=== PATIENT | female | born 1990 | race Caucasian/White ===

== ENCOUNTER 2021-12-24 09:14 | Emergency (ER) | payer OTHER, SELFPAY ==
[2021-12-24 09:15] VITALS: BP 158/105; PULSE 130; RESP 18; TEMP 36.1; O2SAT 100; BMI 20.9
--- NOTE | 2021-12-24 09:31 | RAD_ITS ---
STUDY: X-RAY CHEST REASON FOR EXAM: Female, 31 years old. Substernal chest pain TECHNIQUE: Single AP portable view of the chest. COMPARISON: None. FINDINGS: EKG leads overlie the chest The lungs are clear and expanded. There is no demonstrated pleural abnormality. Normal size heart. Normal mediastinum and izabel. Normal visualized pulmonary arteries. Normal visualized aortic arch and descending thoracic aorta. Normal visualized thoracic spine. Normal visualized ribs, clavicles, and shoulders. There is no demonstrated abnormality of the visualized soft tissue structures of the upper abdomen. RAD/Chest 1 View (Portable) IMPRESSION: Normal x-ray examination of the chest. Electronically Signed: Wilfrido Howard MD at 10:31 EDT ,
--- NOTE | 2021-12-24 09:31 | EKG12_ITS ---
Test Reason : PALP Blood Pressure : / mmHG Vent. Rate : 116 BPM Atrial Rate : 116 BPM P-R Int : 158 ms QRS Dur : 070 ms QT Int : 322 ms P-R-T Axes : 080 070 024 degrees QTc Int : 447 ms Sinus tachycardia Biatrial enlargement Abnormal ECG Confirmed by RUCHI ALVARADO, THEODORE ([id number]), editorial intern HAKEEM HANSEN ([id number]) on 12/26/2021 12:47:07 PM Referred By: NADEEM Confirmed By:THEODORE HOPPER MD
[2021-12-24 10:05] LABS: Absolute Lymphocyte Count 1.47 X10^3/uL (0.83-4.51); Absolute Neutrophil Count 4.5 X10^3/uL (2.0-7.7); Basophil# 0.05 X10^3/uL; Basophil% 0.7 % (0-1); Eosinophil# 0.09 X10^3/uL; Eosinophils% 1.3 % (0-5); Hematocrit 48.1 % (37-47); Hemoglobin 16.5 g/dL (12.0-15.0); Lymphocyte # 1.47 X10^3/ul (0.83-4.51); Lymphocyte % 21.6 % (19-41); Mean Corp Hgb Conc 34.3 g/dL (32-36); Mean Corpuscular Hgb 29.2 pg (27.0-32.0); Mean Corpuscular Volume 85.1 fL (81-99); Mean Platelet Vol. 10.1 fl (6.2-12.0); Monocyte# 0.71 X10^3/uL; Monocyte% 10.4 % (0-10); NRBC Flagged by Analyzer 0 % (0-5); Neutrophil # 4.48 X10^3/uL (2.7-7.7); Neutrophil % 65.7 % (47-70); Platelet Count 225 K/mm3 (150-450); RBC Distribution Width CV 12.1 % (11.6-14.6); RBC Distribution Width SD 37.8 fl (35.1-43.9); Red Blood Count 5.65 M/mm3 (4.2-5.4); White Blood Count 6.8 K/mm3 (4.4-11.0)
[2021-12-24 10:16] LABS: Anion Gap 8 (5-15); BUN 10 mg/dL (7-18); BUN/Creat Ratio 14.1 RATIO (10-20); Calcium,Total 9.6 mg/dL (8.5-10.1); Chloride 106 mmol/L (98-107); Creatinine, Serum 0.71 mg/dL (0.55-1.02); EST Glomerular Filtration Rate 103 mL/min (>60); Est Glom Filt Rate - Afr Amer 125 mL/min (>60); Estimated Creatinine Clearance 108.83 ml/min; Glucose 112 mg/dL (74-106); Potassium 3.5 mmol/L (3.5-5.1); Sodium Level 138 mmol/L (136-145); Troponin-I HS 7 pg/mL (3.0-54.0)
--- NOTE | 2021-12-24 10:46 | EDS_ITS ---
HPI History of Present Illness Chief Complaint: Palpitations Detail of Chief Complaint: No chest pain. No shortness of breath. Accelerated heart rate. Informant: patient Onset/Context/Timing Onset: Weeks Activity at onset: gradual Timing: Intermittent Worsened By: Nothing Relieved By: Nothing Associated Symptoms: Positive for Nausea and Palpitations; Negative for Vomiting, Diaphoresis, Dyspnea, Cough, Fever, Lightheadedness or Acid Reflux Narrative Narrative: Healthy 31-year-old female currently about 5 weeks . No care as of yet. That is upcoming. Patient's had COVID twice. June last year October. She did well. She is never had a DVT or PE. No hemoptysis. No chest pain. No leg pain or swelling. States the last couple weeks she has had intermittent tachycardia. 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 This morning while working her heart rate went to 142 that she saw on her apple watch. No syncope. She does not feel dehydrated. States she is peeing well. No fever. No melena or diarrhea. She has no cardiac history. She has never had a DVT or PE. Her mom did wants when she was . Prior Similar Symptoms: No Recent Illness/Hospitalization: No CVD Risk Factors: Negative for Hypertension, Diabetes, Hypercholesterolemia or Smoking PE Risk Factors: Negative for Recent Travel/Surgery, Recent Immobilization, Prior DVT or PE, Cancer or OCP + Smoking + >/=35 TAD Risk Factors: Negative for Marfan's Syndrome or Hypertension [facility] Medical History COVID-19 Vasovagal syncope Home Medications multivitamin 1 tab PO DAILY 01/13/21 [History Last Taken Unknown] Allergy/AdvReac Type Severity Reaction Status Date / Time amoxicillin Allergy Intermediate Rash Verified 12/24/21 09:15 cefprozil [From Cefzil] Allergy Intermediate Rash Verified 12/24/21 09:15 Family History Father Hypertension Obesity Hyperlipidemia Aunt Breast cancer Grandmother Breast cancer Myelodysplastic syndrome Hypertension Parkinsons Dementia Grandfather Heart disease Kidney disease Diabetes Hypertension CVA (cerebral vascular accident) Myocardial infarction Mother Osteopenia Surgical History History of oral surgery History of tonsillectomy and adenoidectomy Social History household members: spouse number of children: 0 current occupational status: employed 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 Review of Systems ROS Unobtainable: Denies due to encephalopathy Constitutional Constitutional ED: Denies chills Eyes Eyes: Denies none ENT ENT ED: Denies ear pain Cardiovascular Cardiovascular: Reports as per HPI, palpitations and racing heartbeat; Denies chest pain Respiratory/Chest Respiratory/Chest: Denies cough or dyspnea Gastrointestinal Gastrointestinal: Reports nausea; Denies abdominal pain, constipation, diarrhea, melena or vomiting Genitourinary Genitourinary ED: Denies dysuria or hematuria Musculoskeletal Musculoskeletal: Denies arthralgias Integumentary Denies abscess Neurologic Neurologic: Denies headache(s) Psychiatric Psychiatric: Reports anxiety Endocrine Endocrinology: Denies cold intolerance Hematologic/Lymphatic Hematologic/Lymphatic: Denies easy bleeding Allergic/Immunologic Allergic/Immunologic ED: Denies mouth swelling EXAM Physical Exam Narrative Exam Narrative: Very well-appearing 31-year-old female. No acute distress. Heart rate is 131 on the monitor while resting in bed. Pulse ox 100% on room air. Initial blood pressure 158/105. She says she does get anxious when she is being evaluated by medical personnel. H EENT exam unremarkable. Moist use membranes. Neck nontender no JVD. No lymphadenopathy. Lungs clear to auscultation bilaterally. Heart tachycardic rate about 130 no murmur. Abdomen soft nontender normal bowel sounds no peritoneal signs. Moving all 4 extremities. Equal symmetrical radial pulses. Calves are nontender without edema or cords. Neurologic exam normal. Const Vital Signs: 12/24/21 09:15 12/24/21 11:06 12/24/21 11:06 Temperature 97.0 F L Temperature Source Temporal Pulse Rate 130 H 109 H Respiratory Rate 18 16 Respiratory Effort Blood Pressure 158/105 H 139/83 H Blood Pressure Mean 122 101 Pulse Ox 100 99 99 Oxygen Delivery Method Room Air Room Air Room Air 12/24/21 11:08 Temperature Temperature Source Pulse Rate Respiratory Rate Respiratory Effort Normal Non-Labored Blood Pressure Blood Pressure Mean Pulse Ox Oxygen Delivery Method Positive well nourished and well developed; Negative for obese, cachectic or contractures General Appearance ED: well developed; Negative for cachectic, contractures or pallor Nutritional Appearance: Negative for cachectic or obese HEENT Reports moist mucous membranes normocephalic and atraumatic; Negative for trauma or tenderness Eyes PERRL and EOMs intact bilaterally General Eye ED: Negative for pale conjunctiva or scleral icterus Neck no lymphadenopathy, supple and no JVD General: Negative for tenderness Chest Wall inspection of chest normal and palpation of chest normal Resp normal respiratory effort and clear to auscultation bilaterally Effort and Inspection: respiratory distress; Negative for pain with movement Auscultation: Negative for rales, rhonchi or wheezes Cardio regular rhythm, S1 normal heart sound and S2 normal heart sound; Negative for regular rate Rate: tachycardic GI normal to inspection, nondistended, normoactive bowel sounds, soft to palpation, non-tender, non-distended and no masses; Negative for hepatosplenomegaly Palpation: Negative for splenomegaly or mass Back/Spine no CVA tenderness and no thoracic nor lumbar tenderness Extremity normal to inspection General Extremety ED: Negative for edema or pulses abnormal General Extremity: Negative for edema or pulses abnormal Neuro oriented x3, CN's II-XII intact bilaterally and no sensory deficits noted Sensorium / Orientation: awake, alert, oriented to person, oriented to place and oriented to time; Negative for confused, lethargic or stuporous Motor Exam: strength 5/5 throughout Psych mental status grossly normal Mood & Affect: anxious Skin no rashes or lesions noted and no wounds General Skin Exam: Negative for jaundice or pallor Rashes: No rashes noted Trauma: Negative for abrasion or laceration MDM MDM MDM Narrative Medical decision making narrative: 31-year-old female 5 weeks with tachycardia. Undergo cardiac work-up including a D-dimer. She will be treated with a liter of normal saline. Her initial EKG was sinus tachycardia rate of 116. Repeat exam at 1218 patient doing well. Resting comfortably. We went over all her lab and other results. When I walked in the room her heart rate was 103 either begin talking and jumped up to 121 so this may be related to a white coat syndrome or an anxiety. I doubt that she needs any further testing at this time. It could also be related to her prior COVID but nothing that I can directly relate to that currently. She has a OB appointment next month. Lab Data Attestation: I reviewed the patient's lab results. Lab results narrative: CBC White count of 6. H&H is 16 and 48. Platelets 225. Electrolytes unremarkable gap of 8. BUN 10 creatinine 0.71. Glucose of 112. Troponin 7. Chest x-ray normal. D-dimer normal 0.35. Labs: Laboratory Results - last 24 hr 12/24/21 12/24/21 12/24/21 09:51 09:51 09:51 WBC 6.8 RBC 5.65 H Hgb 16.5 H Hct 48.1 H MCV 85.1 MCH 29.2 MCHC 34.3 RDW Std Deviation 37.8 RDW Coeff of Duong 12.1 Plt Count 225 MPV 10.1 Immature Gran % (Auto) 0.300 Neut % (Auto) 65.7 Lymph % (Auto) 21.6 Cache % (Auto) 10.4 H Eos % (Auto) 1.3 Baso % (Auto) 0.7 Absolute Neuts (auto) 4.5 Absolute Lymphs (auto) 1.47 Nucleated RBC % 0 D-Dimer Quant (PE/DVT) 0.35 Sodium 138 Potassium 3.5 Chloride 106 Carbon Dioxide 24.0 Anion Gap 8 BUN 10 Creatinine 0.71 Estim Creat Clear Calc 108.83 Est GFR (MDRD) Af Amer 125 Est GFR (MDRD) Non-Af 103 BUN/Creatinine Ratio 14.1 Glucose 112 H Calcium 9.6 Troponin I High Sens 7 Radiography Chest X-Ray - ED: 1 View, Read by ED Physician, Read by Radiologist, Heart, Lungs, Mediastinum, Bony Structures and No Acute Disease Diagnostic Testing: Clinical Impression(s) from Imaging Studies Chest X-Ray 12/24/21 09:31 IMPRESSION: Normal x-ray examination of the chest. Electronically Signed: Wilfrido Howard MD at 10:31 EDT , Chest x-ray portable, single view interpreted myself and radiologist as no acute abnormality. Normal cardiac silhouette. Normal mediastinum. Normal lung mas. Rhythm Strip Rhythm Strip: Sinus Tach Rate: 116 EKG Initial EKG: Attestation: I personally reviewed and interpreted this EKG as follows: Interpretation: Sinus Tachycardia Comments: Sinus tachycardia rate of 116 no acute signs of ND, ischemia or dysrhythmia. Discharge Plan Triage Chief Complaint: Palpitations ED Provider: Edy Montiel Dx/Rx/DC Orders Clinical Impression: Tachycardia, First trimester Instructions: ED Palpitations Prescriptions: No Action multivitamin Tablet 1 tab PO DAILY Primary Care Provider: Kj Weeks Referrals: Kj Weeks MD [Primary Care Provider] - As Needed Activity Restrictions/Additional Instructions: No specific cause for your accelerated heart rate. It may be secondary to likely whitecoat syndrome or anxiety. Your labs, EKG and chest x-ray are unremarkable. Plenty of fluids and rest. Follow-up with your primary care physician as needed. Keep your scheduled OB appointment next month. Start slowly getting back into her normal exercise routine. Disposition Disposition: Home, Self Care
[2021-12-24] MEDS: 0.9% Normal Saline 1,000 ML 999 ML IV (11:04)
[2021-12-24 11:06] VITALS: BP 139/83; PULSE 109; RESP 16; O2SAT 99
[2021-12-24 11:11] LABS: D-Dimer Quantitative (DVT/PE) 0.35 FEU/ug/m (0.27-0.49)
[2021-12-24 12:40] VITALS: BP 128/76; PULSE 74; RESP 16; O2SAT 98
== END 2021-12-24 12:42 | disposition home or self-care (01) ==
PROVIDERS: Emergency Provider Emergency Medicine; PCP Family Medicine; Visit Provider Emergency Medicine
DX: O99.891 Other specified diseases and conditions complicating pregnancy (principal); R00.0 Tachycardia, unspecified; Z3A.01 Less than 8 weeks gestation of pregnancy; Z86.16 Personal history of COVID-19; Z82.49 Family history of ischemic heart disease and other diseases of the circulatory system
CPT/HCPCS: 71045; 80048; 84484; 85025; 85379; 93005; 96360; 99284; J7030; A4216

== ENCOUNTER → 2022-01-11 | Outpatient (CLI) | payer OTHER, SELFPAY ==
--- NOTE | 2022-01-11 07:45 | US_ITS ---
STUDY: ULTRASOUND BREAST - LEFT REASON FOR EXAM: Female, 31 years old. 4 week history of left axillary lump. Patient is . TECHNIQUE: Axial and longitudinal images of the LEFT breast were performed with a high resolution ultrasound transducer. # OF IMAGES: 26 COMPARISON: None. FINDINGS: LEFT Breast: The left axillary region was examined with ultrasound. There is a 1.1 cm x 0.8 side about 0.7 cm benign-appearing lymph node. Adjacent to this, there is a 2.9 cm x 1.6 cm x 0.8 cm hypoechoic nodule with central echogenic structures suggestive of an inflamed edematous lymph node. Follow-up is recommended. US/Breast Limited Unilateral IMPRESSION: Findings suggestive of enlarged inflamed lymph node measuring 2.9 cm x 1.6 cm x 0.8 cm. Sonographic follow-up is recommended. ASSESSMENT CATEGORY: BIRADS Category 3: Probably Benign - Short-Interval Follow-up Suggested. A letter regarding these results will be sent to the patient by the facility within 30 days. Electronically Signed: Alfredo Pan MD at 9:17 EDT ,
== END | disposition home or self-care (01) ==
LOC: OPUS 07:44
PROVIDERS: PCP Family Medicine; Visit Provider Obstetrics & Gynecology
DX: O92.29 Other disorders of breast associated with pregnancy and the puerperium (principal); Z3A.00 Weeks of gestation of pregnancy not specified
CPT/HCPCS: 76642

== ENCOUNTER → 2022-01-26 | Outpatient (CLI) | payer OTHER, SELFPAY ==
[2022-01-26 12:30] LABS: Absolute Lymphocyte Count 1.58 X10^3/uL (0.83-4.51); Absolute Neutrophil Count 7.2 X10^3/uL (2.0-7.7); Basophil# 0.03 X10^3/uL; Basophil% 0.3 % (0-1); Eosinophil# 0.07 X10^3/uL; Eosinophils% 0.7 % (0-5); Hematocrit 40.4 % (37-47); Hemoglobin 14.4 g/dL (12.0-15.0); Lymphocyte # 1.58 X10^3/ul (0.83-4.51); Lymphocyte % 16.2 % (19-41); Mean Corp Hgb Conc 35.6 g/dL (32-36); Mean Corpuscular Hgb 29.4 pg (27.0-32.0); Mean Corpuscular Volume 82.6 fL (81-99); Mean Platelet Vol. 10.5 fl (6.2-12.0); Monocyte# 0.81 X10^3/uL; Monocyte% 8.3 % (0-10); NRBC Flagged by Analyzer 0 % (0-5); Neutrophil # 7.24 X10^3/uL (2.7-7.7); Neutrophil % 74.3 % (47-70); Platelet Count 210 K/mm3 (150-450); RBC Distribution Width CV 11.7 % (11.6-14.6); RBC Distribution Width SD 34.5 fl (35.1-43.9); Red Blood Count 4.89 M/mm3 (4.2-5.4); White Blood Count 9.8 K/mm3 (4.4-11.0)
[2022-01-26 12:49] LABS: NATERA MAILED SPECIMEN
[2022-01-26 13:20] LABS: Amphetamine Urine VISTA NEGATIVE (<1000 ng/mL); Barbiturate Urine VISTA NEGATIVE (< 200 ng/mL); Benzodiazepine Urine VISTA NEGATIVE (< 200 ng/mL); Cocaine Urine VISTA NEGATIVE (< 300 ng/mL); Ecstacy Urine VISTA NEGATIVE (< 500 ng/mL); Methadone Urine VISTA NEGATIVE (< 300 ng/mL); PCP Urine VISTA NEGATIVE (< 25 ng/mL); THC Urine VISTA NEGATIVE (< 50 ng/mL); Vista UDS pH Range 5
[2022-01-26 13:30] LABS: HIV - WCH Non-Reactive (Nonreactive); Hepatitis B Surface Antigen Non-Reactive (Nonreactive); Hepatitis C Antibody Non-Reactive (Nonreactive); Rubella IgG Reactive (Nonreactive); Syphilis Antibodies Non-reactive
[2022-01-30 22:06] LABS: Chlamydia By Nucleic Acid AMP Negative (Negative)
[2022-01-30 23:02] LABS: Gonococcus By Nucleic Acid AMP Negative (Negative)
== END | disposition home or self-care (01) ==
PROVIDERS: PCP Family Medicine; Visit Provider Obstetrics & Gynecology
DX: Z34.81 Encounter for supervision of other normal pregnancy, first trimester (principal)
CPT/HCPCS: 36415; 80307; 85025; 86703; 86762; 86780; 86803; 86850; 86900; 86901; 87086; 87088; 87340; 87491; 87591

== ENCOUNTER → 2022-02-13 | Outpatient (CLI) | payer OTHER, SELFPAY ==
--- NOTE | 2022-02-13 07:49 | US_ITS ---
STUDY: ULTRASOUND BREAST - LEFT REASON FOR EXAM: Female, 31 years old. Left axillary lump. The patient is . TECHNIQUE: Axial and longitudinal images of the LEFT breast were performed with a high resolution ultrasound transducer. # OF IMAGES: 14 COMPARISON: Comparison is made with prior study dated 01/11/2022. FINDINGS: LEFT Breast: There is a 4.4 cm x 2.8 cm x 1 cm hypoechoic nodular density in the left axilla with increased vascularity. This has increased in size as compared to prior study. Biopsy is recommended. Stable appearance of 2 benign-appearing axillary lymph nodes. US/Breast Limited Unilateral IMPRESSION: Increased size of the hypoechoic nodular density in the left axilla with increased vascularity. Biopsy recommended. ASSESSMENT CATEGORY: BIRADS Category 4: Suspicious - Biopsy Should Be Considered. A letter regarding these results will be sent to the patient by the facility within 30 days. Electronically Signed: Alfredo Pan MD at 14:54 EDT ,
== END | disposition home or self-care (01) ==
LOC: OPUS 07:48
PROVIDERS: PCP Family Medicine; Referring Provider Obstetrics & Gynecology; Visit Provider Obstetrics & Gynecology
DX: N63.25 Unspecified lump in the left breast, overlapping quadrants (principal)
CPT/HCPCS: 76642

== ENCOUNTER → 2022-02-23 | Outpatient (CLI) | payer OTHER, SELFPAY ==
--- NOTE | 2022-02-23 14:30 | AXNB_PTH ---
PATIENT: ROMERO GRAJEDA LOC: [facility] U#:[id number] AGE/SX: 31/F ROOM: RE02/23/[address]: Dr. Petr Chase MD : 1990 BED: DIS: 02/23/2022 SPEC #: [id number] RECD: 02/23/22 15:11 STATUS: YOJANA ACUÑAOfelia #: [id number] IRENA: 02/23/22 14:[address]: Petr Chase DEPT: SURGICAL PATHOLOGY RECD BY: Santos Benedict ENTERED: 02/24/22 08:14 SP TYPE: AX NODE BX OTHR DR: Tasha Chapa DO Tissues: Axillary lymph node, NOS Procedures: Surgery Specimen Level V HEADER OPERATION: Excision, left axillary node PRE-OP DIAGNOSIS: Left axillary mass TISSUE SUBMITTED: Left axillary mass MICROSCOPIC DIAGNOSIS Left axillary mass, biopsy: Consistent with tubular adenoma of breast. AM:mickey 02/27/2022 COMMENT Case has been reviewed in consultation with Dr. Talley who concurs with the above diagnosis. IDC:SJ MICROSCOPIC DESCRIPTION Slides are reviewed. GROSS DESCRIPTION Received in fixative is one container labeled with the patient's name and designated left axillary mass. The specimen consists of a piece of jim soft tissue measuring 2.5 x 1.5 x 1.5 cm. The entire specimen is submitted in two cassettes. / BEREKET:mickey 02/24/2022 TC:1 CPT: 78937
== END | disposition home or self-care (01) ==
LOC: LABSPEC 15:12
PROVIDERS: PCP Family Medicine; Visit Provider Surgery
DX: D24.2 Benign neoplasm of left breast (principal)
CPT/HCPCS: 88305; 88307

== ENCOUNTER → 2022-04-03 | Outpatient (CLI) | payer OTHER, SELFPAY ==
--- NOTE | 2022-04-03 11:23 | US_ITS ---
INDICATION: anatomy EXAMINATION: US OB Greater Than 14 Weeks TECHNIQUE: Transabdominal pelvic ultrasound was performed, including limited transvaginal imaging of cervix.. COMPARISON: None received. FINDINGS: Single live intrauterine fetus in cephalic presentation with heart rate of 136 BPM. Grade 0 anterior placenta with no placenta previa. Closed cervix measures 4.4 cm length transvaginally. Maternal adnexa are imaged but ovaries are not visualized. Amniotic fluid volume within normal limits, largest pocket of fluid measuring 5 cm. Visualized and unremarkable intracranial structures, facial profile, four-chamber heart, diaphragm, stomach, abdominal wall, kidneys, urinary bladder, three-vessel umbilical cord, cord insertion, spine and 4 extremities. Female genitalia suggested. Estimated gestational age of 19 weeks 5 days based on biometrics with SCOTT of 08/23/2022. Clinical age of 20 weeks 1 day based on established LMP of 11/13/2021 with SCOTT of 08/20/2022. Estimated weight 319 g, 31st percentile. BIOMETRIC MEASUREMENTS: BIPARIETAL DIAMETER: 4.59 cm which corresponds to 19 weeks 6 days. HEAD CIRCUMFERENCE: 16.95 cm which corresponds to 19 weeks 4 days. ABDOMINAL CIRCUMFERENCE: 14.74 cm which corresponds to 20 weeks 0 days. FEMORAL LENGTH: 3.12 cm which corresponds to 19 weeks 5 days. US/OB Anatomy Scan IMPRESSION: Single live intrauterine with EGA of 19 weeks 5 days by ultrasound and no acute abnormality. Electronically Signed: Ion Velez MD at 3:53 EDT ,
== END | disposition home or self-care (01) ==
LOC: US 11:22
PROVIDERS: PCP Family Medicine; Referring Provider Obstetrics & Gynecology; Visit Provider Obstetrics & Gynecology
DX: Z34.02 Encounter for supervision of normal first pregnancy, second trimester (principal)
CPT/HCPCS: 76805; 76817

== ENCOUNTER → 2022-05-15 | Outpatient (CLI) | payer OTHER, SELFPAY ==
[2022-05-15 11:10] LABS: Absolute Lymphocyte Count 1.63 X10^3/uL (0.83-4.51); Absolute Neutrophil Count 5.7 X10^3/uL (2.0-7.7); Basophil# 0.03 X10^3/uL; Basophil% 0.4 % (0-1); Eosinophil# 0.55 X10^3/uL; Eosinophils% 6.5 % (0-5); Hematocrit 37.2 % (37-47); Hemoglobin 13.1 g/dL (12.0-15.0); Lymphocyte # 1.63 X10^3/ul (0.83-4.51); Lymphocyte % 19.2 % (19-41); Mean Corp Hgb Conc 35.2 g/dL (32-36); Mean Corpuscular Hgb 30.7 pg (27.0-32.0); Mean Corpuscular Volume 87.1 fL (81-99); Mean Platelet Vol. 9.7 fl (6.2-12.0); Monocyte# 0.61 X10^3/uL; Monocyte% 7.2 % (0-10); NRBC Flagged by Analyzer 0 % (0-5); Neutrophil # 5.65 X10^3/uL (2.7-7.7); Neutrophil % 66.3 % (47-70); Platelet Count 177 K/mm3 (150-450); RBC Distribution Width CV 12.8 % (11.6-14.6); RBC Distribution Width SD 40.3 fl (35.1-43.9); Red Blood Count 4.27 M/mm3 (4.2-5.4); White Blood Count 8.5 K/mm3 (4.4-11.0)
[2022-05-15 11:31] LABS: Glucose Challenge Gest 1H 50g 141 mg/dL (70-140)
[2022-05-15 12:06] LABS: HIV - WCH Non-Reactive (Nonreactive); Syphilis Antibodies Non-reactive
== END | disposition home or self-care (01) ==
LOC: LAB 10:13
PROVIDERS: PCP Family Medicine; Referring Provider Obstetrics & Gynecology; Visit Provider Obstetrics & Gynecology
DX: Z34.82 Encounter for supervision of other normal pregnancy, second trimester (principal)
CPT/HCPCS: 36415; 82950; 85025; 86703; 86780; 86900; 86901

== ENCOUNTER → 2022-05-18 | Outpatient (CLI) | payer OTHER, SELFPAY ==
[2022-05-18 07:39] LABS: Glucose GTT-Gestation. Fasting 87 mg/dL (<105)
[2022-05-18 08:32] LABS: Glucose GTT-Gestational 1 Hr 110 mg/dL (<190)
[2022-05-18 10:18] LABS: Glucose GTT-Gestational 2 Hr 90 mg/dL (<165)
[2022-05-18 10:53] LABS: Glucose GTT-Gestational 3 Hr 83 L (<145)
== END | disposition home or self-care (01) ==
LOC: LAB 06:44
PROVIDERS: PCP Family Medicine; Visit Provider Obstetrics & Gynecology
DX: Z13.1 Encounter for screening for diabetes mellitus (principal)
CPT/HCPCS: 36415; 82951; 82952

== ENCOUNTER → 2022-06-29 | Outpatient (CLI) | payer OTHER, SELFPAY ==
--- NOTE | 2022-06-29 12:17 | US_ITS ---
STUDY: SECOND AND THIRD TRIMESTER OBSTETRICAL ULTRASOUND - LIMITED REASON FOR EXAM: Female, 31 years old covid, growth LMP: 11/10/2021. PRIOR ULTRASOUND: Comparison is made with prior sonogram dated 04/03/2022. TECHNIQUE: Transabdominal TECHNICAL QUALITY: Adequate. FINDINGS: There is a single intrauterine fetus. The fetus is in a cephalic presentation. There is demonstrated cardiac activity with a heart rate of 125 bpm. There is a normal amniotic fluid volume. The largest amniotic fluid pocket measures 4.0 cm. The amniotic fluid index (GENEVA) is 13.0 cm. The placenta is anterior in location and is not low lying. There are Grade 1 placental changes. The cervix measures 3.7 cm in length. BIOMETRY: BPD: 8.1 cm: 32 weeks, 3 days HC: 29.2 cm: 32 weeks, 1 days AC: 28.4 cm: 32 weeks, 3 days FL: 6.0 cm: 31 weeks, 2 days Age by LMP: 32 weeks, 4 days. SCOTT by LMP: 08/20/2022. age by prior US: 32 weeks, 1 days. SCOTT by prior US: 08/23/2022. age by current US: 31 weeks, 5 days. SCOTT by current US: 08/26/2022. Estimated weight: 1921 grams, +/- 288 grams, 29 percentile. US/OB Limited With Biometrics IMPRESSION: Single live intrauterine gestation with mean gestational age of 32 weeks and 1 day. The measurements obtained today fall within the normal expected range. Electronically Signed: Alfredo Pan MD at 15:12 EST ,
== END | disposition home or self-care (01) ==
LOC: OPUS 12:16
PROVIDERS: PCP Family Medicine; Referring Provider Registered Nurse; Visit Provider Registered Nurse
DX: U07.1 COVID-19 (principal); Z3A.32 32 weeks gestation of pregnancy
CPT/HCPCS: 76816

== ENCOUNTER → 2022-07-24 | Outpatient (CLI) | payer OTHER, SELFPAY ==
--- NOTE | 2022-07-24 07:53 | US_ITS ---
STUDY: SECOND AND THIRD TRIMESTER OBSTETRICAL ULTRASOUND - LIMITED REASON FOR EXAM: Female, 31 years old covid, growth LMP: 11/13/2021. PRIOR ULTRASOUND: Comparison is made with prior study dated 06/29/2022. TECHNIQUE: Transabdominal TECHNICAL QUALITY: Adequate. FINDINGS: There is a single intrauterine fetus. The fetus is in a cephalic presentation. There is demonstrated cardiac activity with a heart rate of 148 bpm. There is a normal amniotic fluid volume. The largest amniotic fluid pocket measures 3.2 cm. The amniotic fluid index (GENEVA) is 8.3 cm. The placenta is anterior in location and is not low lying. There are Grade 1 placental changes. The cervix measures 3.1 cm in length. BIOMETRY: BPD: 8.88 cm: 35 weeks, 6 days HC: 31.71 cm: 35 weeks, 5 days AC: 32.06 cm: 36 weeks, 0 days FL: 6.98 cm: 35 weeks, 5 days Age by LMP: 36 weeks, 1 days. SCOTT by LMP: 08/20/2022. age by prior US: 35 weeks, 2 days. SCOTT by prior US: 08/26/2022. age by current US: 35 weeks, 3 days. SCOTT by current US: 08/25/2022. Estimated weight: 2834 grams, +/- 425 grams, 49 percentile. US/OB Limited With Biometrics IMPRESSION: Single live intrauterine gestation with a mean gestational age of 35 weeks and 2 days. The measurements obtained today following within the normal expected range. Electronically Signed: Alfredo Pan MD at 13:08 EST ,
== END | disposition home or self-care (01) ==
LOC: OPUS 07:51
PROVIDERS: PCP Family Medicine; Referring Provider Registered Nurse; Visit Provider Registered Nurse
DX: O98.513 Other viral diseases complicating pregnancy, third trimester (principal); U07.1 COVID-19; Z3A.35 35 weeks gestation of pregnancy
CPT/HCPCS: 76816

== ENCOUNTER → 2022-07-26 | Outpatient (CLI) | payer OTHER, SELFPAY | END | disposition home or self-care (01) | LOC: LABSPEC 10:25 | PROVIDERS: PCP Family Medicine; Referring Provider Registered Nurse; Visit Provider Registered Nurse | DX: Z36.85 Encounter for antenatal screening for Streptococcus B (principal) | CPT/HCPCS: 87081 ==

== ENCOUNTER 2022-08-18 23:55 | Inpatient (IN) | payer OTHER, SELFPAY ==
[2022-08-18 23:11] VITALS: BMI 24.5
[2022-08-18 23:14] VITALS: TEMP 36.4
[2022-08-18 23:18] VITALS: PULSE 86; O2SAT 99
[2022-08-18 23:25] VITALS: BP 155/91; PULSE 76
[2022-08-18 23:26] VITALS: BP 152/89; PULSE 81
[2022-08-18 23:42] VITALS: BP 141/87; PULSE 75
[2022-08-19] VITALS (45 sets, daily range): BP systolic 115–143; BP diastolic 70–94; PULSE 67–115; RESP 16–18; TEMP 36.5–37.6; O2SAT 97–100
[2022-08-19 00:30] LABS: Absolute Lymphocyte Count 2.06 X10^3/uL (0.83-4.51); Absolute Neutrophil Count 8.5 X10^3/uL (2.0-7.7); Basophil# 0.04 X10^3/uL; Basophil% 0.3 % (0-1); Eosinophils% 1.7 % (0-5); Hematocrit 38.8 % (37-47); Hemoglobin 13.4 g/dL (12.0-15.0); Lymphocyte # 2.06 X10^3/ul (0.83-4.51); Lymphocyte % 17.2 % (19-41); Mean Corp Hgb Conc 34.5 g/dL (32-36); Mean Corpuscular Hgb 29.8 pg (27.0-32.0); Mean Corpuscular Volume 86.4 fL (81-99); Mean Platelet Vol. 10.6 fl (6.2-12.0); Monocyte# 1.05 X10^3/uL; Monocyte% 8.8 % (0-10); NRBC Flagged by Analyzer 0 % (0-5); Neutrophil # 8.52 X10^3/uL (2.7-7.7); Neutrophil % 71.2 % (47-70); Platelet Count 154 K/mm3 (150-450); RBC Distribution Width CV 12.7 % (11.6-14.6); RBC Distribution Width SD 39.8 fl (35.1-43.9); Red Blood Count 4.49 M/mm3 (4.2-5.4)
[2022-08-19 00:43] LABS: AST(SGOT) 14 U/L (15-37); Alanine Aminotransfer ALT/SGPT 18 U/L (13-56); Creatinine, Serum 0.58 mg/dL (0.55-1.02); EST Glomerular Filtration Rate 131 mL/min (>60); Est Glom Filt Rate - Afr Amer 158 mL/min (>60); Estimated Creatinine Clearance 133.98 ml/min; Uric Acid 4.9 mg/dL (2.6-6.0)
[2022-08-19] MEDS: fentaNYL-bupivacaine (epidural) 100 ML BAG EPIDURAL ×2 (01:44→05:46)
[2022-08-19 01:56] LABS: Protein, Urine (Random) 6.5 mg/dL (<11.9); Protein:Creat Ratio 267 mg/g CRE (0-200)
[2022-08-19] MEDS: Lactated Ringers 1,000 ML 200 ML IV ×2 (04:28)
--- NOTE | 2022-08-19 07:00 | HP.PCM.OB_ITS ---
HPI - General General Date of Admission: 08/18/22 Chief Complaint: contractions HPI Narrative ROMERO GRAJEDA, is a 31 F who presents at 39+6 with regular contractions since 6pm last evening with worsening intensity/strength. course complicated by -covid 19- normal growth scans Maternal Data Information SCOTT Calculator Estimated Delivery Date Method Current WG Current Estimate 08/20/22 Ultrasound #1 39w 6d Other Estimates 08/26/22 LMP (Certain) 39w 0d PFSH PFS Medical History COVID-19 Palpitations Vasovagal syncope Home Medications hojhtubu-zmp-Se-FA 1 mg tablet 1 tab PO DAILY 08/18/22 [History Last Taken 08/17/22] Allergy/AdvReac Type Severity Reaction Status Date / Time amoxicillin Allergy Intermediate Rash Verified 08/18/22 09:04 cefprozil [From Cefzil] Allergy Intermediate Rash Verified 08/18/22 09:04 Family History Father Hypertension Obesity Hyperlipidemia Aunt Breast cancer Grandmother Breast cancer Myelodysplastic syndrome Hypertension Parkinsons Dementia Grandfather Heart disease Kidney disease Diabetes Hypertension CVA (cerebral vascular accident) Myocardial infarction Mother Osteopenia Surgical History H/O excision of mass (~02/2022) History of oral surgery History of tonsillectomy and adenoidectomy Social History adopted: No household members: spouse housing: house number of children: 0 current occupational status: employed 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 [employer] pets and animals: No history of recent travel: No sexually active: Yes Smoking Status: Never smoker alcohol intake: former details: prior to 1 drink a month substance use type: does not use well-balanced diet: daily or most days caffeine: Yes Type: other Number of servings: 1 eating out: rarely or never during the past year weight has: remained stable what type of physical activity do you participate in: bicycling and weight training frequency: 1-2 times per week puma/worship: [employer] seatbelt use: always do you feel safe at home: Yes additional social history: - Castillo History 1 Elective abortions Hx Para 0 Spontaneous abortions Hx # Term Pregnancies Ectopic pregnancies Hx # Pregnancies Multiple births # of living children Visit Details Expected Delivery Route/Plan Labor Preferences- CB/BF classes: signed up for all three labor support 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 cut cord/dad catch: Castillo or both : yes PP control planned: discussed discussed possible routes of delivery and associated risks: [] special requests: [] Plans Covid status: [] Flu vaccine: obtained at work Tdap vaccine: provided Rhogam: na LARC form signed: yes Problem list reviewed and updated with the most current plan of care details and appropriate orders placed. Relevant counseling for the gestational age provided. Continue routine care and follow up unless otherwise noted in visit notes/problem list details OB Flowsheet Initial Weight: Not Recorded Date -?-?-?-?-?-?-?-?-?-?-?-?- EGA Weight BP Urine Prot -?-?-?-?-?-?-?-?-?-?-?-?- Glucose FHR FuHt Pres Dilation -?-?-?-?-?-?-?-?-?-?-?-?- Effaced St Visit Note 01/26/22 -?-?-?-?-?-?-?-?-?-?-?-?- 10w 4d 127 lb 146/80 -?-?-?-?-?-?-?-?-?-?-?-?- 171 -?-?-?-?-?-?-?-?-?-?-?-?- JV- CRL not cons istent with lmp. [place] given 02/28/22 -?-?-?-?-?-?-?-?-?-?-?-?- 15w 2d 126 lb 130/80 Negative -?-?--?-?-?-?-?-?-?-?-?-?- Negative 150 -?-?-?-?-?-?-?-?-?-?-?-?- SM- no vb conrad ng. bps nl at home 127/78. 03/28/22 -?-?-?-?-?-?-?-?-?-?-?-?- 19w 2d 131 lb 6 oz 144/62 Nega tive -?-?-?-?-?-?-?-?-?-?-?-?- Negative 153 -?-?-?-?-?-?-?-?-?-?-?-?- :No VB, crampi ng. Feeling flutters. [facility] [place] 04/0304/25/22 -?-?-?-?-?-?-?-?-?-?-?-?- 23w 2d 135 lb 132/80 -?-?-?-?-?-?-?-?-?-?-?-?- 151 23 -?-?-?-?-?-?-?-?-?-?-?-?- JV- plan r eviewed today. no complaints 05/26/22 -?-?-?-?-?-?-?-?-?-?-?-?- 27w 5d 140 lb 4 oz 134/80 Nega tive -?-?-?-?-?-?-?-?-?-?-?-?- Negative 136 28 -?-?-?-?-?-?-?-?-?-?-?-?- JV- no lof, vagi nal bleeding, or dec fm. 06/12/22 -?-?-?-?-?-?-?-?-?-?-?-?- 30w 1d 142 lb 2 oz 156/84 -?-?-?-?-?-?--?-?-?-?-?-?- 135 30 Cephalic -?-?-?-?-?-?-?-?-?-?-?-?- LC-no lof, vb,ct x. good fm. has growth scan ordered. LC-no lof, vb,ctx. good fm. has growth scan ordered. tdap given today. no concerns. BP at home 110-120/70-80 LC-no lof, vb,ctx. good fm. has growth scan ordered. tdap given today. no concerns. BP at home 110-120/70-80. repeat manual BP 130/70. PEC s/sx reviewed. LC-no lof, vb,ctx. good fm. has growth scan ordered. tdap given today. no concerns. BP at home 110-120/70-80. repeat manual BP 130/70. PEC s/sx reviewed. no s/sx today. 06/23/22 -?-?-?-?-?-?-?-?-?-?-?-?- 31w 5d 145 lb 8 oz 133/81 Nega tive -?-?-?-?-?-?-?-?-?-?-?-?- Negative 140 31 -?-?-?-?-?-?-?-?-?-?-?-?- JV- no lof, vagi nal bleeding, or dec fm. no complaints. pt had 3 hr and was normal. 07/04/22 -?-?-?-?-?-?-?-?-?-?-?-?- 33w 2d 146 lb 6 oz 134/76 Nega tive -?-?-?-?-?-?-?-?-?-?-?-?- Negative 142 33 -?-?-?-?-?-?-?-?-?-?-?-?- MH-NO VB, LOF. G ood FM. larc. 36 wk US sched. 07/21/22 -?-?-?-?-?-?-?-?-?-?-?-?- 35w 5d 130/83 Negative -?-?-?-?-?-?-?-?-?-?-?-?- Negative 140 34 Cephalic -?-?-?-?-?-?-?-?-?-?-?-?- SM- no vb lof go od fm no reuglar ctx 07/26/22 -?-?-?-?-?-?-?-?-?-?-?-?- 36w 3d 147 lb 132/80 Negative -?-?-?-?-?-?-?-?-?-?-?-?- Negative 140 35 Cephalic 1 -?-?-?-?-?-?-?-?-?-?-?-?- 30 -3 LC- no vb/ ctx/lof. good fm. gbs obtained today.growth scan normal 08/04/22 -?-?-?-?-?-?-?-?-?-?-?-?- 37w 5d 148 lb 8 oz 129/87 Nega tive -?--?-?-?-?-?-?-?-?-?-?-?- Negative 143 36 -?-?-?-?-?-?-?-?-?-?-?-?- JV- no lof, vagi nal bleeding, or dec fm. gbs neg. declines pelvic exam. 08/10/22 -?-?-?-?-?-?-?-?-?-?-?-?- 38w 4d 148 lb 8 oz 136/85 Nega tive -?-?-?-?-?-?-?-?-?-?-?-?- Negative 148 37 Cephalic 1 -?-?-?-?-?-?-?-?-?-?-?-?- 60 -2 JV- no lof , vaginal bleeding, or dec fm. 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 08/18/22 -?-?-?-?-?-?-?-?-?-?-?-?- 39w 5d 151 lb 4 oz 138/87 Nega tive -?-?-?-?-?-?-?-?-?-?-?-?- Negative 140 38 Cephalic 3 -?-?-?-?-?-?-?-?-?-?-?-?- 70 -1 SM- no vb lof good fm no regular ctx SM- no vb lof good fm no reg ular ctx. membranes swept NST FHR Rate Baby A Baseline: 140 Variability:: Moderate Accelerations:: 15 x 15 Decelerations:: None NST Reactive:: Yes FHR Category:: Category I Uterine Activity:: q2-3 minutes, palp strong ROS Cardiovascular Cardiovascular: Denies abdominal pain, chest pain, diaphoresis or dyspnea Respiratory/Chest Respiratory/Chest: Denies chest tightness or cough Genitourinary Genitourinary: Reports change in urinary stream Musculoskeletal Musculoskeletal: Reports none Integumentary Integumentary: Reports none Neurologic Neurologic: Reports none Psychiatric Psychiatric: Reports none Endocrine Endocrinology: Reports none Hematologic/Lymphatic Hematologic/Lymphatic: Reports none Allergic/Immunologic Allergic/Immunologic: Reports none Vital Signs Vital Signs Vital Signs: 08/18/22 23:14 08/18/22 23:18 08/18/22 23:18 Temperature 97.5 F L Temperature Source Pulse Rate 86 Blood Pressure BP Systolic BP Diastolic Pulse Ox 99 08/18/22 23:25 08/18/22 23:25 08/18/22 23:26 Temperature Temperature Source Pulse Rate 76 Blood Pressure 155/91 H 152/89 H BP Systolic 155 152 BP Diastolic 91 89 Pulse Ox 08/18/22 23:26 08/18/22 23:42 08/18/22 23:42 Temperature Temperature Source Pulse Rate 81 75 Blood Pressure 141/87 H BP Systolic 141 BP Diastolic 87 Pulse Ox 08/19/22 00:25 08/19/22 00:25 08/19/22 00:52 Temperature 98.3 F Temperature Source Temporal Pulse Rate Blood Pressure 137/89 H BP Systolic 137 BP Diastolic 89 Pulse Ox 08/19/22 00:52 08/19/22 00:51 08/19/22 00:56 Temperature Temperature Source Pulse Rate 86 Blood Pressure 138/91 H BP Systolic 138 BP Diastolic 91 Pulse Ox 100 08/19/22 00:56 08/19/22 00:56 08/19/22 00:56 Temperature Temperature Source Pulse Rate 88 102 H Blood Pressure BP Systolic BP Diastolic Pulse Ox 98 08/19/22 01:01 08/19/22 01:01 08/19/22 01:02 Temperature Temperature Source Pulse Rate 75 Blood Pressure 128/75 H BP Systolic 128 BP Diastolic 75 Pulse Ox 98 08/19/22 01:02 08/19/22 01:06 08/19/22 01:06 Temperature Temperature Source Pulse Rate 67 82 Blood Pressure BP Systolic BP Diastolic Pulse Ox 97 08/19/22 01:07 08/19/22 01:07 08/19/22 01:11 Temperature Temperature Source Pulse Rate 78 85 Blood Pressure 136/81 H BP Systolic 136 BP Diastolic 81 Pulse Ox 08/19/22 01:11 08/19/22 01:12 08/19/22 01:12 Temperature Temperature Source Pulse Rate 88 Blood Pressure 133/90 H BP Systolic 133 BP Diastolic 90 Pulse Ox 98 08/19/22 01:16 08/19/22 01:16 08/19/22 01:16 Temperature Temperature Source Pulse Rate 83 96 Blood Pressure 135/94 H BP Systolic 135 BP Diastolic 94 Pulse Ox 08/19/22 01:16 08/19/22 01:22 08/19/22 01:22 Temperature Temperature Source Pulse Rate 71 Blood Pressure 134/81 H BP Systolic 134 BP Diastolic 81 Pulse Ox 98 08/19/22 01:21 08/19/22 01:26 08/19/22 01:26 Temperature Temperature Source Pulse Rate 91 Blood Pressure BP Systolic BP Diastolic Pulse Ox 98 99 08/19/22 01:28 08/19/22 01:28 08/19/22 01:31 Temperature Temperature Source Pulse Rate 92 Blood Pressure 136/81 H 122/71 H BP Systolic 136 122 BP Diastolic 81 71 Pulse Ox 08/19/22 01:31 08/19/22 01:31 08/19/22 01:34 Temperature Temperature Source Pulse Rate 102 H Blood Pressure 117/74 BP Systolic 117 BP Diastolic 74 Pulse Ox 99 08/19/22 01:34 08/19/22 01:36 08/19/22 01:36 Temperature Temperature Source Pulse Rate 110 H 83 Blood Pressure BP Systolic BP Diastolic Pulse Ox 97 08/19/22 01:37 08/19/22 01:37 08/19/22 01:42 Temperature Temperature Source Pulse Rate 98 Blood Pressure 124/74 H 131/73 H BP Systolic 124 131 BP Diastolic 74 73 Pulse Ox 08/19/22 01:42 08/19/22 01:41 08/19/22 01:45 Temperature Temperature Source Pulse Rate 86 Blood Pressure 129/76 H BP Systolic 129 BP Diastolic 76 Pulse Ox 98 08/19/22 01:45 08/19/22 02:54 08/19/22 02:54 Temperature Temperature Source Pulse Rate 80 70 Blood Pressure 115/73 BP Systolic 115 BP Diastolic 73 Pulse Ox 08/19/22 02:54 08/19/22 04:30 08/19/22 04:30 Temperature 97.7 F L Temperature Source Pulse Rate 85 Blood Pressure 121/82 H BP Systolic 121 BP Diastolic 82 Pulse Ox 08/19/22 04:31 08/19/22 05:39 08/19/22 05:39 Temperature 98.8 F Temperature Source Pulse Rate 109 H Blood Pressure 124/76 H BP Systolic 124 BP Diastolic 76 Pulse Ox 08/19/22 05:39 08/19/22 05:40 08/19/22 06:19 Temperature 98.8 F Temperature Source Pulse Rate Blood Pressure 125/88 H BP Systolic 125 BP Diastolic 88 Pulse Ox 99 08/19/22 06:19 08/19/22 06:19 Temperature 98.8 F Temperature Source Pulse Rate 113 H Blood Pressure BP Systolic BP Diastolic Pulse Ox Weight Weight: 152 lb 6.4 oz Body Mass Index (BMI) 24.5 Physical Exam Const alert, oriented x3 and no apparent distress General Appearance: cooperative, comfortable and well kempt Orientation / Consciousness: awake and oriented to person Exam Limitations: no limitations HEENT normocephalic Neck full ROM Chest inspection of chest normal Resp normal respiratory effort, normal air movement and no retractions Effort and Inspection: able to speak in complete sentences and symmetric chest movement Cardio regular rate Peripheral Pulses: pulses 2+ throughout GI normal to inspection, nondistended, normoactive bowel sounds Inspection: gravid appearance of the vagina normal External Female Exam: normal appearance of the urethra; Negative for external lesion OB / External & Speculum: external exam normal Manual OB Exam: estimated gestational size appropriate and presentation cephalic Uterus Palpation: Negative for uterus tender Extremity normal to inspection Skin no rashes or lesions noted Neuro deep tendon reflexes 2+ bilaterally and gait normal Motor Exam: strength 5/5 throughout and clonus absent Psych Activity / Motor Behavior: appropriate eye contact Speech: normal speech Labs Labs Labs: Blood Type A POSITIVE Antibody Screen NEGATIVE Hct 38.8 % (37-47) Hgb 13.4 g/dL (12.0-15.0) Pap Smear Negative Obstetrics US Syphilis Total Ab Non-reactive Rubella IgG Antibody Reactive (Nonreactive) Hep Bs Antigen Non-Reactive (Nonreactive) Chlamydia DNA (LUIS) Negative (Negative) Neisseria gonorrhoeae DNA (LUIS) Negative (Negative) HIV 1&2 Antibody Non-Reactive (Nonreactive) Glucose 1 Hr 50 gm 141 mg/dL (70-140) H Assessment & Plan (1) Spontaneous onset of labor: COMMENT: at 39+6 in active spontaneous labor cat 1 strip comfortable with epidural arom at 0615 for clear fluid PLAN: -admit to -epidural for comfort -GBS negative -maternal and status reassuring -Dr. Hart updated on admission, POC and exam. concurs with primary midwifery management with negative PEC labs and normalized BP, available as needed. 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 Will bring cuff to compare next visit. PLAN: hypertension on admission PEC labs obtained and normal (3) Supervision of normal first : COMMENT: [id number], SCOTT 08/26/22, girl Spouse Castillo (4) : QUALIFIERS: Weeks of gestation: 39 weeks Qualified Code(s): Z3A.39 - 39 weeks gestation of COMMENT: GBS Neg. NIPT low risk, carrier neg. . declined afp screen. 04/04 nl anatomy Us (5) COVID-19: COMMENT: baby asa daily and 32/36 week scans PLAN: 36 weeks: 49% on admission EFW 7.75#
[2022-08-19] MEDS: LACTATED RINGERS 500 ML 999 ML IV (08:56)
[2022-08-19] MEDS: Lidocaine 1% (20 ml mdv) 20 ML Vial INFILT (09:41)
[2022-08-19] MEDS: Oxytocin 10 UNITS/ML Vial IM (09:44)
--- NOTE | 2022-08-19 10:53 | OP.PCM_ITS ---
Assessment & Plan (1) Spontaneous onset of labor: COMMENT: at 39+6 in active spontaneous labor cat 1 strip comfortable with epidural arom at 0615 for clear fluid (2) Abnormal glucose: COMMENT: 3 Hr GTT nl (3) Tubular adenoma of breast: COMMENT: Left breast (4) Mass of left axilla: COMMENT: tubular adenoma (5) Supervision of normal first : COMMENT: [id number], SCOTT 08/26/22, girl Spouse Castillo (6) : QUALIFIERS: Weeks of gestation: 39 weeks Qualified Code(s): Z3A.39 - 39 weeks gestation of COMMENT: GBS Neg. NIPT low risk, carrier neg. . declined afp screen. 04/04 nl anatomy Us (7) COVID-19: COMMENT: baby asa daily and 32/36 week scans Maternal Data Information SCOTT Calculator Estimated Delivery Date Method Current WG Current Estimate 08/20/22 Ultrasound #1 39w 6d Other Estimates 08/26/22 LMP (Certain) 39w 0d Final SCOTT: 08/20/22 Final SCOTT Source: US <20 weeks Vaginal Delivery Maternal Presentation Maternal Presentation: Active Labor Operative Information Date of Procedure: 08/19/22 Pre-Operative Diagnosis: 39 weeks 6 days , active labor Post-Operative Diagnosis: 39 weeks 6 days , active labor Surgery / Procedure Performed: Spontaneous Vaginal Delivery Type of Anesthesia: Epidural Drain: Justice to straight drain Estimated Blood Loss: 100cc Findings Description of Procedure: Patient began pushing and delivered the head in the MO presentation. The head was delivered atraumatically. The anterior and posterior shoulders delivered without complication followed by the rest of the and the was placed on the maternal abdomen. Delayed cord clamping was employed for approximately 60 seconds. Cord was clamped and cut and gentle traction was applied to the cord and the placenta delivered spontaneously immediately following it was noted to be intact with three-vessel cord. The perineum and vagina were inspected and noted to have a 1st degree laceration that was repaired with a 2-0 vicryl. EBL was 100 cc. Patient and infant tolerated delivery well. baby girl Jewel Wasserman Presentation: Vertex Amniotic Membrane Rupture Type: Spontaneous Amniotic Fluid Description: Clear Placental Delivery Description: Spontaneous Placenta Disposition: [facility] Cord Vessel Description: 3 Vessels Cord Entanglement: None Infant A Gender: Female (1 minute): 8 (5 minute): 9 Delayed Cord Clamping: Yes Post Vaginal Delivery Medications Given After Delivery: - (IM pitocin) Episiotomy Description: None Laceration: 1st degree Complication Complications: None Multi Select Codes Urinary/Genital Urinary/Genital CPT Codes: 60479 Vaginal Delivery [facility]
--- NOTE | 2022-08-19 10:58 | DCINST_ITS ---
Discharge Instructions Diet Discharge Diet: No restrictions Activity Discharge Activity: Return to Normal Activity, May Not Drive (while taking narcotic pain medications.) and May Shower May resume sexual activity in: 4-6 weeks Dressing / Incision Call your doctor if your incision/area has: Continuous Slow Oozing, Sudden Increased Bleeding, Increased Pain/ Swelling, Increased Redness and Foul Smelling Discharge Follow Up Care Please Follow Up With: Yvonne Hayward DO When: Call [phone] to make an appointment with your doctor in 6 weeks. If you had elevated blood pressure or 4th degree laceration, you will need to be seen in 2 weeks. Test Results: Test results from this visit will be discussed in further detail at your follow- up appointment, if applicable. Discharge Plan Admission Admit Date/Time: 08/18/22 23:55 Primary Reason for Your Visit: vaginal delivery Attending Provider: Yvonne Hayward Primary Care Provider: Tasha Chapa Discharge Orders/Prescriptions Prescriptions: New naproxen 500 mg tablet 500 mg PO BID PRN (Reason: pain) Qty: 30 0RF Continued epznnjtb-[id number]-Wg-FA 1 mg Tablet 1 tab PO DAILY Referrals / Follow Up: Tasha Chapa DO [Primary Care Provider] - Disposition Disposition (needs filled in before D/C Order can be placed): Home, Self Care
[2022-08-19] MEDS: Ibuprofen 600 MG Tablet PO ×2 (12:21→22:22)
[2022-08-19] MEDS: Hydrocortisone 2.5% Crm 1 APPLIC TOPICAL (14:44)
[2022-08-19] MEDS: Senna/Docusate Sodium 1 Tablet PO (19:32)
[2022-08-19] MEDS: Benzocaine/Lanolin/Aloe Vera 1 SPRAY EACH TOPICAL (19:32)
[2022-08-19] MEDS: Acetaminophen 500 MG Tablet 1000 MG PO (19:32)
[2022-08-20] VITALS (10 sets, daily range): BP systolic 115–131; BP diastolic 65–84; PULSE 77–85; RESP 14–16; TEMP 36.2–36.8; O2SAT 96–98
[2022-08-20] MEDS: Acetaminophen 500 MG Tablet 1000 MG PO ×4 (02:02→20:47)
--- NOTE | 2022-08-20 02:33 | NURSING ---
Report given to Mariluz HARRIS, taking over pt care at this time.
[2022-08-20] MEDS: Ibuprofen 600 MG Tablet PO ×4 (04:10→23:11)
--- NOTE | 2022-08-20 10:46 | PCM.PN.OB ---
Subjective Subjective Patient doing well without complaints. Tolerating PO. Ambulating and voiding without difficulty. Feeding well. Denies chest pain, shortness of breath, calf pain/swelling, fevers, chills, lightheadedness. Objective Data Objective Data Vital Signs: Vital Signs Temp Pulse Resp BP Pulse Ox O2 Del Method 98.1 F 82 14 124/82 H 97 Room Air 08/20/22 08:49 08/20/22 08:49 08/20/22 08:49 08/20/22 08:49 08/20/22 08:49 08/20/22 08:49 Oxygen Delivery Method Room Air Weight: 152 lb 6.4 oz Body Mass Index (BMI) 24.5 Intake & Output: Intake and Output for Last 24 Hours 08/18/22 08/19/22 08/20/22 23:59 23:59 23:59 Intake Total 2393.33 / 2393.33 Output Total 1600 / 1600 Balance 793.33 / 793.33 Lab / Micro Data Attestation: I reviewed the patient's lab results. Result Diagrams: 08/19/22 00:00 08/19/22 00:00 Physical Exam Const alert, oriented x3 and no apparent distress Neck full ROM Lymph Lymphatic: no lymphadenopathy noted Resp normal respiratory effort, normal air movement and no retractions Cardio regular rate and regular rhythm GI GI Narrative: fundus firm at u, mild lochia. no clots. +hemorrhoid Extremity normal to inspection Skin no rashes or lesions noted Skin Narrative: perineum well approximated. Neuro oriented x3 Psych mental status grossly normal Assessment & Plan (1) (spontaneous vaginal delivery): COMMENT: IAL 39+6, girl Thania. JV PLAN: s/p PPD # 1 1. routine post delivery care 2. breast feeding- support given 3. rh positive 4. rubella immune 5. plan for d/c tomorrow (2) First degree laceration of perineum during delivery, : PLAN: ice to perineum witch adalid/dermaplast
[2022-08-21] VITALS (8 sets, daily range): BP systolic 133–157; BP diastolic 77–92; PULSE 64–79; RESP 16–18; TEMP 36.7–36.9
[2022-08-21] MEDS: Senna/Docusate Sodium 1 Tablet PO (04:33)
--- NOTE | 2022-08-21 04:47 | NURSING ---
pt c/o feeling shaky and nauseated. poc bgt 79. pt felt better after eating a snack and drinking sprite.
[2022-08-21 05:55] LABS: Bedside Glucose 79 mg/dL (74-106)
[2022-08-21] MEDS: Ibuprofen 600 MG Tablet PO (07:59)
--- NOTE | 2022-08-21 08:09 | NURSING ---
pt states she has white coat syndrome. Will recheck BP after patient is relaxed
--- NOTE | 2022-08-21 09:12 | PCM.PN.OB ---
Subjective Subjective Patient doing well without complaints. Tolerating PO. Ambulating and voiding without difficulty. Feeding well. Denies chest pain, shortness of breath, calf pain/swelling, fevers, chills, lightheadedness. Objective Data Objective Data Vital Signs: Vital Signs Temp Pulse Resp BP Pulse Ox O2 Del Method 98.5 F 74 16 137/79 H 96 Room Air 08/21/22 07:50 08/21/22 08:05 08/21/22 07:50 08/21/22 08:09 08/20/22 14:32 08/21/22 07:50 Oxygen Delivery Method Room Air Weight: 152 lb 6.4 oz Body Mass Index (BMI) 24.5 Intake & Output: Intake and Output for Last 24 Hours 08/19/22 08/20/22 08/21/22 23:59 23:59 23:59 Intake Total 2393.33 / 2393.33 Output Total 1600 / 1600 Balance 793.33 / 793.33 Lab / Micro Data Result Diagrams: 08/19/22 00:00 08/19/22 00:00 Labs: Laboratory Results - last 24 hr 08/21/22 04:41: POC Glucose 79 Physical Exam Const alert, oriented x3 and no apparent distress Lymph Lymphatic: no lymphadenopathy noted Chest inspection of chest normal Nipple/Areola: nipples/areola normal Resp normal respiratory effort, normal air movement and no retractions Cardio regular rate and regular rhythm GI normal to inspection, nondistended, normoactive bowel sounds GI Narrative: fundus firm 2below u. mild lochia. no clots Extremity normal to inspection Neuro oriented x3 Psych mental status grossly normal Assessment & Plan (1) First degree laceration of perineum during delivery, : (2) (spontaneous vaginal delivery): COMMENT: IAL 39+6, girl Thania. JV PLAN: Plan s/p PPD # 2 1. routine post delivery care 2. breast feeding- support given 3. rh positive 4. rubella immune 5. d/c home today
== END 2022-08-21 12:00 | disposition home or self-care (01) | DRG 807 ==
LOC: WPOUT 23:55 → WP 23:55
PROVIDERS: Registered Nurse; Admitting Provider Obstetrics & Gynecology; PCP Family Medicine; Visit Provider Obstetrics & Gynecology
DX: O42.92 Full-term premature rupture of membranes, unspecified as to length of time between rupture and onset of labor (principal); Z37.0 Single live birth; O99.814 Abnormal glucose complicating childbirth; D24.2 Benign neoplasm of left breast; O99.892 Other specified diseases and conditions complicating childbirth; R03.0 Elevated blood-pressure reading, without diagnosis of hypertension; O70.0 First degree perineal laceration during delivery; Z3A.39 39 weeks gestation of pregnancy; Z86.16 Personal history of COVID-19
CPT/HCPCS: 59025; 59050; 82565; 82570; 82962; 84156; 84450; 84460; 84550; 85025; 86850; 86900; 86901; 99221; J7120; G0378

== ENCOUNTER → 2022-10-02 | Outpatient (CLI) | payer OTHER, SELFPAY ==
[2022-10-07 12:08] LABS: HPV Genotype 16, Aptima Negative (Negative)
[2022-10-07 14:17] LABS: HPV APTIMA, High Risk Positive (Negative); HPV Genotype 18,45 Aptima Negative (Negative)
== END | disposition home or self-care (01) ==
LOC: LABSPEC 13:05
PROVIDERS: PCP Family Medicine; Referring Provider Registered Nurse; Visit Provider Registered Nurse
DX: Z12.4 Encounter for screening for malignant neoplasm of cervix (principal)
CPT/HCPCS: 87624; 88175; G0145

== ENCOUNTER 2022-11-30 11:00 | Outpatient (RCR) | payer OTHER, SELFPAY ==
--- NOTE | 2022-10-12 11:35 | HP.PTEVAL_ITS ---
Patient's Visit Information ROMERO GRAJEDA is a 32 year old F referred to Physical Therapy by Annabella Miner CNM with a diagnosis of CYSTOCELE. Date of Evaluation: 10/12/22 Physical Therapist: Safia Valencia PT, Cert MDT - Visit Plan Frequency: 1x/Week Duration: 8-12 WKS Plan: PF STRENGTHENING, LENGTHENING/RELAXATION AND ENDURANCE TRAINING. HEALTHY BLADDER HABIT EDUCATION. TRAINING IN COORDINATION OF PELVIC FLOOR MUSCULATURE WITH HIP AND CORE (TRANSVERSE ABDOMINUS) MUSCULATURE. POSTURE CORRECTION/STRENGTHENING. CORE STRENGTHENING. JOSE ALBERTO LE ROM, STRETCHING AND STRENGTHENING. TRAINING IN ABDOMINAL CAVITY PRESSURE MGMT WITH ADL'S. - Subjective Work/Leisure: [facility] N[facility] 24 HRS A WK. ON MATERNITY LEAVE. RTW DATE 11/14/22. ONE DAUGHTER 08/19/22. CURRENTLY LACTATING. Disability: NO. Present symptoms: PATIENT REPORTS A HEAVINESS IN THE VAGINAL AREA. NO PAIN BUT DISCOMFORT. PELVIC FLOOR WEAKNESS. Present since: 08/19/22. Pain Scale: 0- 2/10. Currently: 0/10. Is it getting better, worse or staying the same: GETTING BETTER. Commenced as a result of: CHILDBIRTH. Symptoms at onset: URGE INCONTINENCE AND STRESS INCONTINENCE X 3 WKS AFTER DELIVERY. Worse: PRONLONGED STANDING. WASHING DISHES. Better: MOTRIN. PUTTING FEET UP. Disturbed sleep: URINATING 1-2 TIMES PER NIGHT WHEN FEEDING BABY. Previous history/Previous treatment: Patient reports history of sciatica. Treatment this episode: NONE. Coughing/sneezing/straining: AFTER CHILDBIRTH BUT NOT NOW. Gait: NORMAL. How long can you delay the need to urinate: LONG NEEDED. Prolapse (Falling out feeling): LITTLE TO NONE. Frequency of Urination: ABOUT 5 TIMES DURING THE DAY. EVERY 3-4 HOURS. Ability to stop urine flow: PARTIALLY ABLE. Ability to initiate urine stream: YES. Dyspareunia: UNKNOWN. Bowel Incontinence: NO. Accidents: NO. Imaging: X-RAY OF PELVIS AND LUMBAR SPINE ABOUT 5 YEARS AGO AFTER FALL ON ICE - NO INJURY - MINOR SCOLIOSIS. PMH/Recent major surgery: VASOVAGAL syncope - pain response. Post de pression/anxiety - Zoloft 50 mg once a day. - Objective This patient ambulates indep'ly into Physical Therapy with no gross deviations noted. She is pleasant and cooperative to work with. Sitting/Standing Posture: FAIR. Other Observations: INDEP GAIT AND TRANSFERS. Sensory deficit: JOSE ALBERTO LE LIGHT TOUCH SENSATION GROSSLY INTACT AND SYMMETRICAL. ROM deficit: VERY TIGHT BACK AND JOSE ALBERTO LE'S. Patient reports that this is not new for her. Motor deficit: JOSE ALBERTO LE'S GROSSLY 5/5. Dural Signs: NEGATIVE JOSE ALBERTO LE'S. Lumbar mvmt loss: flex - MOD. ext - MOD. R SG - MOD. L SG - MIN. No c/o pain with lumbar ROM testing. Core strength: Fair. Palpation: NO VAGINAL EXAM. 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 FUNCTIONAL SCREEN: Incontinence Impact Questionnaire Score: 1. Urogenital Distress Inventory Score: 5. TREATMENT: Initiated HEP with Diaphragmatic Breathing and Quick Flick Kegel Ex's. Written HEP instructions provided. Intro to education in avoidance of increasing intra-abdominal pressure with ADL's and Exercise. Patient communicated a good understanding of all instructions after given. - Goals Goal 1:: PATIENT WILL HAVE INCREASED PELVIC FLOOR MUSCLE STRENGTH GRADE TO 5/5 Goal Time Frame: 6-8 Weeks Goal 2:: PATIENT WILL DEMONSTRATE/COMMUNICATE 10 CONSISTENT AND CONSECUTIVE 10 SECOND PELVIC FLOOR MUSCLE CONTRACTIONS TO DEMONSTRATE IMPROVED PELVIC FLOOR ENDURANCE. Goal Time Frame: 8-12 Weeks Goal 3:: DECREASE C/O DISCOMFORT/HEAVINESS FEELING IN VAGINAL AREA Goal Time Frame: 8-12 Weeks Goal 4:: PATIENT WILL BE INDEP WITH A HEP/HOME INSTRUCTIONS FOR CONTINUED IMPROVEMENT ONCE FORMAL PHYSICAL THERAPY CONCLUDES. Goal Time Frame: 8-12 Weeks - Anticipated Interventions Patient/Client Instruction: Educate patient on: Condition, Plan of Care, Risk Factors For the Purpose of:: To improve self management Therapeutic Exercise to Include: Strength training, Endurance training, Postural training, Neuromotor development For the Purpose of:: To decrease pain, To improve muscle performance and motor function, To increase tolerance to activity/condition/position, To improve ability of physical actions for home/community/work/leisure Thank you for the opportunity to evaluate your patient. For Medicare and Medicare HMO plans, please review the plan of care and approve it. It will need to be FAXED BACK to us at [phone] for Medicare purposes. For Medicare only, by signing this I certify the plan of care. Please let me know if there are questions or concerns regarding this plan of care. Physician Signature: Date:
--- NOTE | 2022-11-30 11:28 | HP.PTDCSUM ---
It has been my pleasure to treat ROMERO GRAJEDA referred by Annabella Miner CNM, with the diagnosis of CYSTOCELE for a total of 8 visit(s). Discharge Date: Please see the following information for a summary of their discharge status. Subjective: PATIENT REPORTS SHE HAS BEEN UNDER A LOT OF STRESS DUE TO BABY NOT GETTING ENOUGH CALORIES. PATIENT STATES THE GOOD NEWS IS HER PELVIC FLOOR IS DOING GREAT. WORKED A 12 HOUR SHIFT YESTERDAY WITHOUT ANY PROBLEMS. I AM HOPING TO GRADUATE TODAY. PATIENT REPORTS NO PAIN, NO BULGING, NO UE AND MUCH BETTER CORE STRENGTH. % Improvement: 90 Objective/Function: ALL GOALS MET. INCONTINENCE IMPACT QUESTIONAIRE = 0. UROGENITAL DISTRESS INVENTORY = 0 Goal 1:: PATIENT WILL HAVE INCREASED PELVIC FLOOR MUSCLE STRENGTH GRADE TO 5/5 Goal Progress: SUBJECTIVELY MET Goal 2:: PATIENT WILL DEMONSTRATE/COMMUNICATE 10 CONSISTENT AND CONSECUTIVE 10 SECOND PELVIC FLOOR MUSCLE CONTRACTIONS TO DEMONSTRATE IMPROVED PELVIC FLOOR ENDURANCE. Goal Progress: SUBJECTIVELY MET Goal 3:: DECREASE C/O DISCOMFORT/HEAVINESS FEELING IN VAGINAL AREA Goal Progress: Goal Met Goal 4:: PATIENT WILL BE INDEP WITH A HEP/HOME INSTRUCTIONS FOR CONTINUED IMPROVEMENT ONCE FORMAL PHYSICAL THERAPY CONCLUDES. Goal Progress: Goal Met Plan: D/C TO HEP If there are questions or concerns regarding this patient's physical therapy, please feel free to call me at [phone]. Thank you for the referral of this patient. Sincerely, Safia Valencia, PT, Cert MDT
== END 2022-11-30 19:00 | disposition home or self-care (01) ==
LOC: PT 11:00
PROVIDERS: PCP Family Medicine; Referring Provider Registered Nurse; Visit Provider Registered Nurse
DX: O99.893 Other specified diseases and conditions complicating puerperium (principal); N81.10 Cystocele, unspecified
CPT/HCPCS: 97162; 97164; 97530

== ENCOUNTER → 2023-10-04 | Outpatient (CLI) | payer OTHER, SELFPAY ==
[2023-10-09 19:07] LABS: HPV APTIMA, High Risk Negative (Negative)
== END | disposition home or self-care (01) ==
PROVIDERS: PCP Family Medicine; Referring Provider Obstetrics & Gynecology; Visit Provider Obstetrics & Gynecology
DX: Z12.4 Encounter for screening for malignant neoplasm of cervix (principal)
CPT/HCPCS: 87624; 88175; G0145

== ENCOUNTER → 2024-03-04 | Outpatient (CLI) | payer OTHER, SELFPAY ==
[2024-03-04 10:37] LABS: hCG Titer Quant., Serum < 1 mIU/mL (1-3)
== END | disposition home or self-care (01) ==
LOC: LAB 09:28
PROVIDERS: PCP Family Medicine; Referring Provider Obstetrics & Gynecology; Visit Provider Obstetrics & Gynecology
DX: Z34.90 Encounter for supervision of normal pregnancy, unspecified, unspecified trimester (principal)
CPT/HCPCS: 36415; 84702

== ENCOUNTER → 2024-03-25 | Outpatient (CLI) | payer OTHER, SELFPAY ==
[2024-03-25 17:39] LABS: hCG Titer Quant., Serum 2763 mIU/mL (1-3)
== END | disposition home or self-care (01) ==
LOC: LAB 16:41
PROVIDERS: PCP Family Medicine; Referring Provider Obstetrics & Gynecology; Visit Provider Obstetrics & Gynecology
DX: O20.9 Hemorrhage in early pregnancy, unspecified (principal); Z3A.00 Weeks of gestation of pregnancy not specified
CPT/HCPCS: 36415; 84702; 86850; 86900; 86901

== ENCOUNTER → 2024-03-27 | Outpatient (CLI) | payer OTHER, SELFPAY ==
[2024-03-27 18:37] LABS: hCG Titer Quant., Serum 4589 mIU/mL (1-3)
== END | disposition home or self-care (01) ==
LOC: LAB 16:22
PROVIDERS: PCP Family Medicine; Referring Provider Obstetrics & Gynecology; Visit Provider Obstetrics & Gynecology
DX: O20.9 Hemorrhage in early pregnancy, unspecified (principal); Z3A.00 Weeks of gestation of pregnancy not specified
CPT/HCPCS: 84702

== ENCOUNTER → 2024-04-01 | Outpatient (CLI) | payer OTHER, SELFPAY ==
[2024-04-01 16:25] LABS: hCG Titer Quant., Serum 10652 mIU/mL (1-3)
== END | disposition home or self-care (01) ==
LOC: LAB 14:44
PROVIDERS: PCP Family Medicine; Referring Provider Obstetrics & Gynecology; Visit Provider Obstetrics & Gynecology
DX: O20.0 Threatened abortion (principal); Z3A.00 Weeks of gestation of pregnancy not specified
CPT/HCPCS: 36415; 84702

== ENCOUNTER → 2024-04-03 | Outpatient (CLI) | payer OTHER, SELFPAY ==
[2024-04-03 17:39] LABS: hCG Titer Quant., Serum 15268 mIU/mL (1-3)
== END | disposition home or self-care (01) ==
LOC: LAB 16:30
PROVIDERS: PCP Family Medicine; Referring Provider Obstetrics & Gynecology; Visit Provider Obstetrics & Gynecology
DX: O20.0 Threatened abortion (principal); Z3A.00 Weeks of gestation of pregnancy not specified
CPT/HCPCS: 36415; 84702

== ENCOUNTER 2024-04-18 06:35 | Day surgery (SDC) | payer OTHER, SELFPAY ==
[2024-04-18] VITALS (9 sets, daily range): BP systolic 102–133; BP diastolic 62–83; PULSE 68–90; RESP 12–20; TEMP 36.2–36.7; O2SAT 95–100; BMI 22.5
[2024-04-18 07:10] LABS: Hematocrit 40.6 % (37-47); Mean Corp Hgb Conc 34.5 g/dL (32-36); Mean Corpuscular Hgb 28.5 pg (27.0-32.0); Mean Corpuscular Volume 82.7 fL (81-99); Mean Platelet Vol. 9.8 fl (6.2-12.0); Platelet Count 209 K/mm3 (150-450); RBC Distribution Width CV 12.1 % (11.6-14.6); RBC Distribution Width SD 36.3 fl (35.1-43.9); Red Blood Count 4.91 M/mm3 (4.2-5.4); White Blood Count 7.8 K/mm3 (4.4-11.0)
--- NOTE | 2024-04-18 07:23 | HP.PCM_ITS ---
History and Physical ntake Vital Signs 10/03/2410:29 03/18/2408:28 04/09/2411:03 04/17/2414:26 Height 5 ft 6 in 5 ft 6 in 5 ft 6 in 5 ft 6 in Weight: 142 lb BMI 22.8 BP 135/83 H Blood Pressure Location Lt brachial Position Sitting Intake Visit Reasons: New OB, LMP 8, SCOTT 11/20, had yearly in September Chief Complaint: New OB Accompanied by: Is patient in pain?: No Feel stressed/tense/nervous/anxious/difficulty sleeping: very much (Anxiety r/t nausea in 1st , zoloft helps.) Allergies amoxicillin Allergy (Intermediate, Verified 04/17/24 14:34) Rashcefprozil (From Cefzil) Allergy (Intermediate, Verified 04/17/24 14:34) Rash Medications ?Medication ?Instructions ?Recorded ?Confirmed ?Type sertraline 50 mg tablet See Rx Instructions .Route 04/30/23 04/17/24 Rx .COMPLEX #90 tabs misoprostol 200 mcg tablet 800 mcg (4 x 200 mcg) PO QPCHS #8 04/17/24 04/17/24 Rx (Cytotec) tabs multivitamin no.47-iron fum 27 cap PO 04/17/24 04/17/24 History mg-folate no.1 1 mg-dha 300 mg capsule (PNV-DHA) naproxen 500 mg tablet 500 mg PO BID-TID PRN pain #30 tabs 04/17/24 04/17/24 Rx oxycodone-acetaminophen 5 mg-325 1 tab PO Q6H 7 days #20 tabs 04/17/24 04/17/24 Rx mg tablet (Percocet) Last Menstrual Period: 02/14/24 Zika: Zika virus screening: Negative : No PFSH PFSH Medical History HPV test positive Palpitations COVID-19 Vasovagal syncope Surgical History [place] teeth extracted H/O excision of mass (~02/2022) History of oral surgery History of tonsillectomy and adenoidectomy Family History Father Hypertension Obesity HyperlipidemiaAunt Breast cancerGrandmother Myelodysplastic syndrome Hypertension Parkinsons DementiaGrandfather Heart disease Kidney disease Diabetes Hypertension CVA (cerebral vascular accident) Myocardial infarctionMother Osteopenia Social History adopted: No household members: spouse and children housing: house number of children: 1 current occupational status: employed 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 pets and animals: No history of recent travel: No sexually active: Yes Smoking Status: Never smoker alcohol intake: former details: prior to 1 drink a month- not while substance use type: does not use well-balanced diet: daily or most days caffeine: No eating out: rarely or never during the past year weight has: remained stable what type of physical activity do you participate in: none puma/mu-ism: Religion seatbelt use: always do you feel safe at home: Yes additional social history: - [place] History 2 Elective abortions Hx Para 1 Spontaneous abortions Hx # Term Pregnancies Ectopic pregnancies Hx # Pregnancies Multiple births # of living children 1 Past Pregnancies Del. Date Name GA/Weeks Outcome Route Bth Weight Infant Gen Labor Lgth Anesthesia Del Locatn Provider FOB 08/19/22 Nash 39 live - full term 6lbs 14oz Female epidural [facility] [facility] Dr. Massey Delivery Date: 08/19/22 Last Updated by: Nakita [facility] New OB, LMP 8/8, SCOTT 11/20, had yearly in September Details: ROMERO GRAJEDA is a 33 year old who presents for New OB visit. upon evaluation she is found to have an early miscarriage. Gestational sac seen with crown-rump length 7.4 mm which is larger than previously seen and no heart rate seen or color Doppler flow seen. Previously heart rate was seen within normal limits last week. Enlarged double yolk sac is seen and gestational sac is measuring 7 weeks 1 day. Suspicion for genetic abnormality. Patient has some spotting yesterday but denies any heavy bleeding OB Visit SCOTT Calculator Estimated Delivery Date Method Current WG Current Estimate 11/30/24 Ultrasound #1 7w 4d Comments: HIV: Urine Culture: Sequential Screen: NIPT Screen: Estimated Due Date: 11/30/24 Menstrual History Last Menstrual Period: 02/14/24 Antepartum Record Genetic Screening: Congenital Heart Defect: Other, Neural Tube Defect: Other, Hemoglobinopathy Or Carrier: Other, Cystic Fibrosis: Other, Chromosome Abnormality: Other, Jayson-Sachs: Other, Hemophilia: Other, Intellectual Disabili ty/Autism: Other, Recurrent Loss/Stillbirth: Other, Other Structural Defect: Patient (Nash laryngeal cleft), Other Genetic Disease: Other and Maternal Metabolic Disorder: Other Infection History: Live with someone with TB or Exposed to TB: No, Patient or Partner has history of Genital Herpes: No, Rash or Viral illness since last mentrual period: Yes (hearing loss viral steroid 03/04 finished 03/09), Prior GBS- Infected child: No, History of STD: Yes (HPV+ x1), HIV Infection: No, History of Hepatitis: No, Recent travel outside of [place]: No, Concern for hepatitis exposure: No, Varicella immune: Yes and Covid Vaccinated: Yes (Moderna, No Booster) ACOG First Trimester First Trimester: Discussed Second Trimester Second Trimester: Signs and Symptoms of Labor, Selecting a care provider, Reproductive Life Planning & Contreception, Care Planning, Depression/Anxiety and Intimate Partner Violence; Discussed Tobacco Cessation Third Trimester Third Trimester: Pain Management Plans, Labor support person(s), Immediate Larc, Movement Monitoring, Signs and Symptoms of Preeclampsia, Labor Signs, Cervical Ripening/Labor Induction Counseling, [place] Education and Family Medical Leave or Disability Forms ROS Const Reports system reviewed and no additional complaints, except as documented and Reports fatigue Eyes Reports system reviewed and no additional complaints, except as documented ENT Reports system reviewed and no additional complaints, except as documented Resp Reports system reviewed and no additional complaints, except as documented GI Denies abdominal pain and Reports nausea Reports system reviewed and no additional complaints, except as documented and Reports abnormal vaginal bleeding Musc Reports system reviewed and no additional complaints, except as documented Skin/Breast Reports system reviewed and no additional complaints, except as documented Neuro Yes system reviewed and no additional complaints, except as documented Psych Reports system reviewed and no additional complaints, except as documented Endo Reports system reviewed and no additional complaints, except as documented and Reports fatigue Exam Const General: healthy appearing, comfortable and no acute distress Orientation: alert HENMT Head: normal to inspection, normocephalic and atraumatic Ears: hearing grossly normal bilaterally and external ears normal Nose: external nose normal and nares normal Mouth: oral mucosae normal Teeth and gingiva: dentition normal Eyes General: appearance normal, both eyes and all related structures Neck Neck: normal visual inspection, no lymphadenopathy and supple Thyroid: thyroid normal Resp Effort & Inspection: normal respiratory effort GI Inspection: normal to inspection Palpation: soft and no hepatosplenomegaly External Female Exam: normal external appearance and normal appearance of the urethra Urethra: normal appearance of the urethra Speculum Exam - Vagina: normal appearance of the vagina Bimanual Exam- Vagina & Uterus: enlarged Skin General: no rashes or lesions noted Neuro Motor: muscle tone normal throughout and no movement abnormalities noted Extrem General: normal to inspection and full ROM Coding Level of Care Code Off vis,est,level 4 Diagnoses 39 weeks gestation of Z3A.39 Weeks of gestation: 39 weeks Supervision of high-risk O09.90 Missed O02.1 Assessment and Plan Assessment and Plan (1) : Status: Acute Qualifiers: Weeks of gestation: 39 weeks Qualified Code(s): Z3A.39 - 39 weeks gestation of Comment: elects NIPT with gender (2) Supervision of high-risk : Status: Acute Comment: , SCOTT 11/30/24 PC Jewel, Castillo (3) Missed : Status: Acute Orders: Orders CBC W/Diff, Automated Today O09.90 - Supervision of high risk , unspecified, unspecified trimester HIV - [facility] Today O09.90 - Supervision of high risk , unspecified, unspecified trimester Type & Screen Today O09.90 - Supervision of high risk , unspecified, unspecified trimester Rubella IgG Today O09.90 - Supervision of high risk , unspecified, unspecified trimester Hepatitis C Antibody Today O09.90 - Supervision of high risk , unspecified, unspecified trimester Hepatitis B Surface Antigen Today O09.90 - Supervision of high risk , unspecified, unspecified trimester Culture, Urine Today O09.90 - Supervision of high risk , unspecified, unspecified trimester Syphilis Antibodies Today O09.90 - Supervision of high risk , unspecified, unspecified trimester Chlamydia/GC LUIS aptima Today O09.90 - Supervision of high risk , unspecified, unspecified trimester TREE Today O09.90 - Supervision of high risk , unspecified, unspecified trimester, Z82.79 - Family history of other congenital malformations, deformations and chromosomal abnormalities Medications: New misoprostol (Cytotec) take now and repeat in 48 hours if needed 800 mcg (4 x 200 mcg) PO QPCHS 8 tabs 1RF naproxen administer with food or milk 500 mg PO BID-TID PRN 30 tabs 2RF pain N93.9 - Abnormal uterine and vaginal bleeding, unspecified oxycodone-acetaminophen 5-325 mg (Percocet) 1 TAB PO Q6H 20 tabs 0RF 7 days R10.2 - Pelvic and perineal pain Plan Reviewed options and patient initially requested medical management but now she wishes to proceed with surgical management After discussing the patient's diagnosis and treatment plan options, patient wishes to proceed with surgical management. I have discussed with the patient the risks, benefits, and alternatives of the procedure which include but are not limited to risks of anesthesia, bleeding, infection, possible damage to bowel, bladder, or surrounding vasculature which could lead to additional surgery to evaluate any complications. Patient agrees to procedure and wishes to proceed. ACOG/uptodate references given for additional information regarding procedure.
--- NOTE | 2024-04-18 07:24 | PCM.OPRPT ---
Problems Associated Problem List Diagnoses (1) Missed : Report of Operation Date of Procedure: 04/18/24 Pre-Operative Diagnosis: see problem list Post-Operative Diagnosis: same Surgery/Procedure Performed:: Suction dilation and curettage Description of Surgical Findings:: no FHT present, Nonviable 6-7 weeks Surgeon: Alice Cheng repairer and checker: None Type of Anesthesia: Local MAC Special Medications: none Specimen's removed: POC Drains: none Estimated Blood Loss (mL): 50 Fluids Replaced: crystalloid Description of Procedure: Patient was taken to the operating room and placed under MAC local anesthesia. She was prepped and draped in the normal sterile fashion the dorsal lithotomy position. Bladder was drained of clear urine and anterior lip of the cervix was grasped and the uterus sounded to 9cm. Cervix was progressively dilated to allow passage of a 9mm suction curette. Progressive passes were made removing the retained products of conception without complication. Sharp curettage confirmed complete removal of the retained products. All instruments were removed from the vagina and excellent hemostasis was noted and the patient was taken to recovery in stable condition. Grafts/Implants Used: none Procedure Start Time: 09:11 Procedure Stop Time: 09:17 Complications none Admit VTE Documentation VTE Present on Admission: No VTE Mechan Device Prophylaxis: SCD's Procedures Urinary/Genital [id number]: [id number] Trmt of incomplete Ab, any TM
--- NOTE | 2024-04-18 07:25 | PCM.DC ---
Discharge Instructions Diet Discharge Diet: No restrictions Activity Discharge Activity: Return to Normal Activity, May Shower and May Take a Tub Bath (after 1 week) May resume sexual activity in: 1-2 weeks Weight Bearing Status: Weight bearing as tolerated Lifting Restrictions: none Dressing / Incision Call your doctor if you observe: Fever of 101 or Higher, Using more than 1 pad per hour, Shortness of breath and Uncontrolled pain Follow Up Care Please Follow Up With: Alice Cheng MD When: Call [phone] to schedule appointment. Test Results: Test results from this visit will be discussed in further detail at your follow-up appointment, if applicable. Discharge Plan Admission Attending Provider: Alice Cheng Primary Care Provider: Yanelis Langston Instructions Print Language: [place] Discharge Orders/Prescriptions Prescriptions: No Action PNV-DHA 27 mg iron-1 mg -300 mg capsule PO misoprostol [Cytotec] 200 mcg tablet 800 mcg PO QPCHS Qty: 8 1RF Rx Instructions: take now and repeat in 48 hours if needed naproxen 500 mg tablet 500 mg PO BID-TID PRN (Reason: pain) Qty: 30 2RF Rx Instructions: administer with food or milk oxycodone-acetaminophen [Percocet] 5-325 mg tablet 1 tab PO Q6H 7 Days Qty: 20 0RF sertraline 50 mg tablet See Rx Instructions .ROUTE .COMPLEX Qty: 90 4RF Dose Instruction: TAKE 1 TABLET BY MOUTH ONCE DAILY Rx Instructions: TAKE 1 TABLET BY MOUTH ONCE DAILY Referrals / Follow Up: Yanelis Langston MD [Primary Care Provider] - Disposition Disposition (needs filled in before D/C Order can be placed): Home, Self Care
[2024-04-18] MEDS: Doxycycline 100 MG CAPSULE PO (07:28)
--- NOTE | 2024-04-18 07:32 | PCM.PRE.AN2 ---
ASA Classification* ASA Classification ASA Classification: 2 and E Assessment & Plan Anesthesia* Anesthesia Assessment Anesthesia Assessment: Discussed sedation and/or anesthesia options, risks, benefits, and alternatives with patient/parents/legal guardian/POA. Questions invited. The patient/parents/legal guardian/POA seems to understand and agrees to proceed with anesthesia plan. Reviewed the physical assessment, medical history, allergy history and patient home medications list prior to surgery/procedure/anesthetic and documented any changes. Performed airway and anesthesia risk assessments. Anesthesia Type Anesthesia Type: MAC (see written pre anesthesia record for full assessment) Anesthesia Focused Assessment* Temperature: 98.0 F Pulse Rate: 90 Blood Pressure: 133/83 Respiratory Rate: 18 Pulse Ox: 100 Airway Assessment Mouth opens: >3 cm Mallampati Score: II Focused Labs Anesthesia Preop lab: CBC WBC 7.8 K/mm3 (4.4-11.0) 04/18/24 07:01 RBC 4.91 M/mm3 (4.2-5.4) 04/18/24 07:01 Hgb 14.0 g/dL (12.0-15.0) 04/18/24 07:01 Hct 40.6 % (37-47) 04/18/24 07:01 Plt Count 209 K/mm3 (150-450) 04/18/24 07:01 CHEMISTRY Potassium 3.5 mmol/L (3.5-5.1) 12/24/21 09:51 Sodium 138 mmol/L (136-145) 12/24/21 09:51 Phosphorus 2.7 mg/dL (2.5-4.9) 11/23/20 07:16 BUN 10 mg/dL (7-18) 12/24/21 09:51 Creatinine 0.58 mg/dL (0.55-1.02) 08/19/22 00:00 Glucose 112 mg/dL (74-106) H 12/24/21 09:51 POC Glucose 79 mg/dL (74-106) 08/21/22 04:41 COAG HCG, Quant 62545 mIU/mL (1-3) H 04/03/24 16:33 Pre-Assessment Diagnosis/Proposed Procedure Planned Operative Procedure(s): dc Anesthesia History 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 When Was Last Pacemaker Check QUESTION #4 FULL TEXT: You/Your Family Experience fever (hyperthermia) with Anesthesia Last Oral Intake Last Oral intake: Last Oral Intake NPO since 22:00 04/18/24 07:25 Meds taken in AM with sips of No 04/18/24 07:25 water? 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 Has anyone observed you stop breathing during sleep? STOP Results QUESTION #5 FULL TEXT : Do you snore loudly (louder than talking or can be heard through closed doors)? 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 Specify any problems Hx of Preganancy in last 3 Months Nurse Filling Out Transfusion & Questions: Date: Time: Patient unable to answer at this time (ie. 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 Hx Now Gestational Age (in weeks): EDC: Hx Hx Para Hx Section SAB No 04/17/24 14:26 Active Medications Active Medications: Current Medications Generic Name Dose Route Start Last Admin Trade Name Freq PRN Reason Stop Dose Admin Doxycycline Monohydrate 100 mg 04/18/24 12:00 Doxycycline 100 Mg Capsule PO 04/18/24 12:01 PREOP ONE [facility] Medical History HPV test positive Palpitations COVID-19 Vasovagal syncope Home Medications ?Medication ?Instructions ?Recorded ?Last Taken ?Type sertraline 50 mg tablet See Rx Instructions .Route 04/30/23 Unknown Rx .COMPLEX #90 tabs misoprostol 200 mcg tablet 800 mcg (4 x 200 mcg) PO QPCHS #8 04/17/24 Unknown Rx (Cytotec) tabs multivitamin no.47-iron fum 27 cap PO 04/17/24 Unknown History mg-folate no.1 1 mg-dha 300 mg capsule (PNV-DHA) naproxen 500 mg tablet 500 mg PO BID-TID PRN pain #30 tabs 04/17/24 Unknown Rx oxycodone-acetaminophen 5 mg-325 1 tab PO Q6H 7 days #20 tabs 04/17/24 Unknown Rx mg tablet (Percocet) Allergy/AdvReac Type Severity Reaction Status Date / Time amoxicillin Allergy Intermediate Rash Verified 04/18/24 07:21 cefprozil (From Cefzil) Allergy Intermediate Rash Verified 04/18/24 07:21 Family History Father Hypertension Obesity Hyperlipidemia Aunt Breast cancer Grandmother Myelodysplastic syndrome Hypertension Parkinsons Dementia Grandfather Heart disease Kidney disease Diabetes Hypertension CVA (cerebral vascular accident) Myocardial infarction Mother Osteopenia Surgical History [place] teeth extracted H/O excision of mass (~02/2022) History of oral surgery History of tonsillectomy and adenoidectomy Social History adopted: No household members: spouse and children housing: house number of children: 1 current occupational status: employed 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 [employer] pets and animals: No history of recent travel: No sexually active: Yes Smoking Status: Never smoker alcohol intake: former details: prior to 1 drink a month- not while substance use type: does not use well-balanced diet: daily or most days caffeine: No eating out: rarely or never during the past year weight has: remained stable what type of physical activity do you participate in: none puma/druze: [employer] seatbelt use: always do you feel safe at home: Yes additional social history: - Castillo Review of Systems (Anesthesia) ROS Narrative System reviewed and no additional complaints, except as documented.
--- NOTE | 2024-04-18 08:30 | POC_PTH ---
PATIENT: ROMERO GRAJEDA LOC: [facility] [place] U#:[id number] AGE/SX: 33/F ROOM: RE04/18/[address]: Dr. Alice Cheng MD : 1990 BED: DIS: 04/18/2024 SPEC #: [id number] RECD: 04/18/24 10:25 STATUS: YOJANA RAQUEL #: [id number] IRENA: 04/18/24 08:[address]: Alice Cheng DEPT: SURGICAL PATHOLOGY RECD BY: Santos Benedict ENTERED: 04/18/24 11:06 SP TYPE: PROD CONC OTHR DR: Yanelis Langston MD Tissues: Product of conception, NOS Procedures: Surgery Specimen Level IV HEADER OPERATION: Dilation and curettage, suction PRE-OP DIAGNOSIS: Missed TISSUE SUBMITTED: Products of conception MICROSCOPIC DIAGNOSIS Products of conception, dilation and curettage: [place], gestational endometrium and immature chorionic villi (products of conception) clinically missed . SJ: 04/21/2024 MICROSCOPIC DESCRIPTION Slides are reviewed. GROSS DESCRIPTION Received in fixative is one container labeled with the patient's name and designated Products of conception. The specimen consists of multiple irregular fragments of pink-jim soft tissue measuring in aggregate 8.5 x 7.0 x 1.0cm. parts are not grossly recognized. [employer] portions are submitted in two cassettes. 04/18/2024 TC:5 CPT:[id number]
[2024-04-18] MEDS: Lidocaine 1% (20 ml mdv) 20 ML Vial (09:11)
[2024-04-18] MEDS: 0.9% Normal Saline (500mL Bag) 500 ML 15 ML IV (09:35)
--- NOTE | 2024-04-18 10:14 | PCM.POST.ANE ---
Anesthesia: Postop Eval I Current Vital Signs Temperature: 98 F Pulse Rate: 76 Blood Pressure: 130/74 Respiratory Rate: 12 Pulse Ox: 97 Assessment Airway patent: Yes Spontaneous unlabored respirations: Yes nausea: No Vomiting: No Anesthesia Complication: No Fluid Hydration Crystalloid volume administer (ml): 1,000 Total IV fluid infused: 1,000 Progress Note Anesthesia document: Postop Eval 1 completed: Yes
--- NOTE | 2024-04-18 13:25 | PCM.POST.ANE ---
Anesthesia: Postop Eval I Current Vital Signs Temperature: 97.1 F Pulse Rate: 76 Blood Pressure: 130/74 Respiratory Rate: 16 Pulse Ox: 97 Oxygen Delivery Method: Room Air Assessment Airway patent: Yes Spontaneous unlabored respirations: Yes Mental status: Awake and Calm nausea: No Vomiting: No Anesthesia Complication: No Fluid Hydration Crystalloid volume administer (ml): 600 Total IV fluid infused: 600 Progress Note Anesthesia document: Postop Eval 1 completed: Yes
== END 2024-04-18 11:06 | disposition home or self-care (01) ==
LOC: SDC 06:36 → AC 06:38
PROVIDERS: Anesthesiology; PCP Family Medicine; Referring Provider Obstetrics & Gynecology; Visit Provider Obstetrics & Gynecology
PROC: (CPT 59820; principal; 2024-04-18 08:15)
DX: O02.1 Missed abortion (principal); Z86.16 Personal history of COVID-19
CPT/HCPCS: 59820; 01965; 85027; 86850; 86900; 86901; 88305; A4216; J2405

== ENCOUNTER → 2024-04-24 | Outpatient (CLI) | payer OTHER, SELFPAY | END | disposition home or self-care (01) | PROVIDERS: PCP Family Medicine; Referring Provider Obstetrics & Gynecology; Visit Provider Obstetrics & Gynecology | DX: N90.89 Other specified noninflammatory disorders of vulva and perineum (principal); Z20.2 Contact with and (suspected) exposure to infections with a predominantly sexual mode of transmission | CPT/HCPCS: 36415; 86695; 86696; 87255 ==

== ENCOUNTER → 2024-12-02 | Outpatient (CLI) | payer OTHER, SELFPAY ==
[2024-12-05 06:08] LABS: Chlamydia By Nucleic Acid AMP Negative (Negative); Gonococcus By Nucleic Acid AMP Negative (Negative)
== END | disposition home or self-care (01) ==
LOC: LABSPEC 11:50
PROVIDERS: PCP Family Medicine; Referring Provider Obstetrics & Gynecology; Visit Provider Obstetrics & Gynecology
DX: O09.90 Supervision of high risk pregnancy, unspecified, unspecified trimester (principal); Z3A.00 Weeks of gestation of pregnancy not specified
CPT/HCPCS: 87086; 87491; 87591

== ENCOUNTER → 2024-12-16 | Outpatient (CLI) | payer OTHER, SELFPAY ==
[2024-12-16 16:05] LABS: Absolute Lymphocyte Count 1.89 X10^3/uL (0.83-4.51); Absolute Neutrophil Count 5.4 X10^3/uL (2.0-7.7); Basophil# 0.03 X10^3/uL; Basophil% 0.4 % (0-1); Eosinophil# 0.11 X10^3/uL; Eosinophils% 1.3 % (0-5); Hematocrit 37.6 % (37-47); Hemoglobin 13.1 g/dL (12.0-15.0); Lymphocyte # 1.89 X10^3/ul (0.83-4.51); Mean Corp Hgb Conc 34.8 g/dL (32-36); Mean Corpuscular Hgb 28.6 pg (27.0-32.0); Mean Corpuscular Volume 82.1 fL (81-99); Mean Platelet Vol. 10.6 fl (6.2-12.0); Monocyte# 0.74 X10^3/uL; NRBC Flagged by Analyzer 0 % (0-5); Neutrophil # 5.41 X10^3/uL (2.7-7.7); Neutrophil % 66.1 % (47-70); Platelet Count 201 K/mm3 (150-450); RBC Distribution Width CV 11.9 % (11.6-14.6); RBC Distribution Width SD 35.8 fl (35.1-43.9); Red Blood Count 4.58 M/mm3 (4.2-5.4); White Blood Count 8.2 K/mm3 (4.4-11.0)
[2024-12-16 16:40] LABS: HIV Nonreactive (Nonreactive); Hepatitis B Surface Antigen Nonreactive (Nonreactive); Hepatitis C Antibody Nonreactive (Nonreactive); Rubella IgG REAC (Nonreactive); Syphilis Antibodies Nonreactive (Nonreactive)
== END | disposition home or self-care (01) ==
PROVIDERS: PCP Family Medicine; Referring Provider Obstetrics & Gynecology; Visit Provider Obstetrics & Gynecology
DX: O09.90 Supervision of high risk pregnancy, unspecified, unspecified trimester (principal); Z3A.00 Weeks of gestation of pregnancy not specified
CPT/HCPCS: 36415; 85025; 86703; 86762; 86780; 86803; 86850; 86900; 86901; 87340

== ENCOUNTER → 2025-01-05 | Outpatient (CLI) | payer OTHER, SELFPAY ==
[2025-01-05 17:37] LABS: Protein, Urine (Random) 11.7 mg/dL (0.0-12.0); Protein:Creat Ratio 119 mg/g CRE (0-200)
== END | disposition home or self-care (01) ==
LOC: LABSPEC 16:39
PROVIDERS: PCP Family Medicine; Referring Provider Obstetrics & Gynecology; Visit Provider Obstetrics & Gynecology
DX: O16.9 Unspecified maternal hypertension, unspecified trimester (principal); Z3A.00 Weeks of gestation of pregnancy not specified
CPT/HCPCS: 82570; 84156

== ENCOUNTER → 2025-02-19 | Outpatient (CLI) | payer OTHER, SELFPAY ==
--- NOTE | 2025-02-19 15:34 | US_ITS ---
PROCEDURE: OB ANATOMY W/ TRANSVAGINAL 02/19/2025 REASON FOR EXAM: ANATOMY US TECHNIQUE: OB ANATOMY W/ TRANSVAGINAL COMPARISON: None FINDINGS LMP: September 30, 2024 Number: 1 Position: Vertex Placental Position: Anterior and not low-lying Placental Abnormalities: No evidence of previa. DIMENSIONS: Biparietal Diameter: 5.05 cm: 21 weeks and 2 days: 86 percentile/ Head Circumference: 17.78 cm: 20 weeks and 2 days: 40 percentile/ Abdominal Circumference: 15.66 cm: 20 weeks and 6 days: 62nd percentile/ Femur Length: 3.31 cm: 20 weeks and 2 days: 44 percentile/ ESTIMATED WEIGHT: 372 g plus/-56 g ESTIMATED WEIGHT PERCENTILE (24+ weeks): 68 ESTIMATED GESTATIONAL AGE: Baseline: 20 weeks and 2 days By Ultrasound: 20 weeks and 4 days ESTIMATED DATE OF DELIVERY: Baseline: July 07, 2025 By Ultrasound: July 05, 2025 BIOPHYSICAL ASSESSMENT: Amniotic Fluid Volume: 5.3 cm Amniotic Fluid Index: Within normal limits (8-24 cm normal range) Cardiac Motion: 141 beats per minute (average) Trunk and Limb Motion: Present. MATERNAL ANATOMY: Adnexa: Both maternal ovaries are visualized and unremarkable. Cervical Length (if measured): 3.9 cm ANATOMY: Spine: Unremarkable Cranium: Unremarkable Cerebellum: Unremarkable Cisterna Magna: Unremarkable Cavum Septum Pellucidi: Unremarkable Lateral Ventricles: Unremarkable Choroid Plexus: Unremarkable Midline Falx: Unremarkable Nuchal Fold: Unremarkable Upper Lip: Unremarkable Heart: Unremarkable Ventricular Outflow Tracts: Unremarkable Stomach: Kidneys: Bladder: Unremarkable Umbilical Cord: Normal placental insertion. cord insertion not seen well. Extremities: Unremarkable US/OB Anatomy w/ Transvaginal IMPRESSION: Single live intrauterine gestation with a mean gestational age of 20 weeks and 4 days. Reading Location: [place] [id number]
== END | disposition home or self-care (01) ==
LOC: US 15:32
PROVIDERS: PCP Family Medicine; Referring Provider Advanced Practice Midwife; Visit Provider Advanced Practice Midwife
DX: O09.90 Supervision of high risk pregnancy, unspecified, unspecified trimester (principal); Z3A.11 11 weeks gestation of pregnancy
CPT/HCPCS: 76805; 76817

== ENCOUNTER → 2025-03-30 | Outpatient (CLI) | payer OTHER, SELFPAY ==
[2025-03-30 12:24] LABS: Hematocrit 35.0 % (37-47); Hemoglobin 12.4 g/dL (12.0-15.0); Immature Granulocytes Count 0.010 X10^3/uL (0.0-0.0); Mean Corp Hgb Conc 35.4 g/dL (32-36); Mean Corpuscular Volume 85.2 fL (81-99); Mean Platelet Vol. 9.9 fl (6.2-12.0); NRBC Flagged by Analyzer 0 % (0-5); Platelet Count 163 K/mm3 (150-450); RBC Distribution Width CV 13.4 % (11.6-14.6); RBC Distribution Width SD 41.4 fl (35.1-43.9); Red Blood Count 4.11 M/mm3 (4.2-5.4); White Blood Count 7.3 K/mm3 (4.4-11.0)
[2025-03-30 13:27] LABS: Glucose Challenge Gest 1H 50g 129 mg/dL (70-140); HIV Nonreactive (Nonreactive); Syphilis Antibodies Nonreactive (Nonreactive)
== END | disposition home or self-care (01) ==
LOC: LAB 11:13
PROVIDERS: PCP Family Medicine; Referring Provider Nurse Practitioner Women's Health; Visit Provider Nurse Practitioner Women's Health
DX: O09.90 Supervision of high risk pregnancy, unspecified, unspecified trimester (principal); Z13.1 Encounter for screening for diabetes mellitus; Z3A.00 Weeks of gestation of pregnancy not specified
CPT/HCPCS: 36415; 82950; 85025; 86703; 86780

== ENCOUNTER → 2025-06-16 | Outpatient (CLI) | payer OTHER, SELFPAY | END | disposition home or self-care (01) | LOC: LABSPEC 16:09 | PROVIDERS: PCP Family Medicine; Visit Provider Advanced Practice Midwife | DX: O09.93 Supervision of high risk pregnancy, unspecified, third trimester (principal); Z3A.37 37 weeks gestation of pregnancy | CPT/HCPCS: 87081 ==

== ENCOUNTER 2025-07-03 13:00 | Inpatient (IN) | payer OTHER, SELFPAY ==
[2025-07-03] VITALS (89 sets, daily range): BP systolic 127–151; BP diastolic 63–89; PULSE 75–108; RESP 16; TEMP 36.1–37.2; O2SAT 89–99; BMI 26.0
--- OUTSIDE RECORDS SUMMARY | 2025-07-03 11:51 | XMS RPT_ITS | CCD ---
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 Neftaly Dunn Primary Care Provider Dr. Neftaly Dunn Referring Provider [phone] Radha MONTEJO, NIKIA Ruiz Attending Provider Dr. Petr García Attending Provider Dr. Kj Weeks Primary Care Provider Dr. Kj Weeks Referring Provider Dr. Yvonne Hayward Attending Provider [phone] DO Tasha Chapa Primary Care Provider [phone] DO Tasha Chapa Referring Provider Dr. Petr Chase Attending Provider Dr. Neftaly Dunn Referring Provider [phone] Dr. Alice Bhakta Attending Provider [phone] Dr. Neftaly Dunn Referring Provider [phone] Dr. Yvonne Hayward Attending Provider [phone] Dr. Kj Weeks Primary Care Provider DO Tasha Chapa Primary Care Provider [phone] DO Tasha Chapa Referring Provider Dr. Petr Chase Attending Provider Dr. Kj Weeks Referring Provider Dr. Alice Bhakta Attending Provider Willy DIVINITY PROFESSOR, DIVINITY PROFESSOR-C Nicole Attending Provider DO Tasha Chapa Primary Care Provider DO Tasha Chapa Referring Provider Dr. Yvonne Hayward Attending Provider PRASHANTH Miner Annabella Attending Provider Willy DIVINITY PROFESSOR, DIVINITY PROFESSOR-C Nicole Attending Provider [phone] Dr. Alice Bhakta Attending Provider [phone] Hubert DIVINITY PROFESSOR, DIVINITY PROFESSOR-C Olesya Attending Provider JOSE DE JESUS Miner Admit Provider PRASHANTH Miner Annabella Other Provider Dr. Yvonne Hayward Admit Provider Dr. Yvonne Hayward Other Provider DO Tasha Chapa Primary Care Provider DO Tasha Chapa Referring Provider Dr. Alice Bhakta Attending Provider ALICE BHAKTA Referring UnavailYANELIS Last Primary Care Unavailable ERICK PRICE Attending Unavailable ALICE BHAKTA Referring UnavailYANELIS Last Primary Care Unavailable Yanelis Yost MD Primary Care Provider YANELIS YOST Primary Care Unavailable CATERINA FINE Referring Unavailable YANELIS YOST Primary Care Unavailable Yanelis Yost MD Primary Care Provider Yanelis Yost MD Referring Provider Dr. Alice Bhakta MD Attending Provider [phone] Dr. Alice Bhakta MD Referring Provider Neftaly DELA CRUZ, Zunilda Attending Provider Dr. Yvonne Hayward DO Attending Provider Dr. Yvonne Hayward DO Referring Provider Zunilda Higginbotham CNM Referring Provider Speed DIVINITY PROFESSOR-C, Nicole Attending Provider Ivis, Chalon Primary Care Unavailable Marcanthony, Alice Referring Unavailable Marcanthony, Alice Attending Unavailable Ivis, Chalon Primary Care Unavailable Marcanthony, Alice Referring Unavailable Marcanthony, Alice Attending Unavailable Ivis, Chalon Primary Care Unavailable Vande Velsegundo, Yvonne Referring Unavailabl e Vande Velsegundo, vYonne Attending Unavailabl e Ivis, Chalon Primary Care Unavailable Zunidla Higginbotham Referring Unavailable Zunilda Higginbotham Attending Unavailable Ivis, Chalon Primary Care Unavailable Speed DIVINITY PROFESSOR, Nicole Referring Unavailable Willy DIVINITY PROFESSOR, Nicole Attending Unavailable Ivis, Chalon Primary Care Unavailable Ivis, Chalon Referring Unavailable Willy DIVINITY PROFESSOR, Nicole Attending Unavailable Ivis, Chalon Primary Care Unavailable Ivis, Chalon Referring Unavailable Marcanthony, Alice Attending Unavailable Ivis, Chalon Primary Care Unavailable Ivis, Chalon Referring Unavailable Vande Velde, Yvonne Attending Unavailabl e Ivis, Chalon Primary Care Unavailable Marcanthony, Alice Attending Unavailable Ivis, Chalon Referring Unavailable Ivis, Chalon Primary Care Unavailable Zunilda Higginbotham Attending Unavailable Ivis, Sulemanon Referring Unavailable Ivis, Chalon Referring Unavailable Marcanthony, Alice Attending Unavailable Ivis, Chalon Primary Care Unavailable Ivis, Chalon Primary Care Unavailable Ivis, Chalon Referring Unavailable Zunilda Higginbotham Attending Unavailable Ivis, Chalon Primary Care Unavailable Ivis, Chalon Referring Unavailable Vande Velde, Yvonne Attending Unavailabl e Ivis, Chalon Primary Care Unavailable Ivis, Chalon Referring Unavailable Zunilda Higginbotham Attending Unavailable Allergies Allergy Classification Reported Allergen(s) Allergy Type Date of Onset Reaction(s) Facility (20 sources) Amoxicillin; Translations: [AMOXICILLIN] Drug Allergy 1990 [facility] Repository (20 sources) cefprozil; Translations: [CEFPROZIL] Drug Allergy 1990 [facility] Repository Medications Current Medications Medication Drug Class(es) Dates Sig (Normalized) Sig (Original) aspirin 81 mg chewable tablet (5 sources) Platelet Aggregation Inhibitor, Nonsteroidal Anti-inflammatory Drug Start: 02-28-2022 take 81 mg by mouth once daily Aspirin Active 81 MG PO DAILY February 27, 2022 11:00pm azelaic acid 0.15 mg/mg topical gel (2 sources) Start: 04-23-2024 Azelaic Acid 15 % gel 04/23/2024 Active benzoyl peroxide 0.05 mg/mg / clindamycin 0.01 mg/mg topical gel (1 source) Lincosamide Antibacterial Start: 07-23-2018 clindamycin-benzoyl peroxide (BENZACLIN) gel Apply topically to affected area 2 (two) times a day . 50 g 0 07/23/2018 Active docosahexaenoic acid 200 mg oral capsule (8 sources) Start: 01-04-2022 Docosahexaenoic Acid ( Dha) 200 mg capsule Active MG PO January 03, 2022 11:00pm doxycycline monohydrate 100 mg oral tablet (1 source) Tetracycline-class Drug Start: 08-14-2024 End: 08-21-2024 take 1 tablet by mouth twice daily doxycycline monohydrate 100 mg tablet Indications: Bronchopneumonia Take 1 tablet by mouth two times a day for 7 days. 14 tablet 08/14/2024 08/21/2024 Active Ethinyl Estradiol / Ferrous fumarate / Norethindrone (2 sources) Estrogen Start: 12-24-2017 take 1 tablet by mouth once daily norethindrone-ethiny l estradiol-iron (JUNEL FE 1.12/05, ,) 1.5 mg-30 mcg (21)/75 mg (7) tablet Take 1 (one) tablet by mouth daily. 84 tablet 4 12/24/2017 Active Start: 08-22-2017 take 1 tablet by adriel once daily MICROGESTIN FE 1.12/05, 28, 1.5 mg-30 mcg (21)/75 mg (7) tablet Take 1 (one) tablet by mouth daily. 84 tablet 0 08/22/2017 Active hydrOXYzine pamoate 25 mg oral capsule (9 sources) Antihistamine Start: 12-02-2024 take 1 capsule by mouth every six hours as needed for anxiety Hydroxyzine Pamoate (Vistaril) 25 mg capsule Active 25 mg PO EVERY 6 HOURS as needed for anxiety 90 4 December 02, 2024 12:00am Multivit 12-Pqrl-Cbltvu 1-Dha (Pnv-Dha) 27 mg iron-1 mg -300 mg capsule (9 sources) Start: 04-17-2024 Multivit 81-Yuyd-Bekckl 1-Dha (Pnv-Dha) 27 mg iron-1 mg -300 mg capsule Active NMA PO April 17, 2024 12:00am PNV no.95/ferrous fum/folic ac ( ORAL) (2 sources) PNV no.95/ferrou s fum/folic ac ( ORAL) Take by mouth. Active polyethylene glycol 3350 90700 mg powder for oral solution (7 sources) Osmotic Laxative Start: 01-20-2022 Polyethylene Glycol 3350 (Miralax) 17 gram/dose powder Active 4 GM PO ONCE January 19, 2022 11:00pm 72 hr scopolamine 0.0139 mg/hr transdermal system (1 source) Anticholinergic Start: 07-23-2018 scopolamine (TRANSDERM-SCOP) 1 mg over [address] 1 (one) patch on the skin every 3 (three) days behind the ear as needed . 6 patch 0 07/23/2018 Active sertraline 50 mg oral tablet (20 sources) Serotonin Reuptake Inhibitor Start: 12-03-2024 Sertraline (Zoloft) 50 mg tablet Active 75 mg PO daily 135 90 4 December 03, 2024 12:00am Start: 08-23-2022 End: 10-29-2024 take 1 tablet by mouth once daily Sertraline 50 mg tablet Discontinued 50 mg PO DAILY 90 0 July 28, 2024 10:08am October 29, 2024 10:09am valACYclovir 1000 mg oral tablet (20 sources) Herpesvirus Nucleoside Analog DNA Polymerase Inhibitor, Herpes Simplex Virus Nucleoside Analog DNA Polymerase Inhibitor, Herpes Zoster Virus Nucleoside Analog DNA Polymerase Inhibitor Start: 05-08-2024 valACYclovir (VALTR EX) 1 gram tablet 05/08/2024 Active Start: 04-24-2024 End: 11-21-2024 Valacyclovir (Valtrex) 1 gra m tablet Active 1000 mg PO TWICE A DAY as needed November 21, 2024 10:11am take BID x 10 days initially, then BID x 5 days for recurrent infections Completed/Discontinued Medications Medication Drug Class(es) Dates Sig (Normalized) Sig (Original) acetaminophen 325 mg / oxyCODONE hydrochloride 5 mg oral tablet (9 sources) Opioid Agonist Start: 04-17-2024 End: 04-24-2024 Oxycodone-Acetamino phen (Percocet) 5-325 mg tablet Discontinued 1 {tbl} PO EVERY 6 HOURS 20 7 0 April 17, 2024 April 23, 2024 12:00am April 24, 2024 12:09am Acute pain in female pelvis Pelvic and perineal pain docusate sodium 100 mg oral capsule (18 sources) Start: 01-20-2022 End: 02-28-2022 take 1 capsule by mouth once daily Docusate Sodium (Colace) 100 mg capsule Discontinued 100 mg PO DAILY January 20, 2022 12:00am February 28, 2022 11:12am ethinyl estradiol 0.03 mg / norethindrone acetate 1.5 mg oral tablet (20 sources) Estrogen Start: 01-13-2021 End: 01-17-2021 Norethindrone Ac-Eth Estradiol (Microgestin 1.5/30 (21)) 1.5-30 mg-mcg tablet Discontinued 1 {tbl} PO DAILY 63 5 January 13, 2021 10:14am January 17, 2021 10:12am metoclopramide 5 mg oral tablet (18 sources) Dopamine-2 Receptor Antagonist Start: 01-27-2022 End: 02-28-2022 take 1 tablet by mouth every six hours as needed for nausea and vomiting Metoclopramide Hcl (Reglan) 5 mg tablet Discontinued 5 mg PO EVERY 6 HOURS as needed for nausea and vomiting 30 0 January 27, 2022 12:00am February 28, 2022 11:12am miSOPROStol 0.2 mg oral tablet (9 sources) Prostaglandin E1 Analog Start: 04-17-2024 End: 04-24-2024 Misoprostol (Cytotec) 200 mcg tablet Discontinued 800 ug PO after meals and at bedtime 8 April 17, 2024 12:00am April 24, 2024 11:45am take now and repeat in 48 hours if needed Multivitamin preparation (11 sources) Start: 01-13-2021 End: 01-04-2022 take 1 tablet by mouth once daily Multivitamin Discontinued 1 TABLET PO DAILY January 12, 2021 11:00pm January 04, 2022 2:22pm Start: 01-13-2021 End: 01-04-2022 take 1 tablet by mouth once daily Multivitamin Discontinued 1 TABLET PO DAILY January 13, 2021 12:00am January 04, 2022 3:22pm Start: 01-13-2021 take 1 tablet by adriel once daily Multivitamin Active 1 TABLET PO DAILY January 13, 2021 12:00am Multivitamin tablet (9 sources) Start: 01-13-2021 End: 01-04-2022 Multivitamin tablet Discontinued 1 {tbl} PO DAILY January 13, 2021 12:00am January 04, 2022 3:22pm naproxen 500 mg oral tablet (20 sources) Nonsteroidal Anti-inflammatory Drug Start: 04-17-2024 End: 11-21-2024 Naproxen 500 mg tablet Discontinued 500 mg PO 2 to 3 times per day as needed for pain 30 2 April 17, 2024 12:00am November 21, 2024 10:11am Abnormal uterine bleeding Abnormal uterine and vaginal bleeding, unspecified administer with food or milk Start: 08-19-2022 End: 10-02-2022 take 1 tablet by mouth twice daily as needed for pain Naproxen 500 mg tablet Discontinued 500 mg PO TWICE A DAY as needed for pain 30 0 August 19, 2022 1:00am October 02, 2022 10:11am norethindrone 0.35 mg oral tablet (20 sources) Start: 01-17-2021 End: 08-05-2021 take 1 tablet by mouth once daily Norethindrone (Contraceptive) (Lexi) 0.35 mg tablet Discontinued 0.35 mg PO daily 84 4 January 17, 2021 12:00am August 05, 2021 12:37pm start day 1 of menstrual cycle ondansetron 4 mg oral tablet (20 sources) Serotonin-3 Receptor Antagonist Start: 01-04-2022 End: 02-28-2022 take 1 tablet by mouth every eight hours as needed for nausea and vomiting Ondansetron Hcl 4 mg tablet Discontinued 4 mg PO Q8H as needed for nausea and vomiting 60 1 January 04, 2022 12:00am February 28, 2022 11:12am Start: 07-23-2018 take 1 tablet by adriel th every twelve hours as needed ondansetron (ZOFRAN) 8 MG tablet Take 1 (one) tablet (8 mg total) by mouth every 12 (twelve) hours as needed . 20 tablet 0 07/23/2018 Active Eqoefxis-Vyx-Ad-Fa (2 sources) Start: 08-18-2022 End: 10-04-2023 take 1 tablet by mouth once daily Oikbkobc-Xmm-Ev-Fa Discontinued 1 TABLET PO DAILY August 18, 2022 1:00am October 04, 2023 11:54am Start: 08-18-2022 take 1 tablet by adriel th once daily Zgmmnijb-Dat-Mv-Fa Active 1 TABLET PO DAILY August 18, 2022 12:00am Lkxhyeou-Dlp-Ir-Fa 1 mg Tablet (9 sources) Start: 08-18-2022 End: 10-04-2023 take 1 tablet by mouth once daily Izsbpbxu-Mhd-Vg-Fa 1 mg Tablet Discontinued 1 {tbl} PO DAILY August 18, 2022 1:00am October 04, 2023 11:54am Start: 08-18-2022 End: 10-04-2023 take 1 tablet by mouth once daily Dfapknak-Rko-Tt-Fa 1 mg Tablet Discontinued 1 {tbl} PO DAILY August 18, 2022 1:00am October 04, 2023 11:54am promethazine hydrochloride 12.5 mg oral tablet (19 sources) Phenothiazine Start: 01-04-2022 End: 02-28-2022 take 1 tablet by mouth every six hours as needed for nausea Promethazine 12.5 mg tablet Discontinued 12.5 mg PO EVERY 6 HOURS as needed for nausea and vomiting 60 0 January 04, 2022 12:00am February 28, 2022 11:12am take as needed for nausea, best when not at work. Problems Active Problems Problem Classification Problem Date Documented Date Episodic/Chronic Anxiety disorders (20 sources) Anxiety; Translations: [Anxiety disorder, unspecified] Onset: 05-11-2025 09-06-2022 Chronic Comment on above: start zoloft-control led Cardiac dysrhythmias (20 sources) Tachycardia; Translations: [Tachycardia, unspecified] 01-01-2022 Episodic Complications of surgical procedures or medical care (20 sources) Complication of anesthesia; Translations: [Other complications of anesthesia, initial encounter] Onset: 02-02-2025 11-21-2024 Episodic Comment on above: epidural wore off ea rly Diabetes mellitus without complication (20 sources) Abnormal glucose level; Translations: [Other abnormal glucose] 05-18-2022 Episodic Comment on above: 3 Hr GTT nl Hemorrhage during ; abruptio placenta; placenta previa (18 sources) Antepartum hemorrhage; Translations: [Hemorrhage in early , unspecified] 04-09-2024 Episodic Hypertension complicating ; childbirth and the puerperium (1 source) Unspecified maternal hypertension, unspecified trimester; Translations: [Unspecified maternal hypertension, unspecified trimester] Onset: 01-07-2025 Chronic Immunizations and screening for infectious disease (1 source) Encounter for immunization; Translations: [Encounter for immunization] Onset: 04-29-2025 Episodic Miscellaneous mental health disorders (20 sources) depression; Translations: [ depression] Onset: 05-11-2025 11-21-2024 Episodic Comment on above: sertraline-controlle d Nonmalignant breast conditions (20 sources) Breast lump; Translations: [Unspecified lump in the left breast, overlapping quadrants] Episodic OB-related trauma to perineum and vulva (12 sources) First degree perineal tear during delivery - delivered; Translations: [First degree perineal laceration during delivery] 08-20-2022 Episodic Other and unspecified benign neoplasm (1 source) Lipoma (clinical); Translations: [Benign lipomatous neoplasm, unspecified] Episodic Other and unspecified benign neoplasm (1 source) Benign lipomatous neoplasm, unspecified; Translations: [Lipoma, unspecified site] Episodic Other and unspecified benign neoplasm (15 sources) Tubular adenoma of breast; Translations: [Benign neoplasm of unspecified breast] 03-14-2022 Episodic Comment on above: Left breast Other and unspecified benign neoplasm (20 sources) Benign neoplasm of unspecified breast; Translations: [Benign neoplasm of breast] Episodic Other circulatory disease (20 sources) Labile hypertension due to being in a clinical environment; Translations: [Elevated blood-pressure reading, without diagnosis of hypertension] 03-28-2022 Episodic Comment on above: monitors at work:wnl ; Home BPs 110-120/60-70; 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 Will bring cuff to compare next visit. Other circulatory disease (20 sources) Elevated blood-pressure reading, without diagnosis of hypertension; Translations: [Elevated blood pressure reading without diagnosis of hypertension] Episodic Other complications of (9 sources) Missed miscarriage; Translations: [Missed ] 11-21-2024 Episodic Other complications of (20 sources) H/O: miscarriage; Translations: [Supervision of with other poor reproductive or obstetric history, unspecified trimester] 11-21-2024 Episodic Other complications of (20 sources) High risk ; Translations: [Supervision of high risk , unspecified, unspecified trimester] 11-21-2024 Episodic Comment on above: , JENELLE 07/07/25, [facility] [place], [place] , JENELLE 11/30/24 [facility] [place], [facility] PRR , JENELLE , [facility] [place], [place] Other complications of (1 source) Supervision of high risk , unspecified, second trimester; Translations: [Supervision of high risk , unspecified, second trimester] Onset: 05-11-2025 Episodic Other complications of (1 source) Supervision of with other poor reproductive or obstetric history, unspecified trimester; Translations: [Supervision of with other poor reproductive or obstetric history, unspecified trimester] Onset: 05-11-2025 Episodic Other complications of (1 source) Supervision of high risk , unspecified, unspecified trimester; Translations: [Supervision of high risk , unspecified, unspecified trimester] Onset: 04-30-2025 Episodic Other congenital anomalies (9 sources) Herniated urinary bladder 10-04-2023 Chronic Other female genital disorders (20 sources) Edema of vulva; Translations: [Other specified noninflammatory disorders of vulva and perineum] 02-28-2022 Episodic Other female genital disorders (20 sources) Lesion of vulva; Translations: [Other specified noninflammatory disorders of vulva and perineum] 04-24-2024 Episodic Comment on above: suspect HSV, ordered valtrex, titers and culture Other lower respiratory disease (2 sources) Cough; Translations: [Acute cough] 08-14-2024 Episodic Other and delivery including normal (20 sources) First trimester ; Translations: [Encounter for supervision of normal , unspecified, first trimester] Episodic Comment on above: VRII2L4, JENELLE 08/26/ 3, girl Spouse Castillo ALFARO 39+6, girl Rand WEBB elects NIPT with gen christopher NIPT low risk Other skin disorders (20 sources) Localized swelling, mass and lump, left upper limb; Translations: [Mass of left axilla] Episodic Comment on above: tubular adenoma Pneumonia (except that caused by tuberculosis or sexually transmitted disease) (1 source) Bronchopneumonia; Translations: [Bronchopneumonia, unspecified organism] 08-14-2024 Episodic Residual codes; unclassified (20 sources) FH: Congenital anomaly; Translations: [Family history of other congenital malformations, deformations and chromosomal abnormalities] 10-04-2023 Episodic Comment on above: dtr with laryngeal c left, genetic counseling completed Residual codes; unclassified (20 sources) Positive measurement finding; Translations: [Positive test for human papillomavirus (HPV)] 10-04-2023 Episodic Comment on above: 2022, repeat pap 202 4-negative Residual codes; unclassified (2 sources) Family history of other congenital malformations, deformations and chromosomal abnormalities; Translations: [Family history of congenital anomalies] Onset: 05-11-2025 10-04-2023 Episodic Residual codes; unclassified (1 source) 31 weeks gestation of ; Translations: [31 weeks gestation of ] Onset: 05-11-2025 Episodic Residual codes; unclassified (1 source) 25 weeks gestation of ; Translations: [25 weeks gestation of ] Onset: 03-30-2025 Episodic Sprains and strains (3 sources) Sprain of ligaments of lumbar spine, initial encounter; Translations: [Lumbar sprain] Onset: 08-06-2018 Episodic Unclassified (1 source) Acute cough; Translations: [Acute cough] Onset: 08-14-2024 Viral infection (20 sources) Disease caused by 2019-nCoV; Translations: [COVID-19] Onset: 05-11-2025 Episodic Comment on above: baby asa daily and 3 2/36 week scans valtrex prn, H/O one outbreak Past or Other Problems Problem Classification Problem Date Documented Date Episodic/Chronic Other female genital disorders (6 sources) Other specified noninflammatory disorders of vulva and perineum; Translations: [Other specified noninflammatory disorders of vulva and perineum] Onset: 02-02-2025 Episodic Residual codes; unclassified (1 source) 17 weeks gestation of ; Translations: [17 weeks gestation of ] Onset: 02-02-2025 Episodic Residual codes; unclassified (1 source) 11 weeks gestation of ; Translations: [11 weeks gestation of ] Onset: 12-16-2024 Episodic Residual codes; unclassified (1 source) 9 weeks gestation of ; Translations: [9 weeks gestation of ] Onset: 12-02-2024 Episodic Unclassified (12 sources) Spontaneous onset of labor; Translations: [Spontaneous onset of labor] 08-19-2022 Comment on above: at 39+6 in acti ve spontaneous laborcat 1 stripcomfortable with epiduralarom at 0615 for clear fluid Unclassified (1 source) Herniated urinary bladder; Translations: [Cystocele] 10-04-2023 Results Test Name Value Interpretation Reference Range Facility Breakfast Manager Office Visit Reporton 05-11-2025 Breakfast Manager Office Visit Report [facility] [address] [place] [address], [address] [place] [address] OFFICE VISIT Date of Service: 05/11/25 MR#: [id number] Acct: [id number] Name: ROMERO GRAJEDA Rep #: [id number] : 1990 Provider: JOSE DE JESUS Serna ams Age/Sex: 34/F [place] [facility] [place]: [place] Intake Vital Signs 03/30/25 11:27 04/29/25 09:49 05/11/25 10:56 05/11/25 10:56 Height 5 ft 6 in 5 ft 6 in 5 ft 6 in 5 ft 6 in Weight: 157 lb 8 oz BMI 25.4 BP 130/76 H Intake Visit Reasons: 31w 6d ob 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 Associate Store Required: No Is patient in pain?: No Allergies amoxicillin Allergy (Intermediate, Verified 04/29/25 09:48) Rash cefprozil (From Cefzil) Allergy (Intermediate, Verified 04/29/25 09:48) Rash Medications ???Medication ???Instructions ???Recorded ???Confirmed ???Type multivitamin no.47-iron fum 27 cap PO 04/17/24 05/11/25 History mg-folate no.1 1 mg-dha 300 mg capsule (PNV-DHA) valacyclovir 1 gram tablet 1,000 mg PO BID PRN 11/21/2405/11 History (Valtrex) hydroxyzine pamoate 25 mg capsule 25 mg PO Q6H PRN anxiety #90 caps 12/02/24 05/11/25 Rx (Vistaril) sertraline 50 mg tablet (Zoloft) 75 mg (1.5 x 50 mg) PO QDAY 90 05/11/25 Rx days #135 tabs Last Menstrual Period: 09/30/24 Zika: Zika virus screening: Negative : No PFSH PFSH Medical History Missed anxiety (08/19/22) HPV test positive Palpitations COVID-19 Vasovagal syncope Surgical History S/P dilation and curettage [place] teeth extracted H/O excision of mass ( 02/2022) History of oral surgery History of tonsillectomy and adenoidectomy Family History Father Hypertension Obesity Hyperlipidemia Aunt Breast cancer, Onset Age: 30 Maternal Grandmother Myelodysplastic syndrome, Onset Age: 70 Maternal Hypertension Parkinsons Dementia Grandfather Heart disease Kidney disease Diabetes Hypertension CVA (cerebral vascular accident) Myocardial infarction Mother Osteopenia Social History adopted: No household members: spouse and children housing: house number of children: 1 current occupational status: employed 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: No pets and animals: No history of recent travel: Yes (- November) out of state: Yes out of country: No sexually active: Yes Smoking Status: Never smoker alcohol intake: former details: prior to 1 drink a month- not while substance use type: does not use well-balanced diet: daily or most days caffeine: No eating out: 1-3 times/week during the past year weight has: remained stable what type of physical activity do you participate in: none leslie/islam: Adventist seatbelt use: always do you feel safe at home: Yes additional social history: - [place] History 3 Elective abortions Hx Para 1 Spontaneous abortions 1 Hx # Term Pregnancies Ectopic pregnancies Hx # Pregnancies Multiple births # of living children 1 Past Pregnancies Del. Date Name GA/Weeks Outcome Route Bth Weight Infant Gen Labor Lgth Anesthesia Del Locatn Provider FOB 08/19/22 [place] 39 live - full term 6lbs 14oz Female epidural [employer] Dr. Massey 04/21/24 6 spontaneous Delivery Date: 08/19/22 Last Updated by: Nakita Hammonds COVID Delivery Date: 04/21/24 Last Updated by: Anya Nguyen HPI 31w 6d ob Details: ROMERO GRAJEDA is a 34 year old who presents for routine OB visit. OB Visit JENELLE Calculator Estimated Delivery Date Method Current WG Current Estimate 07/07/25 LMP (Certain) 31w 6d Other Estimates 07/11/25 Ultrasound #1 31w 2d Expected Delivery Route/Plan Labor Preferences- CB/BF classes: [] labor support person: [] labor intervention preferences: [] pain management options preferred: [] cut cord/dad catch: [] : [] PP control planned: [] discussed possible routes of delivery and associated risks: [] special requests: [] Specific Issue/Plans Covid status: [] Flu vaccine: [] Tdap vaccine: [] Rhogam: [] LARC form signed: [] Problem list reviewed and updated with the most current plan of care details and appropriate orders placed. Relevant counseling for the gestational age provided. Continue routine care and follow up unless otherwise noted in visit notes/problem list details Initial Weight: Not Recorded Date -???-???-???-???-???-?? ?-???-???-???-???-???-? ??- EGA Weight BP Urin (more content not included)... Normal [facility] Breakfast Manager Office Visit Reporton 04-29-2025 Breakfast Manager Office Visit Report [facility]'s [address], [address] [place] [address] OFFICE VISIT Date of Service: 04/29/25 MR#: [id number] Acct: [id number] Name: ROMERO GRAJEDA Rep #: [id number] : 1990 Provider: Dr. Yvonne Scott DO Age/Sex: 34/F Location: [facility] [place] Status: Signed Intake Vital Signs 02/02/25 09:21 03/30/25 11:27 04/29/25 09:48 04/29/25 09:49 Height 5 ft 6 in 5 ft 6 in 5 ft 6 in 5 ft 6 in Weight: 149 lb 8 oz 155 lb 5 oz BMI 24.1 25.0 BP 132/83 H 135/87 H Intake Visit Reasons: 29w 6d OB Receiving Associate Store Required: No Is patient in pain?: No Allergies amoxicillin Allergy (Intermediate, Verified 04/29/25 09:48) Rash cefprozil (From Cefzil) Allergy (Intermediate, Verified 04/29/25 09:48) Rash Medications ???Medication ???Instructions ???Recorded ???Confirmed ???Type multivitamin no.47-iron fum 27 cap PO 04/17/24 04/29/25 History mg-folate no.1 1 mg-dha 300 mg capsule (PNV-DHA) valacyclovir 1 gram tablet 1,000 mg PO BID PRN 11/21/2404/29 History (Valtrex) hydroxyzine pamoate 25 mg capsule 25 mg PO Q6H PRN anxiety #90 caps 12/02/24 04/29/25 Rx (Vistaril) sertraline 50 mg tablet (Zoloft) 75 mg (1.5 x 50 mg) PO QDAY 90 04/29/25 Rx days #135 tabs Last Menstrual Period: 09/30/24 Zika: Zika virus screening: Negative : No PFSH PFSH Medical History Missed anxiety (08/19/22) HPV test positive Palpitations COVID-19 Vasovagal syncope Surgical History S/P dilation and curettage [place] teeth extracted H/O excision of mass ( 02/2022) History of oral surgery History of tonsillectomy and adenoidectomy Family History Father Hypertension Obesity Hyperlipidemia Aunt Breast cancer, Onset Age: 30 Maternal Grandmother Myelodysplastic syndrome, Onset Age: 70 Maternal Hypertension Parkinsons Dementia Grandfather Heart disease Kidney disease Diabetes Hypertension CVA (cerebral vascular accident) Myocardial infarction Mother Osteopenia Social History adopted: No household members: spouse and children housing: house number of children: 1 current occupational status: employed 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: No pets and animals: No history of recent travel: Yes (- November) out of state: Yes out of country: No sexually active: Yes Smoking Status: Never smoker alcohol intake: former details: prior to 1 drink a month- not while substance use type: does not use well-balanced diet: daily or most days caffeine: No eating out: 1-3 times/week during the past year weight has: remained stable what type of physical activity do you participate in: none leslie/islam: Adventist seatbelt use: always do you feel safe at home: Yes additional social history: - Castillo History 3 Elective abortions Hx Para 1 Spontaneous abortions 1 Hx # Term Pregnancies Ectopic pregnancies Hx # Pregnancies Multiple births # of living children 1 Past Pregnancies Del. Date Name GA/Weeks Outcome Route Bth Weight Gen Labor Lgth Anesthesia Del Locatn Provider FOB 08/19/22 [place] 39 live - full term 6lbs 14oz Female epidural [facility] Dr. Massey 04/21/24 6 spontaneous Delivery Date: 08/19/22 Last Updated by: Nakita Hammonds COVID Delivery Date: 04/21/24 Last Updated by: Anya Nguyen HPI 29w 6d OB Details: ROMERO GRAJEDA is a 34 year old who presents for routine OB visit. OB Visit JENELLE Calculator Estimated Delivery Date Method Current WG Current Estimate 07/07/25 LMP (Certain) 30w 1d Other Estimates 07/11/25 Ultrasound #1 29w 4d Expected Delivery Route/Plan Labor Preferences- CB/BF classes: [] labor support person: [] labor intervention preferences: [] pain management options preferred: [] cut cord/dad catch: [] : [] PP control planned: [] discussed possible routes of delivery and associated risks: [] special requests: [] Specific Issue/Plans Covid status: [] Flu vaccine: [] Tdap vaccine: [] Rhogam: [] LARC form signed: [] Problem list reviewed and updated with the most current plan of care details and appropriate orders placed. Relevant counseling for the gestational age provided. Continue routine care and follow up unless otherwise noted in visit notes/problem list details Initial Weight: Not Recorded Date -???-???-???-???-???-?? ?-???-???-? (more content not included)... Normal [facility] CBC W/Diff, Automatedon 03-10-2024 Absolute Lymph 1.59 X10 3/uL Normal 0.83-4.51 [facility] Comment on above: Performed By: #### L 501.0250, L509.8002, L100.0100, L3890.6006 #### [facility] [address] [place], [address] Absolute Neut 4.7 X10 3/uL Normal 2.0-7.7 [facility] Comment on above: Performed By: #### L 501.0250, L509.8002, L100.0100, L3890.6006 #### [facility] [address] [place], [address] Basophils/100 WBC (Bld) 0.5 % Normal 0-1 [facility] Comment on above: Performed By: #### L 501.0250, L509.8002, L100.0100, L3890.6006 #### [facility] [address] [place], [address] Eosinophils/100 WBC (Bld) 7.2 % High 0-5 [facility] Comment on above: Performed By: #### L 501.0250, L509.8002, L100.0100, L3890.6006 #### [facility] [address] [place], [address] Erythrocyte distribution width (RBC) [Ratio] 13.4 % Normal 11.6-14.6 [facility] Comment on above: Performed By: #### L 501.0250, L509.8002, L100.0100, L3890.6006 #### [facility] [address] [place], [address] Hematocrit (Bld) [Volume fraction] 35.0 % Low 37-47 [facility] Comment on above: Performed By: #### L 501.0250, L509.8002, L100.0100, L3890.6006 #### [facility] [address] [place], [address] Hemoglobin (Bld) [Mass/Vol] 12.4 g/dL Normal 12.0-15.0 [facility] Comment on above: Performed By: #### L 501.0250, L509.8002, L100.0100, L3890.6006 #### [facility] [address] [place], [address] IG% 0.100 Normal 0.0-0.9 [facility] Comment on above: Result Comment: IG% - Immature Granulocytes (promyelocytes, myelocytes and metamyelocytes) > 1% indicates that a LEFT SHIFT is Present. Performed By: #### L 501.0250, L509.8002, L100.0100, L3890.6006 #### [facility] [address] [place], [address] Lymphocytes/100 WBC (Bld) 21.7 % Normal 19-41 [facility] Comment on above: Performed By: #### L 501.0250, L509.8002, L100.0100, L3890.6006 #### [facility] [address] [place], [address] MCH (RBC) [Entitic mass] 30.2 pg Normal 27.0-32.0 [facility] Comment on above: Performed By: #### L 501.0250, L509.8002, L100.0100, L3890.6006 #### [facility] [address] [place], [address] MCHC (RBC) [Mass/Vol] 35.4 g/dL Normal 32-36 [facility] Comment on above: Performed By: #### L 501.0250, L509.8002, L100.0100, L3890.6006 #### [facility] [address] [place], [address] MCV (RBC) [Entitic vol] 85.2 fL Normal 81-99 [facility] Comment on above: Performed By: #### L 501.0250, L509.8002, L100.0100, L3890.6006 #### [facility] [address] [place], [address] Monocytes/100 WBC (Bld) 7.0 % Normal 0-10 [facility] Comment on above: Performed By: #### L 501.0250, L509.8002, L100.0100, L3890.6006 #### [facility] [address] [place], [address] Neutrophils/100 WBC (Bld) 63.5 % Normal 47-70 [facility] Comment on above: Performed By: #### L 501.0250, L509.8002, L100.0100, L3890.6006 #### [facility] [address] [place], [address] Nucleated RBC (Bld) [#/Vol] 0 10*3/uL Normal 0-5 [facility] Comment on above: Performed By: #### L 501.0250, L509.8002, L100.0100, L3890.6006 #### [facility] [address] [place], [address] Platelet mean volume (Bld) [Entitic vol] 9.9 fL Normal 6.2-12.0 [facility] Comment on above: Performed By: #### L 501.0250, L509.8002, L100.0100, L3890.6006 #### [facility] [address] [place], [address] Platelets (Bld) [#/Vol] 163 10*3/uL Normal 150-450 [facility] Comment on above: Performed By: #### L 501.0250, L509.8002, L100.0100, L3890.6006 #### [facility] [address] [place], [address] RBC (Bld) [#/Vol] 4.11 10*6/uL Low 4.2-5.4 [facility] Comment on above: Performed By: #### L 501.0250, L509.8002, L100.0100, L3890.6006 #### [facility] [address] [place], [address] RDW SD 41.4 fl Normal 35.1-43.9 [facility] Comment on above: Performed By: #### L 501.0250, L509.8002, L100.0100, L3890.6006 #### [facility] [address] [place], [address] WBC (Bld) [#/Vol] 7.3 10*3/uL Normal 4.4-11.0 [facility] Comment on above: Performed By: #### L 501.0250, L509.8002, L100.0100, L3890.6006 #### [facility] [address] [place], [address] Glucose Challenge Gest 1H 50 dulce 03-30-2025 GLU GEST 50g 1H 129 mg/dL Normal 70-140 [facility] Comment on above: Performed By: #### L 501.0250, L509.8002, L100.0100, L3890.6006 #### [facility] [address] [place], [place], [address] HIVon 03-30-2025 HIV Non-Reactive Normal Nonreactive [facility] Comment on above: Result Comment: Non- Reactive Reactive Repeatedly reactive samples must be confirmed according to CDC recommended confirmatory algorithms. The subresults for either HIVAG or AHIV can be used as an aid in the selection of the confirmation algorithm for reactive samples. Send out specimens with Reactive results to [facility] for confirmation. Order the HIV antibody detection and differentiation: lc#[id number] Performed By: #### L 501.0250, L509.8002, L100.0100, L3890.6006 #### [facility] [address] [place], [place], [address] Breakfast Manager Office Visit Reporton 03-30-2025 Breakfast Manager Office Visit Report [facility]'[address], [address] [place] [address] OFFICE VISIT Date of Service: 03/30/25 MR#: [id number] Acct: [id number] Name: ROMERO GRAJEDA Rep #: [id number] : 1990 Provider: Dr. Alice haynes MD Age/Sex: 34/F [place] [facility] [place]: Signed Intake Vital Signs 02/02/25 09:21 03/02/25 09:39 03/30/25 11:27 Height 5 ft 6 in 5 ft 6 in 5 ft 6 in Weight: 149 lb 8 oz BMI 24.1 BP 132/83 H Intake Visit Reasons: 26 WK OB/Glucose Receiving Associate Store Required: No Is patient in pain?: No Allergies amoxicillin Allergy (Intermediate, Verified 03/30/25 11:28) Rash cefprozil (From Cefzil) Allergy (Intermediate, Verified 03/30/25 11:28) Rash Medications ???Medication ???Instructions ???Recorded ???Confirmed ???Type multivitamin no.47-iron fum 27 cap PO 04/17/24 03/30/25 History mg-folate no.1 1 mg-dha 300 mg capsule (PNV-DHA) sertraline 50 mg tablet 50 mg PO DAILY #90 TABLETS 5 03/30/25 Rx valacyclovir 1 gram tablet 1,000 mg PO BID PRN 11/21/2403/30 History (Valtrex) hydroxyzine pamoate 25 mg capsule 25 mg PO Q6H PRN anxiety #90 caps 12/02/24 03/30/25 Rx (Vistaril) sertraline 50 mg tablet (Zoloft) 75 mg (1.5 x 50 mg) PO QDAY 90 03/30/25 Rx days #135 tabs Last Menstrual Period: 09/30/24 Zika: Zika virus screening: Negative : No PFSH PFSH Medical History Missed anxiety (08/19/22) HPV test positive Palpitations COVID-19 Vasovagal syncope Surgical History S/P dilation and curettage [place] teeth extracted H/O excision of mass ( 02/2022) History of oral surgery History of tonsillectomy and adenoidectomy Family History Father Hypertension Obesity Hyperlipidemia Aunt Breast cancer, Onset Age: 30 Maternal Grandmother Myelodysplastic syndrome, Onset Age: 70 Maternal Hypertension Parkinsons Dementia Grandfather Heart disease Kidney disease Diabetes Hypertension CVA (cerebral vascular accident) Myocardial infarction Mother Osteopenia Social History adopted: No household members: spouse and children housing: house number of children: 1 current occupational status: employed 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/hazards: No pets and animals: No history of recent travel: Yes (- November) out of state: Yes out of country: No sexually active: Yes Smoking Status: Never smoker alcohol intake: former details: prior to 1 drink a month- not while substance use type: does not use well-balanced diet: daily or most days caffeine: No eating out: 1-3 times/week during the past year weight has: remained stable what type of physical activity do you participate in: none leslei/islam: Adventist seatbelt use: always do you feel safe at home: Yes additional social history: - Castillo History 3 Elective abortions Hx Para 1 Spontaneous abortions 1 Hx # Term Pregnancies Ectopic pregnancies Hx # Pregnancies Multiple births # of living children 1 Past Pregnancies Del. Date Name GA/Weeks Outcome Route Bth Weight Gen Labor Lgth Anesthesia Del Locatn Provider FOB 08/19/22 [place] 39 live - full term 6lbs 14oz Female epidural [facility] Dr. Massey 04/21/24 6 spontaneous Delivery Date: 08/19/22 Last Updated by: Nakita Hammonds COVID Delivery Date: 04/21/24 Last Updated by: Anya Leung C HPI 26 WK OB/Glucose Details: ROMERO GRAJEDA is a 34 year old who presents for routine OB visit. OB Visit JENELLE Calculator Estimated Delivery Date Method Current WG Current Estimate 07/07/25 LMP (Certain) 25w 6d Other Estimates 07/11/25 Ultrasound #1 25w 2d Expected Delivery Route/Plan Labor Preferences- CB/BF classes: [] labor support person: [] labor intervention preferences: [] pain management options preferred: [] cut cord/dad catch: [] : [] PP control planned: [] discussed possible routes of delivery and associated risks: [] special requests: [] Specific Issue/Plans Covid status: [] Flu vaccine: [] Tdap vaccine: [] Rhogam: [] LARC form signed: [] Problem list reviewed and updated with the most current plan of care details and appropriate orders placed. Relevant counseling for the gestational age provided. Continue routine care and follow up unless otherwise noted in visit notes/problem list details Initial Weight: Not Recorded Date -??? (more content not included)... Normal [facility] Syphilis Antibodieson 2024 Syphilis Abs Non-Reactive Normal Nonreactive [facility] Comment on above: Performed By: #### L 501.0250, L509.8002, L100.0100, L3890.6006 #### [facility] [place], [address] Breakfast Manager Office Visit Reporton 03-02-2025 Breakfast Manager Office Visit Report [facility]'s [address], [address] [place] [address] OFFICE VISIT Date of Service: 03/02/25 MR#: [id number] Acct: [id number] Name: ROMERO GRAJEDA Rep #: [id number] : 1990 Provider: SHAKIR wong Age/Sex: 34/F [place] [facility] [place]: Signed Intake Vital Signs 12/16/24 13:15 02/02/25 09:21 03/02/25 09:39 Height 5 ft 6 in 5 ft 6 in 5 ft 6 in Weight: 145 lb 4 oz BMI 23.4 BP 136/84 H Intake Visit Reasons: 22WK OB Chief Complaint: 22 Week OB Receiving Associate Store Required: No Is patient in pain?: No Allergies amoxicillin Allergy (Intermediate, Verified 03/02/25 09:42) Rash cefprozil (From Cefzil) Allergy (Intermediate, Verified 03/02/25 09:42) Rash Medications ???Medication ???Instructions ???Recorded ???Confirmed ???Type multivitamin no.47-iron fum 27 cap PO 04/17/24 03/02/25 History mg-folate no.1 1 mg-dha 300 mg capsule (PNV-DHA) sertraline 50 mg tablet 50 mg PO DAILY #90 TABLETS 5 03/02/25 Rx valacyclovir 1 gram tablet 1,000 mg PO BID PRN 11/21/2403/02 History (Valtrex) hydroxyzine pamoate 25 mg capsule 25 mg PO Q6H PRN anxiety #90 caps 12/02/24 03/02/25 Rx (Vistaril) sertraline 50 mg tablet (Zoloft) 75 mg (1.5 x 50 mg) PO QDAY 90 03/02/25 Rx days #135 tabs Last Menstrual Period: 09/30/24 Zika: Zika virus screening: Negative : No PFSH PFSH Medical History Missed anxiety (08/19/22) HPV test positive Palpitations COVID-19 Vasovagal syncope Surgical History S/P dilation and curettage [place] teeth extracted H/O excision of mass ( 02/2022) History of oral surgery History of tonsillectomy and adenoidectomy Family History Father Hypertension Obesity Hyperlipidemia Aunt Breast cancer, Onset Age: 30 Maternal Grandmother Myelodysplastic syndrome, Onset Age: 70 Maternal Hypertension Parkinsons Dementia Grandfather Heart disease Kidney disease Diabetes Hypertension CVA (cerebral vascular accident) Myocardial infarction Mother Osteopenia Social History adopted: No household members: spouse and children housing: house number of children: 1 current occupational status: employed 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: No pets and animals: No history of recent travel: Yes (- November) out of state: Yes out of country: No sexually active: Yes Smoking Status: Never smoker alcohol intake: former details: prior to 1 drink a month- not while substance use type: does not use well-balanced diet: daily or most days caffeine: No eating out: 1-3 times/week during the past year weight has: remained stable what type of physical activity do you participate in: none leslie/islam: Adventist seatbelt use: always do you feel safe at home: Yes additional social history: - Castillo History 3 Elective abortions Hx Para 1 Spontaneous abortions 1 Hx # Term Pregnancies Ectopic pregnancies Hx # Pregnancies Multiple births # of living children 1 Past Pregnancies Del. Date Name GA/Weeks Outcome Route Bth Weight Gen Labor Lgth Anesthesia Del Locatn Provider FOB 08/19/22 [place] 39 live - full term 6lbs 14oz Female epidural [facility] Dr. Massey 04/21/24 6 spontaneous Delivery Date: 08/19/22 Last Updated by: Nakita Hammonds COVID Delivery Date: 04/21/24 Last Updated by: Anya Nguyen HPI 22WK OB Details: ROMERO GRAJEDA is a 34 year old who presents for routine OB visit. OB Visit JENELLE Calculator Estimated Delivery Date Method Current WG Current Estimate 07/07/25 LMP (Certain) 21w 6d Other Estimates 07/11/25 Ultrasound #1 21w 2d Expected Delivery Route/Plan Labor Preferences- CB/BF classes: [] labor support person: [] labor intervention preferences: [] pain management options preferred: [] cut cord/dad catch: [] : [] PP control planned: [] discussed possible routes of delivery and associated risks: [] special requests: [] Specific Issue/Plans Covid status: [] Flu vaccine: [] Tdap vaccine: [] Rhogam: [] LARC form signed: [] Problem list reviewed and updated with the most current plan of care details and appropriate orders placed. Relevant counseling for the gestational age provided. Continue routine care and follow up unless otherwise noted in visit notes/problem list details Initial Weight: Not Recorded (more content not included)... Normal [facility] OB Anatomy w/ Transvaginalon 02-19-2025 OB Anatomy w/ Transvaginal [facility] [address] [place], [place] [id number] OB Anatomy w/ Transvaginal MR#: [id number] Acct: [id number] Name: ROMERO GRAJEDA Rep #: [id number] : 1990 F 34 From: Alfredo manzano MD PCP: Dr. Yanelis Yost MD Status: [facility] Study: OB Anatomy w/ Transvaginal Date of Exam: 02/19 Exam# [id number] Ordering Dr: Zunilda Higginbotham CNM PROCEDURE: OB ANATOMY W/ TRANSVAGINAL 02/19/2025 REASON FOR EXAM: ANATOMY US TECHNIQUE: OB ANATOMY W/ TRANSVAGINAL COMPARISON: None FINDINGS LMP: September 30, 2024 Number: 1 Position: Vertex Placental Position: Anterior and not low-lying Placental Abnormalities: No evidence of previa. DIMENSIONS: Biparietal Diameter: 5.05 cm: 21 weeks and 2 days: 86 percentile/ Head Circumference: 17.78 cm: 20 weeks and 2 days: 40 percentile/ Abdominal Circumference: 15.66 cm: 20 weeks and 6 days: 62nd percentile/ Femur Length: 3.31 cm: 20 weeks and 2 days: 44 percentile/ ESTIMATED WEIGHT: 372 g plus/-56 g ESTIMATED WEIGHT PERCENTILE (24+ weeks): 68 ESTIMATED GESTATIONAL AGE: Baseline: 20 weeks and 2 days By Ultrasound: 20 weeks and 4 days ESTIMATED DATE OF DELIVERY: Baseline: July 07, 2025 By Ultrasound: July 05, 2025 BIOPHYSICAL ASSESSMENT: Amniotic Fluid Volume: 5.3 cm Amniotic Fluid Index: Within normal limits (8-24 cm normal range) Cardiac Motion: 141 beats per minute (average) Trunk and Limb Motion: Present. MATERNAL ANATOMY: Adnexa: Both maternal ovaries are visualized and unremarkable. Cervical Length (if measured): 3.9 cm ANATOMY: Spine: Unremarkable Cranium: Unremarkable Cerebellum: Unremarkable Cisterna Magna: Unremarkable Cavum Septum Pellucidi: Unremarkable Lateral Ventricles: Unremarkable Choroid Plexus: Unremarkable Midline Falx: Unremarkable Nuchal Fold: Unremarkable Upper Lip: Unremarkable Heart: Unremarkable Ventricular Outflow Tracts: Unremarkable Stomach: Kidneys: Bladder: Unremarkable Umbilical Cord: Normal placental insertion. cord insertion not seen well. Extremities: Unremarkable US/OB Anatomy w/ Transvaginal IMPRESSION: Single live intrauterine gestation with a mean gestational age of 20 weeks and 4 days. Reading Location: [place] [address] CC: JOSE DE JESUS Higginbotham; Dr. Yanelis Yost MD Blanket Weaver: Signed Normal [facility] - Chemistry and C hemistry - challengeOrdered By: Zunilda Higginbotham on 02-02-2025 Glucose Ql (U) Negative [facility] - UrinalysisOrder ed By: Zunilda Higginbotham on 02-02-2025 Protein Ql (U) Negative [facility] Breakfast Manager Office Visit Reporton 02-02-2025 Breakfast Manager Office Visit Report [facility]'s [address], [address] [place] [address] OFFICE VISIT Date of Service: 02/02/25 MR#: [id number] Acct: [id number] Name: ROMERO GRAJEDA Rep #: [id number] : 1990 Provider: JOSE DE JESUS Serna ams Age/Sex: 34/F [place] [facility] [place]: Signed Intake Vital Signs 12/02/24 10:20 01/05/25 11:48 02/02/25 09:21 Height 5 ft 6 in 5 ft 6 in 5 ft 6 in Weight: 139 lb 4 oz BMI 22.4 BP 131/87 H Intake Visit Reasons: 18WK OB Chief Complaint: 18wk OB Receiving Associate Store Required: No Is patient in pain?: No Allergies amoxicillin Allergy (Intermediate, Verified 02/02/25 09:19) Rash cefprozil (From Cefzil) Allergy (Intermediate, Verified 02/02/25 09:19) Rash Medications ???Medication ???Instructions ???Recorded ???Confirmed ???Type multivitamin no.47-iron fum 27 cap PO 04/17/24 02/02/25 History mg-folate no.1 1 mg-dha 300 mg capsule (PNV-DHA) sertraline 50 mg tablet 50 mg PO DAILY #90 TABLETS 10/29/ 5 02/02/25 Rx valacyclovir 1 gram tablet 1,000 mg PO BID PRN 11/21/2402/02 History (Valtrex) hydroxyzine pamoate 25 mg capsule 25 mg PO Q6H PRN anxiety #90 caps 12/02/24 02/02/25 Rx (Vistaril) sertraline 50 mg tablet (Zoloft) 75 mg (1.5 x 50 mg) PO QDAY 90 02/02/25 Rx days #135 tabs Last Menstrual Period: 09/30/24 : No PFSH PFSH Medical History Missed anxiety (08/19/22) HPV test positive Palpitations COVID-19 Vasovagal syncope Surgical History S/P dilation and curettage [place] teeth extracted H/O excision of mass ( 02/2022) History of oral surgery History of tonsillectomy and adenoidectomy Family History Father Hypertension Obesity Hyperlipidemia Aunt Breast cancer, Onset Age: 30 Maternal Grandmother Myelodysplastic syndrome, Onset Age: 70 Maternal Hypertension Parkinsons Dementia Grandfather Heart disease Kidney disease Diabetes Hypertension CVA (cerebral vascular accident) Myocardial infarction Mother Osteopenia Social History adopted: No household members: spouse and children housing: house number of children: 1 current occupational status: employed 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: No pets and animals: No history of recent travel: Yes (- November) out of state: Yes out of country: No sexually active: Yes Smoking Status: Never smoker alcohol intake: former details: prior to 1 drink a month- not while substance use type: does not use well-balanced diet: daily or most days caffeine: No eating out: 1-3 times/week during the past year weight has: remained stable what type of physical activity do you participate in: none leslie/islam: Adventist seatbelt use: always do you feel safe at home: Yes additional social history: - Castillo History 3 Elective abortions Hx Para 1 Spontaneous abortions 1 Hx # Term Pregnancies Ectopic pregnancies Hx # Pregnancies Multiple births # of living children 1 Past Pregnancies Del. Date Name GA/Weeks Outcome Route Bth Weight Infant Gen Labor Lgth Anesthesia Del Locatn Provider FOB 08/19/22 [place] 39 live - full term 6lbs 14oz Female epidural [employer] Dr. Massey 04/21/24 6 spontaneous Delivery Date: 08/19/22 Last Updated by: Nakita Hammonds COVID Delivery Date: 04/21/24 Last Updated by: Anya Nguyen HPI 18WK OB Details: ROMERO GRAJEDA is a 34 year old who presents for routine OB visit. OB Visit JENELLE Calculator Estimated Delivery Date Method Current WG Current Estimate 07/07/25 LMP (Certain) 17w 6d Other Estimates 07/11/25 Ultrasound #1 17w 2d Expected Delivery Route/Plan Labor Preferences- CB/BF classes: [] labor support person: [] labor intervention preferences: [] pain management options preferred: [] cut cord/dad catch: [] : [] PP control planned: [] discussed possible routes of delivery and associated risks: [] special requests: [] Specific Issue/Plans Covid status: [] Flu vaccine: [] Tdap vaccine: [] Rhogam: [] LARC form signed: [] Problem list reviewed and updated with the most current plan of care details and appropriate orders placed. Relevant counseling for the gestational age provided. Continue routine care and follow up unless otherwise noted in visit notes/problem list details Initial Weight: Not Recorded Date -???-???-???-???-???-?? ?-???-???-???-???-???-? ??- EG (more content not included)... Normal [facility] - Chemistry and C hemistry - challengeOrdered By: Yvonne Whaley on 01-05-2025 Glucose Ql (U) Negative [facility] - UrinalysisOrder ed By: Yvonne Whaley on 01-05-2025 Protein Ql (U) Negative [facility] Breakfast Manager Office Visit Reporton 01-05-2025 Breakfast Manager Office Visit Report [facility] [address], [address] [place] [address] OFFICE VISIT Date of Service: 01/05/25 MR#: [id number] Acct: [id number] Name: ROMERO GRAJEDA Rep #: [id number] : 1990 Provider: Dr. Yvonne Scott DO Age/Sex: 34/F [place] [facility] [place]: Signed Intake Vital Signs 04/24/24 11:49 12/16/24 13:15 01/05/25 11:48 01/05/25 11:48 Height 5 ft 6 in 5 ft 6 in 5 ft 6 in 5 ft 6 in Weight: 136 lb 4 oz BMI 21.9 BP 142/94 H Intake Visit Reasons: 14wk ob Receiving Associate Store Required: No Is patient in pain?: No Allergies amoxicillin Allergy (Intermediate, Verified 01/05/25 11:47) Rash cefprozil (From Cefzil) Allergy (Intermediate, Verified 01/05/25 11:47) Rash Medications ???Medication ???Instructions ???Recorded ???Confirmed ???Type multivitamin no.47-iron fum 27 cap PO 04/17/24 01/05/25 History mg-folate no.1 1 mg-dha 300 mg capsule (PNV-DHA) sertraline 50 mg tablet 50 mg PO DAILY #90 TABLETS 2 5 01/05/25 Rx valacyclovir 1 gram tablet 1,000 mg PO BID PRN 11/21/2401/05 History (Valtrex) hydroxyzine pamoate 25 mg capsule 25 mg PO Q6H PRN anxiety #90 caps 12/02/24 01/05/25 Rx (Vistaril) sertraline 50 mg tablet (Zoloft) 75 mg (1.5 x 50 mg) PO QDAY 90 01/05/25 Rx days #135 tabs Last Menstrual Period: 09/30/24 Zika: Zika virus screening: Negative : No PFSH PFSH Medical History Missed anxiety (08/19/22) HPV test positive Palpitations COVID-19 Vasovagal syncope Surgical History S/P dilation and curettage [place] teeth extracted H/O excision of mass ( 02/2022) History of oral surgery History of tonsillectomy and adenoidectomy Family History Father Hypertension Obesity Hyperlipidemia Aunt Breast cancer, Onset Age: 30 Maternal Grandmother Myelodysplastic syndrome, Onset Age: 70 Maternal Hypertension Parkinsons Dementia Grandfather Heart disease Kidney disease Diabetes Hypertension CVA (cerebral vascular accident) Myocardial infarction Mother Osteopenia Social History adopted: No household members: spouse and children housing: house number of children: 1 current occupational status: employed 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: No pets and animals: No history of recent travel: Yes (- November) out of state: Yes out of country: No sexually active: Yes Smoking Status: Never smoker alcohol intake: former details: prior to 1 drink a month- not while substance use type: does not use well-balanced diet: daily or most days caffeine: No eating out: 1-3 times/week during the past year weight has: remained stable what type of physical activity do you participate in: none leslie/islam: Adventist seatbelt use: always do you feel safe at home: Yes additional social history: - [place] History 3 Elective abortions Hx Para 1 Spontaneous abortions 1 Hx # Term Pregnancies Ectopic pregnancies Hx # Pregnancies Multiple births # of living children 1 Past Pregnancies Del. Date Name GA/Weeks Outcome Route Bth Weight Infant Gen Labor Lgth Anesthesia Del Locatn Provider FOB 08/19/22 [place] 39 live - full term 6lbs 14oz Female epidural [facility] Dr. Massey 04/21/24 6 spontaneous Delivery Date: 08/19/22 Last Updated by: Nakita Hammonds COVID Delivery Date: 04/21/24 Last Updated by: Anya Nguyen HPI 14wk ob Details: ROMERO GRAJEDA is a 34 year old who presents for routine OB visit. OB Visit JENELLE Calculator Estimated Delivery Date Method Current WG Current Estimate 07/07/25 LMP (Certain) 13w 6d Other Estimates 07/11/25 Ultrasound #1 13w 2d Expected Delivery Route/Plan Labor Preferences- CB/BF classes: [] labor support person: [] labor intervention preferences: [] pain management options preferred: [] cut cord/dad catch: [] : [] PP control planned: [] discussed possible routes of delivery and associated risks: [] special requests: [] Specific Issue/Plans Covid status: [] Flu vaccine: [] Tdap vaccine: [] Rhogam: [] LARC form signed: [] Problem list reviewed and updated with the most current plan of care details and appropriate orders placed. Relevant counseling for the gestational age provided. Continue routine care and follow up unless otherwise noted in visit notes/problem list details Initial Weight: Not Recorded (more content not included)... Normal [facility] Protein+Creatinine Ratio,Uri neon 01-05-2025 PROT:CRE RATIO 119 mg/g CRE Normal 0-200 [facility] Comment on above: Performed By: #### L 7000.1800, M100.2200 #### [facility] [address] [place], [address] Protein (U) [Mass/Vol] 11.7 mg/dL Normal 0.0-12.0 [facility] Comment on above: Performed By: #### L 7000.1800, M100.2200 #### [facility] [address] [place], [place], [id number] Random urine creatinine dino urement (mass/volume)Ordered By: Yvonne Whaley on 01-05-2025 Creatinine Unsp time (U) [Mass/Vol] 98.60 mg/dL 28.00-217.00 [facility] Urine protein measurement (m ass/volume)Ordered By: Yvonne Whaley on 01-05-2025 Protein (U) [Mass/Vol] 11.7 mg/dL 0.0-12.0 [facility] Urine protein/creatinine mas s ratioOrdered By: Yvonne Whaley on 01-05-2025 Protein/Creatinine (U) [Mass ratio] 119 mg/g CRE 0-200 [facility] Absolute lymphocyte countOrd ered By: Alice Bhakta on 12-16-2024 Lymphocytes Auto (Unsp spec) [#/Vol] 1.89 10*3/uL 0.83-4.51 [facility] Absolute neutrophil countOrd ered By: Alice Bhakta on 12-16-2024 Neutrophils (Bld) [#/Vol] 5.4 10*3/uL 2.0-7.7 [facility] Automated lymphocyte count a s percentage of total leukocytesOrdered By: Alice Bhakta on 12-16-2024 Lymphocytes/100 WBC Auto (Unsp spec) 23.0 % 19-41 [facility] Basophil percentageOrdered B y: Alice Bhakta on 12-16-2024 Basophils/100 WBC (Bld) 0.4 % 0-1 [facility] CBC W/Diff, Automatedon 12-07 Absolute Lymph 1.89 X10 3/uL Normal 0.83-4.51 [facility] Comment on above: Performed By: #### L 509.4006, BTS, L3890.6102, L100.0100, L3890.6301, L900.0098, L509.8002, L3890.6006 #### [facility] [address] [place], [address] Absolute Neut 5.4 X10 3/uL Normal 2.0-7.7 [facility] Comment on above: Performed By: #### L 509.4006, BTS, L3890.6102, L100.0100, L3890.6301, L900.0098, L509.8002, L3890.6006 #### [facility] [address] [place], [address] Basophils/100 WBC (Bld) 0.4 % Normal 0-1 [facility] Comment on above: Performed By: #### L 509.4006, BTS, L3890.6102, L100.0100, L3890.6301, L900.0098, L509.8002, L3890.6006 #### [facility] [address] [place], [address] Eosinophils/100 WBC (Bld) 1.3 % Normal 0-5 [facility] Comment on above: Performed By: #### L 509.4006, BTS, L3890.6102, L100.0100, L3890.6301, L900.0098, L509.8002, L3890.6006 #### [facility] [address] [place], [address] Erythrocyte distribution width (RBC) [Ratio] 11.9 % Normal 11.6-14.6 [facility] Comment on above: Performed By: #### L 509.4006, BTS, L3890.6102, L100.0100, L3890.6301, L900.0098, L509.8002, L3890.6006 #### [facility] [address] [place], [address] Hematocrit (Bld) [Volume fraction] 37.6 % Normal 37-47 [facility] Comment on above: Performed By: #### L 509.4006, BTS, L3890.6102, L100.0100, L3890.6301, L900.0098, L509.8002, L3890.6006 #### [facility] [address] [place], [address] Hemoglobin (Bld) [Mass/Vol] 13.1 g/dL Normal 12.0-15.0 [facility] Comment on above: Performed By: #### L 509.4006, BTS, L3890.6102, L100.0100, L3890.6301, L900.0098, L509.8002, L3890.6006 #### [facility] [address] [place], [address] IG% 0.200 Normal 0.0-0.9 [facility] Comment on above: Result Comment: IG% - Immature Granulocytes (promyelocytes, myelocytes and metamyelocytes) > 1% indicates that a LEFT SHIFT is Present. Performed By: #### L 509.4006, BTS, L3890.6102, L100.0100, L3890.6301, L900.0098, L509.8002, L3890.6006 #### [facility] [address] [place], [address] Lymphocytes/100 WBC (Bld) 23.0 % Normal 19-41 [facility] Comment on above: Performed By: #### L 509.4006, BTS, L3890.6102, L100.0100, L3890.6301, L900.0098, L509.8002, L3890.6006 #### [facility] [address] [place], [address] MCH (RBC) [Entitic mass] 28.6 pg Normal 27.0-32.0 [facility] Comment on above: Performed By: #### L 509.4006, BTS, L3890.6102, L100.0100, L3890.6301, L900.0098, L509.8002, L3890.6006 #### [facility] [address] [place], [address] MCHC (RBC) [Mass/Vol] 34.8 g/dL Normal 32-36 [facility] Comment on above: Performed By: #### L 509.4006, BTS, L3890.6102, L100.0100, L3890.6301, L900.0098, L509.8002, L3890.6006 #### [facility] [address] [place], [address] MCV (RBC) [Entitic vol] 82.1 fL Normal 81-99 [facility] Comment on above: Performed By: #### L 509.4006, BTS, L3890.6102, L100.0100, L3890.6301, L900.0098, L509.8002, L3890.6006 #### [facility] [address] [place], [address] Monocytes/100 WBC (Bld) 9.0 % Normal 0-10 [facility] Comment on above: Performed By: #### L 509.4006, BTS, L3890.6102, L100.0100, L3890.6301, L900.0098, L509.8002, L3890.6006 #### [facility] [address] [place], [address] Neutrophils/100 WBC (Bld) 66.1 % Normal 47-70 [facility] Comment on above: Performed By: #### L 509.4006, BTS, L3890.6102, L100.0100, L3890.6301, L900.0098, L509.8002, L3890.6006 #### [facility] [address] [place], [address] Nucleated RBC (Bld) [#/Vol] 0 10*3/uL Normal 0-5 [facility] Comment on above: Performed By: #### L 509.4006, BTS, L3890.6102, L100.0100, L3890.6301, L900.0098, L509.8002, L3890.6006 #### [facility] [address] [place], [address] Platelet mean volume (Bld) [Entitic vol] 10.6 fL Normal 6.2-12.0 [facility] Comment on above: Performed By: #### L 509.4006, BTS, L3890.6102, L100.0100, L3890.6301, L900.0098, L509.8002, L3890.6006 #### [facility] [address] [place], [address] Platelets (Bld) [#/Vol] 201 10*3/uL Normal 150-450 [facility] Comment on above: Performed By: #### L 509.4006, BTS, L3890.6102, L100.0100, L3890.6301, L900.0098, L509.8002, L3890.6006 #### [facility] [address] [facility] [place], [address] RBC (Bld) [#/Vol] 4.58 10*6/uL Normal 4.2-5.4 [facility] Comment on above: Performed By: #### L 509.4006, BTS, L3890.6102, L100.0100, L3890.6301, L900.0098, L509.8002, L3890.6006 #### [facility] [address] [place], [address] RDW SD 35.8 fl Normal 35.1-43.9 [facility] Comment on above: Performed By: #### L 509.4006, BTS, L3890.6102, L100.0100, L3890.6301, L900.0098, L509.8002, L3890.6006 #### [facility] [address] [place], [address] WBC (Bld) [#/Vol] 8.2 10*3/uL Normal 4.4-11.0 [facility] Comment on above: Performed By: #### L 509.4006, BTS, L3890.6102, L100.0100, L3890.6301, L900.0098, L509.8002, L3890.6006 #### [facility] [address] [place], [address] Eosinophil percentageOrdered By: Alice Bhakta on 12-16-2024 Eosinophils/100 WBC (Bld) 1.3 % 0-5 [facility] Erythrocyte distribution wid th ratioOrdered By: Alice Bhakta on 12-16-2024 Erythrocyte distribution width (RBC) [Ratio] 11.9 % 11.6-14.6 [facility] Erythrocyte distribution wid th standard deviationOrdered By: Alice Bhakta on 12-16-2024 Erythrocyte distribution width (RBC) [Ratio] 35.8 fl 35.1-43.9 [facility] HIVon 12-16-2024 HIV Non-Reactive Normal Nonreactive [facility] Comment on above: Result Comment: Non- Reactive Reactive Repeatedly reactive samples must be confirmed according to CDC recommended confirmatory algorithms. The subresults for either HIVAG or AHIV can be used as an aid in the selection of the confirmation algorithm for reactive samples. Send out specimens with Reactive results to [facility] for confirmation. Order the HIV antibody detection and differentiation: lc#[id number] Performed By: #### L 7000.1800, M100.2200 #### [facility] [address] [place], [address] Hematocrit Auto (Bld) [Volum e fraction]Ordered By: Alice Bhakta on 12-16-2024 Hematocrit (Bld) [Volume fraction] 37.6 % 37-47 [facility] Hemoglobin measurementOrdere d By: Alice Bhakta on 12-16-2024 Hemoglobin (Bld) [Mass/Vol] 13.1 g/dL 12.0-15.0 [facility] Hepatitis C Antibodyon 12-16 Hepatitis C Ab Non-Reactive Normal Nonreactive [facility] Comment on above: Result Comment: Reac tive: Presumptive evidence of antibodies to HCV. Follow CDC recommendations for supplemental testing. Non-Reactive: Antibodies to HCV were not detected; does not exclude the possibility of exposure to HCV Reactive Results are presumptive evidence of antibodies to HCV. Follow CDC recommendations for supplemental testing. Order confirmation testing: HCV Quant by PCR testing - HCVPCR #[id number] Non Reactive: < 0.8 Equivocal: >/= 0.8 to < 1.0 Reactive: >/= 1.0 The [facility] requires that a reactive/equivocal HCV antibody result be sent out for confirmation. HCV Quant by PCR testing. Performed By: #### L 7000.1800, M100.0 #### [facility] [address] [place], [place], [address] Immature granulocytes/100 WB C Auto (Bld)Ordered By: Alice Bhakta on 12-16-2024 Immature granulocytes/100 WBC (Bld) 0.200 % 0.0-0.9 [facility] Comment on above: IG% - Immature Granu locytes (promyelocytes, myelocytes and metamyelocytes) > 1% indicates that a LEFT SHIFT is Present. L3890.6102on 12-16-2024 HEP B Surf Ag Non-Reactive Normal Nonreactive [facility] Comment on above: Result Comment: Reac tive: Presumptive evidence of HBV. Repeatedly reactive samples must be confirmed using a neutralization test ([employer] HBsAg Confirmatory Test) Non-Reactive: HBsAg not detected; does not exclude the possibility of exposure to HBV Performed By: #### L 7000.1800, M100.2200 #### [facility] [address] [place], [place], [address] L509.4006on 12-16-2024 Rubella IgG REAC Normal Nonreactive [facility] Comment on above: Result Comment: Anti body Result: Interpretation Non-Reactive: Non-Immune Reactive: Immune The following results were obtained with the [employer] Rubella IgG assay. Results from assays of other manufacturers cannot be used interchangeably. Performed By: #### L 7000.1800, M100.2200 #### [facility] [address] [place], [address] Laboratory - Chemistry and C hemistry - challengeOrdered By: Zunilda Higginbotham on 12-16-2024 Glucose Ql (U) Negative [facility] - Microbiology an d Antimicrobial susceptibilityOrdered By: Alice Bhakta on 12-16-2024 HBV surface Ag Ql (S) Non-Reactive Nonreactive [facility] Comment on above: Reactive: Presumptiv e evidence of HBV. Repeatedly reactive samples must be confirmed using a neutralization test ([employer] HBsAg Confirmatory Test)Non-Reactive: HBsAg not detected; does not exclude the possibility of exposure to HBV Laboratory - UrinalysisOrder ed By: Zunilda Higginbotham on 12-16-2024 Protein Ql (U) Negative [facility] MCV (mean corpuscular volume ) determinationOrdered By: Alice Bhakta on 12-16-2024 MCV (RBC) [Entitic vol] 82.1 fL 81-99 [facility] Mean corpuscular hemoglobin (MCH) determinationOrdered By: Alice Bhakta on 12-16-2024 MCH (RBC) [Entitic mass] 28.6 pg 27.0-32.0 [facility] Mean corpuscular hemoglobin concentration (MCHC) determinationOrdered By: Alice Bhakta on 12-16-2024 MCHC (RBC) [Mass/Vol] 34.8 g/dL 32-36 [facility] Mean platelet volume determi nationOrdered By: Alice Bhakta on 12-16-2024 Platelet mean volume (Bld) [Entitic vol] 10.6 fL 6.2-12.0 [facility] Monocyte percentageOrdered B y: Alice Bhakta on 12-16-2024 Monocytes/100 WBC (Bld) 9.0 % 0-10 [facility] NATERAon 12-16-2024 NATURA SEE SCANNED REPORT Normal [facility] Comment on above: Order Comment: Comme nts: NIPT with Gender Performed By: #### L 509.5791, BTS, L3890.6102, L100.0100, L3890.6301, L900.0098, L509.8002, L3890.6006 #### [facility] [place], [address] Neutrophil percentageOrdered By: Alice Bhakta on 12-16-2024 Neutrophils/100 WBC (Bld) 66.1 % 47-70 [facility] No Panel InformationOrdered By: Alice Bhakta on 12-16-2024 HIV (1&2) Antibody Non-Reactive Nonreactive [facility] Comment on above: Non-ReactiveReactive Repeatedly reactive samples must be confirmed according to CDC recommended confirmatory algorithms. The subresults for either HIVAG or AHIV can be used as an aid in the selection of the confirmation algorithm for reactive samples.Send out specimens with Reactive results to [facility] for confirmation.Order the HIV antibody detection and differentiation: #[id number] Nucleated red blood cell per centageOrdered By: Alice Bhakta on 12-16-2024 Nucleated RBC/100 WBC (Bld) [Ratio] 0 % 0-5 [facility] Breakfast Manager Office Visit Reporton 12-16-2024 Breakfast Manager Office Visit Report [facility], [address] [place] [address] OFFICE VISIT Date of Service: 12/16/24 MR#: [id number] Acct: [id number] Name: ROMERO GRAJEDA LESLIE Rep #: [id number] : 1990 Provider: JOSE DE JESUS Serna ams Age/Sex: 34/F [place] [facility] [place] Signed Intake Vital Signs 12/02/24 10:20 12/16/24 13:15 Height 5 ft 6 in 5 ft 6 in Weight: 135 lb 6 oz 135 lb 8 oz BMI 21.8 21.9 BP 137/91 H 139/78 H Intake Visit Reasons: 11wk ob *repeat US per Receiving Associate Store Required: No Is patient in pain?: No Allergies amoxicillin Allergy (Intermediate, Verified 12/02/24 10:22) Rash cefprozil (From Cefzil) Allergy (Intermediate, Verified 12/02/24 10:22) Rash Medications ???Medication ???Instructions ???Recorded ???Confirmed ???Type multivitamin no.47-iron fum 27 cap PO 04/17/24 12/16/24 History mg-folate no.1 1 mg-dha 300 mg capsule (PNV-DHA) sertraline 50 mg tablet 50 mg PO DAILY #90 TABLETS 10/29/2 5 12/16/24 Rx valacyclovir 1 gram tablet 1,000 mg PO BID PRN 11/21/2412/16 History (Valtrex) hydroxyzine pamoate 25 mg capsule 25 mg PO Q6H PRN anxiety #90 caps 12/02/24 12/16/24 Rx (Vistaril) sertraline 50 mg tablet (Zoloft) 75 mg (1.5 x 50 mg) PO QDAY 90 12/16/24 Rx days #135 tabs Last Menstrual Period: 09/30/24 Zika: Zika virus screening: Negative : No PFSH PFSH Medical History Missed anxiety (08/19/22) HPV test positive Palpitations COVID-19 Vasovagal syncope Surgical History S/P dilation and curettage [place] teeth extracted H/O excision of mass ( 02/2022) History of oral surgery History of tonsillectomy and adenoidectomy Family History Father Hypertension Obesity Hyperlipidemia Aunt Breast cancer, Onset Age: 30 Maternal Grandmother Myelodysplastic syndrome, Onset Age: 70 Maternal Hypertension Parkinsons Dementia Grandfather Heart disease Kidney disease Diabetes Hypertension CVA (cerebral vascular accident) Myocardial infarction Mother Osteopenia Social History adopted: No household members: spouse and children housing: house number of children: 1 current occupational status: employed 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/hazards: No pets and animals: No history of recent travel: Yes (- November) out of state: Yes out of country: No sexually active: Yes Smoking Status: Never smoker alcohol intake: former details: prior to 1 drink a month- not while substance use type: does not use well-balanced diet: daily or most days caffeine: No eating out: 1-3 times/week during the past year weight has: remained stable what type of physical activity do you participate in: none leslie/islam: [employer]ist seatbelt use: always do you feel safe at home: Yes additional social history: - Castillo History 3 Elective abortions Hx Para 1 Spontaneous abortions 1 Hx # Term Pregnancies Ectopic pregnancies Hx # Pregnancies Multiple births # of living children 1 Past Pregnancies Del. Date Name GA/Weeks Outcome Route Bth Weight Infant Gen Labor Lgth Anesthesia Del Locatn Provider FOB 08/19/22 Jewel 39 live - full term 6lbs 14oz Female epidural [facility] Dr. Massey 04/21/24 6 spontaneous Delivery Date: 08/19/22 Last Updated by: Nakita Hammonds COVID Delivery Date: 04/21/24 Last Updated by: Anya Nguyen HPI 11wk ob *repeat US per Details: ROMERO GRAJEDA is a 34 year old who presents for routine OB visit. OB Visit JENELLE Calculator Estimated Delivery Date Method Current WG Current Estimate 07/07/25 LMP (Certain) 11w 0d Other Estimates 07/11/25 Ultrasound #1 10w 3d Expected Delivery Route/Plan Labor Preferences- CB/BF classes: [] labor support person: [] labor intervention preferences: [] pain management options preferred: [] cut cord/dad catch: [] : [] PP control planned: [] discussed possible routes of delivery and associated risks: [] special requests: [] Specific Issue/Plans Covid status: [] Flu vaccine: [] Tdap vaccine: [] Rhogam: [] LARC form signed: [] Problem list reviewed and updated with the most current plan of care details and appropriate orders placed. Relevant counseling for the gestational age provided. Continue routine care and follow up unless otherwise noted in visit notes/problem list details Initial Weight: Not Recorded Da (more content not included)... Normal [facility] Platelet countOrdered By: Anuradha Bhakta on 12-16-2024 Platelets (Bld) [#/Vol] 201 10*3/uL 150-450 [facility] RBC Auto (Bld) [#/Vol]Ordere d By: Alice Bhakta on 12-16-2024 RBC (Bld) [#/Vol] 4.58 10*6/uL 4.2-5.4 [facility] Syphilis Antibodieson 2024 Syphilis Abs Non-Reactive Normal Nonreactive [facility] Comment on above: Performed By: #### L 0.1800, .0 #### [facility] [address] [place], [address] Type AND Screenon 12-16-2024 Ab SCREEN GEL Negative Normal [facility] Comment on above: Order Comment: PN Performed By: #### L 0.1799, #### [facility] [address] [place], [address] White blood cell (WBC) count Ordered By: Alice Bhakta on 12-16-2024 WBC (Bld) [#/Vol] 8.2 10*3/uL 4.4-11.0 [facility] Chlamydia/GC LUIS aptimaon CHLAMY,NUC ACID Negative Normal Negative [facility] Comment on above: Performed By: #### L 0.1799, #### [facility] [address] [place], [address] GC BY NUC ACID Negative Normal Negative [facility] Comment on above: Result Comment: Perf ormed at: =G - [facility] [address] [id number] Teletypesetter: Marcy Mcgarry MD, Phone: [phone] Performed By: #### L 0.1800, .2199 #### [facility] [address] [place], [address] Urine Cultureon 12-03-2024 URC Culture exhibits no growth. Normal [facility] Comment on above: Performed By: #### L 0.1800, .0 #### [facility] [address] [place], [address] Chlamydia trachomatis rRNA d etection by probe and target amplification methodOrdered By: Alice Bhakta on 12-02-2024 C. trachomatis rRNA LUIS+probe Ql (Unsp spec) Negative Negative [facility] Neisseria gonorrhoeae nuclei c acid detection by amplified probe techniqueOrdered By: Alice Bhakta on 12-02-2024 N. gonorrhoeae DNA LUIS+probe Ql (Unsp spec) Negative Negative [facility] Comment on above: Performed at: =G - L [address] [id number] Director: Marcy Mcgarry MD, Phone: [phone] Breakfast Manager Office Visit Reporton 12-02-2024 Breakfast Manager Office Visit Report [facility] [address], [address] [place] [address] OFFICE VISIT Date of Service: 12/02/24 MR#: [id number] Acct: [id number] Name: ROMERO GRAJEDA LESLIE Rep #: [id number] : 1990 Provider: Dr. 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 Associate Store Required: No Is patient in pain?: No Allergies amoxicillin Allergy (Intermediate, Verified 12/02/24 10:22) Rash cefprozil (From Cefzil) Allergy (Intermediate, Verified 12/02/24 10:22) Rash Medications ???Medication ???Instructions ???Recorded ???Confirmed ???Type multivitamin no.47-iron fum 27 cap PO 04/17/24 11/21/24 History mg-folate no.1 1 mg-dha 300 mg capsule (PNV-DHA) sertraline 50 mg tablet 50 mg PO DAILY #90 TABLETS 5 11/21/24 Rx valacyclovir 1 gram tablet 1,000 mg PO BID PRN 11/21/24 Hist ory (Valtrex) hydroxyzine pamoate 25 mg capsule 25 mg PO Q6H PRN anxiety #90 caps 12/02/24 12/02/24 Rx (Vistaril) Last Menstrual Period: 09/30/24 Zika: Zika virus screening: Negative : No PFSH PFSH Medical History Missed anxiety (08/19/22) HPV test positive Palpitations COVID-19 Vasovagal syncope Surgical History S/P dilation and curettage [place] teeth extracted H/O excision of mass ( 02/2022) History of oral surgery History of tonsillectomy and adenoidectomy Family History Father Hypertension Obesity Hyperlipidemia Aunt Breast cancer, Onset Age: 30 Maternal Grandmother Myelodysplastic syndrome, Onset Age: 70 Maternal Hypertension Parkinsons Dementia Grandfather Heart disease Kidney disease Diabetes Hypertension CVA (cerebral vascular accident) Myocardial infarction Mother Osteopenia Social History adopted: No household members: spouse and children housing: house number of children: 1 service: No current occupational status: employed 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: No pets and animals: No history of recent travel: Yes (- November) out of state: Yes out of country: No sexually active: Yes Smoking Status: Never smoker alcohol intake: former details: prior to 1 drink a month- not while substance use type: does not use well-balanced diet: daily or most days caffeine: No eating out: 1-3 times/week during the past year weight has: remained stable what type of physical activity do you participate in: none leslie/islam: Adventist seatbelt use: always do you feel safe at home: Yes additional social history: - Castillo History 3 Elective abortions Hx Para 1 Spontaneous abortions 1 Hx # Term Pregnancies Ectopic pregnancies Hx # Pregnancies Multiple births # of living children 1 Past Pregnancies Del. Date Name GA/Weeks Outcome Route Bth Weight Infant Gen Labor Lgth Anesthesia Del Locatn Provider FOB 08/19/22 Jewel 39 live - full term 6lbs 14oz Female epidural [facility] Dr. Massey 04/21/24 6 spontaneous Delivery Date: 08/19/22 Last Updated by: Nakita Hammonds COVID Delivery Date: 04/21/24 Last Updated by: Anya Nguyen HPI NOB LMP 09/30 JENELLE 07/07 Details: ROMERO GRAJEDA is a 34 year old who presents for New OB visit. OB Visit JENELLE Calculator Estimated Delivery Date Method Current WG Current Estimate 07/07/25 LMP (Certain) 9w 0d Other Estimates 07/11/25 Ultrasound #1 8w 3d Comments: HIV: Urine Culture: Sequential Screen: NIPT Screen: Estimated Due Date: 07/07/25 Expected Delivery Route/Plan Labor Preferences- CB/BF classes: [] labor support person: [] labor intervention preferences: [] pain management options preferred: [] cut cord/dad catch: [] : [] PP control planned: [] discussed possible routes of delivery and associated risks: [] special requests: [] Specific Issue/Plans Covid status: [] Flu vaccine: [] Tdap vaccine: [] Rhogam: [] LARC form signed: [] Problem list reviewed and updated with the most current plan of care details and appropriate orders placed. Relevant counseling for the gestational age provided. Continue routine care and follow up unless otherwise noted in visit notes/problem list details Initial Weight: Not Recorded Date -???-???-???-???- (more content not included)... Normal [facility] Urine cultureOrdered By: Claudio Bhakta on 12-02-2024 Bacteria identified Cx Nom (U) Culture exhibits no growth. [facility] CNOVon 08-14-2024 CNOV Office Visit ([facility] ) TARASROMERO ([id number]) 1990 F Date Time Provider Department 08/14/24 7:15 PM DENISE CATERINA [facility] During your visit today, we recorded the following information about you: Temperature Pulse Respiration Blood pressure 97.7 degrees 98/minute 18/minute 161/88 Weight 64.6 kg Caterina Fine APRN.SERVICE AGENT 08/14/2024 8:06 PM Signed Subjective Cough Associated symptoms include chills and sore throat. Pertinent negatives include no ear pain and no myalgias. Romero Grajeda is a 33 year old female who presents with cough, congestion, sore throat for the past 4 days. She took a COVID test at home which was negative. She has been having chills and night sweats. Coughing up green mucous. She has not had a fever. Review of Systems Constitutional: Positive for chills, diaphoresis (night sweats) and malaise/fatigue. Negative for fever. HENT: Positive for congestion and sore throat. Negative for ear pain. Respiratory: Positive for cough and sputum production. Cardiovascular: Negative. Musculoskeletal: Negative for myalgias. BP 161/88 Pulse 98 Temp 36.5 ?C (97.7 ?F) Resp 18 Wt 64.6 kg (142 lb 6.7 oz) SpO2 97% No past medical history on file. No past surgical history on file. ALLERGIES Amoxicillin and Cefprozil MEDICATIONS Azelaic Acid 15 % gel sertraline (ZOLOFT) 50 mg tablet Take 1 tablet by mouth once daily. valACYclovir (VALTREX) 1 gram tablet PNV no.95/ferrous fum/folic ac ( ORAL) Take by mouth. No family history on file. Social History Tobacco Use Smoking status: Never Smokeless tobacco: Never Objective Physical Exam Vitals and nursing note reviewed. Constitutional: General: She is not in acute distress. Appearance: Normal appearance. She is not ill-appearing. HENT: Right Ear: Tympanic membrane, ear canal and external ear normal. Left Ear: Tympanic membrane, ear canal and external ear normal. Nose: Congestion present. Mouth/Throat: Mouth: Mucous membranes are moist. Pharynx: Oropharynx is clear. No oropharyngeal exudate or posterior oropharyngeal erythema. Cardiovascular: Rate and Rhythm: Regular rhythm. Tachycardia present. Heart sounds: Normal heart sounds. Pulmonary: Effort: Pulmonary effort is normal. No respiratory distress. Breath sounds: Normal breath sounds. No wheezing or rales. Skin: General: Skin is warm and dry. Neurological: Mental Status: She is alert. ASSESSMENT/PLAN: 1. Acute cough - ICD9: 786.2, ICD10: R05.1 (primary diagnosis) - XR CHEST 2V FRONTAL/LAT RESULT: Lines, tubes, and devices: None. Lungs and pleura: There are increased bronchovascular markings in the right perihilar region compatible with bronchitis or early bronchopneumonia. No consolidation. No lung mass. No pleural effusion. No pneumothorax. Cardiomediastinal silhouette: Normal cardiomediastinal silhouette. Bones and soft tissues: Unremarkable. IMPRESSION IMPRESSION: Right perihilar parenchymal changes as described above. A follow-up exam is recommended. Blanket Weaver: LES Transcribe Date/Time: Aug 14 2024 7:57P Dictated by : PHILIP EAGLE MD 2. Bronchopneumonia - ICD9: 485, ICD10: J18.0 - DOXYCYCLINE MONOHYDRATE 100 MG TABLET - Follow-up with your PCP in 3-5 days if symptoms have not improved or sooner if symptoms worsen - Discussed red flags and need for immediate medical evaluation if any occur. - Discussed supportive care treatment with fluids, rest and analgesia. - Discussed expected course of illness Caterina Fine APRN.Caterina Gonzales APRN.NONI 08/14/2024 8:05 PM Signed ASSESSMENT/PLAN: 1. Acute cough - ICD9: 786.2, ICD10: R05.1 (primary diagnosis) - XR CHEST 2V FRONTAL/LAT RESULT: Lines, tubes, and devices: None. Lungs and pleura: There are increased bronchovascular markings in the right perihilar region compatible with bronchitis or early bronchopneumonia. No consolidation. No lung mass. No pleural effusion. No pneumothorax. Cardiomediastinal silhouette: Normal cardiomediastinal silhouette. Bones and soft tissues: Unremarkable. IMPRESSION IMPRESSION: Right perihilar parenchymal changes as described above. A follow-up exam is recommended. Blanket Weaver: [facility] MED[facility] CENTERSheree Transcribe Date/Time: Aug 14 2024 7:57P Dictated by : PHILIP EAGLE MD 2. Bronchopneumonia - ICD9: 485, ICD10: J18.0 - DOXYCYCLINE MONOHYDRATE 100 MG TABLET - Follow-up with your PCP in 3-5 days if symptoms have not improved or sooner if symptoms worsen - Discussed red flags and need for immediate medical evaluation if any occur. - Discussed supportive care treatment with fluids, rest and analgesia. - Discussed expected course of illness Caterina Fine APRN.SERVICE AGENT Allergies As of Date: 08/14/2024 Noted Allergy Reaction AMOXICILLIN 1990 2 - Rash CEFPROZIL 1990 2 - Rash (more content not included)... Normal [facility] XR CHEST 2V FRONTAL/LATon XR CHEST 2V FRONTAL/LAT * * *Final Repor t* * * DATE OF EXAM: Aug 14 2024 7:39PM WOX [id number] - XR CHEST 2V FRONTAL/LAT / PROCEDURE REASON: Acute cough * * * * Physician Interpretation * * * * EXAMINATION: CHEST RADIOGRAPH (2 VIEW FRONTAL and LATERAL) CLINICAL HISTORY: Acute cough MQ: XC2_6 EXAM DATE/TIME: 08/14/2024 7:39 PM COMPARISON: No relevant prior studies available. RESULT: Lines, tubes, and devices: None. Lungs and pleura: There are increased bronchovascular markings in the right perihilar region compatible with bronchitis or early bronchopneumonia. No consolidation. No lung mass. No pleural effusion. No pneumothorax. Cardiomediastinal silhouette: Normal cardiomediastinal silhouette. Bones and soft tissues: Unremarkable. IMPRESSION: Right perihilar parenchymal changes as described above. A follow-up exam is recommended. Blanket Weaver: LES Transcribe Date/Time: Aug 14 2024 7:57P Dictated by : PHILIP EAGLE MD This examination was interpreted and the report reviewed and electronically signed by: PHILIP EAGLE MD on Aug 14 2024 7:57PM EST [id number] Normal [facility] XR Chest PA and Lateralon IMPRESSION: Right perihilar parenchymal changes as described above. A follow-up exam is recommended. Blanket Weaver: LES Transcribe Date/Time: Aug 14 2024 7:57P Dictated by : PHILIP EAGLE MD This examination was interpreted and the report reviewed and electronically signed by: PHILIP EAGLE MD on Aug 14 2024 7:57PM [facility] DIVISION OF RADIOLOGY * * *Final Report* * * DATE OF EXAM: Aug 14 2024 7:39PM WOX 5291 - XR CHEST 2V FRONTAL/LAT / PROCEDURE REASON: Acute cough * * * * Physician Interpretation * * * * EXAMINATION: CHEST RADIOGRAPH (2 VIEW FRONTAL & LATERAL) CLINICAL HISTORY: Acute cough MQ: XC2_6 EXAM DATE/TIME: 08/14/2024 7:39 PM COMPARISON: No relevant prior studies available. RESULT: Lines, tubes, and devices: None. Lungs and pleura: There are increased bronchovascular markings in the right perihilar region compatible with bronchitis or early bronchopneumonia. No consolidation. No lung mass. No pleural effusion. No pneumothorax. Cardiomediastinal silhouette: Normal cardiomediastinal silhouette. Bones and soft tissues: Unremarkable. DIVISION OF RADIOLOGY Provider, [facility] - 08/14/2024 * * *Final Report* * * DATE OF EXAM: Aug 14 2024 7:39PM WOX 5291 - XR CHEST 2V FRONTAL/LAT / PROCEDURE REASON: Acute cough * * * * Physician Interpretation * * * * EXAMINATION: CHEST RADIOGRAPH (2 VIEW FRONTAL & LATERAL) CLINICAL HISTORY: Acute cough MQ: XC2_6 EXAM DATE/TIME: 08/14/2024 7:39 PM COMPARISON: No relevant prior studies available. RESULT: Lines, tubes, and devices: None. Lungs and pleura: There are increased bronchovascular markings in the right perihilar region compatible with bronchitis or early bronchopneumonia. No consolidation. No lung mass. No pleural effusion. No pneumothorax. Cardiomediastinal silhouette: Normal cardiomediastinal silhouette. Bones and soft tissues: Unremarkable. IMPRESSION IMPRESSION: Right perihilar parenchymal changes as described above. A follow-up exam is recommended. Blanket Weaver: LES Transcribe Date/Time: Aug 14 2024 7:57P Dictated by : PHILIP EAGLE MD This examination was interpreted and the report reviewed and electronically signed by: PHILIP EAGLE MD on Aug 14 2024 7:57PM EST [facility] Radiology Study observation (narrative) Dee Dee leung [facility] XR Chest PA and LateralOrder ed By: [facility] Provider on 08-14-2024 [facility] Glucose Glucometer (BldC) [M ass/Vol]Ordered By: Dr. Whaley on 08-21-2022 Glucose [Mass/Vol] 79 mg/dL 74-106 [facility] Comment on above: MANAGEMENT OF PATIEN T CARE PER NURSING PROTOCOL Absolute lymphocyte countOrd ered By: Annabella Miner on 08-19-2022 Lymphocytes Auto (Unsp spec) [#/Vol] 2.06 10*3/uL 0.83-4.51 [facility] Basophil percentageOrdered B y: Annabella Miner on 08-19-2022 Basophils/100 WBC (Bld) 0.3 % 0-1 [facility] Eosinophils/100 WBC (Bld) 1.7 % 0-5 [facility] Neutrophils (Bld) [#/Vol] 8.5 10*3/uL 2.0-7.7 [facility] Neutrophils/100 WBC (Bld) 71.2 % 47-70 [facility] WBC (Bld) [#/Vol] 12.0 10*3/uL 4.4-11.0 [facility] Blood erythrocytes count (nu mber/volume)Ordered By: Annabella Miner on 08-19-2022 RBC (Bld) [#/Vol] 4.49 10*6/uL 4.2-5.4 [facility] Blood hemoglobin measurement (mass/volume)Ordered By: Annabella Miner on 08-19-2022 Hemoglobin (Bld) [Mass/Vol] 13.4 g/dL 12.0-15.0 [facility] Blood lymphocytes/100 leukoc ytesOrdered By: Annabella Miner on 08-19-2022 Lymphocytes/100 WBC (Bld) 17.2 % 19-41 [facility] Blood monocytes/100 leukocyt esOrdered By: Annabella Miner on 08-19-2022 Monocytes/100 WBC (Bld) 8.8 % 0-10 [facility] Blood platelet mean volumeOr dered By: Annabella Miner on 08-19-2022 Platelet mean volume (Bld) [Entitic vol] 10.6 fL 6.2-12.0 [facility] Determination of erythrocyte mean corpuscular volume (MCV)Ordered By: Annabella Miner on 08-19-2022 MCV (RBC) [Entitic vol] 86.4 fL 81-99 [facility] Hematocrit Auto (Bld) [Volum e fraction]Ordered By: Annabella Miner on 08-19-2022 Hematocrit (Bld) [Volume fraction] 38.8 % 37-47 [facility] - Chemistry and C hemistry - challengeOrdered By: Annabella Miner on 08-19-2022 ALT [Catalytic activity/Vol] 18 U/L 13-56 [facility] - Hematology and Cell countsOrdered By: Annabella Miner on 08-19-2022 Erythrocyte distribution width (RBC) [Entitic vol] 39.8 fL 35.1-43.9 [facility] Erythrocyte distribution width (RBC) [Ratio] 12.7 % 11.6-14.6 [facility] Immature granulocytes/100 WBC (Bld) 0.800 % 0.0-0.9 [facility] Comment on above: IG% - Immature Granu locytes (promyelocytes, myelocytes and metamyelocytes) > 1% indicates that a LEFT SHIFT is Present. MCH (RBC) [Entitic mass] 29.8 pg 27.0-32.0 [facility] Nucleated RBC/100 WBC (Bld) [Ratio] 0 % 0-5 [facility] MCHC Auto (RBC) [Mass/Vol]Or dered By: Annabella Miner on 08-19-2022 MCHC (RBC) [Mass/Vol] 34.5 g/dL 32-36 [facility] No Panel InformationOrdered By: Annabella Miner on 08-19-2022 Estimated Creatinine Clearance Calc 133.98 ml/min [facility] Estimated GFR (MDRD) Amer 158 mL/min >60 [facility] Comment on above: GFR Calc Estimated GFR (MDRD) Non-Af Amer 131 mL/min >60 [facility] Comment on above: Non- GFR Calc Platelets bldOrdered By: Ting Miner on 08-19-2022 Platelets (Bld) [#/Vol] 154 10*3/uL 150-450 [facility] Serum or plasma creatinine m easurement (mass/volume)Ordered By: Annabella Miner on 08-19-2022 Creatinine [Mass/Vol] 0.58 mg/dL 0.55-1.02 [facility] Comment on above: The validity of the calculated GFR & GFRAA in patients over 70 years has not been determined. Clinical correlation is essential. Serum or plasma uric acid me asurement (mass/volume)Ordered By: Annabella Miner on 08-19-2022 Urate [Mass/Vol] 4.9 mg/dL 2.6-6.0 [facility] Comment on above: The drugs N-Acetylcy steine and Metamizole may falsely depress this assay. Thin prep Papanicolaou smear with manual screeningOrdered By: Annabella Miner on 08-19-2022 Thin prep Papanicolaou smear with manual screening 14 U/L 15-37 [facility] Urine creatinine measurement (mass/volume)Ordered By: Annabella Miner on 08-19-2022 Creatinine (U) [Mass/Vol] 24.30 mg/dL NO RANGE EST. [facility] Urine protein measurement (m ass/volume)Ordered By: Annabella Miner on 08-19-2022 Protein (U) [Mass/Vol] 6.5 mg/dL 0.0-11.8 [facility] Urine protein/creatinine mas s ratioOrdered By: Annabella Miner on 08-19-2022 Protein/Creatinine (U) [Mass ratio] 267 mg/g CRE 0-200 [facility] - Chemistry and C hemistry - challengeon 08-18-2022 Glucose Ql (U) Negative [facility] - Urinalysison Protein Ql (U) Negative [facility] - Chemistry and C hemistry - challengeon 08-10-2022 Glucose Ql (U) Negative [facility] - Urinalysison Protein Ql (U) Negative [facility] - Chemistry and C hemistry - challengeon 08-04-2022 Glucose Ql (U) Negative [facility] - Urinalysison Protein Ql (U) Negative [facility] No Panel InformationOrdered By: Annabella Miner on 07-29-2022 Group B Streptococcus Culture Group B Beta Streptococcus is not isolated. [facility] - Chemistry and C hemistry - challengeon 07-26-2022 Glucose Ql (U) Negative [facility] - Urinalysison Protein Ql (U) Negative [facility] - Chemistry and C hemistry - challengeon 07-21-2022 Glucose Ql (U) Negative [facility] - Urinalysison Protein Ql (U) Negative [facility] - Chemistry and C hemistry - challengeon 07-04-2022 Glucose Ql (U) Negative [facility] - Urinalysison Protein Ql (U) Negative [facility] - Chemistry and C hemistry - challengeon 06-23-2022 Glucose Ql (U) Negative [facility] - Urinalysison Protein Ql (U) Negative [facility] - Chemistry and C hemistry - challengeon 05-26-2022 Glucose Ql (U) Negative [facility] - Urinalysison Protein Ql (U) Negative [facility] Quantitative serum or plasma 3 hour gestational glucose tolerance panelOrdered By: Dr. Whaley on 05-18-2022 Glucose tolerance 3 hours gestational panel See comment [facility] Comment on above: FASTING 87 Col: 05/09 0652GLUCOSE TOLERANCE TEST FOR Reference Interval GESTATIONAL DIABETES Fasting <105 mg/dL 1 hour <190 mg/dl 2 hour <165 mg/dl 3 hour <145 mg/dl 1 HR GLU 110 Col: 05/18/22 0757 2 HR GLU 90 Col: 05/18/22 0856 3 HR GLU 83 Col: 05/18/22 0954 Absolute lymphocyte countOrd ered By: Dr. Whaley on 05-15-2022 Lymphocytes Auto (Unsp spec) [#/Vol] 1.63 10*3/uL 0.83-4.51 [facility] Basophil percentageOrdered B y: Dr. Whaley on 05-15-2022 Basophils/100 WBC (Bld) 0.4 % 0-1 [facility] Eosinophils/100 WBC (Bld) 6.5 % 0-5 [facility] Neutrophils (Bld) [#/Vol] 5.7 10*3/uL 2.0-7.7 [facility] Neutrophils/100 WBC (Bld) 66.3 % 47-70 [facility] WBC (Bld) [#/Vol] 8.5 10*3/uL 4.4-11.0 [facility] Blood erythrocytes count (nu mber/volume)Ordered By: Dr. Whaley on 05-15-2022 RBC (Bld) [#/Vol] 4.27 10*6/uL 4.2-5.4 [facility] Blood hemoglobin measurement (mass/volume)Ordered By: Dr. Whaley on 05-15-2022 Hemoglobin (Bld) [Mass/Vol] 13.1 g/dL 12.0-15.0 [facility] Blood lymphocytes/100 leukoc ytesOrdered By: Dr. Whaley on 05-15-2022 Lymphocytes/100 WBC (Bld) 19.2 % 19-41 [facility] Blood monocytes/100 leukocyt esOrdered By: Dr. Whaley on 05-15-2022 Monocytes/100 WBC (Bld) 7.2 % 0-10 [facility] Blood platelet mean volumeOr dered By: Dr. Whaley on 05-15-2022 Platelet mean volume (Bld) [Entitic vol] 9.7 fL 6.2-12.0 [facility] Determination of erythrocyte mean corpuscular volume (MCV)Ordered By: Dr. Whaley on 05-15-2022 MCV (RBC) [Entitic vol] 87.1 fL 81-99 [facility] Gestational diabetes screen 1-hour screen with 50g oral glucose loadOrdered By: Dr. Whaley on 05-15-2022 Glucose 1 Hr post 50 g glucose PO [Mass/Vol] 141 mg/dL 70-140 [facility] HIV 1 and HIV-2 antibody ass ay with HIV-1 p24 antigen detectionOrdered By: Dr. Whaley on 05-15-2022 HIV 1+2 Ab+HIV1 p24 Ag IA Ql Non-Reactive Nonreactive [facility] Hematocrit Auto (Bld) [Volum e fraction]Ordered By: Dr. Whaley on 05-15-2022 Hematocrit (Bld) [Volume fraction] 37.2 % 37-47 [facility] Laboratory - Hematology and Cell countsOrdered By: Dr. Whaley on 05-15-2022 Erythrocyte distribution width (RBC) [Entitic vol] 40.3 fL 35.1-43.9 [facility] Erythrocyte distribution width (RBC) [Ratio] 12.8 % 11.6-14.6 [facility] Immature granulocytes/100 WBC (Bld) 0.400 % 0.0-0.9 [facility] Comment on above: IG% - Immature Granu locytes (promyelocytes, myelocytes and metamyelocytes) > 1% indicates that a LEFT SHIFT is Present. MCH (RBC) [Entitic mass] 30.7 pg 27.0-32.0 [facility] Nucleated RBC/100 WBC (Bld) [Ratio] 0 % 0-5 [facility] MCHC Auto (RBC) [Mass/Vol]Or dered By: Dr. Whaley on 05-15-2022 MCHC (RBC) [Mass/Vol] 35.2 g/dL 32-36 [facility] Platelets bldOrdered By: Dr. Whaley on 05-15-2022 Platelets (Bld) [#/Vol] 177 10*3/uL 150-450 [facility] Serum Treponema species anti body detectionOrdered By: Dr. Whaley on 05-15-2022 Treponema sp Ab Ql (S) Non-Reactive [facility] Laboratory - Chemistry and C hemistry - challengeon 03-28-2022 Glucose Ql (U) Negative [facility] Work Phone: Laboratory - Urinalysison Protein Ql (U) Negative [facility] Work Phone: Laboratory - Chemistry and C hemistry - challengeon 02-28-2022 Glucose Ql (U) Negative [facility] Work Phone: Laboratory - Urinalysison Protein Ql (U) Negative [facility] Work Phone: Absolute lymphocyte counton 01-26-2022 Lymphocytes Auto (Unsp spec) [#/Vol] 1.58 10*3/uL 0.83-4.51 [facility] Work Phone: Basophil percentageon 2021 Basophils/100 WBC (Bld) 0.3 % 0-1 [facility] Work Phone: Eosinophils/100 WBC (Bld) 0.7 % 0-5 [facility] Work Phone: Neutrophils (Bld) [#/Vol] 7.2 10*3/uL 2.0-7.7 [facility] Work Phone: Neutrophils/100 WBC (Bld) 74.3 % 47-70 [facility] Work Phone: WBC (Bld) [#/Vol] 9.8 10*3/uL 4.4-11.0 [facility] Work Phone: [phone] Blood erythrocytes count (nu mber/volume)on 01-26-2022 RBC (Bld) [#/Vol] 4.89 10*6/uL 4.2-5.4 [facility] Work Phone: Blood hemoglobin measurement (mass/volume)on 01-26-2022 Hemoglobin (Bld) [Mass/Vol] 14.4 g/dL 12.0-15.0 [facility] Work Phone: [phone] Blood lymphocytes/100 leukoc yteson 01-26-2022 Lymphocytes/100 WBC (Bld) 16.2 % 19-41 [facility] Work Phone: Blood monocytes/100 leukocyt eson 01-26-2022 Monocytes/100 WBC (Bld) 8.3 % 0-10 [facility] Work Phone: Blood platelet mean volumeon 01-26-2022 Platelet mean volume (Bld) [Entitic vol] 10.5 fL 6.2-12.0 [facility] Work Phone: Chlamydia trachomatis rRNA d etection by probe and target amplification methodon 01-26-2022 C. trachomatis rRNA LUIS+probe Ql (Unsp spec) Negative Negative [facility] Work Phone: Determination of erythrocyte mean corpuscular volume (MCV)on 01-26-2022 MCV (RBC) [Entitic vol] 82.6 fL 81-99 [facility] Work Phone: HIV 1 and HIV-2 antibody ass ay with HIV-1 p24 antigen detectionon 01-26-2022 HIV 1+2 Ab+HIV1 p24 Ag IA Ql Non-Reactive Nonreactive [facility] Work Phone: Hematocrit Auto (Bld) [Volum e fraction]on 01-26-2022 Hematocrit (Bld) [Volume fraction] 40.4 % 37-47 [facility] Work Phone: Laboratory - Drug toxicology on 01-26-2022 Amphetamines Ql (U) Negative <1000 ng/mL [facility] Work Phone: Benzodiazepines Ql (U) Negative < 200 ng/mL [facility] Work Phone: Cannabinoids Screen Ql (U) Negative < 50 ng/mL [facility] Work Phone: Cocaine Ql (U) Negative < 300 ng/mL [facility] Work Phone: Opiates Ql (U) Negative < 300 ng/mL [facility] Work Phone: Laboratory - Hematology and Cell countson 01-26-2022 Erythrocyte distribution width (RBC) [Entitic vol] 34.5 fL 35.1-43.9 [facility] Work Phone: Erythrocyte distribution width (RBC) [Ratio] 11.7 % 11.6-14.6 [facility] Work Phone: Immature granulocytes/100 WBC (Bld) 0.200 % 0.0-0.9 [facility] Work Phone: Comment on above: IG% - Immature Granu locytes (promyelocytes, myelocytes and metamyelocytes) > 1% indicates that a LEFT SHIFT is Present. MCH (RBC) [Entitic mass] 29.4 pg 27.0-32.0 [facility] Work Phone: Nucleated RBC/100 WBC (Bld) [Ratio] 0 % 0-5 [facility] Work Phone: Laboratory - Microbiology an d Antimicrobial susceptibilityon 01-26-2022 N. gonorrhoeae DNA LUIS+probe Ql (Unsp spec) Negative Negative [facility] Work Phone: Comment on above: Performed at: =G - [address] [id number] Director: Marcy Mcgarry MD, Phone: [phone] MCHC Auto (RBC) [Mass/Vol]on 01-26-2022 MCHC (RBC) [Mass/Vol] 35.6 g/dL 32-36 [facility] Work Phone: No Panel Informationon 01-26 MDMA (Ecstasy) Screen Negative < 500 ng/mL [facility] Work Phone: Urine Barbiturates Screen Negative < 200 ng/mL [facility] Work Phone: Urine Drug Screen Comment [facility] Work Phone: Comment on above: CONFIRMATORY TESTING FOR ALL POSITIVE URINE DRUG SCREENRESULTS WILL ONLY BE SENT OUT UPON PHYSICIAN ORDER. VISTA Urine Drug Screen methods provide only preliminaryanalytical test results. A more specific alternate chemicalmethod must be used in order to obtain a confirmedanalytical result. Gas chromatography/mass spectrometery(GC/MS) is the preferred confirmatory method. Clinicalconsideration and professional judgement should be appliedto any drug of abuse test result, particularly whenpreliminary positive results are used. URINE TCA TESTING MUST BE ORDERED SEPARATELY. USE TESTMNEMONIC: [facility] Urine Methadone Screen Negative < 300 ng/mL [facility] Work Phone: Hepatitis B Surface Antigen Non-Reactive Nonreactive [facility] Work Phone: Hepatitis C Antibody Non-Reactive Nonreactive [facility] Work Phone: Comment on above: Non Reactive: < 0.8 Equivocal: >/= 0.8 to < 1.0 Reactive: >/= 1.0The CDC recommends that a reactive/equivocal HCV antibody result be followed up by the HCV Nucleic Acid Amplificationtest (017345) Miscellaneous Test Comment MAILED SPECIMEN [facility] Work Phone: [phone] Rubella IgG Antibody Reactive Nonreactive [facility] Work Phone: Comment on above: Antibody Results Int erpretation of Immune Status Non Reactive Presumed Non-Immune Equivocal Equivocal Reactive Presumed Immune Platelets bldon 01-26-2022 Platelets (Bld) [#/Vol] 210 10*3/uL 150-450 [facility] Work Phone: Serum Treponema species anti body detectionon 01-26-2022 Treponema sp Ab Ql (S) Non-Reactive [facility] Work Phone: Urine phencyclidine (PCP) de tectionon 01-26-2022 Phencyclidine Ql (U) Negative < 25 ng/mL [facility] Work Phone: Absolute lymphocyte counton 12-24-2021 Lymphocytes Auto (Unsp spec) [#/Vol] 1.47 10*3/uL 0.83-4.51 [facility] Work Phone: Basophil percentageon 2021 Basophils/100 WBC (Bld) 0.7 % 0-1 [facility] Work Phone: Chloride [Moles/Vol] 106 mmol/L 98-107 [facility] Work Phone: Eosinophils/100 WBC (Bld) 1.3 % 0-5 [facility] Work Phone: [phone] Glucose [Mass/Vol] 112 mg/dL 74-106 [facility] Work Phone: Comment on above: Fasting Glucose resu lt from 100 to 125 mg/dL suggests IMPAIRED HOMEOSTASIS per A.D.A. criteria. Neutrophils (Bld) [#/Vol] 4.5 10*3/uL 2.0-7.7 [facility] Work Phone: Neutrophils/100 WBC (Bld) 65.7 % 47-70 [facility] Work Phone: Potassium [Moles/Vol] 3.5 mmol/L 3.5-5.1 [facility] Work Phone: Sodium [Moles/Vol] 138 mmol/L 136-145 [facility] Work Phone: WBC (Bld) [#/Vol] 6.8 10*3/uL 4.4-11.0 [facility] Work Phone: Blood erythrocytes count (nu mber/volume)on 12-24-2021 RBC (Bld) [#/Vol] 5.65 10*6/uL 4.2-5.4 [facility] Work Phone: Blood hemoglobin measurement (mass/volume)on 12-24-2021 Hemoglobin (Bld) [Mass/Vol] 16.5 g/dL 12.0-15.0 [facility] Work Phone: [phone] Blood lymphocytes/100 leukoc yteson 12-24-2021 Lymphocytes/100 WBC (Bld) 21.6 % 19-41 [facility] Work Phone: Blood monocytes/100 leukocyt eson 12-24-2021 Monocytes/100 WBC (Bld) 10.4 % 0-10 [facility] Work Phone: Blood platelet mean volumeon 12-24-2021 Platelet mean volume (Bld) [Entitic vol] 10.1 fL 6.2-12.0 [facility] Work Phone: Determination of erythrocyte mean corpuscular volume (MCV)on 12-24-2021 MCV (RBC) [Entitic vol] 85.1 fL 81-99 [facility] Work Phone: Hematocrit Auto (Bld) [Volum e fraction]on 12-24-2021 Hematocrit (Bld) [Volume fraction] 48.1 % 37-47 [facility] Work Phone: Laboratory - Chemistry and C hemistry - challengeon 12-24-2021 CO2 [Moles/Vol] 24.0 mmol/L 21.0-32.0 [facility] Work Phone: Urea nitrogen/Creatinine [Mass ratio] 14.1 mg/mg 10-20 [facility] Work Phone: Laboratory - Hematology and Cell countson 12-24-2021 Erythrocyte distribution width (RBC) [Entitic vol] 37.8 fL 35.1-43.9 [facility] Work Phone: Erythrocyte distribution width (RBC) [Ratio] 12.1 % 11.6-14.6 [facility] Work Phone: Immature granulocytes/100 WBC (Bld) 0.300 % 0.0-0.9 [facility] Work Phone: Comment on above: IG% - Immature Granu locytes (promyelocytes, myelocytes and metamyelocytes) > 1% indicates that a LEFT SHIFT is Present. MCH (RBC) [Entitic mass] 29.2 pg 27.0-32.0 [facility] Work Phone: Nucleated RBC/100 WBC (Bld) [Ratio] 0 % 0-5 [facility] Work Phone: MCHC Auto (RBC) [Mass/Vol]on 12-24-2021 MCHC (RBC) [Mass/Vol] 34.3 g/dL 32-36 [facility] Work Phone: No Panel Informationon 12-24 D-Dimer Quantitative (PE/DVT) 0.35 FEU/ug/m 0.27-0.49 [facility] Work Phone: Comment on above: NORMAL D-Dimer level (<0.50) indicates no DVT or PE. Estimated Creatinine Clearance Calc 108.83 ml/min [facility] Work Phone: Estimated GFR (MDRD) Amer 125 mL/min >60 [facility] Work Phone: Comment on above: GFR Calc Estimated GFR (MDRD) Non-Af Amer 103 mL/min >60 [facility] Work Phone: Comment on above: Non- GFR Calc Troponin I High Sensitivity 7 pg/mL 3.0-54.0 [facility] Work Phone: Comment on above: Please Note: New Danyell t Units and Gender Specific Reference Ranges. For more information see Policy Stat Procedure Constantia High Sensitivity Troponin (TNIH) and attachments. Platelets bldon 12-24-2021 Platelets (Bld) [#/Vol] 225 10*3/uL 150-450 [facility] Work Phone: Serum or plasma calcium dino urement (mass/volume)on 12-24-2021 Calcium [Mass/Vol] 9.6 mg/dL 8.5-10.1 [facility] Work Phone: Serum or plasma creatinine m easurement (mass/volume)on 12-24-2021 Creatinine [Mass/Vol] 0.71 mg/dL 0.55-1.02 [facility] Work Phone: Comment on above: The validity of the calculated GFR & GFRAA in patients over 70 years has not been determined. Clinical correlation is essential. Serum or plasma urea nitroge n measurement (mass/volume)on 12-24-2021 Urea nitrogen [Mass/Vol] 10 mg/dL -18 [facility] Work Phone: Thin prep Papanicolaou smear with manual screeningon 12-24-2021 Thin prep Papanicolaou smear with manual screening 8 5-15 [facility] Work Phone: Laboratory - Microbiology an d Antimicrobial susceptibilityon 10-27-2021 SARS-CoV-2 (COVID-19) RNA LUIS+probe Ql (Unsp spec) Detected [facility] Work Phone: No Panel Informationon 10-27 Influenza Types A,B Rapid (Clinic) Not detected [facility] Work Phone: XR LUMBAR SPINE 2-3 VIEWS (S TANDARD)on 08-06-2018 XR LUMBAR SPINE 2-3 VIEWS (STANDARD) EXAMINATION: XR LUMBAR SPINE 2-3 VIEWS (STANDARD) HISTORY: ORDERING SYSTEM PROVIDED HISTORY: Lumbar sprain, initial encounter, TECHNOLOGIST PROVIDED HISTORY: Reason for exam: Lumbar sprain Illness/Other Cancer History: . Surgery, RadiationHistory: . Encounter Type: Initial Additional signs and symptoms: . ORDERING SYSTEM PROVIDED DIAGNOSIS CODES: S33.5XXA Lumbar sprain, initial encounter COMPARISON: None. FINDINGS: Three views of the lumbar spine. There is mild levoscoliosis of the lumbar spine. The vertebral body heights and disc heights are maintained. There are no acute fractures or dislocations. IMPRESSION: No significant bony abnormalities. [employer]/IMGuest Workstation ID: [id number] Dictated by: STACY GIRARD on SunAug 06, 2018 4:32:30 PM EST Transcribed by: JEREL ALFONSO IN [facility] on SunAug 06, 2018 4:46:36 PM EST Finalized by: STACY GIRARD on SunAug 06, 2018 5:04:03 PM EST [place] Comment on above: Order Comment: Reaso n for exam?:Lumbar sprain Injury/Trauma or Illness?:Illness/Other How long have you had these symptoms (acute/chronic)?:Acute History of cancer?:. Surgeries, chemotherapy, or radiation?:. Type of Exam?:Initial Additional signs and symptoms?:. XR Lumbar Spine 2-3 Views (S tandard)on 08-06-2018 No significant bony abnormalities. [employer] Workstation ID: [id number] [facility] EXAMINATION: XR LUMB AR SPINE 2-3 VIEWS (STANDARD) HISTORY: ORDERING SYSTEM PROVIDED HISTORY: Lumbar sprain, initial encounter, TECHNOLOGIST PROVIDED HISTORY: Reason for exam: Lumbar sprain Illness/Other Cancer History: . Surgery, RadiationHistory: . Encounter Type: Initial Additional signs and symptoms: . ORDERING SYSTEM PROVIDED DIAGNOSIS CODES: S33.5XXA Lumbar sprain, initial encounter COMPARISON: None. FINDINGS: Three views of the lumbar spine. There is mild levoscoliosis of the lumbar spine. The vertebral body heights and disc heights are maintained. There are no acute fractures or dislocations. [facility] Jerel Alfonso In Daljit eddy [employer] - 08/06/2018 5:06 PM EST EXAMINATION: XR LUMBAR SPINE 2-3 VIEWS (STANDARD) HISTORY: ORDERING SYSTEM PROVIDED HISTORY: Lumbar sprain, initial encounter, TECHNOLOGIST PROVIDED HISTORY: Reason for exam: Lumbar sprain Illness/Other Cancer History: . Surgery, RadiationHistory: . Encounter Type: Initial Additional signs and symptoms: . ORDERING SYSTEM PROVIDED DIAGNOSIS CODES: S33.5XXA Lumbar sprain, initial encounter COMPARISON: None. FINDINGS: Three views of the lumbar spine. There is mild levoscoliosis of the lumbar spine. The vertebral body heights and disc heights are maintained. There are no acute fractures or dislocations. IMPRESSION: No significant bony abnormalities. [employer]/IM[employer] Workstation ID: [id number] [facility] Culture, urine Bacteria identified Cx Nom (U) Presumptive Lactobacillus sp. [facility] Work Phone: Vital Signs Date Time Vital Sign Value Performing Clinician Faci lity 03-02-2025 09:39-0400 Body height 167.64 cm Yanelis Yost MD Work Phone: [facility] 03-02-2025 09:39-0400 Body mass index (BMI) [Ratio] 23.4 kg/m2 Yanelis Yost MD Work Phone: [facility] 03-02-2025 09:39-0400 Body weight 65.88 kg Yanelis Yost MD Work Phone: [facility] 03-02-2025 09:39-0400 Diastolic blood pressure 84 mm[Hg] Yanelis Yost MD Work Phone: [facility] 03-02-2025 09:39-0400 Systolic blood pressure 136 mm[Hg] Yanelis Yost MD Work Phone: [facility] 02-02-2025 09:21-0400 Body height 167.64 cm Yanelis Yost MD Work Phone: [facility] 02-02-2025 09:21-0400 Body mass index (BMI) [Ratio] 22.4 kg/m2 Yanelis Yost MD Work Phone: [facility] 02-02-2025 09:21-0400 Body weight 63.16 kg Yanelis Yost MD Work Phone: [facility] 02-02-2025 09:21-0400 Diastolic blood pressure 87 mm[Hg] Yanelis Yost MD Work Phone: [facility] 02-02-2025 09:21-0400 Systolic blood pressure 131 mm[Hg] Yanelis Yost MD Work Phone: [facility] 01-05-2025 11:48-0400 Body height 167.64 cm Yanelis Yost MD Work Phone: [facility] 01-05-2025 11:48-0400 Body mass index (BMI) [Ratio] 21.9 kg/m2 Yanelis Yost MD Work Phone: [facility] 01-05-2025 11:48-0400 Body weight 61.8 kg Yanelis Yost MD Work Phone: [facility] 01-05-2025 11:48-0400 Diastolic blood pressure 94 mm[Hg] Yanelis Yost MD Work Phone: [facility] 01-05-2025 11:48-0400 Systolic blood pressure 142 mm[Hg] Yanelis Yost MD Work Phone: [facility] 12-16-2024 13:15-0400 Body height 167.64 cm Yanelis Yost MD Work Phone: [facility] 12-16-2024 13:15-0400 Body mass index (BMI) [Ratio] 21.9 kg/m2 Yanelis Yost MD Work Phone: [facility] 12-16-2024 13:15-0400 Body weight 61.46 kg Yanelis Yost MD Work Phone: [facility] 12-16-2024 13:15-0400 Diastolic blood pressure 78 mm[Hg] Yanelis Yost MD Work Phone: [facility] 12-16-2024 13:15-0400 Systolic blood pressure 139 mm[Hg] Yanelis Yost MD Work Phone: [facility] 12-02-2024 10:20-0400 Body height 167.64 cm Yanelis Yost MD Work Phone: [facility] 12-02-2024 10:20-0400 Body mass index (BMI) [Ratio] 21.8 kg/m2 Yanelis Yost MD Work Phone: [facility] 12-02-2024 10:20-0400 Body weight 61.4 kg Yanelis Yost MD Work Phone: [facility] 12-02-2024 10:20-0400 Diastolic blood pressure 91 mm[Hg] Yanelis Yost MD Work Phone: [facility] 12-02-2024 10:20-0400 Systolic blood pressure 137 mm[Hg] Yanelis Yost MD Work Phone: [facility] 08-14-2024 19:17-0500 Body temperature 97.7 [degF] Caterina Praisler-Wood POLICE BOOKING OFFICER.SERVICE AGENT Work Phone: [facility] 08-14-2024 19:17-0500 Body weight 64.6 kg Caterina Praisler-Wood POLICE BOOKING OFFICER.SERVICE AGENT Work Phone: [facility] 08-14-2024 19:17-0500 Diastolic blood pressure 88 mm[Hg] Caterina Praisler-Wood POLICE BOOKING OFFICER.SERVICE AGENT Work Phone: [facility] 08-14-2024 19:17-0500 Heart rate 98 /min Caterina Praisler-Wood POLICE BOOKING OFFICER.SERVICE AGENT Work Phone: [facility] 08-14-2024 19:17-0500 Respiratory rate 18 /min Caterina Praisler-Wood POLICE BOOKING OFFICER.SERVICE AGENT Work Phone: [facility] 08-14-2024 19:17-0500 SaO2% (BldA) [Mass fraction] 97 % Caterina Praisler-Wood POLICE BOOKING OFFICER.SERVICE AGENT Work Phone: [facility] 08-14-2024 19:17-0500 Systolic blood pressure 161 mm[Hg] Caterina Praisler-Wood POLICE BOOKING OFFICER.SERVICE AGENT Work Phone: [facility] 10-04-2023 11:29-0400 Body height 167.64 cm DO Tasha Chapa Work Phone: [facility] 10-04-2023 11:29-0400 Body mass index (BMI) [Ratio] 21 kg/m2 DO Tasha Chapa Work Phone: [facility] 10-04-2023 11:29-0400 Body weight 59.13 kg DO Tasha Sammi Work Phone: [facility] 10-04-2023 11:29-0400 Diastolic blood pressure 91 mm[Hg] DO Tasha Sammi Work Phone: [facility] 10-04-2023 11:29-0400 Systolic blood pressure 130 mm[Hg] DO Tasha Sammi Work Phone: [facility] 08-21-2022 08:09-0500 Diastolic blood pressure 79 mm[Hg] DO Tasha Sammi Work Phone: [facility] 08-21-2022 08:09-0500 Systolic blood pressure 137 mm[Hg] DO Tasha Sammi Work Phone: [facility] 08-21-2022 08:05-0500 Heart rate 74 /min DO Tasha Sammi Work Phone: [facility] 08-21-2022 07:50-0500 Body temperature 98.5 [degF] DO Tasha Sammi Work Phone: [facility] 08-21-2022 07:50-0500 Respiratory rate 16 /min DO Tasha Sammi Work Phone: [facility] 08-20-2022 14:32-0500 SaO2% (BldA) [Mass fraction] 96 % DO Tasha Sammi Work Phone: [facility] 08-18-2022 23:11-0500 Body height 167.64 cm DO Tasha Sammi Work Phone: [facility] 08-18-2022 23:11-0500 Body mass index (BMI) [Ratio] 24.5 kg/m2 DO Tasha Sammi Work Phone: [facility] 08-18-2022 23:11-0500 Body weight 69.12 kg DO Tasha Sammi Work Phone: [facility] 08-18-2022 09:04-0500 Body mass index (BMI) [Ratio] 24.4 kg/m2 DO Tasha Sammi Work Phone: [facility] 08-18-2022 09:04-0500 Body weight 68.6 kg DO Tasha Sammi Work Phone: [facility] 08-18-2022 09:04-0500 Diastolic blood pressure 87 mm[Hg] DO Tasha Sammi Work Phone: [facility] 08-18-2022 09:04-0500 Systolic blood pressure 138 mm[Hg] DO Tasha Sammi Work Phone: [facility] 08-10-2022 10:02-0500 Body mass index (BMI) [Ratio] 23.9 kg/m2 DO Tasha Sammi Work Phone: [facility] 08-10-2022 10:02-0500 Body weight 67.35 kg DO Tasha Sammi Work Phone: [facility] 08-10-2022 10:02-0500 Diastolic blood pressure 85 mm[Hg] DO Tasha Sammi Work Phone: [facility] 08-10-2022 10:02-0500 Systolic blood pressure 136 mm[Hg] DO Tasha Sammi Work Phone: [facility] 08-04-2022 08:42-0500 Body height 167.64 cm DO Tasha Sammi Work Phone: [facility] 08-04-2022 08:42-0500 Body mass index (BMI) [Ratio] 23.9 kg/m2 DO Tasha Sammi Work Phone: [facility] 08-04-2022 08:42-0500 Body weight 67.35 kg DO Tasha Sammi Work Phone: [facility] 08-04-2022 08:42-0500 Diastolic blood pressure 87 mm[Hg] DO Tasha Sammi Work Phone: [facility] 08-04-2022 08:42-0500 Systolic blood pressure 129 mm[Hg] DO Tasha Sammi Work Phone: [facility] 07-26-2022 10:05-0500 Body height 167.64 cm DO Tasha Sammi Work Phone: [facility] 07-26-2022 08:24-0500 Body mass index (BMI) [Ratio] 23.7 kg/m2 DO Tasha Sammi Work Phone: [facility] 07-26-2022 08:24-0500 Body weight 66.67 kg DO Tasha Sammi Work Phone: [facility] 07-26-2022 08:24-0500 Diastolic blood pressure 80 mm[Hg] DO Tasha Sammi Work Phone: [facility] 07-26-2022 08:24-0500 Systolic blood pressure 132 mm[Hg] DO Tasha Sammi Work Phone: [facility] 07-21-2022 10:10-0500 Diastolic blood pressure 83 mm[Hg] DO Tasha Sammi Work Phone: [facility] 07-21-2022 10:10-0500 Systolic blood pressure 130 mm[Hg] DO Tasha Sammi Work Phone: [facility] 07-11-2022 16:40-0500 Body mass index (BMI) [Ratio] 24 kg/m2 DO Tasha Sammi Work Phone: [facility] 07-11-2022 16:40-0500 Body weight 67.58 kg DO Tasha Sammi Work Phone: [facility] 07-04-2022 08:10-0500 Body mass index (BMI) [Ratio] 23.6 kg/m2 DO Tasha Sammi Work Phone: [facility] 07-04-2022 08:10-0500 Body weight 66.39 kg DO Tasha Sammi Work Phone: [facility] 07-04-2022 08:10-0500 Diastolic blood pressure 76 mm[Hg] DO Tasha Sammi Work Phone: [facility] 07-04-2022 08:10-0500 Systolic blood pressure 134 mm[Hg] DO Tasha Sammi Work Phone: [facility] 06-23-2022 15:37-0500 Body mass index (BMI) [Ratio] 23.5 kg/m2 DO Tasha Sammi Work Phone: [facility] 06-23-2022 15:37-0500 Body weight 65.99 kg DO Tasha Sammi Work Phone: [facility] 06-23-2022 15:37-0500 Diastolic blood pressure 81 mm[Hg] DO Tasha Sammi Work Phone: [facility] 06-23-2022 15:37-0500 Systolic blood pressure 133 mm[Hg] DO Tasha Sammi Work Phone: [facility] 06-12-2022 10:38-0500 Body mass index (BMI) [Ratio] 22.9 kg/m2 DO Tasha Sammi Work Phone: [facility] 06-12-2022 10:38-0500 Body weight 64.46 kg DO Tasha Sammi Work Phone: [facility] 06-12-2022 10:38-0500 Diastolic blood pressure 84 mm[Hg] DO Tasha Sammi Work Phone: [facility] 06-12-2022 10:38-0500 Systolic blood pressure 156 mm[Hg] DO Tasha Sammi Work Phone: [facility] 05-26-2022 14:06-0500 Body mass index (BMI) [Ratio] 22.6 kg/m2 DO Tasha Sammi Work Phone: [facility] 05-26-2022 14:06-0500 Body weight 63.61 kg DO Tasha Sammi Work Phone: [facility] 05-26-2022 14:06-0500 Diastolic blood pressure 80 mm[Hg] DO Tasha Russellnger Work Phone: [facility] 05-26-2022 14:06-0500 Systolic blood pressure 134 mm[Hg] DO Tasha Russellnger Work Phone: [facility] 04-25-2022 08:26-0400 Body height 167.[address] Neftaly Dunn Work Phone: [facility] Work Phone: 04-25-2022 08:26-0400 Body mass index (BMI) [Ratio] 21.7 kg/m2 Dr. Neftaly Dunn Work Phone: [facility] 04-25-2022 08:26-0400 Body weight 61.[address] Neftaly Dunn Work Phone: [facility] 04-25-2022 08:26-0400 Diastolic blood pressure 80 mm[Hg] Dr. Neftaly Dunn Work Phone: [facility] 04-25-2022 08:26-0400 Systolic blood pressure 132 mm[Hg] Dr. Neftaly Dunn Work Phone: [facility] 03-28-2022 11:47-0400 Body mass index (BMI) [Ratio] 21.2 kg/m2 Dr. Neftaly Dunn Work Phone: [facility] Work Phone: 03-28-2022 11:47-0400 Body weight 59.[address] Neftaly Dunn Work Phone: [facility] Work Phone: 03-28-2022 11:47-0400 Diastolic blood pressure 62 mm[Hg] Dr. Neftaly Dunn Work Phone: [facility] Work Phone: 03-28-2022 11:47-0400 Systolic blood pressure 144 mm[Hg] Dr. Neftaly Dunn Work Phone: [facility] Work Phone: 02-28-2022 11:57-0400 Diastolic blood pressure 80 mm[Hg] Dr. Kj Weeks Work Phone: [facility] Work Phone: 02-28-2022 11:57-0400 Systolic blood pressure 130 mm[Hg] Dr. Kj Weeks Work Phone: [facility] Work Phone: 02-28-2022 11:13-0400 Body height 167.[address] Kj Weeks Work Phone: [facility] Work Phone: 02-28-2022 11:12-0400 Body mass index (BMI) [Ratio] 20.3 kg/m2 Dr. Kj Weeks Work Phone: [facility] Work Phone: 02-28-2022 11:12-0400 Body weight 57.[address] Kj Weeks Work Phone: [facility] Work Phone: 02-14-2022 13:06-0400 Body height 167.[address] Neftaly Dunn Work Phone: [facility] Work Phone: 02-14-2022 13:06-0400 Body mass index (BMI) [Ratio] 20.1 kg/m2 Dr. Neftaly Dunn Work Phone: [facility] Work Phone: 02-14-2022 13:06-0400 Body temperature 98 [degF] Dr. Neftayl Dunn Work Phone: [facility] Work Phone: 02-14-2022 13:06-0400 Body weight 56.[address] Neftaly Dunn Work Phone: [facility] Work Phone: 02-14-2022 13:06-0400 Diastolic blood pressure 84 mm[Hg] Dr. Neftaly Dunn Work Phone: [facility] Work Phone: 02-14-2022 13:06-0400 Heart rate 103 /min Dr. Neftaly Dunn Work Phone: [facility] Work Phone: 02-14-2022 13:06-0400 Respiratory rate 17 /min Dr. Neftaly Dunn Work Phone: [facility] Work Phone: 02-14-2022 13:06-0400 SaO2% (BldA) [Mass fraction] 100 % Dr. Neftaly Dunn Work Phone: [facility] Work Phone: 02-14-2022 13:06-0400 Systolic blood pressure 164 mm[Hg] Dr. Neftaly Dunn Work Phone: [facility] Work Phone: 01-26-2022 10:21-0400 Body height 167.[address] Neftaly Dunn Work Phone: [facility] Work Phone: 01-26-2022 10:21-0400 Body mass index (BMI) [Ratio] 20.5 kg/m2 Dr. Neftaly Dunn Work Phone: [facility] Work Phone: 01-26-2022 10:21-0400 Body weight 57.[address] Neftaly Dunn Work Phone: [facility] Work Phone: 01-26-2022 10:21-0400 Diastolic blood pressure 80 mm[Hg] Dr. Neftaly Dunn Work Phone: [facility] Work Phone: 01-26-2022 10:21-0400 Systolic blood pressure 146 mm[Hg] Dr. Neftaly Dunn Work Phone: [facility] Work Phone: 01-04-2022 15:24-0400 Body height 167.[address] Neftaly Dunn Work Phone: [facility] Work Phone: 01-04-2022 15:24-0400 Body mass index (BMI) [Ratio] 21.2 kg/m2 Dr. Neftaly Dunn Work Phone: [facility] Work Phone: 01-04-2022 15:24-0400 Body weight 59.[address] Neftaly Dunn Work Phone: [facility] Work Phone: 01-04-2022 15:24-0400 Diastolic blood pressure 78 mm[Hg] Dr. Neftaly Dunn Work Phone: [facility] Work Phone: 01-04-2022 15:24-0400 Systolic blood pressure 140 mm[Hg] Dr. Neftaly Dunn Work Phone: [facility] Work Phone: 12-24-2021 12:40-0400 Diastolic blood pressure 76 mm[Hg] Dr. Neftaly Dunn Work Phone: [facility] Work Phone: 12-24-2021 12:40-0400 Heart rate 74 /min Dr. Neftaly Dunn Work Phone: [facility] Work Phone: 12-24-2021 12:40-0400 Respiratory rate 16 /min Dr. Neftaly Dunn Work Phone: [facility] Work Phone: 12-24-2021 12:40-0400 SaO2% (BldA) [Mass fraction] 98 % Dr. Neftaly Dunn Work Phone: [facility] Work Phone: 12-24-2021 12:40-0400 Systolic blood pressure 128 mm[Hg] Dr. Neftaly Dunn Work Phone: [facility] Work Phone: 12-24-2021 09:15-0400 Body height 167.[address] Neftaly Dunn Work Phone: [facility] Work Phone: 12-24-2021 09:15-0400 Body mass index (BMI) [Ratio] 20.9 kg/m2 Dr. Neftaly Dunn Work Phone: [facility] Work Phone: 12-24-2021 09:15-0400 Body temperature 97 [degF] Dr. Neftaly Dunn Work Phone: [facility] Work Phone: 12-24-2021 09:15-0400 Body weight 58.[address] Neftaly Dunn Work Phone: [facility] Work Phone: 10-27-2021 08:20-0400 Body mass index (BMI) [Ratio] 21.3 kg/m2 Dr. Neftaly Dunn Work Phone: [facility] Work Phone: 10-27-2021 08:20-0400 Body temperature 98.6 [degF] Dr. Neftaly Dunn Work Phone: [facility] Work Phone: 10-27-2021 08:20-0400 Body weight 59.[address] Neftaly Dunn Work Phone: [facility] Work Phone: 10-27-2021 08:20-0400 Diastolic blood pressure 64 mm[Hg] Dr. Neftaly Dunn Work Phone: [facility] Work Phone: 10-27-2021 08:20-0400 Heart rate 99 /min Dr. Neftaly Dunn Work Phone: [facility] Work Phone: 10-27-2021 08:20-0400 Respiratory rate 16 /min Dr. Neftaly Dunn Work Phone: [facility] Work Phone: 10-27-2021 08:20-0400 SaO2% (BldA) [Mass fraction] 99 % Dr. Neftaly Dunn Work Phone: [facility] Work Phone: 10-27-2021 08:20-0400 Systolic blood pressure 122 mm[Hg] Dr. Neftaly Dunn Work Phone: [facility] Work Phone: Encounters Encounter Date Encounter Type Care Provider Facility Start: 05-25-2025 ambulatory Chalon Ivis Facility:[facility] Start: 05-11-2025 End: 05-11-2025 ambulatory Chalon Ivis Facility:[facility] Start: 04-29-2025 End: 04-29-2025 ambulatory Chalon Ivis Facility:[facility] Start: 03-30-2025 End: 03-30-2025 ambulatory Chalon Ivis Facility:[facility] Start: 03-30-2025 End: 03-30-2025 ambulatory Chalon Ivis Facility:[facility] Start: 03-02-2025 End: 03-02-2025 Patient encounter procedure Nicole SCHILLING -[facility] Work Phone: Start: 03-02-2025 End: 03-02-2025 ambulatory Yanelis Yost MD Work Phone: -[facility] Start: 02-19-2025 End: 02-19-2025 ambulatory Yanelis Yost MD Work Phone: -Ultrasound [facility] Start: 02-19-2025 End: 02-19-2025 Patient encounter procedure Zunilda Higginbotham CNM -Ultrasound [facility] Work Phone: Start: 02-19-2025 End: 02-19-2025 ambulatory Chalon Ivis Facility:[facility] Start: 02-02-2025 End: 02-02-2025 Patient encounter procedure Zunilda Higginbotham CNM -[facility] Work Phone: Start: 02-02-2025 End: 02-02-2025 ambulatory Yanelis Yost MD Work Phone: -[facility] Start: 01-05-2025 End: 01-05-2025 ambulatory Yanelis Yost MD Work Phone: -Laboratory [facility]imen Start: 01-05-2025 End: 01-05-[address] Yvonne aHyward DO -Laboratory Specimen Work Phone: Start: 01-05-2025 End: 01-05-[address] Yvonne Hayward DO -[facility] Work Phone: Start: 01-05-2025 End: 01-05-2025 ambulatory Yanelis Yost MD Work Phone: -[facility] Start: 01-05-2025 End: 01-05-2025 ambulatory Yanelis Yost Facility:[facility] Start: 12-16-2024 End: 12-16-2024 Patient encounter procedure Zunilda Higginbotham CNM -[facility] Work Phone: Start: 12-16-2024 End: 12-16-2024 ambulatory Yanelis Yost MD Work Phone: [facility] Work Phone: Start: 12-16-2024 End: 12-16-2024 ambulatory Yanelis Yost Facility:[facility] Start: 12-02-2024 End: 12-02-2024 ambulatory Yanelis Yost MD Work Phone: [facility] Work Phone: Start: 12-02-2024 End: 12-02-[address] Alice Bhakta MD -Laboratory Specimen Work Phone: Start: 12-02-2024 End: 12-02-[address] Alice Bhakta MD -[facility] Work Phone: Start: 12-02-2024 End: 12-02-2024 ambulatory Yanelis Yost MD Work Phone: [facility] Work Phone: Start: 12-02-2024 End: 12-02-2024 ambulatory Sulemantye Ivis Facility:[facility] Start: 08-14-2024 End: 08-14-2024 Subsequent hospital visit by physician [facility] Work Phone: Radiology Comment on above: Acute cough [R05.1] Start: 08-14-2024 End: 08-14-2024 ambulatory [facility] Facility:[facility] Start: 08-14-2024 End: 08-14-2024 Patient encounter procedure Caterina Fine APRN.CNP Work Phone: [facility] Comment on above: Acute cough (Primary Dx); Bronchopneumonia Start: 11-27-2023 End: 11-27-2023 [facility] Start: 11-26-2023 End: 11-26-2023 ambulatory ALICE Caro [facility] Start: 10-04-2023 End: 10-04-2023 ambulatory DO Tasha Chapa Work Phone: [facility] Work Phone: Start: 10-04-2023 End: 10-04-2023 Patient encounter procedure DO Tasha Chapa Work Phone: [facility]-Laboratory, Specimen Work Phone: Start: 10-04-2023 End: 10-04-2023 Patient encounter procedure DO Tasha Chapa Work Phone: [facility] Work Phone: Start: 08-21-2022 Non-patient / Non-visit DO Tasha Chapa Work Phone: [facility] Start: 08-20-2022 Non-patient / Non-visit DO Tasha Chapa Work Phone: [facility] Start: 08-19-2022 Non-patient / Non-visit DO Tasha Chapa Work Phone: [facility] Start: 08-18-2022 End: 08-21-2022 Evaluation and management of inpatient DO Tasha Chapa Work Phone: [facility] Start: 08-18-2022 End: 08-18-2022 Patient encounter procedure DO Tasha Chapa Work Phone: [facility] Start: 08-10-2022 End: 08-10-2022 Patient encounter procedure DO Tasha Chapa Work Phone: [facility] Start: 08-04-2022 End: 08-04-2022 Patient encounter procedure DO Tasha Chapa Work Phone: [facility] Start: 07-26-2022 End: 07-26-2022 ambulatory DO Tasha Chapa Work Phone: [facility] Work Phone: Start: 07-26-2022 End: 07-26-2022 Patient encounter procedure DO Tasha Chapa Work Phone: [facility] Start: 07-26-2022 End: 07-26-2022 Patient encounter procedure DO Tasha Chapa Work Phone: [facility] Start: 07-24-2022 End: 07-24-2022 ambulatory DO Tasha Chapa Work Phone: [facility] Work Phone: Start: 07-24-2022 End: 07-24-2022 Patient encounter procedure DO Tasha Chapa Work Phone: [facility] Start: 07-21-2022 End: 07-21-2022 Patient encounter procedure DO Tasha Chapa Work Phone: [facility] Start: 07-04-2022 End: 07-04-2022 Patient encounter procedure DO Tasha Russellnger Work Phone: [facility] Start: 06-29-2022 End: 06-29-2022 Patient encounter procedure DO Tasha Russellnger Work Phone: [facility] Start: 06-23-2022 End: 06-23-2022 Patient encounter procedure DO Tasha Russellnger Work Phone: [facility] Start: 06-12-2022 End: 06-12-2022 Patient encounter procedure DO Tashaezra Russellnger Work Phone: [facility] Start: 05-26-2022 End: 05-26-2022 Patient encounter procedure DO Tashaezra Russellnger Work Phone: [facility] Start: 05-18-2022 End: 05-18-[address] Neftaly Dunn Work Phone: [facility] Work Phone: Start: 05-18-2022 End: 05-18-[address] [facility] Start: 05-15-2022 End: 05-15-[address] Neftaly Dunn Work Phone: [facility] Work Phone: Start: 05-15-2022 End: 05-15-[address] Neftaly Dunn Work Phone: [facility]Labor[facility] Start: 04-25-2022 End: 04-25-[address] Neftaly Dunn Work Phone: [facility] Start: 04-03-2022 End: 04-03-[address] [facility]aly Dunn [facility] Start: 03-28-2022 End: 03-28-[address] Neftaly Dunn Work Phone: [facility] Start: 03-01-2022 End: 03-01-[address] Neftaly Dunn Work Phone: [facility] Start: 02-28-2022 End: 02-28-[address] Kj Weeks Work Phone: [facility] Start: 02-23-2022 End: 02-23-[address] Kj Weeks Work Phone: [facility] Work Phone: Start: 02-23-2022 End: 02-23-[address] Kj Weeks Work Phone: [facility]-Laboratory, Specimen Start: 02-23-2022 End: 02-23-[address] Kj Weeks Work Phone: [facility] Start: 02-14-2022 End: 02-14-[address] Neftaly Dunn Work Phone: [facility] Start: 02-13-2022 End: 02-13-[address] Neftaly Dunn Work Phone: [facility] Start: 01-26-2022 End: 01-26-[address] Neftaly Dunn Work Phone: [facility] Start: 01-26-2022 End: 01-26-[address] Neftaly Dunn Work Phone: [facility] Start: 01-11-2022 End: 01-11-[address] Neftaly Dunn Work Phone: [facility] Start: 01-04-2022 End: 01-04-[address] Neftaly Dunn Work Phone: [facility] Start: 12-24-2021 End: 12-24-2021 Emergency department patient visit Dr. Neftaly Dunn Work Phone: [facility]Emergency Department Start: 10-27-2021 End: 10-27-[address] Neftaly Dunn Work Phone: [facility] Start: 08-06-2018 End: 08-07-2018 Patient encounter procedure [facility] Start: 08-06-2018 End: 08-06-2018 Subsequent hospital visit by physician Britt Dunbar Work Phone: [facility] Comment on above: Lumbar sprain, initi al encounter Start: 07-23-2018 Encounter for genera l adult medical examination without abnormal findings [facility] Start: 07-23-2018 End: 07-27-2018 Patient encounter procedure [facility] Encounter for genera l adult medical examination without abnormal findings [facility] Procedures Date Procedure Procedure Detail Performing Clinician Start: 02-19-2025 Ultrasonography in f irst trimester Yanelis Yost MD Work Phone: Start: 12-16-2024 Hepatitis C antibody measurement Yanelis Yost MD Work Phone: Comment on above: Reactive: Presumptiv e evidence of antibodies to HCV. Follow CDC recommendations for supplemental testing.Non-Reactive: Antibodies to HCV were not detected; does not exclude the possibility of exposure to HCVReactive Results are presumptive evidence of antibodies to HCV. Follow CDC recommendations for supplemental testing.Order confirmation testing: HCV Quant by PCR testing - HCVPCR #[id number] Non Reactive: < 0.8 Equivocal: >/= 0.8 to < 1.0 Reactive: >/= 1.0The CDC requires that a reactive/equivocal HCV antibody result be sent out for confirmation. HCV Quant by PCR testing. Start: 12-16-2024 Procedure Yanelis justin MD Work Phone: Start: 12-16-2024 Rubella IgG measurement Yanelis Yost MD Work Phone: Comment on above: Antibody Result: Int erpretationNon-Reactive: Non- ImmuneReactive: ImmuneThe following results were obtained with the [employer] Rubella IgG assay. Results from assays of other manufacturers cannot be used interchangeably. Start: 12-16-2024 Serologic test for syphilis Yanelis Yost MD Work Phone: Start: 12-02-2024 Urine culture Yanelis graham MD Work Phone: Start: 08-14-2024 Radiologic exam ches t 2 views Caterina Fine APRN.[facility] Work Phone: Start: 07-24-2022 Ultrasound scan for growth DO Tasha Chapa Work Phone: Start: 06-29-2022 Ultrasound scan for growth DO Tasha Chapa Work Phone: Start: 04-03-[address] Neftaly Dunn Work Phone: Start: 02-13-[address] Neftaly Dunn Work Phone: Start: 01-11-[address] Neftaly Dunn Work Phone: Start: 12-24-2021 Plain chest X-ray Dr. Pee Dunn Work Phone: Start: 08-06-2018 Radex spine lumbosac ral 2/3 views Britt Dunbar Work Phone: Start: 11-10-2015 Microscopic observat ion [Identifier] in Cervix by Cyto stain Britt Dunbar Group B Streptococcu s Culture DO Tasha Chapa Work Phone: Urine culture Dr. Neftaly cole Work Phone: Plan of Treatment Date Care Activity Detail Author Start: 06-12-2032 Urine microalbumin profile DTaP,Tdap,Td Vaccine (2 - Td or Tdap) [facility] Start: 12-16-2024 CBC W Auto Differential panel - Blood [facility] Start: 12-16-2024 Hepatitis C antibody measurement [facility] Start: 12-16-2024 Procedure [facility] Start: 12-16-2024 Rubella IgG measurement [facility] Start: 12-16-2024 Serologic test for syphilis [facility] Start: 12-16-2024 [facility] Start: 03-09-2024 Covid-19 Vaccine () Covid-19 Vaccine () [facility] Start: 10-04-2023 Liquid based cervical cytology screening [facility] Start: 08-21-2022 Patient discharge [facility] Start: 08-19-2022 Administration of medication [facility] Start: 08-19-2022 Application of ice collar, cap or bag [facility] Start: 08-19-2022 Catheterization of vein [facility] Start: 08-19-2022 Introduction of urinary catheter [facility] Start: 08-19-2022 Measuring intake and output [facility] Start: 08-19-2022 Notification of physician [facility] Start: 08-19-2022 Procedure discontinued [facility] Start: 08-19-2022 Provision of activity privileges [facility] Start: 08-19-2022 Vital signs measurements [facility] Start: 08-19-2022 [facility] Start: 08-18-2022 Admission procedure [facility] Start: 08-18-2022 Verification routine [facility] Start: 12-24-2021 [facility] Work Phone: Start: 11-09-2018 Screening for malignant neoplasm of cervix PAP SMEAR [facility] Start: 03-09-2018 Influenza vaccination given SEQUENTIAL INFLUENZA VACCINE (#1) [facility] Start: 2013 Screening for malignant neoplasm of cervix Cervical Cancer Screening [facility] Start: 10-04-2011 Hepatitis B Vaccine (1 of 3 - 19+ 3-dose series) Hepatitis B Vaccine (1 of 3 - 19+ 3-dose series) [facility] Start: 2010 Anxiety Screening Anxiety Screening [facility] Start: 2010 Depression Screening Depression Screening [facility] Start: 2010 Hepatitis C screening Hepatitis C Screening [facility] Start: 2010 HIV screening HIV Screening [facility] Start: 10-04-2007 Vaccination for human papillomavirus HPV VACCINES (1 - Female 3-dose series) [facility] Start: 1992 Tetanus vaccination TETANUS EVERY 10 YR [facility] Anti-D (Rh) immunoglobulin [facility] Work Phone: Anti-D (Rh) immunoglobulin [facility] CBC W Auto Different ial panel - Blood [facility] CBC W Auto Different ial panel - Blood [facility] Chlamydia deoxyribon ucleic acid detection [facility] Erythrocyte mean corpuscular volume determination [facility] Hematocrit [Volume Fraction] of Blood [facility] Hemoglobin [Mass/vol ume] in Blood [facility] Hepatitis B virus manley rface Ag [Presence] in Serum [facility] Hepatitis C antibody measurement [facility] Leukocytes [#/volume ] in Blood [facility] Mean corpuscular hem oglobin concentration determination [facility] Mean corpuscular hem oglobin determination [facility] Measurement of gluco se 2 hours after glucose challenge for glucose tolerance test [facility] Neutrophil count [facility] Neutrophil percent differential count [facility] Path report.final Dx Spec [facility] Patient Education [facility] Work Phone: Patient referral [facility] Work Phone: Platelets [#/volume] in Blood [facility] Procedure [facility] Red blood cell count [facility] Red cell distributio n width determination [facility] Rubella IgG measurement [facility] Serologic test for syphilis [facility] Serologic test for syphilis [facility] Ultrasonography in f irst trimester [facility] Immunizations Immunization Date Immunization Notes Care Provider Sj perez 05-07-2024 influenza, seasonal, injectable, preservative free Caterina Fine [employer] OFFICER.SERVICE AGENT Work Phone: [facility] 04-11-2023 influenza, injectabl e, quadrivalent, preservative free DO Tasha Chapa Work Phone: [facility] 06-12-2022 tetanus toxoid, redu ji diphtheria toxoid, and acellular pertussis vaccine, adsorbed DO Tasha Chapa Work Phone: [facility] 04-26-2022 influenza, injectabl e, quadrivalent, preservative free DO Tasha Chapa Work Phone: [facility] 04-26-2022 influenza, seasonal, injectable Dr. Neftaly Dunn Work Phone: [facility] 05-11-2021 Covid (Moderna) Dr. Neftaly welsh Work Phone: [facility] 04-15-2021 influenza, injectabl e, quadrivalent, preservative free DO Tasha Chapa Work Phone: [facility] 04-15-2021 influenza, seasonal, injectable Dr. Neftaly Dunn Work Phone: [facility] 04-15-2021 influenza, seasonal, injectable, preservative free Caterina Fine APRN.SERVICE AGENT Work Phone: [facility] 09-10-2020 Covid (Moderna) Dr. Neftaly welsh Work Phone: [facility] 08-13-2020 Sabinoid (Moderna) Dr. Neftaly welsh Work Phone: [facility] 04-16-2017 influenza, injectabl e, quadrivalent, preservative free Britt Dunbar [facility] Payers Date Payer Category Payer Self-pay [id number] 2023 Private Health Insurance [facility] [id number] 2023-Present [phone] [address] [place] [address] PPO [id number] 2023 Unknown [id number] 2018 Worker's Compensation [id number] 2018 Worker's Compensation WORKER'S C OMP KKSG xxxxxxxxx 2018-Present xxxxxxxxx [id number] 2017 Unknown [id number] 1990 Unknown [id number] 2.840.1.350427.3.579.2. 900 1990 Unknown [id number] 2.840.1.720720.3.579.2. 902 1992 Unknown [id number] 2.840.1.791963.3.579.2. 479 1992 Unknown [id number] 2.840.1.728560.3.579.2. 479 Unknown [id number] Unknown [id number] 2.840.1.426983.3.579.2. 462 Unknown [id number] 2.0.1.643500.3.579.2. 462 Unknown [id number] 2.16840.1.928613.3.579.2. 462 Unknown [id number] 2.16840.1.725105.3.579.2. 462 Unknown [id number] 2.16840.1.052777.3.579.2. 462 Unknown [id number] 2.840.1.932490.3.579.2. 462 Unknown [id number] 2.840.1.819127.3.579.2. 462 Unknown [id number] 2.16840.1.580351.3.579.2. 462 Unknown [id number] 2.16.840.1.515648.3.579.2. 462 Unknown [id number] 2.16840.1.321454.3.579.2. 462 Unknown [id number] 2.16840.1.681351.3.579.2. 462 Unknown [id number] 2.840.1.940648.3.579.2. 462 Unknown [id number] 2.16840.1.156118.3.579.2. 462 Unknown [id number] 2.0.1.413363.3.579.2. 462 Social History Date Type Detail Facility Tobacco smoking stat us SDIS Unknown if ever smoked [facility] Start: 1990 Sex Assigned At Not on file [facility] Start: 12-24-2021 End: 10-04-2023 Tobacco smoking status NHIS Unknown if ever smoked [facility] Start: 1990 Sex Assigned At Female [facility] Start: 08-14-2024 End: 11-21-2024 Tobacco smoking status SDIS Never smoked tobacco [facility] Start: 08-14-2024 Tobacco use and exposure Smokeless tobacco non-user [facility] Start: 08-14-2024 History of Social function [facility] Start: 08-14-2024 Tobacco use panel [facility] Goals Date Patient Goal Desired Activity /State Mental Status Date Assessment Result Facility 12-24-2021 Cognitive function Voice/Name [facility] Work Phone: Clinical Notes 11-19-2021 to 03-02-2025 Note Date & Type Note Facility 03-02-2025 Progress note [facility] 02-20-2025 Radiology Diagnostic study note [facility] Imaging Services [address] [place], [place] [address] OB Anatomy w/ Transvaginal MR#: [id number] Acct: [id number] Name: ROMERO GRAJEDA Rep #: [id number] : 1990 F 34 From: Hemanth Pan MD PCP: Dr. Yanelis Yost MD Status: REG CL I Study:OB Anatomy w/ Transvaginal Date of Exam : 02/19/25 Exam# [id number] Ordering Dr: Zunilda Higginbotham CNM PROCEDURE: OB ANATOMY W/ TRANSVAGINAL 02/19/2025 REASON FOR EXAM: ANATOMY US TECHNIQUE: OB ANATOMY W/ TRANSVAGINAL COMPARISON: None FINDINGS LMP: September 30, 2024 Number: 1 Position: Vertex Placental Position: Anterior and not low-lying Placental Abnormalities: No evidence of previa. DIMENSIONS: Biparietal Diameter: 5.05 cm: 21 weeks and 2 days: 86 percentile/ Head Circumference: 17.78 cm: 20 weeks and 2 days: 40 percentile/ Abdominal Circumference: 15.66 cm: 20 weeks and 6 days: 62nd percentile/ Femur Length: 3.31 cm: 20 weeks and 2 days: 44 percentile/ ESTIMATED WEIGHT: 372 g plus/-56 g ESTIMATED WEIGHT PERCENTILE (24+ weeks): 68 ESTIMATED GESTATIONAL AGE: Baseline: 20 weeks and 2 days By Ultrasound: 20 weeks and 4 days ESTIMATED DATE OF DELIVERY: Baseline: July 07, 2025 By Ultrasound: July 05, 2025 BIOPHYSICAL ASSESSMENT: Amniotic Fluid Volume: 5.3 cm Amniotic Fluid Index: Within normal limits (8-24 cm normal range) Cardiac Motion: 141 beats per minute (average) Trunk and Limb Motion: Present. MATERNAL ANATOMY: Adnexa: Both maternal ovaries are visualized and unremarkable. Cervical Length (if measured): 3.9 cm ANATOMY: Spine: Unremarkable Cranium: Unremarkable Cerebellum: Unremarkable Cisterna Magna: Unremarkable Cavum Septum Pellucidi: Unremarkable Lateral Ventricles: Unremarkable Choroid Plexus: Unremarkable Midline Falx: Unremarkable Nuchal Fold: Unremarkable Upper Lip: Unremarkable Heart: Unremarkable Ventricular Outflow Tracts: Unremarkable Stomach: Kidneys: Bladder: Unremarkable Umbilical Cord: Normal placental insertion. cord insertion not seen well. Extremities: Unremarkable US/OB Anatomy w/ Transvaginal IMPRESSION: Single live intrauterine gestation with a mean gestational age of 20 weeks and 4days. Reading Location: [place] [address] CC: JOSE DE JESUS Higginbotham; Dr. Yanelis Yost MD ~ Blanket Weaver: Signed [facility] 02-02-2025 Progress note [facility] 12-16-2024 Progress note [facility] 12-02-2024 Evaluation note Diagnosis Onset Date Resolution Anesthesia complication acute M 2024 10:13am Anxiety acute December 02, 2024 10:13am Family history of defect acute December 02, 2024 10:13am History of miscarriage, currently acute December 02 10:13am HPV test positive acute November 10:13am HSV-1 (herpes simplex virus 1) infection acute December 02 10:13am depression acute December 02, 2024 10:13am acute December 02, 2024 10:13am Supervision of high-risk acute December 02 10:13am Vulvar lesion acute December 02, 2 025 10:13am [facility] Work Phone: 1(539) 954-473805-27-2025 Evaluation note* Diagnosis Onset Date Resolution Status Admit Date Anesthesia complication acute M ay 2024 10:13am Anxiety acute December 02, 2024 10:13am Family history of defect acute December 02, 2024 10:13am History of miscarriage, curr ently acute December 02, 2024 1 0:13am HPV test positive acute November 10:13am HSV-1 (herpes simplex virus 1) infection acute December 02, 2024 1 0:13am depression acute December 02, 2024 10:13am acute December 02, 2024 10:13am Supervision of high-risk acute December 02, 2024 1 0:13am Vulvar lesion acute December 02, 2 025 10:13am Anesthesia complication acute J 2024 1:03pm Anxiety acute December 16 1:03pm Family history of defect acute December 16, 2024 1:03pm History of miscarriage, curr ently acute December 16, 2024 1:03pm HPV test positive acute December 162024 1:03pm HSV-1 (herpes simplex virus 1) infection acute December 16, 2024 1:03pm depression acute Dec 1:03pm acute December 16 1:03pm Supervision of high-risk acute December 16, 2024 1:03pm Vulvar lesion acute December 16, 2024 1:03pm [facility] Work Phone: 1(461) 739-179305-27-2025 Evaluation note* Diagnosis Onset Date Resolution Status Admit Date Anesthesia complication acute M ay 2024 10:13am Anxiety acute December 02, 2024 10:13am Family history of defect acute December 02, 2024 10:13am History of miscarriage, currently acute December 02 10:13am HPV test positive acute November 10:13am HSV-1 (herpes simplex virus 1) infection acute December 02, 2024 1 0:13am depression acute December 02, 2024 10:13am acute December 02, 2024 10:13am Supervision of high-risk acute December 02, 2024 1 0:13am Vulvar lesion acute December 02, 025 10:13am Anesthesia complication acute J une 2024 1:03pm Anxiety acute December 16 1:03pm Family history of defect acute December 16, 2024 1:03pm History of miscarriage, currently acute December 16 1:03pm HPV test positive acute December 162024 1:03pm HSV-1 (herpes simplex virus 1) infection acute December 16, 2024 1:03pm depression acute Dec 1:03pm acute December 16 1:03pm Supervision of high-risk acute December 16, 2024 1:03pm Vulvar lesion acute December 16, 2024 1:03pm Anesthesia complication acute J une 2024 11:46am Anxiety acute January 05 11:46am Family history of defect acute January 05, 2025 11:46am History of miscarriage, currently acute January 05 11:46am HPV test positive acute January 052024 11:46am HSV-1 (herpes simplex virus 1) infection acute January 05, 2025 11:46am depression acute Dec 11:46am acute January 05 11:46am Supervision of high-risk acute January 05, 2025 11:46am Vulvar lesion acute January 05, 2025 11:46am [facility] Work Phone: 1(539) 652-674405-27-2025 Evaluation note* Diagnosis Onset Date Resolution Status Admit Date Anesthesia complication acute M 2024 10:13am Anxiety acute December 02, 2024 10:13am Family history of defect acute December 02, 2024 10:13am History of miscarriage, currently acute December 02 10:13am HPV test positive acute November 10:13am HSV-1 (herpes simplex virus 1) infection acute December 02, 2024 1 0:13am depression acute December 02, 2024 10:13am acute December 02, 2024 10:13am Supervision of high-risk acute December 02, 2024 1 0:13am Vulvar lesion acute December 02, 10:13am Anesthesia complication acute J une 2024 1:03pm Anxiety acute December 16 1:03pm Family history of defect acute December 16, 2024 1:03pm History of miscarriage, currently acute December 16 1:03pm HPV test positive acute December 162024 1:03pm HSV-1 (herpes simplex virus 1) infection acute December 16, 2024 1:03pm depression acute Dec 1:03pm acute December 16 1:03pm Supervision of high-risk acute December 16, 2024 1:03pm Vulvar lesion acute December 16, 2024 1:03pm Anesthesia complication acute J une 2024 11:46am Anxiety acute January 05 11:46am Family history of defect acute January 05, 2025 11:46am History of miscarriage, currently acute January 05 11:46am HPV test positive acute January 052024 11:46am HSV-1 (herpes simplex virus 1) infection acute January 05, 2025 11:46am depression acute Dec 11:46am acute January 05 11:46am Supervision of high-risk acute January 05, 2025 11:46am Vulvar lesion acute January 05, 2025 11:46am Anesthesia complication acute J buddy 2024 9:16am Anxiety acute February 02 9:16am Family history of defect acute February 02, 2025 9:16am History of miscarriage, currently acute February 02 9:16am HPV test positive acute February 022024 9:16am HSV-1 (herpes simplex virus 1) infection acute February 02, 2025 9:16am depression acute Jan 9:16am acute February 02 9:16am Supervision of high-risk acute February 02, 2025 9:16am Vulvar lesion acute February 02, 2025 9:16am [facility] Work Phone: 1(690) 926-344205-27-2025 Evaluation note* Diagnosis Onset Date Resolution Status Admit Date Anesthesia complication acute 2024 10:13am Anxiety acute December 02, 2024 10:13am Family history of defect acute December 02, 2024 10:13am History of miscarriage, currently acute December 02 10:13am HPV test positive acute November 10:13am HSV-1 (herpes simplex virus 1) infection acute December 02, 2024 1 0:13am depression acute December 02, 2024 10:13am acute December 02, 2024 10:13am Supervision of high-risk acute December 02, 2024 1 0:13am Vulvar lesion resolved December 02, 2 025 10:13am Anesthesia complication acute J une 2024 1:03pm Anxiety acute December 16 1:03pm Family history of defect acute December 16, 2024 1:03pm History of miscarriage, currently acute December 16 1:03pm HPV test positive acute December 162024 1:03pm HSV-1 (herpes simplex virus 1) infection acute December 16, 2024 1:03pm depression acute Dec 1:03pm acute December 16 1:03pm Supervision of high-risk acute December 16, 2024 1:03pm Vulvar lesion resolved December 16, 2024 1:03pm Anesthesia complication acute J une 2024 11:46am Anxiety acute January 05 11:46am Family history of defect acute January 05, 2025 11:46am History of miscarriage, currently acute January 05 11:46am HPV test positive acute January 052024 11:46am HSV-1 (herpes simplex virus 1) infection acute January 05, 2025 11:46am depression acute Dec 11:46am acute January 05 11:46am Supervision of high-risk acute January 05, 2025 11:46am Vulvar lesion resolved January 05, 2025 11:46am Anesthesia complication acute J 2024 9:16am Anxiety acute February 02 9:16am Family history of defect acute February 02, 2025 9:16am History of miscarriage, currently acute February 02 9:16am HPV test positive acute February 022024 9:16am HSV-1 (herpes simplex virus 1) infection acute February 02, 2025 9:16am depression acute Jan 9:16am acute February 02 9:16am Supervision of high-risk acute February 02, 2025 9:16am Vulvar lesion resolved February 02, 2025 9:16am Anesthesia complication acute A ug2024 9:36am Anxiety acute March 02, 025 9:36am Family history of defect acute March 02, 2025 9:36am History of miscarriage, currently acute March 02, 2025 9:36am HPV test positive acute March 02, 2025 9:36am HSV-1 (herpes simplex virus 1) infection acute March 02 9:36am depression acute Feb 9:36am acute March 02, 2 025 9:36am Supervision of high-risk acute March 02 9:36am [facility] Work Phone: 1(403) 203-543705-27-2025 Progress [facility] [address] [place] [address], [address] [place] [address] OFFICE VISIT Date of Service: 12/02/24 MR#: [id number] Acct: [id number] Name: TARASROMERO LESLIE Rep #: [id number] : 1990 Provider: Dr. Raghavendra Bhakta MD Age/Sex: 34/F [place] [facility] [place] Signed Intake Vital Signs 04/24/24 11:49 12/02/24 10:20 Height 5 ft 6 in 5 ft 6 in Weight: 135 lb 6 oz BMI 21.8 BP 137/91 H Intake Visit Reasons: NOB LMP 09/30 JENELLE 07/07 Receiving Associate Store Required: No Is patient in pain?: No Allergies amoxicillin Allergy (Intermediate, Verified 12/02/24 10:22) Rash cefprozil (From Cefzil) Allergy (Intermediate, Verified 12/02/24 10:22) Rash Medications ?Medication ?Instructions ?Recorded ?Confirmed ?Type multivitamin no.47-iron fum 27 cap PO 04/17/24 5 History mg-folate no.1 1 mg-dha 300 mg capsule (PNV-DHA) sertraline 50 mg tablet 50 mg PO DAILY #90 TABLETS 0 10/29/24 11/21/24 Rx valacyclovir 1 gram tablet 1,000 mg PO BID PRN 5 History (Valtrex) hydroxyzine pamoate 25 mg capsule 25 mg PO Q6H PRN anx iety #90 caps 12/02/24 12/02/24 Rx (Vistaril) Last Menstrual Period: 09/30/24 Zika: Zika virus screening: Negative : No PFSH PFSH Medical History Missed anxiety (08/19/22) HPV test positive Palpitations COVID-19 Vasovagal syncope Surgical History S/P dilation and curettage [place] teeth extracted H/O excision of mass (~02/2022) History of oral surgery History of tonsillectomy and adenoidectomy Family History Father Hypertension Obesity Hyperlipidemia Aunt Breast cancer, Onset Age: 30 Maternal Grandmother Myelodysplastic syndrome, Onset Age: 70 Maternal Hypertension Parkinsons Dementia Grandfather Heart disease Kidney disease Diabetes Hypertension CVA (cerebral vascular accident) Myocardial infarction Mother Osteopenia Social History adopted: No household members: spouse and children housing: house number of children: 1 service: No current occupational status: employed 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: No pets and animals: No history of recent travel: Yes (- November) out of state: Yes out of country: No sexually active: Yes Smoking Status: Never smoker alcohol intake: former details: prior to 1 drink a month- not while substance use type: does not use well-balanced diet: daily or most days caffeine: No eating out: 1-3 times/week during the past year weight has: remained stable what type of physical activity do you participate in: none leslie/islam: Adventist seatbelt use: always do you feel safe at home: Yes additional social history: - Castillo History 3 Elective abortions Hx Para 1 Spontaneous abortions 1 Hx # Term Pregnancies Ectopic pregnancies Hx # Pregnancies Multiple births # of living children 1 Past Pregnancies Del. Date Name GA/Weeks Outcome Route Bth Weight Infant Gen Labor Lgth Anesthesia Del Locatn Provider FOB 08/19/22 [place] 39 live - full term 6lbs 14oz Female epidural [employer] Dr. Massey 04/21/24 6 spontaneous Delivery Date: 08/19/22 Last Updated by: Nakita Hammonds COVID Delivery Date: 04/21/24 Last Updated by: Anya Denis D&C HPI NOB LMP 09/30 JENELLE 07/07 Details: ROMERO GRAJEDA is a 34 year old who presents for New OB visit. OB Visit JENELLE Calculator Estimated Delivery Date Method Current WG Current Estimate 07/07/25 LMP (Certain) 9w 0d Other Estimates 07/11/25 Ultrasound #1 8w 3d Comments: HIV: Urine Culture: Sequential Screen: NIPT Screen: Estimated Due Date: 07/07/25 Expected Delivery Route/Plan Labor Preferences- CB/BF classes: [] labor support person: [] labor intervention preferences: [] pain management options preferred: [] cut cord/dad catch: [] : [] PP control planned: [] discussed possible routes of delivery and associated risks: [] special requests: [] Specific Issue/Plans Covid status: [] Flu vaccine: [] Tdap vaccine: [] Rhogam: [] LARC form signed: [] Problem list reviewed and updated with the most current plan of care details and appropriate ordersplaced. Relevant counseling for the gestational age provided. Continue routine care and follow up unless otherwise noted in visit notes/problem list details Initial Weight: Not Recorded Date -?-?-?-?-?-?-?-?-?-?-?-?- EGA Weight BP Urine Prot -?-?-?-?-?-?-?-?-?-?-?-?- Glucose FHR FuHt Pres Dilation -?-?-?-?-?-?-?-?-?-?-?-?- Effaced St Visit Note 12/02/24 -?-?-?-?-?-?-?-?-?-?-?-?- 9w 0d 135 lb 6 oz 137/91 -?-?-?-?-?-?-?-?-?-?-?-?- 175 -?-?-?-?-?-?-?-?-?-?-?-?- SM- no vb crampi ng SM- no vb cramping CRL 1.9 c m cons with LMP Menstrual History Last Menstrual Period: 09/30/24 Reported LMP: definite Normal amount/duration: Yes Frequency in days: 30-31 On hormonal BC at conception: No hCG+: 10/31/24 Antepartum Record Genetic Screening: Congenital Heart Defect: Other, Neural Tube Defect: Other, Hemoglobinopathy Or Carrier: Other, Cystic Fibrosis: Other, Chromosome Abnormality: Other, Jayson-Sachs: Other, Hemophilia: Other, Intellectual Disability/Autism: Other, Recurrent Loss/Stillbirth: Other, Other Structural Defect: Patient (Dtr-congenital laryngeal cleft), Other Genetic Disease: Other and Maternal Metabolic Disorder: Other Infection History: Live with someone with TB or Exposed to TB: No, Patient or Partner has history of Genital Herpes: Yes (Pt with one outbreak), Rash or Viral illness since last mentrual period: No, Prior GBS-Infected child: No, History of STD: Yes (herpes), HIV Infection: No, History of Hepatitis:No, Recent travel outside of [place]: No, Concern for hepatitis exposure: No, Varicella immune: Yes (immune- vaccinated) and Covid Vaccinated: Yes (Moderna, 1 booster) Medical History Medical History: Positive: Psychiatric (Anxiety- controlled with sertraline), Depression/postpartumdepression (PPD), Pulmonary (e.g.,TB,Asthma) (Pneumonia August 14- treated/resolved), Drug/latexallergies/reactions (cefzil, amoxicillin-Rash), 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), Operations/hospitalizations (See PFSH, nothing new to add) and History of abnormal pap (2022 HPV+, normal in 2023) and Negative:Diabetes, Hypertension, Heart disease, Auto-immune disorder, Kidney disease/UTI, Neurologic/epilepsy, Hepatitis/liver disease, Varicosities/phlebitis, Thyroid dysfunction, Trauma/domestic violence, History of blood transfusions, D (Rh) Sensitized, Seasonal allergies, Breast, Anesthetic complications (epidural wore off in 1st ), Uterine anomaly/anna, Infertility, Anti-retroviral treatment,Relevant family history and Other ACOG First Trimester First Trimester: Desire for , Alcohol, Tobacco Cessation, Illicit/Recreational Drug/Substance Use, Intimate Partner Violence, Barriers to care, Unstable Housing, Communication Barriers, Environmental/Work Hazards, Anticipated Course of Care, Nurtrition and weight gain, Toxoplasmosis Precations, Use of Any medications, Sexual activity, Exercise, Dental Care, Sauna/Hot tub use, Seat Belt use, Childbirth classes/Hospital facilities, Travel, Indications for Ultrasound and Screening for Aneuploidy; Discussed Second Trimester Second Trimester: Signs and Symptoms of Labor, Selecting a care provider, Reproductive Life Planning & Contreception, Care Planning, Depression/Anxiety and Intimate Partner Violence; Discussed Tobacco Cessation Third Trimester Third Trimester: Pain Management Plans, Labor support person(s), Immediate Larc, Movement Monitoring, Signs and Symptoms of Preeclampsia, Labor Signs, Cervical Ripening/Labor Induction Counseling, [place] Education and Family Medical Leave or Disability Forms Coding Level of Care Code OB Routine Diagnoses HSV-1 (herpes simplex virus 1) infection B00.9 Supervision of high-risk O09.90 9 weeks gestation of Z3A.09 Weeks of gestation: 9 weeks Anesthesia complication T88.59XA depression F53.0 History of miscarriage, currently O09.299 Vulvar lesion N90.89 HPV test positive Family history of defect Z82.79 Anxiety F41.9 Assessment and Plan Assessment and Plan (1) HSV-1 (herpes simplex virus 1) infection: Status: Acute Comment: valtrex prn, H/O one outbreak (2) Supervision of high-risk : Status: Acute Comment: , JENELLE 07/07/25, NAHOMY Holloway, Castillo (3) : Status: Acute Qualifiers: Weeks of gestation: 9 weeks Qualified Code(s): Z3A.09 - 9 weeks gestation of Comment: elects NIPT with gender (4) Anesthesia complication: Status: Acute Comment: epidural wore off early (5) depression: Status: Acute Comment: sertraline-controlled (6) History of miscarriage, currently : Status: Acute (7) Vulvar lesion: Status: Acute Comment: suspect HSV, ordered valtrex, titers and culture (8) HPV test positive: Status: Acute Comment: 2022, repeat pap 2023-negative (9) Family history of defect: Status: Acute Comment: dtr with laryngeal cleft, genetic counseling completed (10) Anxiety: Status: Acute Comment: start zoloft-controlled Orders: Orders CBC W/Diff, Automated 11/21/24 O09.90 - Supervision of high risk , unspecified, unspecified trimester Type & Screen 11/21/24 O09.90 - Supervision of high risk , unspecified, unspecified trimester Rubella IgG 11/21/24 O09.90 - Supervision of high risk , unspecified, unspecified trimester Hepatitis C Antibody 11/21/24 O09.90 - Supervision of high risk , unspecified, unspecifiedtrimester Hepatitis B Surface Antigen 11/21/24 O09.90 - Supervision of high risk , unspecified, unspecified trimester Culture, Urine 11/21/24 O09.90 - Supervision of high risk , unspecified, unspecified trimester Syphilis Antibodies 11/21/24 O09.90 - Supervision of high risk , unspecified, unspecified trimester Chlamydia/GC LUIS aptima 11/21/24 O09.90 - Supervision of high risk , unspecified, unspecified trimester HIV 11/21/24 O09.90 - Supervision of high risk , unspecified, unspecified trimester TREE 11/21/24 O09.90 - Supervision of high risk , unspecified, unspecified trimester Medications: New hydroxyzine pamoate (Vistaril) 25 mg PO Q6H PRN 90 caps 4RF anxiety 12/02/24 1056 tobi ALVARADO> Date _ Alice Bhakta MD Cosign Signature: Date (if applicable) CC: ~ [facility]02-06-2025 Instructions* Patient Instructions* Caterina Fine APRN.CNP - 08/14/2024 8:05 PM EST ASSESSMENT/PLAN: 1. Acute cough - ICD9: 786.2, ICD10: R05.1 (primary diagnosis) - XR CHEST 2V FRONTAL/LAT RESULT: Lines, tubes, and devices: None. Lungs and pleura: There are increased bronchovascular markings in the right perihilar region compatible with bronchitis or early bronchopneumonia. No consolidation. No lung mass. No pleural effusion. No pneumothorax. Cardiomediastinal silhouette: Normal cardiomediastinal silhouette. Bones and soft tissues: Unremarkable. IMPRESSION IMPRESSION: Right perihilar parenchymal changes as described above. A follow-up exam is recommended. Blanket Weaver: LES Transcribe Date/Time: Aug 14 2024 7:57P Dictated by : PHILIP EAGLE MD 2. Bronchopneumonia - ICD9: 485, ICD10: J18.0 - DOXYCYCLINE MONOHYDRATE 100 MG TABLET - Follow-up with your PCP in 3-5 days if symptoms have not improved or sooner if symptoms worsen - Discussed red flags and need for immediate medical evaluation if any occur. - Discussed supportive care treatment with fluids, rest and analgesia. - Discussed expected course of illness Caterina Fine APRN.NONI [facility] History of Present illness Narrative* Mihaela Giles Tech - 08/14/2024 7:40 PM EST Radiology Service Progress Note PATIENT NAME: Romero Grajeda DATE OF SERVICE: August 14, 2024 TIME: 7:33 PM PATIENT IDENTITY VERIFICATION COMPLETED USING TWO (2) IDENTIFIERS: Name and Date of confirmedby patient verbally. FALL SCREENING: Has the patient had 2 falls in the last year or 1 fall with injury or currently using an Ambulatory Assistive Device (Walker, Cane, Wheelchair, Crutches, etc.)? No PATIENT GENDER DATA: Assigned female at . status: : No status:NO. PATIENT RELEVANT IMPLANT DATA REVIEWED: Not Applicable PATIENT PRESENTS WITH AN IMPLANTABLE OR ATTACHED CPHT: No RADIOLOGY DEPARTMENT: General X-ray: Exam(s) Completed: Chest X-Ray PERIPHERAL IV DATA: Not applicable SIGNED BY: Benson Ha August 14, 2024 7:33 PM documented in this encounterReg[facility]-06-2025 NoteHNO ID: [id number] Author: MIHAELA GILES Tech Service: ? Author Type: Technologist Type: Progress Notes Filed: 08/14/2024 19:39 Note Text: Radiology Service Progress Note PATIENT NAME: Romero Grajeda DATE OF SERVICE: August 14, 2024 TIME: 7:33 PM PATIENT IDENTITY VERIFICATION COMPLETED USING TWO (2) IDENTIFIERS: Name and Date of confirmed by patient verbally. FALL SCREENING: Has the patient had 2 falls in the last year or 1 fall with injury or currently using an Ambulatory Assistive Device (Walker, Cane, Wheelchair, Crutches, etc.)? No PATIENT GENDER DATA: Assigned female at . status: : No status: NO. PATIENT RELEVANT IMPLANT DATA REVIEWED: Not Applicable PATIENT PRESENTS WITH AN IMPLANTABLE OR ATTACHED CPHT: No RADIOLOGY DEPARTMENT: General X-ray: Exam(s) Completed: Chest X-Ray PERIPHERAL IV DATA: Not applicable SIGNED BY: Benson Ha August 14, 2024 7:33 [facility]02-06-2025 NoteHNO ID: [id number] Author: CATERINA FINE APRN.[facility] Service: ? Author Type: Nurse Practitioner Type: Progress Notes Filed: 08/14/2024 20:06 Note Text: Subjective Cough Associated symptoms include chills and sore throat. Pertinent negatives include no ear pain and no myalgias. Romero Grajeda is a 33 year old female who presents with cough, congestion, sore throat for the past 4 days. She took a COVID test at home which was negative. She has been having chills and night sweats. Coughing up green mucous. She has not had a fever. Review of Systems Constitutional: Positive for chills, diaphoresis (night sweats) and malaise/fatigue. Negative for fever. HENT: Positive for congestion and sore throat. Negative for ear pain. Respiratory: Positive for cough and sputum production. Cardiovascular: Negative. Musculoskeletal: Negative for myalgias. BP 161/88 Pulse 98 Temp 36.5 ?C (97.7 ?F) Resp 18 Wt 64.6 kg (142 lb 6.7 oz) SpO2 97% No past medical history on file. No past surgical history on file. ALLERGIES Amoxicillin and Cefprozil MEDICATIONS Azelaic Acid 15 % gel sertraline (ZOLOFT) 50 mg tablet Take 1 tablet by mouth once daily. valACYclovir (VALTREX) 1 gram tablet PNV no.95/ferrous fum/folic ac ( ORAL) Take by mouth. No family history on file. Social History Tobacco Use Smoking status: Never Smokeless tobacco: Never Objective Physical Exam Vitals and nursing note reviewed. Constitutional: General: She is not in acute distress. Appearance: Normal appearance. She is not ill-appearing. HENT: Right Ear: Tympanic membrane, ear canal and external ear normal. Left Ear: Tympanic membrane, ear canal and external ear normal. Nose: Congestion present. Mouth/Throat: Mouth: Mucous membranes are moist. Pharynx: Oropharynx is clear. No oropharyngeal exudate or posterior oropharyngeal erythema. Cardiovascular: Rate and Rhythm: Regular rhythm. Tachycardia present. Heart sounds: Normal heart sounds. Pulmonary: Effort: Pulmonary effort is normal. No respiratory distress. Breath sounds: Normal breath sounds. No wheezing or rales. Skin: General: Skin is warm and dry. Neurological: Mental Status: She is alert. ASSESSMENT/PLAN: 1. Acute cough - ICD9: 786.2, ICD10: R05.1 (primary diagnosis) - XR CHEST 2V FRONTAL/LAT RESULT: Lines, tubes, and devices: None. Lungs and pleura: There are increased bronchovascular markings in the right perihilar region compatible with bronchitis or early bronchopneumonia. No consolidation. No lung mass. No pleural effusion. No pneumothorax. Cardiomediastinal silhouette: Normal cardiomediastinal silhouette. Bones and soft tissues: Unremarkable. IMPRESSION IMPRESSION: Right perihilar parenchymal changes as described above. A follow-up exam is recommended. Blanket Weaver: LES Transcribe Date/Time: Aug 14 2024 7:57P Dictated by : PHILIP EAGLE MD 2. Bronchopneumonia - ICD9: 485, ICD10: J18.0 - DOXYCYCLINE MONOHYDRATE 100 MG TABLET - Follow-up with your PCP in 3-5 days if symptoms have not improved or sooner if symptoms worsen - Discussed red flags and need for immediate medical evaluation if any occur. - Discussed supportive care treatment with fluids, rest and analgesia. - Discussed expected course of illness Caterina Fine APRN.[facility] History of Present illness Narrative* Caterina Fine APRN.[facility] - 08/14/2024 7:27 PM EST Subjective Cough Associated symptoms include chills and sore throat. Pertinent negatives include no ear pain and no myalgias. Romero Grajeda is a 33 year old female who presents with cough, congestion, sore throat for the past 4 days. She took a COVID test at home which was negative. She has been having chills and night sweats. Coughing up green mucous. She has not had a fever. Review of Systems Constitutional: Positive for chills, diaphoresis (night sweats) and malaise/fatigue. Negative for fever. HENT: Positive for congestion and sore throat. Negative for ear pain. Respiratory: Positive for cough and sputum production. Cardiovascular: Negative. Musculoskeletal: Negative for myalgias. BP 161/88 Pulse 98 Temp 36.5 C (97.7 F) Resp 18 Wt 64.6 kg (142 lb 6.7 oz) SpO2 97% No past medical history on file. No past surgical history on file. ALLERGIES Amoxicillin and Cefprozil MEDICATIONS Azelaic Acid 15 % gel sertraline (ZOLOFT) 50 mg tablet Take 1 tablet by mouth once daily. valACYclovir (VALTREX) 1 gram tablet PNV no.95/ferrous fum/folic ac ( ORAL) Take by mouth. No family history on file. Social History Tobacco Use Smoking status: Never Smokeless tobacco: Never Objective Physical Exam Vitals and nursing note reviewed. Constitutional: General: She is not in acute distress. Appearance: Normal appearance. She is not ill-appearing. HENT: Right Ear: Tympanic membrane, ear canal and external ear normal. Left Ear: Tympanic membrane, ear canal and external ear normal. Nose: Congestion present. Mouth/Throat: Mouth: Mucous membranes are moist. Pharynx: Oropharynx is clear. No oropharyngeal exudate or posterior oropharyngeal erythema. Cardiovascular: Rate and Rhythm: Regular rhythm. Tachycardia present. Heart sounds: Normal heart sounds. Pulmonary: Effort: Pulmonary effort is normal. No respiratory distress. Breath sounds: Normal breath sounds. No wheezing or rales. Skin: General: Skin is warm and dry. Neurological: Mental Status: She is alert. ASSESSMENT/PLAN: 1. Acute cough - ICD9: 786.2, ICD10: R05.1 (primary diagnosis) - XR CHEST 2V FRONTAL/LAT RESULT: Lines, tubes, and devices: None. Lungs and pleura: There are increased bronchovascular markings in the right perihilar region compatible with bronchitis or early bronchopneumonia. No consolidation. No lung mass. No pleural effusion. No pneumothorax. Cardiomediastinal silhouette: Normal cardiomediastinal silhouette. Bones and soft tissues: Unremarkable. IMPRESSION IMPRESSION: Right perihilar parenchymal changes as described above. A follow-up exam is recommended. Blanket Weaver: LES Transcribe Date/Time: Aug 14 2024 7:57P Dictated by : PHILIP EAGLE MD 2. Bronchopneumonia - ICD9: 485, ICD10: J18.0 - DOXYCYCLINE MONOHYDRATE 100 MG TABLET - Follow-up with your PCP in 3-5 days if symptoms have not improved or sooner if symptoms worsen - Discussed red flags and need for immediate medical evaluation if any occur. - Discussed supportive care treatment with fluids, rest and analgesia. - Discussed expected course of illness Caterina Fine APRN.CNP documented in this encounterReg[facility]-13-2023 Progress note Author Annabella Miner [facility] August 21, 2022 9:13am Note Date/Time August 21, 2022 9:13am [facility] Medical Records Department [address] [place] [address] Progress Note - OBGYN 08/21/22911 MR#: [id number] Acct: [id number] Name: ROMERO GRAJEDA Rep #:[id number] : 1990 31 From: Annabella Miner CNM PCP: Tasha Chapa, DO Status:ADM I N Location: [place] [address] Subjective Subjective Patient doing well without complaints. Tolerating PO. Ambulating and voiding without difficulty. Feeding well. Denies chest pain, shortness of breath, calf pain/swelling, fevers, chills, lightheadedness. Objective Data Objective Data Vital Signs: Vital Signs Temp Pulse Resp BP Pulse Ox O2 Del Method 98.5 F 74 16 137/79 H 96 Room Air 08/21/22 07:50 08/21/22 08:05 08/21/22 07:50 08/21/22 08:09 08/20/22 14:32 08/21/22 07:50 Oxygen Delivery Method Room Air Weight: 152 lb 6.4 oz Body Mass Index (BMI) 24.5 Intake & Output: Intake and Output for Last 24 Hours 08/19/22 08/20/22 08/21/22 23:59 23:59 23:59 Intake Total 2393.33 / 2393.33 Output Total 1600 / 1600 Balance 793.33 / 793.33 Lab / Micro Data Result Diagrams: 08/19/22 00:00 08/19/22 00:00 Labs: Laboratory Results - last 24 hr 08/21/22 04:41: POC Glucose 79 Physical Exam Const alert, oriented x3 and no apparent distress Lymph Lymphatic: no lymphadenopathy noted Chest inspection of chest normal Nipple/Areola: nipples/areola normal Resp normal respiratory effort, normal air movement and no retractions Cardio regular rate and regular rhythm GI normal to inspection, nondistended, normoactive bowel sounds GI Narrative: fundus firm 2below u. mild lochia. no clots Extremity normal to inspection Neuro oriented x3 Psych mental status grossly normal Assessment & Plan (1) First degree laceration of perineum during delivery, : (2) (spontaneous vaginal delivery): COMMENT: IAL 39+6, girl Thania. JV PLAN: Plan s/p PPD # 2 1. routine post delivery care 2. breast feeding- support given 3. rh positive 4. rubella immune 5. d/c home today 08/21/22912 <Electronically signed by Annabella Miner CNM> Cosigner Signature (if applicable): CC: ~ Signed [facility] Work Phone: 1(422) 416-704902-12-2023 Progress note Author Annabella Miner [facility] August 20, 2022 10:52am Note Date/Time August 20, 2022 10:52am [facility] Medical Records Department [address] [place] [address] Progress Note - OBGYN 08/20/22 1046 MR#: [id number] Acct: [id number] Name: ROMERO GRAJEDA Rep #:[id number] : 1990 31 From: Annabella Miner CNM PCP: Tasha Chapa, DO Status:ADM I N Location: [place] [address] Subjective Subjective Patient doing well without complaints. Tolerating PO. Ambulating and voiding without difficulty. Feeding well. Denies chest pain, shortness of breath, calf pain/swelling, fevers, chills, lightheadedness. Objective Data Objective Data Vital Signs: Vital Signs Temp Pulse Resp BP Pulse Ox O2 Del Method 98.1 F 82 14 124/82 H 97 Room Air 08/20/22 08:49 08/20/22 08:49 08/20/22 08:49 08/20/22 08:49 08/20/22 08:49 08/20/22 08:49 Oxygen Delivery Method Room Air Weight: 152 lb 6.4 oz Body Mass Index (BMI) 24.5 Intake & Output: Intake and Output for Last 24 Hours 08/18/22 08/19/22 08/20/22 23:59 23:59 23:59 Intake Total 2393.33 / 2393.33 Output Total 1600 / 1600 Balance 793.33 / 793.33 Lab / Micro Data Attestation: I reviewed the patient's lab results. Result Diagrams: 08/19/22 00:00 08/19/22 00:00 Physical Exam Const alert, oriented x3 and no apparent distress Neck full ROM Lymph Lymphatic: no lymphadenopathy noted Resp normal respiratory effort, normal air movement and no retractions Cardio regular rate and regular rhythm GI GI Narrative: fundus firm at u, mild lochia. no clots. +hemorrhoid Extremity normal to inspection Skin no rashes or lesions noted Skin Narrative: perineum well approximated. Neuro oriented x3 Psych mental status grossly normal Assessment & Plan (1) (spontaneous vaginal delivery): COMMENT: IAL 39+6, girl Thania. JV PLAN: s/p PPD # 1 1. routine post delivery care 2. breast feeding- support given 3. rh positive 4. rubella immune 5. plan for d/c tomorrow (2) First degree laceration of perineum during delivery, : PLAN: ice to perineum witch adalid/dermaplast 08/20/22 1052 <Electronically signed by Annabella Miner CNM> Cosigner Signature (if applicable): CC: ~ Signed [facility] Work Phone: 1(837) 517-856702-11-[address] Whaley [facility] August 19, 2022 11:01am Note Date/Time August 19, 2022 11:00am [facility] Medical Records Department [address] [place] [address] Instructions for Home/Discharge Instructions 08/19/22 1058 MR#: [id number] Acct: [id number] Name: ROMERO GRAJEDA LESLIE Rep #:[id number] : 1990 31 From: Yvonne Hayward DO PCP: Tasha Chapa DO Status:ADM I N Discharge Instructions Diet Discharge Diet: No restrictions Activity Discharge Activity: Return to Normal Activity, May Not Drive (while taking narcotic pain medications.) and May Shower May resume sexual activity in: 4-6 weeks Dressing / Incision Call your doctor if your incision/area has: Continuous Slow Oozing, Sudden Increased Bleeding, Increased Pain/ Swelling, Increased Redness and Foul Smelling Discharge Follow Up Care Please Follow Up With: Yvonne Hayward DO When: Call [phone] to make an appointment with your doctor in 6 weeks. If you had elevated blood pressure or 4th degree laceration, you will need to be seen in 2 weeks. Test Results: Test results from this visit will be discussed in further detail at your follow- up appointment, if applicable. Discharge Plan Admission Admit Date/Time: 08/18/22 23:55 Primary Reason for Your Visit: vaginal delivery Attending Provider: Yvonne Hayward Primary Care Provider: Tasha Chapa Discharge Orders/Prescriptions Prescriptions: New naproxen 500 mg tablet 500 mg PO BID PRN (Reason: pain) Qty: 30 0RF Continued hkjifpzv-ouo-Cc-FA 1 mg Tablet 1 tab PO DAILY Referrals / Follow Up: Tasha Chapa DO [Primary Care Provider] - Disposition Disposition (needs filled in before D/C Order can be placed): Home, Self Care 08/19/22 1101<Electronically signed by Yvonne Hayward DO>Yvonne Hayward DO CC: Tasha Chapa DO ~ Signed [facility] Work Phone: 1(302) 883-155402-11-2023 Procedure [facility] 08-19-2022 History and physical note Author Annabella Miner [facility] August 19, 2022 7:08am Note Date/Time August 19, 2022 7:02am [facility] Medical Records Department [address] [place] [address] H&P 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 course complicated by -covid 19- normal growth scans Maternal Data Information JENELLE Calculator Estimated Delivery Date Method Current WG Current Estimate 08/20/22 Ultrasound #1 39w 6d Other Estimates 08/26/22 LMP (Certain) 39w 0d PFSH PFS Medical History COVID-19 Palpitations Vasovagal syncope Home Medications igiromvj-rkm-Kl-FA 1 mg tablet 1 tab PO DAILY 08/18/22 [History Last Taken 08/17/22] Allergy/AdvReac Type Severity Reaction Status Date / Time amoxicillin Allergy Intermediate Rash Verified 08/18/22 09:04 cefprozil [From Cefzil] Allergy Intermediate Rash Verified 08/18/22 09:04 Family History Father Hypertension Obesity Hyperlipidemia Aunt Breast cancer Grandmother Breast cancer Myelodysplastic syndrome Hypertension Parkinsons Dementia Grandfather Heart disease Kidney disease Diabetes Hypertension CVA (cerebral vascular accident) Myocardial infarction Mother Osteopenia Surgical History H/O excision of mass (~02/2022) History of oral surgery History of tonsillectomy and adenoidectomy Social History adopted: No household members: spouse housing: house number of children: 0 current occupational status: employed 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 pets and animals: No history of recent travel: No sexually active: Yes Smoking Status: Never smoker alcohol intake: former details: prior to 1 drink a month substance use type: does not use well-balanced diet: daily or most days caffeine: Yes Type: other Number of servings: 1 eating out: rarely or never during the past year weight has: remained stable what type of physical activity do you participate in: bicycling and weight training frequency: 1-2 times per week leslie/islam: Adventist seatbelt use: always do you feel safe at home: Yes additional social history: - Castillo History 1 Elective abortions Hx Para 0 Spontaneous abortions Hx # Term Pregnancies Ectopic pregnancies Hx # Pregnancies Multiple births # of living children Visit Details Expected Delivery Route/Plan Labor Preferences- CB/BF classes: signed up for all three labor support 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 cut cord/dad catch: Castillo or both : yes PP control planned: discussed discussed possible routes of delivery and associated risks: [] special requests: [] Plans Covid status: [] Flu vaccine: obtained at work Tdap vaccine: provided Rhogam: na LARC form signed: yes Problem list reviewed and updated with the most current plan of care details and appropriate orders placed. Relevant counseling for the gestational age provided. Continue routine care and follow up unless otherwise noted in visit notes/problem list details OB Flowsheet Initial Weight: Not Recorded Date -?-?-?-?-?-?-?-?-?-?-?-?- EGA Weight BP Urine Prot -?-?-?-?-?-?-?-?-?-?-?-?- Glucose FHR FuHt Pres Dilation -?-?-?-?-?-?-?-?-?-?-?-?- Effaced St Visit Note 01/26/22 -?-?-?-?-?-?-?-?-?-?-?-?- 10w 4d 127 lb 146/80 -?-?-?-?-?-?-?-?-?-?-?-?- 171 -?-?-?-?-?-?-?-?-?-?-?-?- JV- CRL not cons istent with lmp. New jenelle given 02/28/22 -?-?-?-?-?-?-?-?-?-?-?-?- 15w 2d 126 lb 130/80 Negative -?-?-?-?-?-?--?-?-?-?-?-?- Negative 150 -?-?-?-?-?-?-?-?-?-?-?-?- SM- no vb conrad ng. bps nl at home 127/78. 03/28/22 -?-?-?-?-?-?-?-?-?-?-?-?- 19w 2d 131 lb 6 oz 144/62 Nega tive -?-?-?-?-?-?-?-?-?-?-?-?- Negative 153 -?-?-?-?-?-?-?-?-?-?-?-?- :No VB, crampi ng. Feeling flutters. [facility] -?-?-?-?-?-?-?-?-?-?-?-?- 23w 2d 135 lb 132/80 -?-?-?-?-?-?-?-?-?-?-?-?- 151 23 -?-?-?-?-?-?-?-?-?-?-?-?- JV- plan r eviewed today. no complaints 05/26/22 -?-?-?-?-?-?-?-?-?-?-?-?- 27w 5d 140 lb 4 oz 134/80 Nega tive -?-?-?-?-?-?-?-?-?-?-?-?- Negative 136 28 -?-?-?-?-?-?-?-?-?-?-?-?- JV- no lof, vagi nal bleeding, or dec fm. 06/12/22 -?-?-?-?-?-?-?-?-?-?-?-?- 30w 1d 142 lb 2 oz 156/84 -?-?-?-?-?-?-?-?-?-?--?-?- 135 30 Cephalic -?-?-?-?-?-?-?-?-?-?-?-?- LC-no lof, vb,ct x. good fm. has growth scan ordered. LC-no lof, vb,ctx. good fm. has growth scan ordered. tdap given today. no concerns. BP at home 110-120/70-80 LC-no lof, vb,ctx. good fm. has growth scan ordered. tdap given today. no concerns. BP at home 110-120/70-80. repeat manual BP 130/70. PEC s/sx reviewed. LC-no lof, vb,ctx. good fm. has growth scan ordered. tdap given today. no concerns. BP at home 110-120/70-80. repeat manual BP 130/70. PEC s/sx reviewed. no s/sx today. 06/23/22 -?-?-?-?-?-?-?-?-?-?-?-?- 31w 5d 145 lb 8 oz 133/81 Nega tive -?-?-?-?-?-?-?-?-?-?-?-?- Negative 140 31 -?-?-?-?-?-?-?-?-?-?-?-?- JV- no lof, vagi nal bleeding, or dec fm. no complaints. pt had 3 hr and was normal. 07/04/22 -?-?-?-?-?-?-?-?-?-?-?-?- 33w 2d 146 lb 6 oz 134/76 Nega tive -?-?-?--?-?-?-?-?-?-?-?-?- Negative 142 33 -?-?-?-?-?-?-?-?-?-?-?-?- MH-NO VB, LOF. G ood FM. larc. 36 wk US sched. 07/21/22 -?-?-?-?-?-?-?-?-?-?-?-?- 35w 5d 130/83 Negative -?-?-?-?-?-?-?-?-?-?-?-?- Negative 140 34 Cephalic -?-?-?-?-?-?-?-?-?-?-?-?- SM- no vb lof go od fm no reuglar ctx 07/26/22 -?-?-?-?-?-?-?-?-?-?-?-?- 36w 3d 147 lb 132/80 Negative -?-?-?-?-?-?-?-?-?-?-?-?- Negative 140 35 Cephalic 1 -?-?-?-?-?-?-?-?-?-?-?-?- 30 -3 LC- no vb/ ctx/lof. good fm. gbs obtained today.growth scan normal 08/04/22 -?-?-?-?-?-?-?-?-?-?-?-?- 37w 5d 148 lb 8 oz 129/87 Nega tive -?-?-?-?-?--?-?-?-?-?-?-?- Negative 143 36 -?-?-?-?-?-?-?-?-?-?-?-?- JV- no lof, vagi nal bleeding, or dec fm. gbs neg. declines pelvic exam. 08/10/22 -?-?--?-?-?-?-?-?-?-?-?-?- 38w 4d 148 lb 8 oz 136/85 Nega tive -?-?-?-?-?-?-?-?-?-?-?-?- Negative 148 37 Cephalic 1 -?-?-?-?-?-?-?-?-?-?-?-?- 60 -2 JV- no lof , vaginal bleeding, or dec fm. 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 08/18/22 -?-?-?-?-?-?-?-?-?-?-?-?- 39w 5d 151 lb 4 oz 138/87 Nega tive -?-?-?-?-?-?-?-?-?-?-?-?- Negative 140 38 Cephalic 3 -?-?-?-?-?-?-?-?-?-?-?-?- 70 -1 SM- no vb lof good fm no regular ctx SM- no vb lof good fm no reg ular ctx. membranes swept NST FHR Rate Baby A Baseline: 140 Variability:: Moderate Accelerations:: 15 x 15 Decelerations:: None NST Reactive:: Yes FHR Category:: Category I Uterine Activity:: q2-3 minutes, palp strong ROS Cardiovascular Cardiovascular: Denies abdominal pain, chest pain, diaphoresis or dyspnea Respiratory/Chest Respiratory/Chest: Denies chest tightness or cough Genitourinary Genitourinary: Reports change in urinary stream Musculoskeletal Musculoskeletal: Reports none Integumentary Integumentary: Reports none Neurologic Neurologic: Reports none Psychiatric Psychiatric: Reports none Endocrine Endocrinology: Reports none Hematologic/Lymphatic Hematologic/Lymphatic: Reports none Allergic/Immunologic Allergic/Immunologic: Reports none Vital Signs Vital Signs Vital Signs: 08/18/22 23:14 08/18/22 23:18 08/18/22 23:18 Temperature 97.5 F L Temperature Source Pulse Rate 86 Blood Pressure BP Systolic BP Diastolic Pulse Ox 99 08/18/22 23:25 08/18/22 23:25 08/18/22 23:26 Temperature Temperature Source Pulse Rate 76 Blood Pressure 155/91 H 152/89 H BP Systolic 155 152 BP Diastolic 91 89 Pulse Ox 08/18/22 23:26 08/18/22 23:42 08/18/22 23:42 Temperature Temperature Source Pulse Rate 81 75 Blood Pressure 141/87 H BP Systolic 141 BP Diastolic 87 Pulse Ox 08/19/22 00:25 08/19/22 00:25 08/19/22 00:52 Temperature 98.3 F Temperature Source Temporal Pulse Rate Blood Pressure 137/89 H BP Systolic 137 BP Diastolic 89 Pulse Ox 08/19/22 00:52 08/19/22 00:51 08/19/22 00:56 Temperature Temperature Source Pulse Rate 86 Blood Pressure 138/91 H BP Systolic 138 BP Diastolic 91 Pulse Ox 100 08/19/22 00:56 08/19/22 00:56 08/19/22 00:56 Temperature Temperature Source Pulse Rate 88 102 H Blood Pressure BP Systolic BP Diastolic Pulse Ox 98 08/19/22 01:01 08/19/22 01:01 08/19/22 01:02 Temperature Temperature Source Pulse Rate 75 Blood Pressure 128/75 H BP Systolic 128 BP Diastolic 75 Pulse Ox 98 08/19/22 01:02 08/19/22 01:06 08/19/22 01:06 Temperature Temperature Source Pulse Rate 67 82 Blood Pressure BP Systolic BP Diastolic Pulse Ox 97 08/19/22 01:07 08/19/22 01:07 08/19/22 01:11 Temperature Temperature Source Pulse Rate 78 85 Blood Pressure 136/81 H BP Systolic 136 BP Diastolic 81 Pulse Ox 08/19/22 01:11 08/19/22 01:12 08/19/22 01:12 Temperature Temperature Source Pulse Rate 88 Blood Pressure 133/90 H BP Systolic 133 BP Diastolic 90 Pulse Ox 98 08/19/22 01:16 08/19/22 01:16 08/19/22 01:16 Temperature Temperature Source Pulse Rate 83 96 Blood Pressure 135/94 H BP Systolic 135 BP Diastolic 94 Pulse Ox 08/19/22 01:16 08/19/22 01:22 08/19/22 01:22 Temperature Temperature Source Pulse Rate 71 Blood Pressure 134/81 H BP Systolic 134 BP Diastolic 81 Pulse Ox 98 08/19/22 01:21 08/19/22 01:26 08/19/22 01:26 Temperature Temperature Source Pulse Rate 91 Blood Pressure BP Systolic BP Diastolic Pulse Ox 98 99 08/19/22 01:28 08/19/22 01:28 08/19/22 01:31 Temperature Temperature Source Pulse Rate 92 Blood Pressure 136/81 H 122/71 H BP Systolic 136 122 BP Diastolic 81 71 Pulse Ox 08/19/22 01:31 08/19/22 01:31 08/19/22 01:34 Temperature Temperature Source Pulse Rate 102 H Blood Pressure 117/74 BP Systolic 117 BP Diastolic 74 Pulse Ox 99 08/19/22 01:34 08/19/22 01:36 08/19/22 01:36 Temperature Temperature Source Pulse Rate 110 H 83 Blood Pressure BP Systolic BP Diastolic Pulse Ox 97 08/19/22 01:37 08/19/22 01:37 08/19/22 01:42 Temperature Temperature Source Pulse Rate 98 Blood Pressure 124/74 H 131/73 H BP Systolic 124 131 BP Diastolic 74 73 Pulse Ox 08/19/22 01:42 08/19/22 01:41 08/19/22 01:45 Temperature Temperature Source Pulse Rate 86 Blood Pressure 129/76 H BP Systolic 129 BP Diastolic 76 Pulse Ox 98 08/19/22 01:45 08/19/22 02:54 08/19/22 02:54 Temperature Temperature Source Pulse Rate 80 70 Blood Pressure 115/73 BP Systolic 115 BP Diastolic 73 Pulse Ox 08/19/22 02:54 08/19/22 04:30 08/19/22 04:30 Temperature 97.7 F L Temperature Source Pulse Rate 85 Blood Pressure 121/82 H BP Systolic 121 BP Diastolic 82 Pulse Ox 08/19/22 04:31 08/19/22 05:39 08/19/22 05:39 Temperature 98.8 F Temperature Source Pulse Rate 109 H Blood Pressure 124/76 H BP Systolic 124 BP Diastolic 76 Pulse Ox 08/19/22 05:39 08/19/22 05:40 08/19/22 06:19 Temperature 98.8 F Temperature Source Pulse Rate Blood Pressure 125/88 H BP Systolic 125 BP Diastolic 88 Pulse Ox 99 08/19/22 06:19 08/19/22 06:19 Temperature 98.8 F Temperature Source Pulse Rate 113 H Blood Pressure BP Systolic BP Diastolic Pulse Ox Weight Weight: 152 lb 6.4 oz Body Mass Index (BMI) 24.5 Physical Exam Const alert, oriented x3 and no apparent distress General Appearance: cooperative, comfortable and well kempt Orientation / Consciousness: awake and oriented to person Exam Limitations: no limitations HEENT normocephalic Neck full ROM Chest inspection of chest normal Resp normal respiratory effort, normal air movement and no retractions Effort and Inspection: able to speak in complete sentences and symmetric chest movement Cardio regular rate Peripheral Pulses: pulses 2+ throughout GI normal to inspection, nondistended, normoactive bowel sounds Inspection: gravid appearance of the vagina normal External Female Exam: normal appearance of the urethra; Negative for external lesion OB / External & Speculum: external exam normal Manual OB Exam: estimated gestational size appropriate and presentation cephalic Uterus Palpation: Negative for uterus tender Extremity normal to inspection Skin no rashes or lesions noted Neuro deep tendon reflexes 2+ bilaterally and gait normal Motor Exam: strength 5/5 throughout and clonus absent Psych Activity / Motor Behavior: appropriate eye contact Speech: normal speech Labs Labs Labs: Blood Type A POSITIVE Antibody Screen NEGATIVE Hct 38.8 % (37-47) Hgb 13.4 g/dL (12.0-15.0) Pap Smear Negative Obstetrics US Syphilis Total Ab Non-reactive Rubella IgG Antibody Reactive (Nonreactive) Hep Bs Antigen Non-Reactive (Nonreactive) Chlamydia DNA (LUIS) Negative (Negative) Neisseria gonorrhoeae DNA (LUIS) Negative (Negative) HIV 1&2 Antibody Non-Reactive (Nonreactive) Glucose 1 Hr 50 gm 141 mg/dL (70-140) H Assessment & Plan (1) Spontaneous onset of labor: COMMENT: at 39+6 in active spontaneous labor cat 1 strip comfortable with epidural arom at 0615 for clear fluid PLAN: -admit to WP -epidural for comfort -GBS negative -maternal and status reassuring -Dr. Hart updated on admission, POC and exam. concurs with primary midwifery management with negative PEC labs and normalized BP, available as needed. (2) White coat syndrome with high blood pressure but without hypertension: COMMENT: monitors at work:wnl; Home BPs 110-120/60-70; RN WC and checks there. Will bring cuff to compare next visit. PLAN: hypertension on admission PEC labs obtained and normal (3) Supervision of normal first : COMMENT: [id number], JENELLE 08/26/22, girl Spouse Castillo (4) : QUALIFIERS: Weeks of gestation: 39 weeks Qualified Code(s): Z3A.39 - 39 weeks gestation of COMMENT: GBS Neg. NIPT low risk, carrier neg. . declined afp screen. 04/04 nl anatomy Us (5) COVID-19: COMMENT: baby asa daily and 32/36 week scans PLAN: 36 weeks: 49% on admission EFW 7.75# 08/19/22 0708 <Electronically signed by Annabella Miner CNM> Cosigner Signature (if applicable): CC: JOSE DE JESUS Miner; Tasha Chapa, ~ Signed [facility] Work Phone: 1(911) 813-596211-12-2022 Evaluation note* Diagnosis Onset Date Resolution Status COVID-19 acute acute Supervision of normal first acute White coat syndrome with hig h blood pressure but without hypertension acute Breast lump on left side at 3 o'clock position resolved Supervision of normal resolved Swelling of vulva resolved Mass of left axilla acute COVID-19 acute Mass of left axilla acute acute Supervision of normal first acute White coat syndrome with hig h blood pressure but without hypertension acute Tubular adenoma of breast ac unga COVID-19 acute acute Supervision of normal first acute White coat syndrome with hig h blood pressure but without hypertension acute COVID-19 acute Mass of left axilla acute acute Supervision of normal first acute Tubular adenoma of breast ac unga White coat syndrome with hig h blood pressure but without hypertension acute [facility] Work Phone: 1(871) 449-709811-11-2022 Evaluation note* Diagnosis Onset Date Resolution Status COVID-19 acute acute Supervision of normal first acute White coat syndrome with hig h blood pressure but without hypertension acute Breast lump on left side at 3 o'clock position resolved Supervision of normal resolved Swelling of vulva resolved Mass of left axilla acute COVID-19 acute Mass of left axilla acute acute Supervision of normal first acute White coat syndrome with hig h blood pressure but without hypertension acute Tubular adenoma of breast ac unga COVID-19 acute acute Supervision of normal first acute White coat syndrome with hig h blood pressure but without hypertension acute COVID-19 acute Mass of left axilla acute acute Supervision of normal first acute Tubular adenoma of breast ac unga White coat syndrome with hig h blood pressure but without hypertension acute [facility] Work Phone: 1([phone]) 113-609208-12-2022 Evaluation note* Diagnosis Onset Date Resolution Status COVID-19 acute Breast lump on left side at 3 o'clock position acute Breast lump on left side at 3 o'clock position acute COVID-19 acute acute Supervision of normal first acute Supervision of normal acute Swelling of vulva acute White coat syndrome with hig h blood pressure but without hypertension acute Lipoma acute [facility] Work Phone: 1(408) 577-756907-27-2022 Evaluation note* Diagnosis Onset Date Resolution Status COVID-19 acute Breast lump on left side at 3 o'clock position acute Breast lump on left side at 3 o'clock position acute COVID-19 acute acute Supervision of normal first acute Supervision of normal acute Swelling of vulva acute White coat syndrome with hig h blood pressure but without hypertension acute [facility] Work Phone: 1(493) 808-632107-10-2022 Chief complaint+Reason for visit Narrative * Chief Complaint COVID-19 COVID-19 PALPITATIONS left side breast lymph node enlarged MASS OF LEFT BREAST Reason for Visit COVID-19 Breast lump on left side at 3 o'clock position [facility] Work Phone: 1([phone]) 713-461707-10-2022 Evaluation note* Diagnosis Onset Date Resolution Status COVID-19 acute Breast lump on left side at 3 o'clock position acute [facility] Work Phone: 1(404) 279-165505-14-2022 Chief complaint+Reason for visit Narrative * Chief Complaint COVID-19 COVID-19 PALPITATIONS left side breast lymph node enlarged MASS OF LEFT BREAST NOB LMO 11/19/21 Reason for Visit COVID-19 Breast lump on left side at 3 o'clock position Breast lump on left side at 3 o'clock position COVID-19 Supervision of normal first Supervision of normal Swelling of vulva White coat syndrome with high blood pressure but without hypertension [facility] Work Phone: 1(389) 259-267705-14-2022 Chief complaint+Reason for visit Narrative * Chief Complaint COVID-19 COVID-19 PALPITATIONS left side breast lymph node enlarged MASS OF LEFT BREAST NOB LMO 11/19/21 LT BREAST LUMP BIRADS 4 L SIDE Reason for Visit COVID-19 Breast lump on left side at 3 o'clock position Breast lump on left side at 3 o'clock position COVID-19 Supervision of normal first Supervision of normal Swelling of vulva White coat syndrome with high blood pressure but without hypertension Lipoma [facility] Work Phone: Chief complaint+Reason for visit Narrative* Chief Complaint COVID-19 COVID-19 PALPITATIONS Reason for Visit COVID-19 [facility] Work Phone: Evaluation note* Diagnosis Onset Date Resolution Status COVID-19 acute [facility] Work Phone: Evaluation note* Diagnosis Onset Date Resolution Status Breast lump on left side at 3 o'clock position resolved COVID-19 acute acute Supervision of normal first acute White coat syndrome with hig h blood pressure but without hypertension acute Breast lump on left side at 3 o'clock position resolved Supervision of normal resolved Swelling of vulva resolved Mass of left axilla acute COVID-19 acute Mass of left axilla acute acute Supervision of normal first acute White coat syndrome with hig h blood pressure but without hypertension acute [facility] Work Phone: Evaluation note* Diagnosis Onset Date Resolution Status COVID-19 acute Mass of left axilla acute acute Supervision of normal first acute Tubular adenoma of breast ac unga White coat syndrome with hig h blood pressure but without hypertension acute Abnormal glucose acute COVID-19 acute Mass of left axilla acute acute Supervision of normal first acute Tubular adenoma of breast ac unga White coat syndrome with hig h blood pressure but without hypertension acute Abnormal glucose acute COVID-19 acute Mass of left axilla acute acute Supervision of normal first acute Tubular adenoma of breast ac unga White coat syndrome with hig h blood pressure but without hypertension acute Abnormal glucose acute COVID-19 acute Mass of left axilla acute acute Supervision of normal first acute Tubular adenoma of breast ac unga White coat syndrome with hig h blood pressure but without hypertension acute COVID-19 acute acute Supervision of normal first acute White coat syndrome with hig h blood pressure but without hypertension acute Abnormal glucose acute COVID-19 acute Mass of left axilla acute acute Supervision of normal first acute Tubular adenoma of breast ac unga White coat syndrome with hig h blood pressure but without hypertension acute Abnormal glucose acute COVID-19 acute Mass of left axilla acute acute Supervision of normal first acute Tubular adenoma of breast ac unga White coat syndrome with hig h blood pressure but without hypertension acute Care and examination of lactating mother noneactive [facility] Work Phone: Evaluation note* Diagnosis Onset Date Resolution Status COVID-19 acute Mass of left axilla acute acute Supervision of normal first acute Tubular adenoma of breast ac unga White coat syndrome with hig h blood pressure but without hypertension acute Abnormal glucose acute COVID-19 acute Mass of left axilla acute acute Supervision of normal first acute Tubular adenoma of breast ac unga White coat syndrome with hig h blood pressure but without hypertension acute Abnormal glucose acute COVID-19 acute Mass of left axilla acute acute Supervision of normal first acute Tubular adenoma of breast ac unga White coat syndrome with hig h blood pressure but without hypertension acute Abnormal glucose acute COVID-19 acute Mass of left axilla acute acute Supervision of normal first acute Tubular adenoma of breast ac unga White coat syndrome with hig h blood pressure but without hypertension acute COVID-19 acute acute Supervision of normal first acute White coat syndrome with hig h blood pressure but without hypertension acute Abnormal glucose acute COVID-19 acute Mass of left axilla acute acute Supervision of normal first acute Tubular adenoma of breast ac unga White coat syndrome with hig h blood pressure but without hypertension acute Abnormal glucose acute COVID-19 acute Mass of left axilla acute acute Supervision of normal first acute Tubular adenoma of breast ac unga White coat syndrome with hig h blood pressure but without hypertension acute Care and examination of lactating mother noneactive Abnormal glucose acute COVID-19 acute Mass of left axilla acute acute Supervision of normal first acute Tubular adenoma of breast ac unga White coat syndrome with hig h blood pressure but without hypertension acute [facility] Work Phone: Evaluation note* Diagnosis Onset Date Resolution Status COVID-19 acute Mass of left axilla acute acute Supervision of normal first acute Tubular adenoma of breast ac unga White coat syndrome with hig h blood pressure but without hypertension acute Abnormal glucose acute COVID-19 acute Mass of left axilla acute acute Supervision of normal first acute Tubular adenoma of breast ac unga White coat syndrome with hig h blood pressure but without hypertension acute Abnormal glucose acute COVID-19 acute Mass of left axilla acute acute Supervision of normal first acute Tubular adenoma of breast ac unga White coat syndrome with hig h blood pressure but without hypertension acute Abnormal glucose acute COVID-19 acute Mass of left axilla acute acute Supervision of normal first acute Tubular adenoma of breast ac unga White coat syndrome with hig h blood pressure but without hypertension acute COVID-19 acute acute Supervision of normal first acute White coat syndrome with hig h blood pressure but without hypertension acute Abnormal glucose acute COVID-19 acute Mass of left axilla acute acute Supervision of normal first acute Tubular adenoma of breast ac unga White coat syndrome with hig h blood pressure but without hypertension acute Abnormal glucose acute COVID-19 acute Mass of left axilla acute acute Supervision of normal first acute Tubular adenoma of breast ac unga White coat syndrome with hig h blood pressure but without hypertension acute Care and examination of lactating mother noneactive Abnormal glucose acute COVID-19 acute Mass of left axilla acute acute Supervision of normal first acute Tubular adenoma of breast ac unga White coat syndrome with hig h blood pressure but without hypertension acute Abnormal glucose acute COVID-19 acute Mass of left axilla acute acute Supervision of normal first acute Tubular adenoma of breast ac unga White coat syndrome with hig h blood pressure but without hypertension acute Abnormal glucose acute COVID-19 acute Mass of left axilla acute acute Supervision of normal first acute Tubular adenoma of breast ac unga White coat syndrome with hig h blood pressure but without hypertension acute Abnormal glucose acute COVID-19 acute First degree laceration of p erineum during delivery, acute Mass of left axilla acute acute Spontaneous onset of labor a cute Supervision of normal first acute (spontaneous vaginal delivery) acute Tubular adenoma of breast ac unga White coat syndrome with hig h blood pressure but without hypertension acute [facility] Work Phone: Evaluation note* Diagnosis Onset Date Resolution Status Family history of defect acute HPV test positive acute Encounter for routine gynecological examination noneactive [facility] Work Phone: Evaluation note* Diagnosis Acute cough- Primary Bronchopneumonia Bronchopneumonia, organism unspecified [facility] Diagnosis Acute [facility] Diagnosis Onset Date Resolution Status Admit Date Anesthesia complication acute M ay 2024 10:13am Anxiety acute December 02, 2024 10:13am Family history of defect acute December 02, 2024 10:13am History of miscarriage, curr ently acute December 02, 2024 1 0:13am HPV test positive acute November 10:13am HSV-1 (herpes simplex virus 1) infection acute December 02, 2024 1 0:13am depression acute December 02, 2024 10:13am acute December 02, 2024 10:13am Supervision of high-risk acute December 02, 2024 1 0:13am Vulvar lesion acute December 02, 2 025 10:13am [facility] Work Phone: Progress note Author Alice Bhakta [facility] Note Date/Time December 02, 2024 10:56 am [facility] [address] [place] [address], [address] [place] [address] OFFICE VISIT Date of Service: 12/02/24 MR#: [id number] Acct: [id number] Name: ROMERO GRAJEDA LESLIE Rep #: [id number] : 1990 Provider: Dr. Raghavendra Bhakta MD Age/Sex: 34/F [place] [facility] [place] Signed Intake Vital Signs 04/24/24 11:49 12/02/24 10:20 Height 5 ft 6 in 5 ft 6 in Weight: 135 lb 6 oz BMI 21.8 BP 137/91 H Intake Visit Reasons: NOB LMP 09/30 JENELLE 07/07 Receiving Associate Store Required: No Is patient in pain?: No Allergies amoxicillin Allergy (Intermediate, Verified 12/02/24 10:22) Rash cefprozil (From Cefzil) Allergy (Intermediate, Verified 12/02/24 10:22) Rash Medications ?Medication ?Instructions ?Recorded ?Confirmed ?Type multivitamin no.47-iron fum 27 cap PO 04/17/24 5 History mg-folate no.1 1 mg-dha 300 mg capsule (PNV-DHA) sertraline 50 mg tablet 50 mg PO DAILY #90 TABLETS 0 10/29/24 11/21/24 Rx valacyclovir 1 gram tablet 1,000 mg PO BID PRN 5 History (Valtrex) hydroxyzine pamoate 25 mg capsule 25 mg PO Q6H PRN anx iety #90 caps 12/02/24 12/02/24 Rx (Vistaril) Last Menstrual Period: 09/30/24 Zika: Zika virus screening: Negative : No PFSH PFSH Medical History Missed anxiety (08/19/22) HPV test positive Palpitations COVID-19 Vasovagal syncope Surgical History S/P dilation and curettage [place] teeth extracted H/O excision of mass (~02/2022) History of oral surgery History of tonsillectomy and adenoidectomy Family History Father Hypertension Obesity Hyperlipidemia Aunt Breast cancer, Onset Age: 30 Maternal Grandmother Myelodysplastic syndrome, Onset Age: 70 Maternal Hypertension Parkinsons Dementia Grandfather Heart disease Kidney disease Diabetes Hypertension CVA (cerebral vascular accident) Myocardial infarction Mother Osteopenia Social History adopted: No household members: spouse and children housing: house number of children: 1 service: No current occupational status: employed 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: No pets and animals: No history of recent travel: Yes (- November) out of state: Yes out of country: No sexually active: Yes Smoking Status: Never smoker alcohol intake: former details: prior to 1 drink a month- not while substance use type: does not use well-balanced diet: daily or most days caffeine: No eating out: 1-3 times/week during the past year weight has: remained stable what type of physical activity do you participate in: none leslie/islam: Adventist seatbelt use: always do you feel safe at home: Yes additional social history: - [facility]illo History 3 Elective abortions Hx Para 1 Spontaneous abortions 1 Hx # Term Pregnancies Ectopic pregnancies Hx # Pregnancies Multiple births # of living children 1 Past Pregnancies Del. Date Name GA/Weeks Outcome Route Bth Weight Infant Gen Labor Lgth Anesthesia Del Locatn Provider FOB 08/19/22 [place] 39 live - full term 6lbs 14oz Female epidural [employer] Dr. Massey 04/21/24 6 spontaneous Delivery Date: 08/19/22 Last Updated by: Nakita Hammonds COVID Delivery Date: 04/21/24 Last Updated by: Anya Denis D&C HPI NOB LMP 09/30 JENELLE 07/07 Details: ROMERO GRAJEDA is a 34 year old who presents for New OB visit. OB Visit JENELLE Calculator Estimated Delivery Date Method Current WG Current Estimate 07/07/25 LMP (Certain) 9w 0d Other Estimates 07/11/25 Ultrasound #1 8w 3d Comments: HIV: Urine Culture: Sequential Screen: NIPT Screen: Estimated Due Date: 07/07/25 Expected Delivery Route/Plan Labor Preferences- CB/BF classes: [] labor support person: [] labor intervention preferences: [] pain management options preferred: [] cut cord/dad catch: [] : [] PP control planned: [] discussed possible routes of delivery and associated risks: [] special requests: [] Specific Issue/Plans Covid status: [] Flu vaccine: [] Tdap vaccine: [] Rhogam: [] LARC form signed: [] Problem list reviewed and updated with the most current plan of care details and appropriate orders placed. Relevant counseling for the gestational age provided. Continue routine care and follow up unless otherwise noted in visit notes/problem list details Initial Weight: Not Recorded Date -?-?-?-?-?-?-?-?-?-?-?-?- EGA Weight BP Urine Prot -?-?-?-?-?-?-?-?-?-?-?-?- Glucose FHR FuHt Pres Dilation -?-?-?-?-?-?-?-?-?-?-?-?- Effaced St Visit Note 12/02/24 -?-?-?-?-?-?-?-?-?-?-?-?- 9w 0d 135 lb 6 oz 137/91 -?-?-?-?-?-?-?-?-?-?-?-?- 175 -?-?-?-?-?-?-?-?-?-?-?-?- SM- no vb crampi ng SM- no vb cramping CRL 1.9 c m cons with LMP Menstrual History Last Menstrual Period: 09/30/24 Reported LMP: definite Normal amount/duration: Yes Frequency in days: 30-31 On hormonal BC at conception: No hCG+: 10/31/24 Antepartum Record Genetic Screening: Congenital Heart Defect: Other, Neural Tube Defect: Other, Hemoglobinopathy Or Carrier: Other, Cystic Fibrosis: Other, Chromosome Abnormality: Other, Jayson-Sachs: Other, Hemophilia: Other, Intellectual Disability/Autism: Other, Recurrent Loss/Stillbirth: Other, Other Structural Defect: Patient (Dtr-congenital laryngeal cleft), Other Genetic Disease: Other and Maternal Metabolic Disorder: Other Infection History: Live with someone with TB or Exposed to TB: No, Patient or Partner has history of Genital Herpes: Yes (Pt with one outbreak), Rash or Viral illness since last mentrual period: No, Prior GBS-Infected child: No, History of STD: Yes (herpes), HIV Infection: No, History of Hepatitis: No, Recent travel outside of [place]: No, Concern for hepatitis exposure: No, Varicella immune: Yes (immune- vaccinated) and Covid Vaccinated: Yes (Moderna, 1 booster) Medical History Medical History: Positive: Psychiatric (Anxiety- controlled with sertraline), Depression/ depression (PPD), Pulmonary (e.g.,TB,Asthma) (Pneumonia August 14- treated/resolved), Drug/latex allergies/reactions (cefzil, amoxicillin-Rash), 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), Operations/hospitalizations (See PFSH, nothing new to add) and History of abnormal pap (2022 HPV+, normal in 2023) and Negative: Diabetes, Hypertension, Heart disease, Auto-immune disorder, Kidney disease/UTI, Neurologic/epilepsy, Hepatitis/liver disease, Varicosities/phlebitis, Thyroid dysfunction, Trauma/domestic violence, History of blood transfusions, D (Rh) Sensitized, Seasonal allergies, Breast, Anesthetic complications (epidural wore off in 1st ), Uterine anomaly/anna, Infertility, Anti-retroviral treatment, Relevant family history and Other ACOG First Trimester First Trimester: Desire for , Alcohol, Tobacco Cessation, Illicit/Recreational Drug/Substance Use, Intimate Partner Violence, Barriers to care, Unstable Housing, Communication Barriers, Environmental/Work Hazards, Anticipated Course of Care, Nurtrition and weight gain, Toxoplasmosis Precations, Use of Any medications, Sexual activity, Exercise, Dental Care, Sauna/Hot tub use, Seat Belt use, Childbirth classes/Hospital facilities, Travel, Indications for Ultrasound and Screening for Aneuploidy; Discussed Second Trimester Second Trimester: Signs and Symptoms of Labor, Selecting a care provider, Reproductive Life Planning & Contreception, Care Planning, Depression/Anxiety and Intimate Partner Violence; Discussed Tobacco Cessation Third Trimester Third Trimester: Pain Management Plans, Labor support person(s), Immediate Larc, Movement Monitoring, Signs and Symptoms of Preeclampsia, Labor Signs, Cervical Ripening/Labor Induction Counseling, Education and Family Medical Leave or Disability Forms Coding Level of Care Code OB Routine Diagnoses HSV-1 (herpes simplex virus 1) infection B00.9 Supervision of high-risk O09.90 9 weeks gestation of Z3A.09 Weeks of gestation: 9 weeks Anesthesia complication T88.59XA depression F53.0 History of miscarriage, currently O09.299 Vulvar lesion N90.89 HPV test positive Family history of defect Z82.79 Anxiety F41.9 Assessment and Plan Assessment and Plan (1) HSV-1 (herpes simplex virus 1) infection: Status: Acute Comment: valtrex prn, H/O one outbreak (2) Supervision of high-risk : Status: Acute Comment: , JENELLE 07/07/25, NAHOMY Holloway, Castillo (3) : Status: Acute Qualifiers: Weeks of gestation: 9 weeks Qualified Code(s): Z3A.09 - 9 weeks gestation of Comment: elects NIPT with gender (4) Anesthesia complication: Status: Acute Comment: epidural wore off early (5) depression: Status: Acute Comment: sertraline-controlled (6) History of miscarriage, currently : Status: Acute (7) Vulvar lesion: Status: Acute Comment: suspect HSV, ordered valtrex, titers and culture (8) HPV test positive: Status: Acute Comment: 2022, repeat pap 2023-negative (9) Family history of defect: Status: Acute Comment: dtr with laryngeal cleft, genetic counseling completed (10) Anxiety: Status: Acute Comment: start zoloft-controlled Orders: Orders CBC W/Diff, Automated 11/21/24 O09.90 - Supervision of high risk , unspecified, unspecified trimester Type & Screen 11/21/24 O09.90 - Supervision of high risk , unspecified, unspecified trimester Rubella IgG 11/21/24 O09.90 - Supervision of high risk , unspecified, unspecified trimester Hepatitis C Antibody 11/21/24 O09.90 - Supervision of high risk , unspecified, unspecified trimester Hepatitis B Surface Antigen 11/21/24 O09.90 - Supervision of high risk , unspecified, unspecified trimester Culture, Urine 11/21/24 O09.90 - Supervision of high risk , unspecified, unspecified trimester Syphilis Antibodies 11/21/24 O09.90 - Supervision of high risk , unspecified, unspecified trimester Chlamydia/GC LUIS aptima 11/21/24 O09.90 - Supervision of high risk , unspecified, unspecified trimester HIV 11/21/24 O09.90 - Supervision of high risk , unspecified, unspecified trimester TREE 11/21/24 O09.90 - Supervision of high risk , unspecified, unspecified trimester Medications: New hydroxyzine pamoate (Vistaril) 25 mg PO Q6H PRN 90 caps 4RF anxiety 12/02/24 1056 <Electronically signed by Alice britton MD> Date _ Alice Franklinignbraden Signature: Date (if applicable) CC: ~ [facility] Work Phone: Progress note Author Zunilda Higginbotham [facility] Services Note Date/Time December 16, 2024 1:37 pm [facility] [address], [address] [place] [address] OFFICE VISIT Date of Service: 12/16/24 MR#: [id number] Acct: [id number] Name: ROMERO GRAJEDA Rep #: [id number] : 1990 Provider: JOSE DE JESUS Higginbotham Age/Sex: 34/F Location: [facility] [place] Status: Signed Intake Vital Signs 12/02/24 10:20 12/16/24 13:15 Height 5 ft 6 in 5 ft 6 in Weight: 135 lb 6 oz 135 lb 8 oz BMI 21.8 21.9 BP 137/91 H 139/78 H Intake Visit Reasons: 11wk ob *repeat US per Receiving Associate Store Required: No Is patient in pain?: No Allergies amoxicillin Allergy (Intermediate, Verified 12/02/24 10:22) Rash cefprozil (From Cefzil) Allergy (Intermediate, Verified 12/02/24 10:22) Rash Medications ?Medication ?Instructions ?Recorded ?Confirmed ?Type multivitamin no.47-iron fum 27 cap PO 04/17/24 5 History mg-folate no.1 1 mg-dha 300 mg capsule (PNV-DHA) sertraline 50 mg tablet 50 mg PO DAILY #90 TABLETS 0 10/29/24 12/16/24 Rx valacyclovir 1 gram tablet 1,000 mg PO BID PRN 5 12/16/24 History (Valtrex) hydroxyzine pamoate 25 mg capsule 25 mg PO Q6H PRN anx iety #90 caps 12/02/24 12/16/24 Rx (Vistaril) sertraline 50 mg tablet (Zoloft) 75 mg (1.5 x 50 mg) P O QDAY 90 12/03/24 12/16/24 Rx days #135 tabs Last Menstrual Period: 09/30/24 Zika: Zika virus screening: Negative : No PFSH PFSH Medical History Missed anxiety (08/19/22) HPV test positive Palpitations COVID-19 Vasovagal syncope Surgical History S/P dilation and curettage [place] teeth extracted H/O excision of mass (~02/2022) History of oral surgery History of tonsillectomy and adenoidectomy Family History Father Hypertension Obesity Hyperlipidemia Aunt Breast cancer, Onset Age: 30 Maternal Grandmother Myelodysplastic syndrome, Onset Age: 70 Maternal Hypertension Parkinsons Dementia Grandfather Heart disease Kidney disease Diabetes Hypertension CVA (cerebral vascular accident) Myocardial infarction Mother Osteopenia Social History adopted: No household members: spouse and children housing: house number of children: 1 current occupational status: employed 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: No pets and animals: No history of recent travel: Yes (- November) out of state: Yes out of country: No sexually active: Yes Smoking Status: Never smoker alcohol intake: former details: prior to 1 drink a month- not while substance use type: does not use well-balanced diet: daily or most days caffeine: No eating out: 1-3 times/week during the past year weight has: remained stable what type of physical activity do you participate in: none leslie/islam: Adventist seatbelt use: always do you feel safe at home: Yes additional social history: - Castillo History 3 Elective abortions Hx Para 1 Spontaneous abortions 1 Hx # Term Pregnancies Ectopic pregnancies Hx # Pregnancies Multiple births # of living children 1 Past Pregnancies Del. Date Name GA/Weeks Outcome Route Bth Weight Gen Labor Lgth Anesthesia Del Locatn Provider FOB 08/19/22 Jewel 39 live - full term 6lbs 14oz Female epidural [facility] Dr. Massey 04/21/24 6 spontaneous Delivery Date: 08/19/22 Last Updated by: Nakita Hammonds COVID Delivery Date: 04/21/24 Last Updated by: Anya Denis D&C HPI 11wk ob *repeat US per SM Details: ROMERO GRAJEDA is a 34 year old who presents for routine OB visit. OB Visit JENELLE Calculator Estimated Delivery Date Method Current WG Current Estimate 07/07/25 LMP (Certain) 11w 0d Other Estimates 07/11/25 Ultrasound #1 10w 3d Expected Delivery Route/Plan Labor Preferences- CB/BF classes: [] labor support person: [] labor intervention preferences: [] pain management options preferred: [] cut cord/dad catch: [] : [] PP control planned: [] discussed possible routes of delivery and associated risks: [] special requests: [] Specific Issue/Plans Covid status: [] Flu vaccine: [] Tdap vaccine: [] Rhogam: [] LARC form signed: [] Problem list reviewed and updated with the most current plan of care details and appropriate orders placed. Relevant counseling for the gestational age provided. Continue routine care and follow up unless otherwise noted in visit notes/problem list details Initial Weight: Not Recorded Date -?-?-?-?-?-?-?-?-?-?-?-?- EGA Weight BP Urine Prot -?-?-?-?--?-?-?-?-?-?-?-?- Glucose FHR FuHt Pres Dilation -?-?-?-?-?-?-?-?-?-?--?-?- Effaced St Visit Note 12/02/24 -?-?-?-?-?-?-?-?-?-?-?-?- 9w 0d 135 lb 6 oz 137/91 -?-?-?-?-?-?-?-?-?-?-?-?- 175 -?-?-?-?-?-?-?-?-?-?-?-?- SM- no vb crampi ng SM- no vb cramping CRL 1.9 c m cons with LMP 12/16/24 -?-?-?-?-?-?-?-?-?-?-?-?- 11w 0d 135 lb 8 oz 139/78 Nega tive -?-?-?-?-?-?-?-?-?-?-?-?- Negative 185 -?-?-?-?-?-?-?-?-?-?-?-?- KW- no vb/crampi ng. CRL cons with last scan. anatomy US ordered ACOG First Trimester First Trimester: Desire for , Alcohol, Tobacco Cessation, Illicit/Recreational Drug/Substance Use, Intimate Partner Violence, Barriers to care, Unstable Housing, Communication Barriers, Environmental/Work Hazards, Anticipated Course of Care, Toxoplasmosis Precations, Use of Any medications, Sexual activity, Exercise, Dental Care, Sauna/Hot tub use, Seat Belt use, Childbirth classes/Hospital facilities, Travel, Indications for Ultrasound and Screening for Aneuploidy; Discussed Second Trimester Second Trimester: Signs and Symptoms of Labor, Selecting a care provider, Reproductive Life Planning & Contreception, Care Planning, Depression/Anxiety and Intimate Partner Violence; Discussed Tobacco Cessation Third Trimester Third Trimester: Pain Management Plans, Labor support person(s), Immediate Larc, Movement Monitoring, Signs and Symptoms of Preeclampsia, Labor Signs, Cervical Ripening/Labor Induction Counseling, Education and Family Medical Leave or Disability Forms ROS Const Reports system reviewed and no additional complaints, except as documented Eyes Reports system reviewed and no additional complaints, except as documented ENT Reports system reviewed and no additional complaints, except as documented Card Reports system reviewed and no additional complaints, except as documented Resp Reports system reviewed and no additional complaints, except as documented GI Reports system reviewed and no additional complaints, except as documented, Denies nausea and Denies vomiting Reports system reviewed and no additional complaints, except as documented Musc Reports system reviewed and no additional complaints, except as documented Skin/Breast Reports system reviewed and no additional complaints, except as documented Neuro Yes system reviewed and no additional complaints, except as documented Psych Reports system reviewed and no additional complaints, except as documented Endo Reports system reviewed and no additional complaints, except as documented Lan/Lymph Reports system reviewed and no additional complaints, except as documented Aller/Immun Reports system reviewed and no additional complaints, except as documented Exam Const General: cooperative, healthy appearing and no acute distress Orientation: alert, awake and oriented x3 Neck Neck: normal visual inspection and full ROM Resp Effort & Inspection: normal respiratory effort, able to speak in complete sentences and symmetric chest movement GI Inspection: normal to inspection Palpation: soft and other Other: gravid Skin General: no rashes or lesions noted Neuro General: patient alert, patient awake and patient oriented x3 Cognition: normal cognition Speech: speech normal Gait: normal gait Motor: muscle tone normal throughout Extrem General: normal to inspection and full ROM Psych Appearance: grossly normal Mental Status: mental status grossly normal Mood: congruent mood Affect: normal affect Speech and Movement: speech and movement normal Attitude: cooperative Thought Process: normal Thought Content: normal Judgment: judgment good Results POC Urinalysis 2 Dip (Clinic) Office Urine Glucose Negative Last Edit by Nicole Christie on 12/16/24 13:24 Office Urine Protein Negative Last Edit by Nicole Christie on 12/16/24 13:24 Coding Level of Care Code OB Routine Diagnoses HSV-1 (herpes simplex virus 1) infection B00.9 Supervision of high-risk O09.90 11 weeks gestation of Z3A.11 Weeks of gestation: 11 weeks Anesthesia complication T88.59XA depression F53.0 History of miscarriage, currently O09.299 Vulvar lesion N90.89 HPV test positive Family history of defect Z82.79 Anxiety F41.9 Assessment and Plan Assessment and Plan (1) HSV-1 (herpes simplex virus 1) infection: Status: Acute Comment: valtrex prn, H/O one outbreak (2) Supervision of high-risk : Status: Acute Comment: , JENELLE 07/07/25, NAHOMY Holloway, Castillo (3) : Status: Acute Qualifiers: Weeks of gestation: 11 weeks Qualified Code(s): Z3A.11 - 11 weeks gestation of Comment: elects NIPT with gender (4) Anesthesia complication: Status: Acute Comment: epidural wore off early (5) depression: Status: Acute Comment: sertraline-controlled (6) History of miscarriage, currently : Status: Acute (7) Vulvar lesion: Status: Acute Comment: suspect HSV, ordered valtrex, titers and culture (8) HPV test positive: Status: Acute Comment: 2022, repeat pap 2023-negative (9) Family history of defect: Status: Acute Comment: dtr with laryngeal cleft, genetic counseling completed (10) Anxiety: Status: Acute Comment: start zoloft-controlled Orders: Orders POC Urinalysis 2 Dip (Clinic) Today OB Anatomy w/ Transvaginal Today O09.90 - Supervision of high risk , unspecified, unspecified trimester, Z3A.11 - 11 weeks gestation of Plan Details Additional Comments: ACOG trimester education reviewed and updated. see problem list details for updated plan management information and see below for orders placed at this visit. GA appropriate handout given. 12/16/24 8990 <Electronically signed by Zunilda vee CNM> Date _ Zunilda Higginbotham CNM Cosigner Signature: Date (if applicable) CC: ~ [facility] Work Phone: Progress note Author Zunilda Higginbotham [facility] Services Note Date/Time February 02, 2025 9:35 am [facility] [address], [place] [address] OFFICE VISIT Date of Service: 02/02/25 MR#: [id number] Acct: [id number] Name: ROMERO GRAJEDA LESLIE Rep #: [id number] : 1990 Provider: JOSE DE JESUS Higginbotham Age/Sex: 34/F [place] [facility] [place] Status: Signed Intake Vital Signs 12/02/24 10:20 01/05/25 11:48 02/02/25 09:21 Height 5 ft 6 in 5 ft 6 in 5 ft 6 in Weight: 139 lb 4 oz BMI 22.4 BP 131/87 H Intake Visit Reasons: 18WK OB Chief Complaint: 18wk OB Receiving Associate Store Required: No Is patient in pain?: No Allergies amoxicillin Allergy (Intermediate, Verified 02/02/25 09:19) Rash cefprozil (From Cefzil) Allergy (Intermediate, Verified 02/02/25 09:19) Rash Medications ?Medication ?Instructions ?Recorded ?Confirmed ?Type multivitamin no.47-iron fum 27 cap PO 04/17/24 5 History mg-folate no.1 1 mg-dha 300 mg capsule (PNV-DHA) sertraline 50 mg tablet 50 mg PO DAILY #90 TABLETS 0 10/29/24 02/02/25 Rx valacyclovir 1 gram tablet 1,000 mg PO BID PRN 5 02/02/25 History (Valtrex) hydroxyzine pamoate 25 mg capsule 25 mg PO Q6H PRN anx iety #90 caps 12/02/24 02/02/25 Rx (Vistaril) sertraline 50 mg tablet (Zoloft) 75 mg (1.5 x 50 mg) P O QDAY 90 12/03/24 02/02/25 Rx days #135 tabs Last Menstrual Period: 09/30/24 : No PFSH PFSH Medical History Missed anxiety (08/19/22) HPV test positive Palpitations COVID-19 Vasovagal syncope Surgical History S/P dilation and curettage [place] teeth extracted H/O excision of mass (~02/2022) History of oral surgery History of tonsillectomy and adenoidectomy Family History Father Hypertension Obesity Hyperlipidemia Aunt Breast cancer, Onset Age: 30 Maternal Grandmother Myelodysplastic syndrome, Onset Age: 70 Maternal Hypertension Parkinsons Dementia Grandfather Heart disease Kidney disease Diabetes Hypertension CVA (cerebral vascular accident) Myocardial infarction Mother Osteopenia Social History adopted: No household members: spouse and children housing: house number of children: 1 current occupational status: employed 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: No pets and animals: No history of recent travel: Yes (- November) out of state: Yes out of country: No sexually active: Yes Smoking Status: Never smoker alcohol intake: former details: prior to 1 drink a month- not while substance use type: does not use well-balanced diet: daily or most days caffeine: No eating out: 1-3 times/week during the past year weight has: remained stable what type of physical activity do you participate in: none leslie/islam: Adventist seatbelt use: always do you feel safe at home: Yes additional social history: - Castillo History 3 Elective abortions Hx Para 1 Spontaneous abortions 1 Hx # Term Pregnancies Ectopic pregnancies Hx # Pregnancies Multiple births # of living children 1 Past Pregnancies Del. Date Name GA/Weeks Outcome Route Bth Weight Gen Labor Lgth Anesthesia Del Locatn Provider FOB 08/19/22 Jewel 39 live - full term 6lbs 14oz Female epidural [facility] Dr. Massey 04/21/24 6 spontaneous Delivery Date: 08/19/22 Last Updated by: Nakita Hammonds COVID Delivery Date: 04/21/24 Last Updated by: Anya Denis D&C HPI 18WK OB Details: ROMERO GRAJEDA is a 34 year old who presents for routine OB visit. OB Visit JENELLE Calculator Estimated Delivery Date Method Current WG Current Estimate 07/07/25 LMP (Certain) 17w 6d Other Estimates 07/11/25 Ultrasound #1 17w 2d Expected Delivery Route/Plan Labor Preferences- CB/BF classes: [] labor support person: [] labor intervention preferences: [] pain management options preferred: [] cut cord/dad catch: [] : [] PP control planned: [] discussed possible routes of delivery and associated risks: [] special requests: [] Specific Issue/Plans Covid status: [] Flu vaccine: [] Tdap vaccine: [] Rhogam: [] LARC form signed: [] Problem list reviewed and updated with the most current plan of care details and appropriate orders placed. Relevant counseling for the gestational age provided. Continue routine care and follow up unless otherwise noted in visit notes/problem list details Initial Weight: Not Recorded Date -?-?-?-?-?-?-?-?-?--?-?-?- EGA Weight BP Urine Prot -?-?-?-?-?-?-?-?-?-?-?-?- Glucose FHR FuHt Pres Dilation -?-?-?-?-?-?-?-?-?-?-?-?- Effaced St Visit Note 12/02/24 -?-?-?-?-?-?-?-?-?-?-?-?- 9w 0d 135 lb 6 oz 137/91 -?-?-?-?-?-?-?-?-?-?-?-?- 175 -?-?-?-?-?-?-?-?-?-?-?-?- SM- no vb crampi ng SM- no vb cramping CRL 1.9 c m cons with LMP 12/16/24 -?-?-?-?-?-?-?-?-?-?-?-?- 11w 0d 135 lb 8 oz 139/78 Nega tive -?-?-?-?-?-?-?-?-?-?-?-?- Negative 185 -?-?-?-?-?-?-?-?-?-?-?-?- KW- no vb/crampi ng. CRL cons with last scan. anatomy US ordered 01/05/25 -?-?-?-?-?-?-?-?-?-?-?-?- 13w 6d 136 lb 4 oz 142/94 Nega tive -?-?-?-?-?-?-?-?-?-?-?-?- Negative 175 -?-?-?-?-?-?-?-?-?-?-?-?- JV- no lof, vagi nal bleeding, or cramping. still nauseated . sending urine for prot: cr. Will need to check bp at work tomorrow. start baby asa. She thinks she has white coat syndrome bc bp is usually low . she passed out in [facility] recently. if requires bp meds will need to start with CCB not beta adela. 02/02/25 -?-?-?-?-?-?-?-?-?-?-?-?- 17w 6d 139 lb 4 oz 131/87 Nega tive -?-?-?-?-?-?-?-?-?-?-?-?- Negative 145 -?-?-?-?-?-?-?-?-?-?-?-?- KW- no vb/lof/ct x. good fm. started pepcid. US scheduled. reports normal BPS at home ACOG First Trimester First Trimester: Desire for , Alcohol, Tobacco Cessation, Illicit/Recreational Drug/Substance Use, Intimate Partner Violence, Barriers to care, Unstable Housing, Communication Barriers, Environmental/Work Hazards, Anticipated Course of Care, Toxoplasmosis Precations, Use of Any medications, Sexual activity, Exercise, Dental Care, Sauna/Hot tub use, Seat Belt use, Childbirth classes/Hospital facilities, Travel, Indications for Ultrasound and Screening for Aneuploidy; Discussed Second Trimester Second Trimester: Signs and Symptoms of Labor, Selecting a care provider, Reproductive Life Planning & Contreception, Care Planning, Depression/Anxiety and Intimate Partner Violence; Discussed Tobacco Cessation Third Trimester Third Trimester: Pain Management Plans, Labor support person(s), Immediate Larc, Movement Monitoring, Signs and Symptoms of Preeclampsia, Labor Signs, Cervical Ripening/Labor Induction Counseling, Education and Family Medical Leave or Disability Forms ROS Const Reports system reviewed and no additional complaints, except as documented Eyes Reports system reviewed and no additional complaints, except as documented ENT Reports system reviewed and no additional complaints, except as documented Card Reports system reviewed and no additional complaints, except as documented Resp Reports system reviewed and no additional complaints, except as documented GI Reports system reviewed and no additional complaints, except as documented, Denies nausea and Denies vomiting Reports system reviewed and no additional complaints, except as documented Musc Reports system reviewed and no additional complaints, except as documented Skin/Breast Reports system reviewed and no additional complaints, except as documented Neuro Yes system reviewed and no additional complaints, except as documented Psych Reports system reviewed and no additional complaints, except as documented Endo Reports system reviewed and no additional complaints, except as documented Lan/Lymph Reports system reviewed and no additional complaints, except as documented Aller/Immun Reports system reviewed and no additional complaints, except as documented Exam Const General: cooperative, healthy appearing and no acute distress Orientation: alert, awake and oriented x3 Neck Neck: normal visual inspection and full ROM Resp Effort & Inspection: normal respiratory effort, able to speak in complete sentences and symmetric chest movement GI Inspection: normal to inspection Palpation: soft and other Other: gravid Skin General: no rashes or lesions noted Neuro General: patient alert, patient awake and patient oriented x3 Cognition: normal cognition Speech: speech normal Gait: normal gait Motor: muscle tone normal throughout Extrem General: normal to inspection and full ROM Psych Appearance: grossly normal Mental Status: mental status grossly normal Mood: congruent mood Affect: normal affect Speech and Movement: speech and movement normal Attitude: cooperative Thought Process: normal Thought Content: normal Judgment: judgment good Results POC Urinalysis 2 Dip (Clinic) Office Urine Glucose Negative Last Edit by Day Holcomb on 02/02/25 09:28 Office Urine Protein Negative Last Edit by Day Holcomb on 02/02/25 09:28 Coding Level of Care Code OB Routine Diagnoses HSV-1 (herpes simplex virus 1) infection B00.9 Supervision of high-risk O09.90 17 weeks gestation of Z3A.17 Weeks of gestation: 17 weeks depression F53.0 Anesthesia complication T88.59XA History of miscarriage, currently O09.299 Vulvar lesion N90.89 HPV test positive Family history of defect Z82.79 Anxiety F41.9 Assessment and Plan Assessment and Plan (1) HSV-1 (herpes simplex virus 1) infection: Status: Acute Comment: valtrex prn, H/O one outbreak (2) Supervision of high-risk : Status: Acute Comment: PRR , JENELLE 07/07/25, PC Jewel, Castillo (3) : Status: Acute Qualifiers: Weeks of gestation: 17 weeks Qualified Code(s): Z3A.17 - 17 weeks gestation of Comment: NIPT low risk (4) depression: Status: Acute Comment: sertraline-controlled (5) Anesthesia complication: Status: Acute Comment: epidural wore off early (6) History of miscarriage, currently : Status: Acute (7) Vulvar lesion: Status: Acute Comment: suspect HSV, ordered valtrex, titers and culture (8) HPV test positive: Status: Acute Comment: 2022, repeat pap 2023-negative (9) Family history of defect: Status: Acute Comment: dtr with laryngeal cleft, genetic counseling completed (10) Anxiety: Status: Acute Comment: start zoloft-controlled Orders: Orders POC Urinalysis 2 Dip (Clinic) Today Plan Details Additional Comments: ACOG trimester education reviewed and updated. see problem list details for updated plan management information and see below for orders placed at this visit. GA appropriate handout given. 02/02/25 0935 <Electronically signed by Zunilda vee CNM> Date _ Zunilda Higginbotham CNM Cosigner Signature: Date (if applicable) CC: ~ [facility] Work Phone: Progress note Author Nicole Aguilera [facility] Note Date/Time March 02, 2025 9: 54am [facility] [address], [address] [place] [address] OFFICE VISIT Date of Service: 03/02/25 MR#: [id number] Acct: [id number] Name: ROMERO GRAJEDA LESLIE Rep #: [id number] : 1990 Provider: SHAKIR Aguilera Age/Sex: 34/F [place] [facility] [place]: Signed Intake Vital Signs 12/16/24 13:15 02/02/25 09:21 03/02/25 09:39 Height 5 ft 6 in 5 ft 6 in 5 ft 6 in Weight: 145 lb 4 oz BMI 23.4 BP 136/84 H Intake Visit Reasons: 22WK OB Chief Complaint: 22 Week OB Receiving Associate Store Required: No Is patient in pain?: No Allergies amoxicillin Allergy (Intermediate, Verified 03/02/25 09:42) Rash cefprozil (From Cefzil) Allergy (Intermediate, Verified 03/02/25 09:42) Rash Medications ?Medication ?Instructions ?Recorded ?Confirmed ?Type multivitamin no.47-iron fum 27 cap PO 04/17/24 5 History mg-folate no.1 1 mg-dha 300 mg capsule (PNV-DHA) sertraline 50 mg tablet 50 mg PO DAILY #90 TABLETS 0 10/29/24 03/02/25 Rx valacyclovir 1 gram tablet 1,000 mg PO BID PRN 5 03/02/25 History (Valtrex) hydroxyzine pamoate 25 mg capsule 25 mg PO Q6H PRN anx iety #90 caps 12/02/24 03/02/25 Rx (Vistaril) sertraline 50 mg tablet (Zoloft) 75 mg (1.5 x 50 mg) P O QDAY 90 12/03/24 03/02/25 Rx days #135 tabs Last Menstrual Period: 09/30/24 Zika: Zika virus screening: Negative : No PFSH PFSH Medical History Missed anxiety (08/19/22) HPV test positive Palpitations COVID-19 Vasovagal syncope Surgical History S/P dilation and curettage [place] teeth extracted H/O excision of mass (~02/2022) History of oral surgery History of tonsillectomy and adenoidectomy Family History Father Hypertension Obesity Hyperlipidemia Aunt Breast cancer, Onset Age: 30 Maternal Grandmother Myelodysplastic syndrome, Onset Age: 70 Maternal Hypertension Parkinsons Dementia Grandfather Heart disease Kidney disease Diabetes Hypertension CVA (cerebral vascular accident) Myocardial infarction Mother Osteopenia Social History adopted: No household members: spouse and children housing: house number of children: 1 current occupational status: employed 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/hazards: No pets and animals: No history of recent travel: Yes (- November) out of state: Yes out of country: No sexually active: Yes Smoking Status: Never smoker alcohol intake: former details: prior to 1 drink a month- not while substance use type: does not use well-balanced diet: daily or most days caffeine: No eating out: 1-3 times/week during the past year weight has: remained stable what type of physical activity do you participate in: none leslie/islam: Adventist seatbelt use: always do you feel safe at home: Yes additional social history: - Castillo History 3 Elective abortions Hx Para 1 Spontaneous abortions 1 Hx # Term Pregnancies Ectopic pregnancies Hx # Pregnancies Multiple births # of living children 1 Past Pregnancies Del. Date Name GA/Weeks Outcome Route Bth Weight Infant Gen Labor Lgth Anesthesia Del Locatn Provider FOB 08/19/22 Jewel 39 live - full term 6lbs 14oz Female epidural [facility] Dr. Massey 04/21/24 6 spontaneous Delivery Date: 08/19/22 Last Updated by: Nakita Hammonds COVID Delivery Date: 04/21/24 Last Updated by: Anya Denis D&C HPI 22WK OB Details: ROMERO GRAJEDA is a 34 year old who presents for routine OB visit. OB Visit JENELLE Calculator Estimated Delivery Date Method Current WG Current Estimate 07/07/25 LMP (Certain) 21w 6d Other Estimates 07/11/25 Ultrasound #1 21w 2d Expected Delivery Route/Plan Labor Preferences- CB/BF classes: [] labor support person: [] labor intervention preferences: [] pain management options preferred: [] cut cord/dad catch: [] : [] PP control planned: [] discussed possible routes of delivery and associated risks: [] special requests: [] Specific Issue/Plans Covid status: [] Flu vaccine: [] Tdap vaccine: [] Rhogam: [] LARC form signed: [] Problem list reviewed and updated with the most current plan of care details and appropriate orders placed. Relevant counseling for the gestational age provided. Continue routine care and follow up unless otherwise noted in visit notes/problem list details Initial Weight: Not Recorded Date -?-?-?-?-?-?-?-?-?-?-?-?- EGA Weight BP Urine Prot -?-?-?-?-?-?-?-?-?-?-?-?- Glucose FHR FuHt Pres Dilation -?-?-?-?-?-?-?-?-?-?-?-?- Effaced St Visit Note 12/02/24 -?-?-?-?-?-?-?-?-?--?-?-?- 9w 0d 135 lb 6 oz 137/91 -?-?-?-?-?-?-?-?-?-?-?-?- 175 -?-?-?-?-?-?-?-?-?-?-?-?- SM- no vb crampi ng SM- no vb cramping CRL 1.9 c m cons with LMP 12/16/24 -?-?-?-?-?-?-?-?-?-?-?-?- 11w 0d 135 lb 8 oz 139/78 Nega tive -?-?-?-?-?-?-?-?-?-?-?-?- Negative 185 -?-?-?-?--?-?-?-?-?-?-?-?- KW- no vb/crampi ng. CRL cons with last scan. anatomy US ordered 01/05/25 -?-?-?-?-?-?-?-?-?-?-?-?- 13w 6d 136 lb 4 oz 142/94 Nega tive -?-?-?-?-?-?-?-?-?-?-?-?- Negative 175 -?-?-?-?-?-?-?-?-?-?-?-?- JV- no lof, vagi nal bleeding, or cramping. still nauseated . sending urine for prot: cr. Will need to check bp at work tomorrow. start baby asa. She thinks she has white coat syndrome bc bp is usually low . she passed out in [facility] recently. if requires bp meds will need to start with CCB not beta adela. 02/02/25 -?-?-?-?-?-?-?-?-?-?-?-?- 17w 6d 139 lb 4 oz 131/87 Nega tive -?-?-?-?-?-?-?-?-?-?-?-?- Negative 145 -?-?-?-?-?-?-?-?-?-?-?-?- KW- no vb/lof/ct x. good fm. started pepcid. US scheduled. reports normal BPS at home 03/02/25 -?-?-?-?-?-?-?-?-?-?-?-?- 21w 6d 145 lb 4 oz 136/84 Nega tive -?-?-?-?-?-?-?-?-?-?-?-?- Negative 156 -?-?-?-?-?-?-?-?-?-?-?-?- MH-No vb, edisonfAdela F acosta good movement now. No concerns ACOG First Trimester First Trimester: Desire for , Alcohol, Tobacco Cessation, Illicit/Recreational Drug/Substance Use, Intimate Partner Violence, Barriers to care, Unstable Housing, Communication Barriers, Environmental/Work Hazards, Anticipated Course of Care, Toxoplasmosis Precations, Use of Any medications, Sexual activity, Exercise, Dental Care, Sauna/Hot tub use, Seat Belt use, Childbirth classes/Hospital facilities, Travel, Indications for Ultrasound and Screening for Aneuploidy; Discussed Second Trimester Second Trimester: Signs and Symptoms of Labor, Selecting a care provider, Reproductive Life Planning & Contreception, Care Planning, Depression/Anxiety and Intimate Partner Violence; Discussed Tobacco Cessation Third Trimester Third Trimester: Pain Management Plans, Labor support person(s), Immediate Larc, Movement Monitoring, Signs and Symptoms of Preeclampsia, Labor Signs, Cervical Ripening/Labor Induction Counseling, [place] Education and Family Medical Leave or Disability Forms ROS Const Reports system reviewed and no additional complaints, except as documented GI Denies abdominal pain, Denies nausea and Denies vomiting Exam Const General: cooperative Nutritional Appearance: well nourished GI Palpation: soft, nontender and other (gravid) Results POC Urinalysis 2 Dip (Clinic) Office Urine Glucose Negative Last Edit by Mag Correa on 03/02/25 09 :47 Office Urine Protein Negative Last Edit by Mag Correa on 03/02/25 09 :47 Coding Level of Care Code OB Routine Diagnoses Supervision of high risk in second trimester O09.92 Trimester: second trimester 21 weeks gestation of Z3A.21 Weeks of gestation: 21 weeks HSV-1 (herpes simplex virus 1) infection B00.9 Complication of anesthesia, sequela T88.59XS Encounter type: sequela depression F53.0 History of miscarriage, currently O09.299 HPV test positive Family history of defect Z82.79 Anxiety F41.9 Assessment and Plan Assessment and Plan (1) Supervision of high-risk : Status: Acute Qualifiers: Trimester: second trimester Qualified Code(s): O09.92 - Supervision of high risk , unspecified, second trimester Comment: PRR , JENELLE 07/07/25, PC Jewel, Castillo (2) : Status: Acute Qualifiers: Weeks of gestation: 21 weeks Qualified Code(s): Z3A.21 - 21 weeks gestation of Comment: NIPT low risk (3) HSV-1 (herpes simplex virus 1) infection: Status: Acute Comment: valtrex prn, H/O one outbreak (4) Anesthesia complication: Status: Acute Qualifiers: Encounter type: sequela Qualified Code(s): T88.59XS - Other complications of anesthesia, sequela Comment: epidural wore off early (5) depression: Status: Acute Comment: sertraline-controlled (6) History of miscarriage, currently : Status: Acute (7) HPV test positive: Status: Acute Comment: 2022, repeat pap 2023-negative (8) Family history of defect: Status: Acute Comment: dtr with laryngeal cleft, genetic counseling completed (9) Anxiety: Status: Acute Comment: start zoloft-controlled Orders: Orders POC Urinalysis 2 Dip (Clinic) Today CBC W/Diff, Automated Today O09.90 - Supervision of high risk , unspecified, unspecified trimester Glucose Challenge Gest 1H 50g Today O09.90 - Supervision of high risk , unspecified, unspecified trimester, Z13.1 - Encounter for screening for diabetes mellitus HIV Today O09.90 - Supervision of high risk , unspecified, unspecified trimester Syphilis Antibodies Today O09.90 - Supervision of high risk , unspecified, unspecified trimester Plan problem list reviewed and updated for most current plan of care and appropriate orders placed. Relevant counseling for the gestational age appropriate provided and ACOG education checklist updated. Continue routine care and follow up. 03/02/25 0946 <Electronically signed by Nicole vee DIVINITY PROFESSOR DIVINITY PROFESSOR-C> Date _ Nicole Aguilera NP DIVINITY PROFESSOR-C Cosigner Signature: Date (if applicable) CC: ~ [facility] Work Phone: Reason for referral (narrative)No reason for referral information [facility] Work Phone: Summary Purpose Family History No Family History Records Found Relationship Condition Age at Onset Recorded Date/T brissa father Hypertension Unknown Obesity Unknown Hyperlipidemia Unknown aunt Malignant neoplasm of breast Unknown grandmother Malignant neoplasm of breast Unknown Myelodysplastic syndrome Unknown Hypertension Unknown Parkinson's disease Unknown Dementia Unknown grandfather Cardiac disease Unknown Kidney disorder Unknown Diabetes mellitus Unknown Cerebrovascular accident (CVA) Unknown Myocardial infarction Unknown mother Osteopenia Unknown Relationship Condition Age at Onset Recorded Date/T brissa father Hypertension Unknown Obesity Unknown Hyperlipidemia Unknown aunt Malignant neoplasm of breast 30 grandmother Myelodysplastic syndrome 70 Hypertension Unknown Parkinson's disease Unknown Dementia Unknown grandfather Cardiac disease Unknown Kidney disorder Unknown Diabetes mellitus Unknown Cerebrovascular accident (CVA) Unknown Myocardial infarction Unknown mother Osteopenia Unknown Advance Directives No Advanced Directives Records Found Advance Directive Response Recorded Date/ Time Living Will No December 24, 2021 11:08am Power of Communications Tower Climber No December 24 2 11:08am Advance Directive Response Recorded Date/ Time Living Will No December 24, 2021 10:08am Power of Communications Tower Climber No December 24 2 10:08am Advance Directive Response Recorded Date/ Time Living Will No July 11 3 4:40pm Power of Communications Tower Climber No July 11 023 4:40pm Advance Directive Response Recorded Date/ Time Living Will No August 19 023 12:03am Power of Communications Tower Climber No August 19, 2022 12:03am Advance Directive Response Recorded Date/ Time Living Will No August 19, 2 023 1:03am Power of Communications Tower Climber No August 19, 2022 1:03am Assessments Diagnosis Lumbar sprain, initial encounter Chief Complaint and Reason for Visit Chief Complaint PALPITATIONS left side breast lymph node enlarged MASS OF LEFT BREAST NOB LMO 11/19/21 LT BREAST LUMP BIRADS 4 L SIDE LIPOMA L AXILLA 15WK OB Reason for Visit Breast lump on left side at 3 o'clock position COVID-19 Supervision of normal first White coat syndrome with high blood pressure but without hypertension Breast lump on left side at 3 o'clock position Supervision of normal Swelling of vulva Mass of left axilla COVID-19 Mass of left axilla Supervision of normal first White coat syndrome with high blood pressure but without hypertension Chief Complaint NOB LMO 11/19/21 LT BREAST LUMP BIRADS 4 L SIDE LIPOMA L AXILLA 15WK OB SUTURE REMOVAL 19WK OB AMATOMY 23WK OB E ORDERS Encounter for screening for diabetes mellitus Reason for Visit COVID-19 Supervision of normal first White coat syndrome with high blood pressure but without hypertension Breast lump on left side at 3 o'clock position Supervision of normal Swelling of vulva Mass of left axilla COVID-19 Mass of left axilla Supervision of normal first White coat syndrome with high blood pressure but without hypertension Tubular adenoma of breast COVID-19 Supervision of normal first White coat syndrome with high blood pressure but without hypertension COVID-19 Mass of left axilla Supervision of normal first Tubular adenoma of breast White coat syndrome with high blood pressure but without hypertension Chief Complaint 23WK OB E ORDERS Encounter for screening for diabetes mellitus 27WK OB / GLUCLOSE *REQ FRI 29 WK OB 31 WK OB COVID, GROWTH 33 WK OB 35 WK OB COVID, GROWTH 36 WK OB Reason for Visit COVID-19 Mass of left axilla Supervision of normal first Tubular adenoma of breast White coat syndrome with high blood pressure but without hypertension Abnormal glucose COVID-19 Mass of left axilla Supervision of normal first Tubular adenoma of breast White coat syndrome with high blood pressure but without hypertension Abnormal glucose COVID-19 Mass of left axilla Supervision of normal first Tubular adenoma of breast White coat syndrome with high blood pressure but without hypertension Abnormal glucose COVID-19 Mass of left axilla Supervision of normal first Tubular adenoma of breast White coat syndrome with high blood pressure but without hypertension COVID-19 Supervision of normal first White coat syndrome with high blood pressure but without hypertension Abnormal glucose COVID-19 Mass of left axilla Supervision of normal first Tubular adenoma of breast White coat syndrome with high blood pressure but without hypertension Abnormal glucose COVID-19 Mass of left axilla Supervision of normal first Tubular adenoma of breast White coat syndrome with high blood pressure but without hypertension Care and examination of lactating mother Chief Complaint 23WK OB E ORDERS Encounter for screening for diabetes mellitus 27WK OB / GLUCLOSE *REQ FRI 29 WK OB 31 WK OB COVID, GROWTH 33 WK OB 35 WK OB COVID, GROWTH 36 WK OB 37 WK OB Reason for Visit COVID-19 Mass of left axilla Supervision of normal first Tubular adenoma of breast White coat syndrome with high blood pressure but without hypertension Abnormal glucose COVID-19 Mass of left axilla Supervision of normal first Tubular adenoma of breast White coat syndrome with high blood pressure but without hypertension Abnormal glucose COVID-19 Mass of left axilla Supervision of normal first Tubular adenoma of breast White coat syndrome with high blood pressure but without hypertension Abnormal glucose COVID-19 Mass of left axilla Supervision of normal first Tubular adenoma of breast White coat syndrome with high blood pressure but without hypertension COVID-19 Supervision of normal first White coat syndrome with high blood pressure but without hypertension Abnormal glucose COVID-19 Mass of left axilla Supervision of normal first Tubular adenoma of breast White coat syndrome with high blood pressure but without hypertension Abnormal glucose COVID-19 Mass of left axilla Supervision of normal first Tubular adenoma of breast White coat syndrome with high blood pressure but without hypertension Care and examination of lactating mother Abnormal glucose COVID-19 Mass of left axilla Supervision of normal first Tubular adenoma of breast White coat syndrome with high blood pressure but without hypertension Chief Complaint 23WK OB E ORDERS Encounter for screening for diabetes mellitus 27WK OB / GLUCLOSE *REQ FRI 29 WK OB 31 WK OB COVID, GROWTH 33 WK OB 35 WK OB COVID, GROWTH 36 WK OB 37 WK OB 38 WK OB 39 WK OB VAGINAL DELIVERY LABOR & DELIVERY VAGINAL DELIVERY VAGINAL DELIVERY Reason for Visit COVID-19 Mass of left axilla Supervision of normal first Tubular adenoma of breast White coat syndrome with high blood pressure but without hypertension Abnormal glucose COVID-19 Mass of left axilla Supervision of normal first Tubular adenoma of breast White coat syndrome with high blood pressure but without hypertension Abnormal glucose COVID-19 Mass of left axilla Supervision of normal first Tubular adenoma of breast White coat syndrome with high blood pressure but without hypertension Abnormal glucose COVID-19 Mass of left axilla Supervision of normal first Tubular adenoma of breast White coat syndrome with high blood pressure but without hypertension COVID-19 Supervision of normal first White coat syndrome with high blood pressure but without hypertension Abnormal glucose COVID-19 Mass of left axilla Supervision of normal first Tubular adenoma of breast White coat syndrome with high blood pressure but without hypertension Abnormal glucose COVID-19 Mass of left axilla Supervision of normal first Tubular adenoma of breast White coat syndrome with high blood pressure but without hypertension Care and examination of lactating mother Abnormal glucose COVID-19 Mass of left axilla Supervision of normal first Tubular adenoma of breast White coat syndrome with high blood pressure but without hypertension Abnormal glucose COVID-19 Mass of left axilla Supervision of normal first Tubular adenoma of breast White coat syndrome with high blood pressure but without hypertension Abnormal glucose COVID-19 Mass of left axilla Supervision of normal first Tubular adenoma of breast White coat syndrome with high blood pressure but without hypertension Abnormal glucose COVID-19 First degree laceration of perineum during delivery, Mass of left axilla Spontaneous onset of labor Supervision of normal first (spontaneous vaginal delivery) Tubular adenoma of breast White coat syndrome with high blood pressure but without hypertension 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) Reason for Visit Family history of bi rth defect HPV test positive Encounter for routine gynecological examination Chief Complaint Admit Date NOB LMP 09/30 JENELLE 07/07December 02, 2024 10 :13am Reason for Visit Admit Date Anesthesia complication December 02, 2024 1 0:13am Anxiety December 02, 2024 10:13 am Family history of defect December 02, 2024 10:13am History of miscarriage, currently pregna nt December 02, 2024 10:13am HPV test positive December 02, 2024 10:13 am HSV-1 (herpes simplex virus 1) infection December 02, 2024 10:13am depression December 02, 2024 10: 13am December 02, 2024 10:13 am Supervision of high-risk November 072024 10:13am Vulvar lesion December 02, 2024 10:13 am Chief Complaint Admit Date NOB LMP 09/30 JENELLE 07/07December 02, 2024 10 :13am 11wk ob *repeat US per SM December 16 1:03pm Reason for Visit Admit Date Anesthesia complication December 02, 2024 1 0:13am Anxiety December 02, 2024 10:13 am Family history of defect December 02, 2024 10:13am History of miscarriage, currently pregna nt December 02, 2024 10:13am HPV test positive December 02, 2024 10:13 am HSV-1 (herpes simplex virus 1) infection December 02, 2024 10:13am depression December 02, 2024 10: 13am December 02, 2024 10:13 am Supervision of high-risk November 072024 10:13am Vulvar lesion December 02, 2024 10:13 am Anesthesia complication December 16, 2024 1:03pm Anxiety December 16, 2024 1:03 pm Family history of defect December 1:03pm History of miscarriage, currently pregna nt December 16, 2024 1:03pm HPV test positive December 16, 2024 1:03 pm HSV-1 (herpes simplex virus 1) infection December 16, 2024 1:03pm depression December 16, 2024 1: 03pm December 16, 2024 1:03 pm Supervision of high-risk December 16, 2024 1:03pm Vulvar lesion December 16, 2024 1:03 pm Chief Complaint Admit Date NOB LMP 09/30 JENELLE 07/07December 02, 2024 10 :13am 11wk ob *repeat US per SM December 16 1:03pm 14wk ob January 05, 2025 11:4 6am Reason for Visit Admit Date Anesthesia complication December 02, 2024 1 0:13am Anxiety December 02, 2024 10:13 am Family history of defect December 02, 2024 10:13am History of miscarriage, currently pregna nt December 02, 2024 10:13am HPV test positive December 02, 2024 10:13 am HSV-1 (herpes simplex virus 1) infection December 02, 2024 10:13am depression December 02, 2024 10: 13am December 02, 2024 10:13 am Supervision of high-risk November 072024 10:13am Vulvar lesion December 02, 2024 10:13 am Anesthesia complication December 16, 2024 1:03pm Anxiety December 16, 2024 1:03 pm Family history of defect December 1:03pm History of miscarriage, currently pregna nt December 16, 2024 1:03pm HPV test positive December 16, 2024 1:03 pm HSV-1 (herpes simplex virus 1) infection December 16, 2024 1:03pm depression December 16, 2024 1: 03pm December 16, 2024 1:03 pm Supervision of high-risk December 16, 2024 1:03pm Vulvar lesion December 16, 2024 1:03 pm Anesthesia complication January 05, 2025 11:46am Anxiety January 05, 2025 11:4 6am Family history of defect December 11:46am History of miscarriage, currently pregna nt January 05, 2025 11:46am HPV test positive January 05, 2025 11:4 6am HSV-1 (herpes simplex virus 1) infection January 05, 2025 11:46am depression January 05, 2025 11 :46am January 05, 2025 11:4 6am Supervision of high-risk January 05, 2025 11:46am Vulvar lesion January 05, 2025 11:4 6am Chief Complaint Admit Date NOB LMP 09/30 JENELLE 07/07December 02, 2024 10 :13am 11wk ob *repeat US per SM December 16 1:03pm 14wk ob January 05, 2025 11:4 6am 18WK OB February 02, 2025 9:16 am Reason for Visit Admit Date Anesthesia complication December 02, 2024 1 0:13am Anxiety December 02, 2024 10:13 am Family history of defect December 02, 2024 10:13am History of miscarriage, currently pregna nt December 02, 2024 10:13am HPV test positive December 02, 2024 10:13 am HSV-1 (herpes simplex virus 1) infection December 02, 2024 10:13am depression December 02, 2024 10: 13am December 02, 2024 10:13 am Supervision of high-risk November 072024 10:13am Vulvar lesion December 02, 2024 10:13 am Anesthesia complication December 16, 2024 1:03pm Anxiety December 16, 2024 1:03 pm Family history of defect December 1:03pm History of miscarriage, currently pregna nt December 16, 2024 1:03pm HPV test positive December 16, 2024 1:03 pm HSV-1 (herpes simplex virus 1) infection December 16, 2024 1:03pm depression December 16, 2024 1: 03pm December 16, 2024 1:03 pm Supervision of high-risk December 16, 2024 1:03pm Vulvar lesion December 16, 2024 1:03 pm Anesthesia complication January 05, 2025 11:46am Anxiety January 05, 2025 11:4 6am Family history of defect December 11:46am History of miscarriage, currently pregna nt January 05, 2025 11:46am HPV test positive January 05, 2025 11:4 6am HSV-1 (herpes simplex virus 1) infection January 05, 2025 11:46am depression January 05, 2025 11 :46am January 05, 2025 11:4 6am Supervision of high-risk January 05, 2025 11:46am Vulvar lesion January 05, 2025 11:4 6am Anesthesia complication February 02, 2025 9:16am Anxiety February 02, 2025 9:16 am Family history of defect January 9:16am History of miscarriage, currently pregna nt February 02, 2025 9:16am HPV test positive February 02, 2025 9:16 am HSV-1 (herpes simplex virus 1) infection February 02, 2025 9:16am depression February 02, 2025 9: 16am February 02, 2025 9:16 am Supervision of high-risk February 02, 2025 9:16am Vulvar lesion February 02, 2025 9:16 am Chief Complaint Admit Date NOB LMP 3/25 JENELLE 07/07December 02, 2024 10 :13am 11wk ob *repeat US per SM December 16 1:03pm 14wk ob January 05, 2025 11:4 6am 18WK OB February 02, 2025 9:16 am ANATOMY US February 19, 2025 3: 31pm Chief Complaint Admit Date NOB LMP 3/25 JENELLE 07/07December 02, 2024 10 :13am 11wk ob *repeat US per SM December 16 1:03pm 14wk ob January 05, 2025 11:4 6am 18WK OB February 02, 2025 9:16 am ANATOMY US February 19, 2025 3: 31pm 22WK OB March 02, 2025 9: 36am Reason for Visit Admit Date Anesthesia complication December 02, 2024 1 0:13am Anxiety December 02, 2024 10:13 am Family history of defect December 02, 2024 10:13am History of miscarriage, currently pregna nt December 02, 2024 10:13am HPV test positive December 02, 2024 10:13 am HSV-1 (herpes simplex virus 1) infection December 02, 2024 10:13am depression December 02, 2024 10: 13am December 02, 2024 10:13 am Supervision of high-risk November [id number] 10:13am Vulvar lesion December 02, 2024 10:13 am Anesthesia complication December 16, 2024 1:03pm Anxiety December 16, 2024 1:03 pm Family history of defect December 1:03pm History of miscarriage, currently pregna nt December 16, 2024 1:03pm HPV test positive December 16, 2024 1:03 pm HSV-1 (herpes simplex virus 1) infection December 16, 2024 1:03pm depression December 16, 2024 1: 03pm December 16, 2024 1:03 pm Supervision of high-risk December 16, 2024 1:03pm Vulvar lesion December 16, 2024 1:03 pm Anesthesia complication January 05, 2025 11:46am Anxiety January 05, 2025 11:4 6am Family history of defect December 11:46am History of miscarriage, currently pregna nt January 05, 2025 11:46am HPV test positive January 05, 2025 11:4 6am HSV-1 (herpes simplex virus 1) infection January 05, 2025 11:46am depression January 05, 2025 11 :46am January 05, 2025 11:4 6am Supervision of high-risk January 05, 2025 11:46am Vulvar lesion January 05, 2025 11:4 6am Anesthesia complication February 02, 2025 9:16am Anxiety February 02, 2025 9:16 am Family history of defect January 9:16am History of miscarriage, currently pregna nt February 02, 2025 9:16am HPV test positive February 02, 2025 9:16 am HSV-1 (herpes simplex virus 1) infection February 02, 2025 9:16am depression February 02, 2025 9: 16am February 02, 2025 9:16 am Supervision of high-risk February 02, 2025 9:16am Vulvar lesion February 02, 2025 9:16 am Anesthesia complication March 02 9:36am Anxiety March 02, 2025 9: 36am Family history of defect March [id number] 9:36am History of miscarriage, currently pregna nt March 02, 2025 9:36am HPV test positive March 02, 2025 9: 36am HSV-1 (herpes simplex virus 1) infection March 02, 2025 9:36am depression March 02, 2025 9:36am March 02, 2025 9: 36am Supervision of high-risk Augus 2024 9:36am Additional Source Comments INFORMATION SOURCE (unrecogn ized section and content) DATE CREATED AUTHOR 08/04/2018 [facility] DATE CREATED AUTHOR AUTHOR'S ORGANIZ ATION 08/22/2018 [facility] DATE CREATED AUTHOR AUTHOR'S ORGANIZ ATION 11/28/2023 [facility] DATE CREATED AUTHOR AUTHOR'S ORGANIZ ATION 08/17/2024 [facility] DATE CREATED AUTHOR AUTHOR'S ORGANIZ ATION 05/21/2025 [facility] Goals (unrecognized section and content) Goals may be documented in a n alternate sectionGoals may be documented in an alternate sectionGoals may be documented in an alternate sectionGoals may be documented in an alternate sectionGoals may be documented in an alternate sectionGoals may be documented in an alternate sectionGoals may be documented in an alternate sectionGoals may be documented in an alternate sectionGoals may be documented in an alternate sectionGoals may be documented in an alternate sectionGoals may be documented in an alternate sectionGoals may be documented in an alternate sectionGoals may be documented in an alternate sectionGoals may be documented in an alternate sectionGoals may be documented in an alternate sectionGoals may be documented in an alternate sectionGoals may be documented in an alternate sectionGoals may be documented in an alternate sectionGoals may be documented in an alternate section Care Teams (unrecognized sec tion and content) Team Status: Active Member Role Status Dates Tasha Chapa , DO Primary Care Provider Active Team Status: Inactive Member Role Status Dates Tasha Chapa , DO Primary Care Provider, Referring Provider Active Dr. Yvonne Hayward , Attending Provider Activ e Team Status: Inactive Member Role Status Dates Tashaezra Chapa , DO Primary Care Provider, Referring Provider Active Annabella Miner CNM Attending Provider Active Team Status: Inactive Member Role Status Dates Tashaezra Chapa , DO Primary Care Provider, Referring Provider Active Nicole Aguilera DIVINITY PROFESSOR, DIVINITY PROFESSOR-C Attending Provider Active Team Status: Inactive Member Role Status Dates Tasha Chapa , DO Primary Care Provider, Referring Provider Active Dr. Alice Bhakta MD Attending Provider Active Team Status: Inactive Member Role Status Dates Tasha Chapa , DO Primary Care Provider, Referring Provider Active Olesya Gaspar DIVINITY PROFESSOR, DIVINITY PROFESSOR-C Attending Provider Active Team Status: Inactive Member Role Status Dates Tasha Chapa , Primary Care Provider Active Dr. Yvonne Hayward , Attending Provider, Refe rring Provider Active Team Status: Inactive Member Role Status Dates Tasha Chapa , Primary Care Provider Active Dr. Yvonne Hayward , Attending Provider Activ e Team Status: Inactive Member Role Status Dates Tasha Chapa , Primary Care Provider Active Annabella Miner CNM Attending Provider, Referring Pr ovider Active Team Status: Active Member Role Status Dates Tasha Chapa , Primary Care Provider Active Annabella Miner CNM Attending Provider, Referring Pr ovider Active Team Status: Active Member Role Status Dates Tasha Chapa , Primary Care Provider Active Annabella Miner CNM Admit Provider, Attending Provid er, Other Provider Active Team Status: Active Member Role Status Dates Tasha Chapa DO Primary Care Provider Active Dr. Yvonne Hayward DO Admit Provider, Other Pr ovider Active Annabella Miner CNM Attending Provider Active Team Status: Inactive Member Role Status Dates Tasha Chapa DO Primary Care Provider Active Dr. Yvonne Hayward DO Admit Provider, Attendin g Provider Active Team Status: Inactive Member Role Status Dates Tasha Chapa DO Primary Care Provider Active Dr. 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 Alice Bhakta MD Attending Provider Active Start: December 02, 2024 End: December 02, 2024 Team Status: Inactive Member Role Status Kanchan Yost MD Primary Care Provider Active St art: December 02, 2024 End: December 02, 2024 Dr. Alice Bhakta MD Attending Provider Active Start: December 02, 2024 End: December 02, 2024 Dr. Alice Bhakta MD Referring Provider Active Start: December 02, 2024 End: December 02, 2024 Team Status: Inactive Member Role Status Kanchan Yost MD Primary Care Provider Active St art: December 16, 2024 End: December 16, 2024 Yanelis Yost MD Referring Provider Active Start : December 16, 2024 End: December 16, 2024 Zunilda Higginbotham CNM Attending Provider Active S tart: December 16, 2024 End: December 16, 2024 Team Status: Active Member Role Status Kanchan Yost MD Primary Care Provider Active St art: December 16, 2024 Dr. Alice Bhakta MD Attending Provider Active Start: December 16, 2024 Dr. Alice Bhakta MD Referring Provider Active Start: December 16, 2024 Team Status: Inactive Member Role Status Kanchan Yost MD Primary Care Provider Active St art: December 16, 2024 End: December 16, 2024 Dr. Alice Bhakta MD Attending Provider Active Start: December 16, 2024 End: December 16, 2024 Dr. Alice Bhakta MD Referring Provider Active Start: December 16, 2024 End: December 16, 2024 Team Status: Active Member Role/Relationship Status Kanchan Yost MD Primary Care Provider Active Team Status: Inactive Member Role/Relationship Status Kanchan Yost MD Primary Care Provider Active St art: December 02, 2024 End: December 02, 2024 Yanelis Yost MD Referring Provider Active Start : December 02, 2024 End: December 02, 2024 Dr. Alice Bhakta MD Attending Provider Active Start: December 02, 2024 End: December 02, 2024 Team Status: Inactive Member Role/Relationship Status Kanchan Yost MD Primary Care Provider Active St art: December 02, 2024 End: December 02, 2024 Dr. Alice Bhakta MD Attending Provider Active Start: December 02, 2024 End: December 02, 2024 Dr. Alice Bhakta MD Referring Provider Active Start: December 02, 2024 End: December 02, 2024 Team Status: Inactive Member Role/Relationship Status Kanchan Yost MD Primary Care Provider Active St art: December 16, 2024 End: December 16, 2024 Yanelis Yost MD Referring Provider Active Start : December 16, 2024 End: December 16, 2024 Zunilda Higginbotham CNM Attending Provider Active S tart: December 16, 2024 End: December 16, 2024 Team Status: Inactive Member Role/Relationship Status Kanchan Yost MD Primary Care Provider Active St art: December 16, 2024 End: December 16, 2024 Dr. Alice Bhakta MD Attending Provider Active Start: December 16, 2024 End: December 16, 2024 Dr. Alice Bhakta MD Referring Provider Active Start: December 16, 2024 End: December 16, 2024 Team Status: Inactive Member Role/Relationship Status Kanchan Yost MD Primary Care Provider Active St art: January 05, 2025 End: January 05, 2025 Yanelis Yost MD Referring Provider Active Start : January 05, 2025 End: January 05, 2025 Dr. Yvonne Hayward DO Attending Provider Activ e Start: January 05, 2025 End: January 05, 2025 Team Status: Inactive Member Role/Relationship Status Kanchan Yost MD Primary Care Provider Active St art: January 05, 2025 End: January 05, 2025 Dr. Yvonne Hayward DO Attending Provider Activ e Start: January 05, 2025 End: January 05, 2025 Dr. Yvonne Hayward DO Referring Provider Activ e Start: January 05, 2025 End: January 05, 2025 Team Status: Inactive Member Role/Relationship Status Kanchan Yost MD Primary Care Provider Active St art: February 02, 2025 End: February 02, 2025 Yanelis Yost MD Referring Provider Active Start : February 02, 2025 End: February 02, 2025 Zunilda Higginbotham CNM Attending Provider Active S tart: February 02, 2025 End: February 02, 2025 Team Status: Inactive Member Role/Relationship Status Kanchan Yost MD Primary Care Provider Active St art: February 19, 2025 End: February 19, 2025 Zunilda Higginbotham CNM Attending Provider Active S tart: February 19, 2025 End: February 19, 2025 Zunilda Higginbotham CNM Referring Provider Active S tart: February 19, 2025 End: February 19, 2025 Team Status: Inactive Member Role/Relationship Status Kanchan Yost MD Primary Care Provider Active St art: March 02, 2025 End: March 02, 2025 Yanelis Yost MD Referring Provider Active Start : March 02, 2025 End: March 02, 2025 Nicole Aguilera NP, ASHLEE-C Attending Provider Active Start: March 02, 2025 End: March 02, 2025 Source Comments (unrecognize d section and content) In the event this informatio n is protected by the Federal Confidentiality of Alcohol and Drug Abuse Patient Records regulations: The Federal rules restrict any use of the information to criminally investigate or prosecute any alcohol or drug abuse patient.[facility] the event this information is protected by the Federal Confidentiality of Alcohol and Drug Abuse Patient Records regulations: The Federal rules restrict any use of the information to criminally investigate or prosecute any alcohol or drug abuse patient.[facility] Reason for Visit (unrecogniz ed section and content) Reason Comments Cough Chest and head conge stion, sinus drainage x4 days, ST, fatigue FOR RECORDS PERTAINING TO PATIENTS WHO ARE OR HAVE BEEN ENROLLED IN A CHEMICAL DEPENDENCY/SUBSTANCEABUSE PROGRAM, SOME INFORMATION MAY BE OMITTED. This clinical summary was aggregated from multiple sources. Caution should be exercised in using it in the provision of clinical care. This summary normalizes information from multiple sources, and as a consequence, information in this document may materially change the coding, format and clinical context of patient data. In addition, data may be omitted in some cases. CLINICAL DECISIONS SHOULD BE BASED ON THE PRIMARY CLINICAL RECORDS. [email or web address] [facility]. provides no warranty or guarantee of the accuracy or completeness of information in this document.
--- NOTE | 2025-07-03 12:48 | HP.PCM.OB_ITS ---
HPI - General HPI Narrative MAYLIN GRAJEDA, is a 34 F who presents to L&D after being seen in the office today with elevated blood pressures, contractions, and 5 cm dilation. She is being admitted to augment labor. Maternal Data Information SCOTT Calculator Estimated Delivery Date Method Current WG Current Estimate 07/07/25 LMP (Certain) 39w 3d Other Estimates 07/11/25 Ultrasound #1 38w 6d PFSH PFSH Medical History Missed anxiety (08/19/22) HPV test positive Palpitations COVID-19 Vasovagal syncope Home Medications ?Medication ?Instructions ?Recorded ?Last Taken ?Type multivitamin no.47-iron fum 27 cap PO 04/17/24 Unknown History mg-folate no.1 1 mg-dha 300 mg capsule (PNV-DHA) sertraline 50 mg tablet (Zoloft) 75 mg (1.5 x 50 mg) P O QDAY 90 12/03/24 Unknown Rx days #135 tabs Tums PO PRN 05/25/25 Unknown Hist ory aspirin 81 mg tablet 81 mg PO DAILY Prevent Pre-E 05/25/25 Unknown History famotidine 20 mg tablet 20 mg PO DAILY Heartburn Unknown History valacyclovir 1 gram tablet 1,000 mg PO QDAY #30 tabs 1 07/25/24 Unknown Rx (Valtrex) Allergy/AdvReac Type Severity Reaction Status Date / Time amoxicillin Allergy Intermediate Rash Verified 07/03/25 11:15 cefprozil (From Cefzil) Allergy Intermediate Rash Verified 07/03/25 11:15 Family History Father Hypertension Obesity Hyperlipidemia Aunt Breast cancer, Onset Age: 30 Maternal Grandmother Myelodysplastic syndrome, Onset Age: 70 Maternal Hypertension Parkinsons Dementia Grandfather Heart disease Kidney disease Diabetes Hypertension CVA (cerebral vascular accident) Myocardial infarction Mother Osteopenia Surgical History S/P dilation and curettage [place] teeth extracted H/O excision of mass (~02/2022) History of oral surgery History of tonsillectomy and adenoidectomy Social History adopted: No household members: spouse and children housing: house number of children: 1 current occupational status: employed 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 current occupational exposures/hazards: No pets and animals: No history of recent travel: Yes (- November) out of state: Yes out of country: No sexually active: Yes Smoking Status: Never smoker alcohol intake: former details: prior to 1 drink a month- not while substance use type: does not use well-balanced diet: daily or most days caffeine: No eating out: 1-3 times/week during the past year weight has: remained stable what type of physical activity do you participate in: none puma/anabaptist: Pentecostalism seatbelt use: always do you feel safe at home: Yes additional social history: - Castillo History 3 Elective abortions Hx Para 1 Spontaneous abortions 1 Hx # Term Pregnancies Ectopic pregnancies Hx # Pregnancies Multiple births # of living children 1 Past Pregnancies Del. Date Name GA/Weeks Outcome Route Bth Weight Gen Labor Lgth Anesthesia Del Locatn Provider FOB 08/19/22 Teller 39 live - full term 6lbs 14oz Female epidural [employer] Dr. Massey 04/21/24 6 spontaneous Delivery Date: 08/19/22 Last Updated by: Nakita Hammonds COVID Delivery Date: 04/21/24 Last Updated by: Anya Denis D&Patrick Visit Details Expected Delivery Route/Plan Labor Preferences- CB/BF classes: [] labor support person: [] labor intervention preferences: [] pain management options preferred: [] cut cord/dad catch: [] : [] PP control planned: [] discussed possible routes of delivery and associated risks: [] special requests: [] Plans Covid status: [] Flu vaccine: [] Tdap vaccine: [] Rhogam: [] LARC form signed: [] Problem list reviewed and updated with the most current plan of care details and appropriate orders placed. Relevant counseling for the gestational age provided. Continue routine care and follow up unless otherwise noted in visit notes/problem list details OB Flowsheet Initial Weight: Not Recorded Date -?-?-?-?-?-?-?-?-?-?-?-?- EGA Weight BP Urine Prot -?-?-?-?-?-?-?-?-?-?-?-?- Glucose FHR FuHt Pres Dilation -?-?-?-?-?-?-?-?-?-?-?-?- Effaced St Visit Note 12/02/24 -?-?-?--?-?-?-?-?-?-?-?-?- 9w 0d 135 lb 6 oz 137/91 -?-?-?-?-?-?-?-?-?-?-?-?- 175 -?-?-?-?-?-?-?-?-?-?-?-?- SM- no vb crampi ng SM- no vb cramping CRL 1.9 c m cons with LMP 12/16/24 -?-?-?-?-?-?-?-?-?-?-?-?- 11w 0d 135 lb 8 oz 139/78 Nega tive -?-?-?-?-?-?-?-?-?-?-?-?- Negative 185 -?-?-?-?-?-?-?-?-?-?-?-?- KW- no vb/crampi ng. CRL cons with last scan. anatomy US ordered 01/05/25 -?-?-?-?-?-?-?-?-?-?-?-?- 13w 6d 136 lb 4 oz 142/94 Nega tive -?-?-?-?-?-?-?-?-?-?-?-?- Negative 175 -?-?-?-?-?-?-?-?-?-?-?-?- JV- no lof, vagi nal bleeding, or cramping. still nauseated . sending urine for prot: cr. Will need to check bp at work tomorrow. start baby asa. She thinks she has white coat syndrome bc bp is usually low . she passed out in [facility] recently. if requires bp meds will need to start with CCB not beta adela. 02/02/25 -?-?-?-?-?-?-?-?-?-?-?-?- 17w 6d 139 lb 4 oz 131/87 Nega tive -?-?-?-?-?-?-?-?-?-?-?-?- Negative 145 -?-?-?-?-?-?-?--?-?-?-?-?- KW- no vb/lof/ct x. good fm. started pepcid. US scheduled. reports normal BPS at home 03/02/25 -?-?-?-?-?-?-?-?-?-?-?-?- 21w 6d 145 lb 4 oz 136/84 Nega tive -?-?-?-?-?-?-?-?-?-?-?-?- Negative 156 -?-?-?-?-?-?-?-?-?-?-?-?- MH-No vb, lof. F eeling good movement now. No concerns 03/30/25 -?-?-?-?-?-?-?-?-?-?-?-?- 25w 6d 149 lb 8 oz 132/83 Nega tive -?-?-?-?-?-?-?-?-?-?-?-?- Negative 145 25 -?-?-?-?-?-?-?-?-?-?-?-?- SM- no vb lof go od fm no regular ctx 04/29/25 -?-?-?-?-?-?-?-?-?-?-?-?- 30w 1d 155 lb 5 oz 135/87 Nega tive -?-?-?-?-?-?-?-?-?-?-?-?- Negative 140 29 0.5 -?-?-?-?-?-?-?-?-?-?-?-?- 0 JV- maylin bolanos has lots of pressure during her work day and thinks is having BH contractions. cx is not full thickness (.5cm) dilated, is soft, but not effaced. tdap today. did flu at work 05/11/25 -?-?-?-?-?-?-?-?-?-?-?-?- 31w 6d 157 lb 8 oz 130/76 Nega tive -?-?-?-?-?-?-?-?-?-?-?-?- Negative 145 32 -?-?-?-?-?-?-?-?-?-?-?-?- KW- no vb/lof/ct x. good fm. no concerns 05/25/25 -?-?-?-?-?-?-?-?-?-?-?-?- 33w 6d 155 lb 124/84 Negative -?-?-?-?-?-?--?-?-?-?-?-?- Negative 145 34 -?-?-?-?-?-?-?-?-?-?-?-?- Sm- no vb lof go od fm no regular ctx 06/08/25 -?-?-?-?-?-?-?-?-?-?-?-?- 35w 6d 156 lb 8 oz 128/83 Nega tive -?-?-?-?-?-?-?-?-?-?-?-?- Negative 140 36 Cephalic -?-?-?-?-?-?-?-?-?-?-?-?- SM- no vb lof go od fm irregular ctx 06/16/25 -?-?-?-?-?-?-?-?-?-?-?-?- 37w 0d 159 lb 4 oz 126/78 Nega tive -?-?-?-?-?-?-?-?-?-?-?-?- Negative 130 38 Cephalic 3 .5 -?-?-?-?-?-?-?-?-?-?-?-?- 70 -1 KW- no vb/ lof/ctx. good fm GBS today. started valtrex at 36 weeks 06/24/25 -?-?-?-?-?-?-?-?-?-?-?-?- 38w 1d 160 lb 7 oz 131/84 Nega tive -?-?-?-?-?-?-?-?-?-?-?-?- Negative 140 40 Cephalic 3 .5 -?-?-?-?-?-?-?-?-?-?-?-?- 70 -1 JV-no lof, vaginal bleeding, or dec fm. plan for membrane sweep on decebeulah r 07/03/25 -?-?-?-?-?-?-?-?-?-?-?-?- 39w 3d 161 lb 9 oz 138/91 Nega tive -?-?-?-?-?-?-?-?-?-?-?-?- Negative 145 Cephalic 5 -?-?-?-?-?-?-?--?-?-?-?-?- 80 -1 JV- pt loo ks uncomfortable. pressures are elevated. recommend delivery. sending to L&D now. ROS Constitutional Constitutional: Denies change in weight, fatigue, fever(s), headache(s), poor appetite or weakness Eyes Eyes: Denies blurry vision, change in vision, seeing flashes or spots in vision ENT HEENT: Denies dizziness, headache(s), loss taste/smell or sore throat Cardiovascular Cardiovascular: Denies chest pain, dizziness, dyspnea, irregular heart rhythm, leg edema, palpitations, rapid heart rate or vomiting Respiratory/Chest Respiratory/Chest: Denies chest tightness, cough, dyspnea or breast pain Gastrointestinal Gastrointestinal: Denies abdominal pain, anorexia, constipation, cramping, diarrhea, hemorrhoids, vomiting or weight changes Genitourinary Genitourinary: Denies dysuria, flank pain, genital lesions, genital pain, urinary frequency or urinary urgency Musculoskeletal Musculoskeletal: Denies back pain, difficulty walking, joint pain, limited range of motion, muscle cramps or numbness Integumentary Integumentary: Denies lesions or unusual bruising Neurologic Neurologic: Denies abnormal movements, abnormal speech, dizziness, numbness, seizure-like activity or syncope Psychiatric Psychiatric: Denies anxiety, behavioral changes, change in appetite, change in libido, cognitive impairment, confusion, depression, difficulty concentrating, hallucinations or suicidal thoughts Endocrine Endocrinology: Denies excessive sweating, polydipsia or polyuria Hematologic/Lymphatic Hematologic/Lymphatic: Denies easy bleeding, easy bruising or lymphadenopathy Allergic/Immunologic Allergic/Immunologic: Denies itchy eyes, lip swelling, seasonal rhinorrhea, rhinitis, throat swelling, tongue swelling, eczemia, wheezing or asthma Vital Signs Vital Signs Vital Signs: 12/26/25 11:51 07/03/25 11:51 07/03/25 11:51 Temperature Temperature Source Temporal Pulse Rate Respiratory Rate 16 Blood Pressure BP Systolic BP Diastolic Pulse Ox 98 07/03/25 11:51 07/03/25 12:02 07/03/25 12:02 Temperature 98.8 F Temperature Source Pulse Rate 106 H Respiratory Rate Blood Pressure 134/89 H BP Systolic 134 BP Diastolic 89 Pulse Ox 07/03/25 12:03 07/03/25 12:03 07/03/25 12:08 Temperature Temperature Source Pulse Rate 93 97 Respiratory Rate Blood Pressure BP Systolic BP Diastolic Pulse Ox 95 07/03/25 12:08 07/03/25 12:10 07/03/25 12:10 Temperature Temperature Source Pulse Rate 103 H Respiratory Rate Blood Pressure BP Systolic BP Diastolic Pulse Ox 96 93 07/03/25 12:13 07/03/25 12:13 07/03/25 12:17 Temperature Temperature Source Pulse Rate 96 Respiratory Rate Blood Pressure 136/87 H BP Systolic 136 BP Diastolic 87 Pulse Ox 92 07/03/25 12:17 07/03/25 12:17 07/03/25 12:18 Temperature Temperature Source Pulse Rate 97 100 Respiratory Rate Blood Pressure BP Systolic BP Diastolic Pulse Ox 93 07/03/25 12:18 07/03/25 12:23 07/03/25 12:23 Temperature Temperature Source Pulse Rate 96 Respiratory Rate Blood Pressure BP Systolic BP Diastolic Pulse Ox 94 94 07/03/25 12:23 07/03/25 12:23 07/03/25 12:28 Temperature Temperature Source Pulse Rate 100 96 Respiratory Rate Blood Pressure BP Systolic BP Diastolic Pulse Ox 94 07/03/25 12:28 07/03/25 12:32 07/03/25 12:32 Temperature Temperature Source Pulse Rate 103 H Respiratory Rate Blood Pressure 136/83 H BP Systolic 136 BP Diastolic 83 Pulse Ox 94 07/03/25 12:33 07/03/25 12:33 07/03/25 12:38 Temperature Temperature Source Pulse Rate 102 H 107 H Respiratory Rate Blood Pressure BP Systolic BP Diastolic Pulse Ox 94 07/03/25 12:38 07/03/25 12:41 07/03/25 12:41 Temperature Temperature Source Pulse Rate 108 H Respiratory Rate Blood Pressure BP Systolic BP Diastolic Pulse Ox 94 94 07/03/25 12:43 07/03/25 12:43 07/03/25 12:46 Temperature Temperature Source Pulse Rate 99 97 Respiratory Rate Blood Pressure BP Systolic BP Diastolic Pulse Ox 95 07/03/25 12:46 07/03/25 12:47 07/03/25 12:47 Temperature Temperature Source Pulse Rate 93 Respiratory Rate Blood Pressure 133/80 H BP Systolic 133 BP Diastolic 80 Pulse Ox 94 Physical Exam Const alert, oriented x3, no apparent distress and healthy appearing General Appearance: cooperative; Negative for anxious HEENT normocephalic Face and Sinus: normal facial exam Eyes EOMs intact bilaterally and no scleral icterus General Eye: normal appearance of both eyes Neck full ROM and supple Lymph Lymphatic: no lymphadenopathy noted Resp normal respiratory effort Effort and Inspection: able to speak in complete sentences Cardio regular rate GI soft to palpation and non-tender Inspection: gravid Palpation: soft; Negative for tender Back/Spine no CVA tenderness Extremity normal to inspection, full ROM and no clubbing, cyanosis or edema General Extremity: Negative for calf tenderness or edema Skin Lesions: no lesions Rashes: no rashes Psych mental status grossly normal Labs Labs Labs: Blood Type A POSITIVE Antibody Screen NEGATIVE Hct, (37-47) 35.0 % L Hgb, (12.0-15.0) 12.4 g/dL Pap Smear Negative Obstetrics Ultrasound Syphilis Total Ab, (Nonreactive) Nonreactive Rubella IgG Antibody, (Nonreactive) REAC Hep Bs Antigen, (Nonreactive) Nonreactive Hepatitis C Antibody, (Nonreactive) Nonreactive Chlamydia DNA (LUIS), (Negative) Negative N.gonorrhoeae DNA (LUIS), (Negative) Negative HIV 1&2 Antibody, (Nonreactive) Nonreactive Glucose 1 Hr 50 gm, (70-140) 129 mg/dL Gest Glucose Tolerance MG/DL Rhogam given: No Assessment & Plan (1) induced hypertension: (2) HSV-1 (herpes simplex virus 1) infection: COMMENT: valtrex prn, H/O one outbreak (3) Supervision of high-risk : QUALIFIERS: Trimester: second trimester Qualified Code(s): O09.92 - Supervision of high risk , unspecified, second trimester COMMENT: PRR , SCOTT 07/07/25, boy (surprise name) NAHOMY Holloway, Castillo (4) : QUALIFIERS: Weeks of gestation: 39 weeks Qualified Code(s): Z3A.39 - 39 weeks gestation of COMMENT: GBS neg, NIPT low risk declined carrier and afp. nl anatomy (5) Anesthesia complication: QUALIFIERS: Encounter type: sequela Qualified Code(s): T88.59XS - Other complications of anesthesia, sequela COMMENT: epidural wore off early (6) depression: COMMENT: sertraline-controlled (7) History of miscarriage, currently : (8) HPV test positive: COMMENT: 2022, repeat pap 2023-negative (9) Family history of defect: COMMENT: dtr with laryngeal cleft, genetic counseling completed (10) Anxiety: COMMENT: start zoloft-controlled PLAN: Plan Patient presents IAL, plan expectant management for , pitocin/AROM PRN if needed. Pain management: plans epidural. GBS negative. Management of any complications: [none] I have reviewed the [facility] and made any clinically relevant updates.
[2025-07-03] MEDS: Lactated Ringers 1,000 ML 999 ML IV (13:15)
[2025-07-03 13:33] LABS: Hematocrit 36.9 % (37-47); Hemoglobin 13.0 g/dL (12.0-15.0); Mean Corp Hgb Conc 35.2 g/dL (32-36); Mean Corpuscular Volume 85.4 fL (81-99); Mean Platelet Vol. 10.4 fl (6.2-12.0); Platelet Count 151 K/mm3 (150-450); RBC Distribution Width CV 13.6 % (11.6-14.6); RBC Distribution Width SD 41.9 fl (35.1-43.9); Red Blood Count 4.32 M/mm3 (4.2-5.4); White Blood Count 8.2 K/mm3 (4.4-11.0)
[2025-07-03 13:53] LABS: Creatinine, Urine (random) 125.00 mg/dL (28.00-217.00); Protein, Urine (Random) 20.1 mg/dL (0.0-12.0); Protein:Creat Ratio 161 mg/g CRE (0-200)
--- OUTSIDE RECORDS SUMMARY | 2025-07-03 14:11 | XMS RPT_ITS | CCD ---
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 Yvonne Hayward Attending Provider [phone] DO Tasha Chapa Primary Care Provider [phone] DO Tasha Chapa Referring Provider Dr. Petr Chase Attending Provider Dr. Neftaly Dunn Referring Provider [phone] Dr. Alice Bhakta Attending Provider [phone] Dr. Neftaly Dunn Referring Provider [phone] Dr. Yvonne Hayward Attending Provider [phone] Dr. Kj Weeks Primary Care Provider DO Tasha Chapa Primary Care Provider [phone] DO Tasha Chapa Referring Provider Dr. Petr Chase Attending Provider Dr. Kj Weeks Referring Provider Dr. Alice Bhakta Attending Provider Willy RESIDENTIAL CAREGIVER, RESIDENTIAL CAREGIVER-C Nicole Attending Provider DO Tasha Chapa Primary Care Provider DO Tasha Chapa Referring Provider Dr. Yvonne Hayward Attending Provider PRASHANTH Miner Annabella Attending Provider Willy RESIDENTIAL CAREGIVER, RESIDENTIAL CAREGIVER-C Nicole Attending Provider [phone] Dr. Alice Bhakta Attending Provider [phone] Hubert RESIDENTIAL CAREGIVER, RESIDENTIAL CAREGIVER-C Olesya Attending Provider JOSE DE JESUS Miner [...] Dr. Alice Bhakta MD Attending Provider [phone] Dr. Alice Bhakta MD Referring Provider Neftaly DELA CRUZ, Zunilda Attending Provider Dr. Yvonne Hayward DO Attending Provider Dr. Yvonne Hayward DO Referring Provider Zunilda Higginbotham CNM Referring Provider Vida RESIDENTIAL CAREGIVER-C, Nicole Attending Provider Ivis, Chalon Primary Care Unavailable Marcanthony, Alice Referring Unavailable Marcanthony, Alice Attending Unavailable Ivis, Chalon Primary Care Unavailable Marcanthony, Alice Referring Unavailable Marcanthony, Alice Attending Unavailable Ivis, Chalon Primary Care Unavailable Vande Velsegundo, Yvonne Referring Unavailabl e Vande Velsegundo, Yvonne Attending Unavailabl e Ivis, Chalon Primary Care Unavailable Zunilda Higginbotham Referring Unavailable Zunilda Higginbotham Attending Unavailable Ivis, Chalon Primary Care Unavailable Vida RESIDENTIAL CAREGIVER, Nicole Referring Unavailable Willy RESIDENTIAL CAREGIVER, Nicole Attending Unavailable Ivis, Chalon Primary Care Unavailable Ivis, Chalon Referring Unavailable Willy RESIDENTIAL CAREGIVER, Nicole Attending Unavailable Ivis, Chalon Primary Care [...] sources) Amoxicillin; Translations: [AMOXICILLIN] Drug Allergy 1990 [facility] Repository (20 sources) cefprozil; Translations: [CEFPROZIL] Drug Allergy 1992 [facility] Repository Medications Current Medications Medication [...] 90 4 December 02, 2024 12:00am Multivit 45-Jckj-Qrjkyt 1-Dha (Pnv-Dha) 27 mg iron-1 mg -300 mg capsule (9 sources) Start: 04-17-2024 Multivit 67-Hidx-Qsnppe 1-Dha (Pnv-Dha) 27 mg iron-1 mg -300 mg capsule Active NMA PO April 17, 2024 12:00am PNV no.95/ferrous fum/folic ac ( ORAL) (2 sources) PNV no.95/ferrou s fum/folic ac ( ORAL) Take by mouth. Active polyethylene glycol 3350 06814 mg powder for oral solution (7 sources) [...] needed . 20 tablet 0 07/23/2018 Active Upiaoomy-Cwy-Wi-Fa (2 sources) Start: 08-18-2022 End: 10-04-2023 take 1 tablet by mouth once daily Hvsrxyhn-Nbj-Ub-Fa Discontinued 1 TABLET PO DAILY August 18, 2022 1:00am October 04, 2023 11:54am Start: 08-18-2022 take 1 tablet by adriel th once daily Zwkkrvxw-Khc-Vf-Fa Active 1 TABLET PO DAILY August 18, 2022 12:00am Cwmvfmiy-Eyp-He-Fa 1 mg Tablet (9 sources) Start: 08-18-2022 End: 10-04-2023 take 1 tablet by mouth once daily Geqclhon-Lez-Xw-Fa 1 mg Tablet Discontinued 1 {tbl} PO DAILY August 18, 2022 1:00am October 04, 2023 11:54am Start: 08-18-2022 End: 10-04-2023 take 1 tablet by mouth once daily Uyolslgd-Nsg-Oa-Fa 1 mg Tablet Discontinued 1 {tbl} PO [...] Comment on above: , JENELLE 07/07/25, [facility] [place], [place] , JENELLE 11/30/24 [facility], [place] PRR , JENELLE , [facility], [place] Other complications of (1 source) Supervision [...] unspecified, first trimester] Episodic Comment on above: [id number], JENELLE 08/26/ 3, girl Spouse Castillo ALFARO [...] Test Name Value Interpretation Reference Range Facility Hydrography Teacher Office Visit Reporton 05-11-2025 Hydrography Teacher Office Visit Report [facility] [address] [place] [address], [address] [place] [address] OFFICE VISIT Date of Service: 05/11/25 MR#: [id number] Acct: [id number] Name: ROMERO GRAJEDA Rep #: [id number] : 1990 Provider: JOSE DE JESUS Serna ams Age/Sex: 34/F [place] [facility] [place]: Signed Intake Vital Signs 03/30/25 11:27 04/29/25 09:49 05/11/25 10:56 05/11/25 10:56 Height 5 ft 6 in 5 ft 6 in 5 ft 6 in 5 ft 6 in Weight: 157 lb 8 oz BMI 25.4 BP 130/76 H Intake Visit Reasons: 31w 6d ob Director Of Acquisitions Required: No Is patient in pain?: No [...] syncope Surgical History S/P dilation and curettage [place] teeth extracted H/O excision of mass ( [...] 1 current occupational status: employed 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 Date Name GA/Weeks Outcome Route Bth Weight Infant Gen Labor Lgth Anesthesia Del Locatn Provider FOB 08/19/22 [place] 39 live - full term 6lbs 14oz Female epidural [facility] [employer] Dr. Massey 04/21/24 6 spontaneous Delivery [...] BP Urin (more content not included)... Normal [facility] Hydrography Teacher Office Visit Reporton 04-29-2025 Hydrography Teacher Office Visit Report [facility] [address], [address] [place] [address] OFFICE VISIT Date of Service: 04/29/25 MR#: [id number] Acct: [id number] Name: ROMERO GRAJEDA Rep #: [id number] : 1990 Provider: Dr. 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 [employer] Dr. Massey 04/21/24 6 spontaneous Delivery [...] -???-???-???-???-???-?? ?-???-???-? (more content not included)... Normal [facility] CBC W/Diff, Automatedon 03-10-2024 Absolute Lymph 1.59 X10 3/uL Normal 0.83-4.51 [facility] Comment on above: Performed By: #### L 501.0250, L509.8002, L100.0100, L3890.6006 #### [facility] [address] [place], [address] Absolute Neut 4.7 X10 3/uL Normal 2.0-7.7 [facility] Comment on above: Performed By: #### L 501.0250, L509.8002, L100.0100, L3890.6006 #### [facility] [address] [place], [address] Basophils/100 WBC (Bld) 0.5 % Normal 0-1 [facility] Comment on above: Performed By: #### L 501.0250, L509.8002, L100.0100, L3890.6006 #### [facility] [address] [place], [address] Eosinophils/100 WBC (Bld) 7.2 % High 0-5 [facility] Comment on above: Performed By: #### L 501.0250, L509.8002, L100.0100, L3890.6006 #### [facility] [address] [place], [address] Erythrocyte distribution width (RBC) [Ratio] 13.4 % Normal 11.6-14.6 [facility] Comment on above: Performed By: #### L 501.0250, L509.8002, L100.0100, L3890.6006 #### [facility] [address] [place], [address] Hematocrit (Bld) [Volume fraction] 35.0 % Low 37-47 [facility] Comment on above: Performed By: #### L 501.0250, L509.8002, L100.0100, L3890.6006 #### [facility] [address] [place], [address] Hemoglobin (Bld) [Mass/Vol] 12.4 g/dL Normal 12.0-15.0 [facility] Comment on above: Performed By: #### L 501.0250, L509.8002, L100.0100, L3890.6006 #### [facility] [address] [place], [address] IG% 0.100 Normal 0.0-0.9 [facility] Comment on above: Result Comment: IG% - Immature Granulocytes (promyelocytes, myelocytes and metamyelocytes) > 1% indicates that a LEFT SHIFT is Present. Performed By: #### L 501.0250, L509.8002, L100.0100, L3890.6006 #### [facility] [address] [place], [address] Lymphocytes/100 WBC (Bld) 21.7 % Normal 19-41 [facility] Comment on above: Performed By: #### L 501.0250, L509.8002, L100.0100, L3890.6006 #### [facility] [address] [place], [address] MCH (RBC) [Entitic mass] 30.2 pg Normal 27.0-32.0 [facility] Comment on above: Performed By: #### L 501.0250, L509.8002, L100.0100, L3890.6006 #### [facility] [address] [place], [address] MCHC (RBC) [Mass/Vol] 35.4 g/dL Normal 32-36 [facility] Comment on above: Performed By: #### L 501.0250, L509.8002, L100.0100, L3890.6006 #### [facility] [address] [place], [address] MCV (RBC) [Entitic vol] 85.2 fL Normal 81-99 [facility] Comment on above: Performed By: #### L 501.0250, L509.8002, L100.0100, L3890.6006 #### [facility] [address] [place], [address] Monocytes/100 WBC (Bld) 7.0 % Normal 0-10 [facility] Comment on above: Performed By: #### L 501.0250, L509.8002, L100.0100, L3890.6006 #### [facility] [address] [place], [address] Neutrophils/100 WBC (Bld) 63.5 % Normal 47-70 [facility] Comment on above: Performed By: #### L 501.0250, L509.8002, L100.0100, L3890.6006 #### [facility] [address] [place], [address] Nucleated RBC (Bld) [#/Vol] 0 10*3/uL Normal 0-5 [facility] Comment on above: Performed By: #### L 501.0250, L509.8002, L100.0100, L3890.6006 #### [facility] [address] [place], [address] Platelet mean volume (Bld) [Entitic vol] 9.9 fL Normal 6.2-12.0 [facility] Comment on above: Performed By: #### L 501.0250, L509.8002, L100.0100, L3890.6006 #### [facility] [address] [place], [address] Platelets (Bld) [#/Vol] 163 10*3/uL Normal 150-450 [facility] Comment on above: Performed By: #### L 501.0250, L509.8002, L100.0100, L3890.6006 #### [facility] [address] [place], [address] RBC (Bld) [#/Vol] 4.11 10*6/uL Low 4.2-5.4 [facility] Comment on above: Performed By: #### L 501.0250, L509.8002, L100.0100, L3890.6006 #### [facility] [address] [place], [address] RDW SD 41.4 fl Normal 35.1-43.9 [facility] Comment on above: Performed By: #### L 501.0250, L509.8002, L100.0100, L3890.6006 #### [facility] [address] [place], [address] WBC (Bld) [#/Vol] 7.3 10*3/uL Normal 4.4-11.0 [facility] Comment on above: Performed By: #### L 501.0250, L509.8002, L100.0100, L3890.6006 #### [facility] [address] [place], [address] Glucose Challenge Gest 1H 50 dulce 03-30-2025 GLU GEST 50g 1H 129 mg/dL Normal 70-140 [facility] Comment on above: Performed By: #### L 501.0250, L509.8002, L100.0100, L3890.6006 #### [facility] [address] [place], [place], [address] HIVon 03-30-2025 HIV Non-Reactive Normal Nonreactive [facility] Comment on above: Result Comment: Non- Reactive Reactive Repeatedly reactive samples must be confirmed according to CDC recommended confirmatory algorithms. The subresults for either HIVAG or AHIV can be used as an aid in the selection of the confirmation algorithm for reactive samples. Send out specimens with Reactive results to [facility] for confirmation. Order the HIV antibody detection and differentiation: lc#[id number] Performed By: #### L 501.0250, L509.8002, L100.0100, L3890.6006 #### [facility] [address] [place], [place], [address] Hydrography Teacher Office Visit Reporton 03-30-2025 Hydrography Teacher Office Visit Report [facility], [address] [place] [address] OFFICE VISIT Date of Service: 03/30/25 MR#: [id number] Acct: [id number] Name: ROMERO GRAJEDA Rep #: [id number] : 1990 Provider: Dr. 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 Date Name GA/Weeks Outcome Route Bth Weight Gen Labor Lgth Anesthesia Del Locatn Provider FOB 08/19/22 [place] 39 live - full term 6lbs 14oz Female epidural [facility] Dr. Massey 04/21/24 6 spontaneous Delivery [...] Date -??? (more content not included)... Normal [facility] Syphilis Antibodieson 2024 Syphilis Abs Non-Reactive Normal Nonreactive [facility] Comment on above: Performed By: #### L 501.0250, L509.8002, L100.0100, L3890.6006 #### [facility] [place], [address] Hydrography Teacher Office Visit Reporton 03-02-2025 Hydrography Teacher Office Visit Report [facility] [address], [address] [place] [address] OFFICE VISIT Date of Service: 03/02/25 MR#: [id number] Acct: [id number] Name: ROMERO GRAJEDA Rep #: [id number] : 1990 Provider: SHAKIR wong Age/Sex: 34/F [place] [facility] [place]: Signed Intake Vital Signs 12/16/24 13:15 02/02/25 09:21 03/02/25 09:39 Height 5 ft 6 in 5 ft 6 in 5 ft 6 in Weight: 145 lb 4 oz BMI 23.4 BP 136/84 H Intake Visit Reasons: 22WK OB Chief Complaint: 22 Week OB Director Of Acquisitions Required: No Is patient in pain?: No [...] syncope Surgical History S/P dilation and curettage [place] teeth extracted H/O excision of mass ( [...] 1 current occupational status: employed 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 Dr. Massey 04/21/24 6 spontaneous Delivery [...] Not Recorded (more content not included)... Normal [facility] OB Anatomy w/ Transvaginalon 02-19-2025 OB Anatomy w/ Transvaginal [facility] [address] [place], [place] [id number] OB Anatomy w/ Transvaginal MR#: [id number] Acct: [id number] Name: ROMERO GRAJEDA Rep #: [id number] : 1990 F 34 From: Alfredo manzano MD PCP: Dr. aYnelis Yost MD Status: [facility] Study: OB Anatomy w/ Transvaginal Date of Exam: 02/19 Exam# [id number] Ordering Dr: Zunilda Higginbotham CNM PROCEDURE: OB [...] 20 weeks and 4 days. Reading Location: [place] [address] CC: JOSE DE JESUS Higginbotham; Dr. Yanelis Yost MD Dialysis Patient Care Technician: Signed Normal [facility] Laboratory - Chemistry and C hemistry - challengeOrdered By: Zunilda Higginbotham on 02-02-2025 Glucose Ql (U) Negative [facility] Laboratory - UrinalysisOrder ed By: Zunilda Higginbotham on 02-02-2025 Protein Ql (U) Negative [facility] Hydrography Teacher Office Visit Reporton 02-02-2025 Hydrography Teacher Office Visit Report [facility] [address], [address] [place] [address] OFFICE VISIT Date of Service: 02/02/25 MR#: [id number] Acct: [id number] Name: ROMERO GRAJEDA Rep #: [id number] : 1990 Provider: JOSE DE JESUS Serna ams Age/Sex: 34/F [place] [facility] [place]: Signed Intake Vital Signs 12/02/24 10:20 01/05/25 11:48 02/02/25 09:21 Height 5 ft 6 in 5 ft 6 in 5 ft 6 in Weight: 139 lb 4 oz BMI 22.4 BP 131/87 H Intake Visit Reasons: 18WK OB Chief Complaint: 18wk OB Director Of Acquisitions Required: No Is patient in pain?: No [...] syncope Surgical History S/P dilation and curettage [place] teeth extracted H/O excision of mass ( [...] 1 current occupational status: employed 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 Date Name GA/Weeks Outcome Route Bth Weight Infant Gen Labor Lgth Anesthesia Del Locatn Provider FOB 08/19/22 [place] 39 live - full term 6lbs 14oz Female epidural [facility] Dr. Massey 04/21/24 6 spontaneous Delivery Date: 08/19/22 Last Updated by: Nakita Hammonds COVID Delivery Date: 04/21/24 Last Updated by: Anya Nguyen HPI 18WK OB Details: ROMERO GRAJEDA is a 34 year old who presents for routine OB visit. OB Visit JENELEL Calculator Estimated Delivery Date Method Current WG [...] ??- EG (more content not included)... Normal [facility] Laboratory - Chemistry and C hemistry - challengeOrdered By: Yvonne Whaley on 01-05-2025 Glucose Ql (U) Negative [facility] Laboratory - UrinalysisOrder ed By: Yvonne Whaley on 01-05-2025 Protein Ql (U) Negative [facility] Hydrography Teacher Office Visit Reporton 01-05-2025 Hydrography Teacher Office Visit Report [facility] [address], [address] [place] [address] OFFICE VISIT Date of Service: 01/05/25 MR#: [id number] Acct: [id number] Name: ROMERO GRAJEDA Rep #: [id number] : 1990 Provider: Dr. 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 Dr. Massey 04/21/24 6 spontaneous Delivery [...] Not Recorded (more content not included)... Normal [facility] Protein+Creatinine Ratio,Uri neon 01-05-2025 PROT:CRE RATIO 119 mg/g CRE Normal 0-200 [facility] Comment on above: Performed By: #### L 7000.1800, M100.2200 #### [facility] Laboratory [address] [place], [address] Protein (U) [Mass/Vol] 11.7 mg/dL Normal 0.0-12.0 [facility] Comment on above: Performed By: #### L 7000.1800, M100.2200 #### [facility] Laboratory [address] [place], [place], [id number] Random urine creatinine dino urement (mass/volume)Ordered By: Yvonne Whaley on 01-05-2025 Creatinine Unsp time (U) [Mass/Vol] 98.60 mg/dL 28.00-217.00 [facility] Urine protein measurement (m ass/volume)Ordered By: Yvonne Whaley on 01-05-2025 Protein (U) [Mass/Vol] 11.7 mg/dL 0.0-12.0 [facility] Urine protein/creatinine mas s ratioOrdered By: Yvonne Whaley on 01-05-2025 Protein/Creatinine (U) [Mass ratio] 119 mg/g CRE 0-200 [facility] Absolute lymphocyte countOrd ered By: Alice Bhakta on 12-16-2024 Lymphocytes Auto (Unsp spec) [#/Vol] 1.89 10*3/uL 0.83-4.51 [facility] Absolute neutrophil countOrd ered By: Alice Bhakta on 12-16-2024 Neutrophils (Bld) [#/Vol] 5.4 10*3/uL 2.0-7.7 [facility] Automated lymphocyte count a s percentage of total leukocytesOrdered By: Alice Bhakta on 12-16-2024 Lymphocytes/100 WBC Auto (Unsp spec) 23.0 % 19-41 [facility] Basophil percentageOrdered B y: Alice Bhakta on 12-16-2024 Basophils/100 WBC (Bld) 0.4 % 0-1 [facility] CBC W/Diff, Automatedon 12-07 Absolute Lymph 1.89 X10 3/uL Normal 0.83-4.51 [facility] Comment on above: Performed By: #### L 509.4006, BTS, L3890.6102, L100.0100, L3890.6301, L900.0098, L509.8002, L3890.6006 #### [facility] Laboratory [address] [place], [address] Absolute Neut 5.4 X10 3/uL Normal 2.0-7.7 [facility] Comment on above: Performed By: #### L 509.4006, BTS, L3890.6102, L100.0100, L3890.6301, L900.0098, L509.8002, L3890.6006 #### [facility] Laboratory [address] [place], [address] Basophils/100 WBC (Bld) 0.4 % Normal 0-1 [facility] Comment on above: Performed By: #### L 509.4006, BTS, L3890.6102, L100.0100, L3890.6301, L900.0098, L509.8002, L3890.6006 #### [facility] Laboratory [address] [place], [address] Eosinophils/100 WBC (Bld) 1.3 % Normal 0-5 [facility] Comment on above: Performed By: #### L 509.4006, BTS, L3890.6102, L100.0100, L3890.6301, L900.0098, L509.8002, L3890.6006 #### [facility] Laboratory [address] [place], [address] Erythrocyte distribution width (RBC) [Ratio] 11.9 % Normal 11.6-14.6 [facility] Comment on above: Performed By: #### L 509.4006, BTS, L3890.6102, L100.0100, L3890.6301, L900.0098, L509.8002, L3890.6006 #### [facility] Laboratory [address] [place], [address] Hematocrit (Bld) [Volume fraction] 37.6 % Normal 37-47 [facility] Comment on above: Performed By: #### L 509.4006, BTS, L3890.6102, L100.0100, L3890.6301, L900.0098, L509.8002, L3890.6006 #### [facility] Laboratory [address] [place], [address] Hemoglobin (Bld) [Mass/Vol] 13.1 g/dL Normal 12.0-15.0 [facility] Comment on above: Performed By: #### L 509.4006, BTS, L3890.6102, L100.0100, L3890.6301, L900.0098, L509.8002, L3890.6006 #### [facility] Laboratory [address] [place], [address] IG% 0.200 Normal 0.0-0.9 [facility] Comment on above: Result Comment: IG% - Immature Granulocytes (promyelocytes, myelocytes and metamyelocytes) > 1% indicates that a LEFT SHIFT is Present. Performed By: #### L 509.4006, BTS, L3890.6102, L100.0100, L3890.6301, L900.0098, L509.8002, L3890.6006 #### [facility] Laboratory [address] [place], [address] Lymphocytes/100 WBC (Bld) 23.0 % Normal 19-41 [facility] Comment on above: Performed By: #### L 509.4006, BTS, L3890.6102, L100.0100, L3890.6301, L900.0098, L509.8002, L3890.6006 #### [facility] Laboratory [address] [place], [address] MCH (RBC) [Entitic mass] 28.6 pg Normal 27.0-32.0 [facility] Comment on above: Performed By: #### L 509.4006, BTS, L3890.6102, L100.0100, L3890.6301, L900.0098, L509.8002, L3890.6006 #### [facility] [address] [place], [address] MCHC (RBC) [Mass/Vol] 34.8 g/dL Normal 32-36 [facility] Comment on above: Performed By: #### L 509.4006, BTS, L3890.6102, L100.0100, L3890.6301, L900.0098, L509.8002, L3890.6006 #### [facility] Laboratory [address] [place], [address] MCV (RBC) [Entitic vol] 82.1 fL Normal 81-99 [facility] Comment on above: Performed By: #### L 509.4006, BTS, L3890.6102, L100.0100, L3890.6301, L900.0098, L509.8002, L3890.6006 #### [facility] [address] [place], [address] Monocytes/100 WBC (Bld) 9.0 % Normal 0-10 [facility] Comment on above: Performed By: #### L 509.4006, BTS, L3890.6102, L100.0100, L3890.6301, L900.0098, L509.8002, L3890.6006 #### [facility] [address] [place], [address] Neutrophils/100 WBC (Bld) 66.1 % Normal 47-70 [facility] Comment on above: Performed By: #### L 509.4006, BTS, L3890.6102, L100.0100, L3890.6301, L900.0098, L509.8002, L3890.6006 #### [facility] [address] [place], [address] Nucleated RBC (Bld) [#/Vol] 0 10*3/uL Normal 0-5 [facility] Comment on above: Performed By: #### L 509.4006, BTS, L3890.6102, L100.0100, L3890.6301, L900.0098, L509.8002, L3890.6006 #### [facility] [address] [place], [address] Platelet mean volume (Bld) [Entitic vol] 10.6 fL Normal 6.2-12.0 [facility] Comment on above: Performed By: #### L 509.4006, BTS, L3890.6102, L100.0100, L3890.6301, L900.0098, L509.8002, L3890.6006 #### [facility] [address] [place], [address] Platelets (Bld) [#/Vol] 201 10*3/uL Normal 150-450 [facility] Comment on above: Performed By: #### L 509.4006, BTS, L3890.6102, L100.0100, L3890.6301, L900.0098, L509.8002, L3890.6006 #### [facility] [address] [facility] [place], [address] RBC (Bld) [#/Vol] 4.58 10*6/uL Normal 4.2-5.4 [facility] Comment on above: Performed By: #### L 509.4006, BTS, L3890.6102, L100.0100, L3890.6301, L900.0098, L509.8002, L3890.6006 #### [facility] [address] [place], [address] RDW SD 35.8 fl Normal 35.1-43.9 [facility] Comment on above: Performed By: #### L 509.4006, BTS, L3890.6102, L100.0100, L3890.6301, L900.0098, L509.8002, L3890.6006 #### [facility] Laboratory [address] [place], [address] WBC (Bld) [#/Vol] 8.2 10*3/uL Normal 4.4-11.0 [facility] Comment on above: Performed By: #### L 509.4006, BTS, L3890.6102, L100.0100, L3890.6301, L900.0098, L509.8002, L3890.6006 #### [facility] [address] [place], [address] Eosinophil percentageOrdered By: Alice Bhakta on 12-16-2024 Eosinophils/100 WBC (Bld) 1.3 % 0-5 [facility] Erythrocyte distribution wid th ratioOrdered By: Alice Bhakta on 12-16-2024 Erythrocyte distribution width (RBC) [Ratio] 11.9 % 11.6-14.6 [facility] Erythrocyte distribution wid th standard deviationOrdered By: Alice Bhakta on 12-16-2024 Erythrocyte distribution width (RBC) [Ratio] 35.8 fl 35.1-43.9 [facility] HIVon 12-16-2024 HIV Non-Reactive Normal Nonreactive [facility] Comment on above: Result Comment: Non- Reactive Reactive Repeatedly reactive samples must be confirmed according to CDC recommended confirmatory algorithms. The subresults for either HIVAG or AHIV can be used as an aid in the selection of the confirmation algorithm for reactive samples. Send out specimens with Reactive results to [facility] for confirmation. Order the HIV antibody detection and differentiation: [id number] Performed By: #### L 7000.1800, M100.2200 #### [facility] Laboratory [address] [place], [address] Hematocrit Auto (Bld) [Volum e fraction]Ordered By: Alice Bhakta on 12-16-2024 Hematocrit (Bld) [Volume fraction] 37.6 % 37-47 [facility] Hemoglobin measurementOrdere d By: Alice Bhakta on 12-16-2024 Hemoglobin (Bld) [Mass/Vol] 13.1 g/dL 12.0-15.0 [facility] Hepatitis C Antibodyon 12-16 Hepatitis C Ab Non-Reactive Normal Nonreactive [facility] Comment on above: Result Comment: Reac tive: Presumptive evidence of antibodies to HCV. Follow CDC recommendations for supplemental testing. Non-Reactive: Antibodies to HCV were not detected; does not exclude the possibility of exposure to HCV Reactive Results are presumptive evidence of antibodies to HCV. Follow CDC recommendations for supplemental testing. Order confirmation testing: HCV Quant by PCR testing - HCVPCR #[id number] Non Reactive: < 0.8 Equivocal: >/= 0.8 to < 1.0 Reactive: >/= 1.0 The [facility] requires that a reactive/equivocal HCV antibody result be sent out for confirmation. HCV Quant by PCR testing. Performed By: #### L 7000.1800, M100.0 #### [facility] Laboratory [address] [place], [place], [address] Immature granulocytes/100 WB C Auto (Bld)Ordered By: Alice Bhakta on 12-16-2024 Immature granulocytes/100 WBC (Bld) 0.200 % 0.0-0.9 [facility] Comment on above: IG% - Immature Granu locytes (promyelocytes, myelocytes and metamyelocytes) > 1% indicates that a LEFT SHIFT is Present. L3890.6102on 12-16-2024 HEP B Surf Ag Non-Reactive Normal Nonreactive [facility] Comment on above: Result Comment: Reac tive: Presumptive evidence of HBV. Repeatedly reactive samples must be confirmed using a neutralization test ([employer] HBsAg Confirmatory Test) Non-Reactive: HBsAg not detected; does not exclude the possibility of exposure to HBV Performed By: #### L 7000.1800, M100.2200 #### [facility] Laboratory [address] [place], [place], [address] L509.4006on 12-16-2024 Rubella IgG REAC Normal Nonreactive [facility] Comment on above: Result Comment: Anti body Result: Interpretation Non-Reactive: Non-Immune Reactive: Immune The following results were obtained with the [employer] Rubella IgG assay. Results from assays of other manufacturers cannot be used interchangeably. Performed By: #### L 7000.1800, M100.2200 #### [facility] Laboratory [address] [place], [address] Laboratory - Chemistry and C hemistry - challengeOrdered By: Zunilda Higginbotham on 12-16-2024 Glucose Ql (U) Negative [facility] Laboratory - Microbiology an d Antimicrobial susceptibilityOrdered By: Alice Bhakta on 12-16-2024 HBV surface Ag Ql (S) Non-Reactive Nonreactive [facility] Comment on above: Reactive: Presumptiv e evidence of HBV. Repeatedly reactive samples must be confirmed using a neutralization test ([employer] HBsAg Confirmatory Test)Non-Reactive: HBsAg not detected; does not exclude the possibility of exposure to HBV Laboratory - UrinalysisOrder ed By: Zunilda Higginbotham on 12-16-2024 Protein Ql (U) Negative [facility] MCV (mean corpuscular volume ) determinationOrdered By: Alice Bhakta on 12-16-2024 MCV (RBC) [Entitic vol] 82.1 fL 81-99 [facility] Mean corpuscular hemoglobin (MCH) determinationOrdered By: Alice Bhakta on 12-16-2024 MCH (RBC) [Entitic mass] 28.6 pg 27.0-32.0 [facility] Mean corpuscular hemoglobin concentration (MCHC) determinationOrdered By: Alice Bhakta on 12-16-2024 MCHC (RBC) [Mass/Vol] 34.8 g/dL 32-36 [facility] Mean platelet volume determi nationOrdered By: Alice Bhakta on 12-16-2024 Platelet mean volume (Bld) [Entitic vol] 10.6 fL 6.2-12.0 [facility] Monocyte percentageOrdered B y: Alice Bhakta on 12-16-2024 Monocytes/100 WBC (Bld) 9.0 % 0-10 [facility] NATERAon 12-16-2024 NATURA SEE SCANNED REPORT Normal [facility] Comment on above: Order Comment: Comme nts: NIPT with Gender Performed By: #### L 509.8540, BTS, L3890.6102, L100.0100, L3890.6301, L900.0098, L509.8002, L3890.6006 #### [facility] Laboratory [place], [address] Neutrophil percentageOrdered By: Alice Bhakta on 12-16-2024 Neutrophils/100 WBC (Bld) 66.1 % 47-70 [facility] No Panel InformationOrdered By: Alice Bhakta on 12-16-2024 HIV (1&2) Antibody Non-Reactive Nonreactive [facility] Comment on above: Non-ReactiveReactive Repeatedly reactive samples must be confirmed according to CDC recommended confirmatory algorithms. The subresults for either HIVAG or AHIV can be used as an aid in the selection of the confirmation algorithm for reactive samples.Send out specimens with Reactive results to [facility] for confirmation.Order the HIV antibody detection and differentiation: #[id number] Nucleated red blood cell per centageOrdered By: Aliec Bhakta on 12-16-2024 Nucleated RBC/100 WBC (Bld) [Ratio] 0 % 0-5 [facility] Hydrography Teacher Office Visit Reporton 12-16-2024 Hydrography Teacher Office Visit Report [facility], [address] [place] [address] OFFICE VISIT Date of Service: 12/16/24 MR#: [id number] Acct: [id number] Name: ROMERO GRAJEDA LESLIE Rep #: [id number] : 1990 Provider: JOSE DE JESUS Serna ams Age/Sex: 34/F [place] [facility] [place]: Signed Intake Vital Signs 12/02/24 10:20 12/16/24 13:15 Height 5 ft 6 in 5 ft 6 in Weight: 135 lb 6 oz 135 lb 8 oz BMI 21.8 21.9 BP 137/91 H 139/78 H Intake Visit Reasons: 11wk ob *repeat US per Director Of Acquisitions Required: No Is patient in pain?: No [...] syncope Surgical History S/P dilation and curettage [place] teeth extracted H/O excision of mass ( [...] occupational status: employed 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 Dr. Massey 04/21/24 6 spontaneous Delivery [...] Recorded Da (more content not included)... Normal [facility] Platelet countOrdered By: Anuradha hBakta on 12-16-2024 Platelets (Bld) [#/Vol] 201 10*3/uL 150-450 [facility] RBC Auto (Bld) [#/Vol]Ordere d By: Alice Bhakta on 12-16-2024 RBC (Bld) [#/Vol] 4.58 10*6/uL 4.2-5.4 [facility] Syphilis Antibodieson 2024 Syphilis Abs Non-Reactive Normal Nonreactive [facility] Comment on above: Performed By: #### L 0.1800, .0 #### [facility] Laboratory [address] [place], [address] Type AND Screenon 12-16-2024 Ab SCREEN GEL Negative Normal [facility] Comment on above: Order Comment: PN Performed By: #### L 0.1799, #### [facility] Laboratory [address] [place], [address] White blood cell (WBC) count Ordered By: Alice Bhakta on 12-16-2024 WBC (Bld) [#/Vol] 8.2 10*3/uL 4.4-11.0 [facility] Chlamydia/GC LUIS aptimaon CHLAMY,NUC ACID Negative Normal Negative [facility] Comment on above: Performed By: #### L 0.1799, #### [facility] Laboratory [address] [place], [address] GC BY NUC ACID Negative Normal Negative [facility] Comment on above: Result Comment: Perf ormed at: =G - [facility] [address] [id number] Palliative Care Nurse Practitioner: Marcy Mcgarry MD, Phone: [phone] Performed By: #### L 0.1800, .2199 #### [facility] Laboratory [address] [place], [address] Urine Cultureon 12-03-2024 URC Culture exhibits no growth. Normal [facility] Comment on above: Performed By: #### L 0.1800, .0 #### [facility] Laboratory [address] [place], [address] Chlamydia trachomatis rRNA d etection by probe and target amplification methodOrdered By: Alice Bhakta on 12-02-2024 C. trachomatis rRNA LUIS+probe Ql (Unsp spec) Negative Negative [facility] Neisseria gonorrhoeae nuclei c acid detection by amplified probe techniqueOrdered By: Alice Bhakta on 12-02-2024 N. gonorrhoeae DNA LUIS+probe Ql (Unsp spec) Negative Negative [facility] Comment on above: Performed at: =G - L [address] [id number] Director: Marcy Mcgarry MD, Phone: [phone] Hydrography Teacher Office Visit Reporton 12-02-2024 Hydrography Teacher Office Visit Report [facility] [address], [address] [place] [address] OFFICE VISIT Date of Service: 12/02/24 MR#: [id number] Acct: [id number] Name: ROMERO GRAJEDA LESLIE Rep #: [id number] : 1990 Provider: Dr. 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 Dr. Massey 04/21/24 6 spontaneous Delivery [...] Date -???-???-???-???- (more content not included)... Normal [facility] Urine cultureOrdered By: Claudio Bhakta on 12-02-2024 Bacteria identified Cx Nom (U) Culture exhibits no growth. [facility] CNOVon 08-14-2024 CNOV Office Visit ([facility] ) TARASROMERO ([id number]) 1990 F Date Time Provider Department 08/14/24 7:15 PM DENISE CATERINA [facility] During your visit today, we recorded the following information about you: Temperature Pulse Respiration Blood pressure 97.7 degrees 98/minute 18/minute 161/88 Weight 64.6 kg Caterina Fine APRN.COLLECTION TECHNICIAN 08/14/2024 8:06 PM Signed Subjective Cough Associated [...] described above. A follow-up exam is recommended. Dialysis Patient Care Technician: LES Transcribe Date/Time: Aug 14 2024 7:57P [...] described above. A follow-up exam is recommended. Dialysis [facility] Date/Time: Aug 14 2024 7:57P Dictated [...] Discussed expected course of illness Caterina Fine APRN.COLLECTION TECHNICIAN Allergies As of Date: 08/14/2024 Noted Allergy Reaction AMOXICILLIN 1990 2 - Rash CEFPROZIL 1990 2 - Rash (more content not included)... Normal [facility] XR CHEST 2V FRONTAL/LATon XR CHEST 2V [...] described above. A follow-up exam is recommended. Dialysis Patient Care Technician: LES Transcribe Date/Time: Aug 14 2024 7:57P Dictated by : PHILIP EAGLE MD This examination was interpreted and the report reviewed and electronically signed by: PHILIP EAGLE MD on Aug 14 2024 7:57PM EST [id number] Normal [facility] XR Chest PA and Lateralon IMPRESSION: Right perihilar parenchymal changes as described above. A follow-up exam is recommended. Dialysis Patient Care Technician: LES Transcribe Date/Time: Aug 14 2024 7:57P Dictated by : PHILIP EAGLE MD This examination was interpreted and the report reviewed and electronically signed by: PHILIP EAGLE MD on Aug 14 2024 7:57PM [facility] DIVISION OF RADIOLOGY * * *Final Report* [...] soft tissues: Unremarkable. DIVISION OF RADIOLOGY Provider, [facility] - 08/14/2024 * * *Final Report* [...] described above. A follow-up exam is recommended. Dialysis Patient Care Technician: LES Transcribe Date/Time: Aug 14 2024 7:57P Dictated by : PHILIP EAGLE MD This examination was interpreted and the report reviewed and electronically signed by: PHILIP EAGLE MD on Aug 14 2024 7:57PM EST [facility] Radiology Study observation (narrative) Dee Dee leung [facility] XR Chest PA and LateralOrder ed By: [facility] Provider on 08-14-2024 [facility] Glucose Glucometer (BldC) [M ass/Vol]Ordered By: Dr. Whaley on 08-21-2022 Glucose [Mass/Vol] 79 mg/dL 74-106 [facility] Comment on above: MANAGEMENT OF PATIEN T CARE PER NURSING PROTOCOL Absolute lymphocyte countOrd ered By: Annabella Miner on 08-19-2022 Lymphocytes Auto (Unsp spec) [#/Vol] 2.06 10*3/uL 0.83-4.51 [facility] Basophil percentageOrdered B y: Annabella Miner on 08-19-2022 Basophils/100 WBC (Bld) 0.3 % 0-1 [facility] Eosinophils/100 WBC (Bld) 1.7 % 0-5 [facility] Neutrophils (Bld) [#/Vol] 8.5 10*3/uL 2.0-7.7 [facility] Neutrophils/100 WBC (Bld) 71.2 % 47-70 [facility] WBC (Bld) [#/Vol] 12.0 10*3/uL 4.4-11.0 [facility] Blood erythrocytes count (nu mber/volume)Ordered By: Annabella Miner on 08-19-2022 RBC (Bld) [#/Vol] 4.49 10*6/uL 4.2-5.4 [facility] Blood hemoglobin measurement (mass/volume)Ordered By: Annabella Miner on 08-19-2022 Hemoglobin (Bld) [Mass/Vol] 13.4 g/dL 12.0-15.0 [facility] Blood lymphocytes/100 leukoc ytesOrdered By: Annabella Miner on 08-19-2022 Lymphocytes/100 WBC (Bld) 17.2 % 19-41 [facility] Blood monocytes/100 leukocyt esOrdered By: Annabella Miner on 08-19-2022 Monocytes/100 WBC (Bld) 8.8 % 0-10 [facility] Blood platelet mean volumeOr dered By: Annabella Miner on 08-19-2022 Platelet mean volume (Bld) [Entitic vol] 10.6 fL 6.2-12.0 [facility] Determination of erythrocyte mean corpuscular volume (MCV)Ordered By: Annabella Miner on 08-19-2022 MCV (RBC) [Entitic vol] 86.4 fL 81-99 [facility] Hematocrit Auto (Bld) [Volum e fraction]Ordered By: Annabella Miner on 08-19-2022 Hematocrit (Bld) [Volume fraction] 38.8 % 37-47 [facility] Laboratory - Chemistry and C hemistry - challengeOrdered By: Annabella Miner on 08-19-2022 ALT [Catalytic activity/Vol] 18 U/L 13-56 [facility] Laboratory - Hematology and Cell countsOrdered By: Annabella Miner on 08-19-2022 Erythrocyte distribution width (RBC) [Entitic vol] 39.8 fL 35.1-43.9 [facility] Erythrocyte distribution width (RBC) [Ratio] 12.7 % 11.6-14.6 [facility] Immature granulocytes/100 WBC (Bld) 0.800 % 0.0-0.9 [facility] Comment on above: IG% - Immature Granu locytes (promyelocytes, myelocytes and metamyelocytes) > 1% indicates that a LEFT SHIFT is Present. MCH (RBC) [Entitic mass] 29.8 pg 27.0-32.0 [facility] Nucleated RBC/100 WBC (Bld) [Ratio] 0 % 0-5 [facility] MCHC Auto (RBC) [Mass/Vol]Or dered By: Annabella Miner on 08-19-2022 MCHC (RBC) [Mass/Vol] 34.5 g/dL 32-36 [facility] No Panel InformationOrdered By: Annabella Miner on 08-19-2022 Estimated Creatinine Clearance Calc 133.98 ml/min [facility] Estimated GFR (MDRD) Amer 158 mL/min >60 [facility] [place] Comment on above: GFR Calc Estimated GFR (MDRD) Non-Af Amer 131 mL/min >60 [facility] [place] [facility] Comment on above: Non- GFR Calc Platelets bldOrdered By: Ting Miner on 08-19-2022 Platelets (Bld) [#/Vol] 154 10*3/uL 150-450 [facility] Serum or plasma creatinine m easurement (mass/volume)Ordered By: Annabella Miner on 08-19-2022 Creatinine [Mass/Vol] 0.58 mg/dL 0.55-1.02 [facility] Comment on above: The validity of the calculated GFR & GFRAA in patients over 70 years has not been determined. Clinical correlation is essential. Serum or plasma uric acid me asurement (mass/volume)Ordered By: Annabella Miner on 08-19-2022 Urate [Mass/Vol] 4.9 mg/dL 2.6-6.0 [facility] [place] [facility] Comment on above: The drugs N-Acetylcy steine and Metamizole may falsely depress this assay. Thin prep Papanicolaou smear with manual screeningOrdered By: Annabella Miner on 08-19-2022 Thin prep Papanicolaou smear with manual screening 14 U/L 15-37 [facility] Urine creatinine measurement (mass/volume)Ordered By: Annabella Miner on 08-19-2022 Creatinine (U) [Mass/Vol] 24.30 mg/dL NO RANGE EST. [facility] Urine protein measurement (m ass/volume)Ordered By: Annabella Miner on 08-19-2022 Protein (U) [Mass/Vol] 6.5 mg/dL 0.0-11.8 [facility] Urine protein/creatinine mas s ratioOrdered By: Annabella Miner on 08-19-2022 Protein/Creatinine (U) [Mass ratio] 267 mg/g CRE 0-200 [facility] [place] [facility] Laboratory - Chemistry and C hemistry - challengeon 08-18-2022 Glucose Ql (U) Negative [facility] Laboratory - Urinalysison Protein Ql (U) Negative [facility] Laboratory - Chemistry and C hemistry - challengeon 08-10-2022 Glucose Ql (U) Negative [facility] Laboratory - Urinalysison Protein Ql (U) Negative [facility] Laboratory - Chemistry and C hemistry - challengeon 08-04-2022 Glucose Ql (U) Negative [facility] [place] [facility] Laboratory - Urinalysison Protein Ql (U) Negative [facility] [place] [facility] No Panel InformationOrdered By: Annabella Miner on 07-29-2022 Group B Streptococcus Culture Group B Beta Streptococcus is not isolated. [facility] Laboratory - Chemistry and C hemistry - challengeon 07-26-2022 Glucose Ql (U) Negative [facility] Laboratory - Urinalysison Protein Ql (U) Negative [facility] Laboratory - Chemistry and C hemistry - challengeon 07-21-2022 Glucose Ql (U) Negative [facility] Laboratory - Urinalysison Protein Ql (U) Negative [facility] Laboratory - Chemistry and C hemistry - challengeon 07-04-2022 Glucose Ql (U) Negative [facility] Laboratory - Urinalysison Protein Ql (U) Negative [facility] Laboratory - Chemistry and C hemistry - challengeon 06-23-2022 Glucose Ql (U) Negative [facility] Laboratory - Urinalysison Protein Ql (U) Negative [facility] Laboratory - Chemistry and C hemistry - challengeon 05-26-2022 Glucose Ql (U) Negative [facility] Laboratory - Urinalysison Protein Ql (U) Negative [facility] Quantitative serum or plasma 3 hour gestational glucose tolerance panelOrdered By: Dr. Whaley on 05-18-2022 Glucose tolerance 3 hours gestational panel See comment [facility] Comment on above: FASTING 87 Col: 05/09 [...] Auto (Unsp spec) [#/Vol] 1.63 10*3/uL 0.83-4.51 [facility] [place] [facility] Basophil percentageOrdered B y: Dr. Whaley on 05-15-2022 Basophils/100 WBC (Bld) 0.4 % 0-1 [facility] Eosinophils/100 WBC (Bld) 6.5 % 0-5 [facility] [place] [facility] Neutrophils (Bld) [#/Vol] 5.7 10*3/uL 2.0-7.7 [facility] [place] [facility] Neutrophils/100 WBC (Bld) 66.3 % 47-70 [facility] [place] [facility] WBC (Bld) [#/Vol] 8.5 10*3/uL 4.4-11.0 [facility] Blood erythrocytes count (nu mber/volume)Ordered By: Dr. Whaley on 05-15-2022 RBC (Bld) [#/Vol] 4.27 10*6/uL 4.2-5.4 [facility] Blood hemoglobin measurement (mass/volume)Ordered By: Dr. Whaley on 05-15-2022 Hemoglobin (Bld) [Mass/Vol] 13.1 g/dL 12.0-15.0 [facility] Blood lymphocytes/100 leukoc ytesOrdered By: Dr. Whaley on 05-15-2022 Lymphocytes/100 WBC (Bld) 19.2 % 19-41 [facility] Blood monocytes/100 leukocyt esOrdered By: Dr. Whaley on 05-15-2022 Monocytes/100 WBC (Bld) 7.2 % 0-10 [facility] Blood platelet mean volumeOr dered By: Dr. Whaley on 05-15-2022 Platelet mean volume (Bld) [Entitic vol] 9.7 fL 6.2-12.0 [facility] Determination of erythrocyte mean corpuscular volume (MCV)Ordered By: Dr. Whaley on 05-15-2022 MCV (RBC) [Entitic vol] 87.1 fL 81-99 [facility] Gestational diabetes screen 1-hour screen with 50g oral glucose loadOrdered By: Dr. Whaley on 05-15-2022 Glucose 1 Hr post 50 g glucose PO [Mass/Vol] 141 mg/dL 70-140 [facility] [place] HIV 1 and HIV-2 antibody ass ay with HIV-1 p24 antigen detectionOrdered By: Dr. Whaley on 05-15-2022 HIV 1+2 Ab+HIV1 p24 Ag IA Ql Non-Reactive Nonreactive [facility] [place] [facility] Hematocrit Auto (Bld) [Volum e fraction]Ordered By: Dr. Whaley on 05-15-2022 Hematocrit (Bld) [Volume fraction] 37.2 % 37-47 [facility] [place] [facility] Laboratory - Hematology and Cell countsOrdered By: Dr. Whaley on 05-15-2022 Erythrocyte distribution width (RBC) [Entitic vol] 40.3 fL 35.1-43.9 [facility] [place] [facility] Erythrocyte distribution width (RBC) [Ratio] 12.8 % 11.6-14.6 [facility] [place] [facility] Immature granulocytes/100 WBC (Bld) 0.400 % 0.0-0.9 [facility] [place] [facility] Comment on above: IG% - Immature Granu locytes (promyelocytes, myelocytes and metamyelocytes) > 1% indicates that a LEFT SHIFT is Present. MCH (RBC) [Entitic mass] 30.7 pg 27.0-32.0 [facility] [place] [facility] Nucleated RBC/100 WBC (Bld) [Ratio] 0 % 0-5 [facility] [place] [facility] MCHC Auto (RBC) [Mass/Vol]Or dered By: Dr. Whaley on 05-15-2022 MCHC (RBC) [Mass/Vol] 35.2 g/dL 32-36 [facility] Platelets bldOrdered By: Dr. Whaley on 05-15-2022 Platelets (Bld) [#/Vol] 177 10*3/uL 150-450 [facility] Serum Treponema species anti body detectionOrdered By: Dr. Whaley on 05-15-2022 Treponema sp Ab Ql (S) Non-Reactive [facility] [place] [facility] Laboratory - Chemistry and C hemistry - challengeon 03-28-2022 Glucose Ql (U) Negative [facility] [place] [facility] Work Phone: Laboratory - Urinalysison Protein Ql (U) Negative [facility] [place] [facility] Work Phone: Laboratory - Chemistry and C hemistry - challengeon 02-28-2022 Glucose Ql (U) Negative [facility] [place] [facility] Work Phone: Laboratory - Urinalysison Protein Ql (U) Negative [facility] [place] [facility] Work Phone: Absolute lymphocyte counton 01-26-2022 Lymphocytes Auto (Unsp spec) [#/Vol] 1.58 10*3/uL 0.83-4.51 [facility] Work Phone: Basophil percentageon 2021 Basophils/100 WBC (Bld) 0.3 % 0-1 [facility] Work Phone: Eosinophils/100 WBC (Bld) 0.7 % 0-5 [facility] [place] [facility] Work Phone: Neutrophils (Bld) [#/Vol] 7.2 10*3/uL 2.0-7.7 [facility] [place] [facility] Work Phone: Neutrophils/100 WBC (Bld) 74.3 % 47-70 [facility] Work Phone: WBC (Bld) [#/Vol] 9.8 10*3/uL 4.4-11.0 [facility] Work Phone: [phone] Blood erythrocytes count (nu mber/volume)on 01-26-2022 RBC (Bld) [#/Vol] 4.89 10*6/uL 4.2-5.4 [facility] Work Phone: Blood hemoglobin measurement (mass/volume)on 01-26-2022 Hemoglobin (Bld) [Mass/Vol] 14.4 g/dL 12.0-15.0 [facility] [place] [facility] Work Phone: [phone] Blood lymphocytes/100 leukoc yteson 01-26-2022 Lymphocytes/100 WBC (Bld) 16.2 % 19-41 [facility] Work Phone: Blood monocytes/100 leukocyt eson 01-26-2022 Monocytes/100 WBC (Bld) 8.3 % 0-10 [facility] Work Phone: Blood platelet mean volumeon 01-26-2022 Platelet mean volume (Bld) [Entitic vol] 10.5 fL 6.2-12.0 [facility] [place] [facility] Work Phone: Chlamydia trachomatis rRNA d etection by probe and target amplification methodon 01-26-2022 C. trachomatis rRNA LUIS+probe Ql (Unsp spec) Negative Negative [facility] [place] [facility] Work Phone: Determination of erythrocyte mean corpuscular volume (MCV)on 01-26-2022 MCV (RBC) [Entitic vol] 82.6 fL 81-99 [facility] Work Phone: HIV 1 and HIV-2 antibody ass ay with HIV-1 p24 antigen detectionon 01-26-2022 HIV 1+2 Ab+HIV1 p24 Ag IA Ql Non-Reactive Nonreactive [facility] Work Phone: Hematocrit Auto (Bld) [Volum e fraction]on 01-26-2022 Hematocrit (Bld) [Volume fraction] 40.4 % 37-47 [facility] [place] [facility] Work Phone: Laboratory - Drug toxicology on 01-26-2022 Amphetamines Ql (U) Negative <1000 ng/mL [facility] Work Phone: Benzodiazepines Ql (U) Negative < 200 ng/mL [facility] Work Phone: Cannabinoids Screen Ql (U) Negative < 50 ng/mL [facility] [place] [facility] Work Phone: Cocaine Ql (U) Negative < 300 ng/mL [facility] [place] [facility] Work Phone: Opiates Ql (U) Negative < 300 ng/mL [facility] [place] [facility] Work Phone: Laboratory - Hematology and Cell countson 01-26-2022 Erythrocyte distribution width (RBC) [Entitic vol] 34.5 fL 35.1-43.9 [facility] [place] [facility] Work Phone: Erythrocyte distribution width (RBC) [Ratio] 11.7 % 11.6-14.6 [facility] [place] [facility] Work Phone: Immature granulocytes/100 WBC (Bld) 0.200 % 0.0-0.9 [facility] [place] [facility] Work Phone: Comment on above: IG% - Immature Granu locytes (promyelocytes, myelocytes and metamyelocytes) > 1% indicates that a LEFT SHIFT is Present. MCH (RBC) [Entitic mass] 29.4 pg 27.0-32.0 [facility] [place] [facility] Work Phone: Nucleated RBC/100 WBC (Bld) [Ratio] 0 % 0-5 [facility] [place] [facility] Work Phone: Laboratory - Microbiology an d Antimicrobial susceptibilityon 01-26-2022 N. gonorrhoeae DNA LUIS+probe Ql (Unsp spec) Negative Negative [facility] [place] [facility] Work Phone: Comment on above: Performed at: =G - [address] [id number] Director: Marcy Mcgarry MD, Phone: [phone] MCHC Auto (RBC) [Mass/Vol]on 01-26-2022 MCHC (RBC) [Mass/Vol] 35.6 g/dL 32-36 [facility] Work Phone: No Panel Informationon 01-26 MDMA (Ecstasy) Screen Negative < 500 ng/mL [facility] Work Phone: Urine Barbiturates Screen Negative < 200 ng/mL [facility] [place] [facility] Work Phone: Urine Drug Screen Comment [facility] [place] [facility] Work Phone: Comment on above: CONFIRMATORY TESTING [...] Urine Methadone Screen Negative < 300 ng/mL [facility] Work Phone: Hepatitis B Surface Antigen Non-Reactive Nonreactive [facility] [place] [facility] Work Phone: Hepatitis C Antibody Non-Reactive Nonreactive [facility] Work Phone: Comment on above: Non Reactive: < 0.8 Equivocal: >/= 0.8 to < 1.0 Reactive: >/= 1.0The CDC recommends that a reactive/equivocal HCV antibody result be followed up by the HCV Nucleic Acid Amplificationtest (832423) Miscellaneous Test Comment MAILED SPECIMEN [facility] [place] Work Phone: Rubella IgG Antibody Reactive Nonreactive [facility] Work Phone: Comment on above: Antibody Results Int erpretation of Immune Status Non Reactive Presumed Non-Immune Equivocal Equivocal Reactive Presumed Immune Platelets bldon 01-26-2022 Platelets (Bld) [#/Vol] 210 10*3/uL 150-450 [facility] Work Phone: Serum Treponema species anti body detectionon 01-26-2022 Treponema sp Ab Ql (S) Non-Reactive [facility] [place] [facility] Work Phone: Urine phencyclidine (PCP) de tectionon 01-26-2022 Phencyclidine Ql (U) Negative < 25 ng/mL [facility] Work Phone: Absolute lymphocyte counton 12-24-2021 Lymphocytes Auto (Unsp spec) [#/Vol] 1.47 10*3/uL 0.83-4.51 [facility] Work Phone: Basophil percentageon 2021 Basophils/100 WBC (Bld) 0.7 % 0-1 [facility] Work Phone: Chloride [Moles/Vol] 106 mmol/L 98-107 [facility] Work Phone: Eosinophils/100 WBC (Bld) 1.3 % 0-5 [facility] [place] [facility] Work Phone: [phone] Glucose [Mass/Vol] 112 mg/dL 74-106 [facility] Work Phone: Comment on above: Fasting Glucose resu lt from 100 to 125 mg/dL suggests IMPAIRED HOMEOSTASIS per A.D.A. criteria. Neutrophils (Bld) [#/Vol] 4.5 10*3/uL 2.0-7.7 [facility] [place] [facility] Work Phone: Neutrophils/100 WBC (Bld) 65.7 % 47-70 [facility] [place] [facility] Work Phone: Potassium [Moles/Vol] 3.5 mmol/L 3.5-5.1 [facility] Work Phone: Sodium [Moles/Vol] 138 mmol/L 136-145 [facility] Work Phone: [phone] WBC (Bld) [#/Vol] 6.8 10*3/uL 4.4-11.0 [facility] Work Phone: Blood erythrocytes count (nu mber/volume)on 12-24-2021 RBC (Bld) [#/Vol] 5.65 10*6/uL 4.2-5.4 [facility] Work Phone: Blood hemoglobin measurement (mass/volume)on 12-24-2021 Hemoglobin (Bld) [Mass/Vol] 16.5 g/dL 12.0-15.0 [facility] Work Phone: Blood lymphocytes/100 leukoc yteson 12-24-2021 Lymphocytes/100 WBC (Bld) 21.6 % 19-41 [facility] [place] [facility] Work Phone: Blood monocytes/100 leukocyt eson 12-24-2021 Monocytes/100 WBC (Bld) 10.4 % 0-10 [facility] Work Phone: Blood platelet mean volumeon 12-24-2021 Platelet mean volume (Bld) [Entitic vol] 10.1 fL 6.2-12.0 [facility] Work Phone: Determination of erythrocyte mean corpuscular volume (MCV)on 12-24-2021 MCV (RBC) [Entitic vol] 85.1 fL 81-99 [facility] Work Phone: Hematocrit Auto (Bld) [Volum e fraction]on 12-24-2021 Hematocrit (Bld) [Volume fraction] 48.1 % 37-47 [facility] [place] [facility] Work Phone: Laboratory - Chemistry and C hemistry - challengeon 12-24-2021 CO2 [Moles/Vol] 24.0 mmol/L 21.0-32.0 [facility] [place] [facility] Work Phone: Urea nitrogen/Creatinine [Mass ratio] 14.1 mg/mg 10-20 [facility] Work Phone: Laboratory - Hematology and Cell countson 12-24-2021 Erythrocyte distribution width (RBC) [Entitic vol] 37.8 fL 35.1-43.9 [facility] Work Phone: Erythrocyte distribution width (RBC) [Ratio] 12.1 % 11.6-14.6 [facility] Work Phone: Immature granulocytes/100 WBC (Bld) 0.300 % 0.0-0.9 [facility] Work Phone: Comment on above: IG% - Immature Granu locytes (promyelocytes, myelocytes and metamyelocytes) > 1% indicates that a LEFT SHIFT is Present. MCH (RBC) [Entitic mass] 29.2 pg 27.0-32.0 [facility] Work Phone: Nucleated RBC/100 WBC (Bld) [Ratio] 0 % 0-5 [facility] Work Phone: MCHC Auto (RBC) [Mass/Vol]on 12-24-2021 MCHC (RBC) [Mass/Vol] 34.3 g/dL 32-36 [facility] Work Phone: No Panel Informationon 12-24 D-Dimer Quantitative (PE/DVT) 0.35 FEU/ug/m 0.27-0.49 [facility] [place] [facility] Work Phone: Comment on above: NORMAL D-Dimer level (<0.50) indicates no DVT or PE. Estimated Creatinine Clearance Calc 108.83 ml/min [facility] [place] [facility] Work Phone: Estimated GFR (MDRD) Amer 125 mL/min >60 [facility] [place] [facility] Work Phone: Comment on above: GFR Calc Estimated GFR (MDRD) Non-Af Amer 103 mL/min >60 [facility] [place] [facility] Work Phone: Comment on above: Non- GFR Calc Troponin I High Sensitivity 7 pg/mL 3.0-54.0 [facility] [place] [facility] Work Phone: Comment on above: Please Note: New Danyell t Units and Gender Specific Reference Ranges. For more information see Policy Stat Procedure [place] High Sensitivity Troponin (TNIH) and attachments. Platelets bldon 12-24-2021 Platelets (Bld) [#/Vol] 225 10*3/uL 150-450 [facility] [place] [facility] Work Phone: Serum or plasma calcium dino urement (mass/volume)on 12-24-2021 Calcium [Mass/Vol] 9.6 mg/dL 8.5-10.1 [facility] Work Phone: Serum or plasma creatinine m easurement (mass/volume)on 12-24-2021 Creatinine [Mass/Vol] 0.71 mg/dL 0.55-1.02 [facility] Work Phone: Comment on above: The validity of the calculated GFR & GFRAA in patients over 70 years has not been determined. Clinical correlation is essential. Serum or plasma urea nitroge n measurement (mass/volume)on 12-24-2021 Urea nitrogen [Mass/Vol] 10 mg/dL -18 [facility] Work Phone: Thin prep Papanicolaou smear with manual screeningon 12-24-2021 Thin prep Papanicolaou smear with manual screening 8 5-15 [facility] [place] [facility] Work Phone: Laboratory - Microbiology an d Antimicrobial susceptibilityon 10-27-2021 SARS-CoV-2 (COVID-19) RNA LUIS+probe Ql (Unsp spec) Detected [facility] Work Phone: No Panel Informationon 10-27 Influenza Types A,B Rapid (Clinic) Not detected [facility] [place] [facility] Work Phone: XR LUMBAR SPINE 2-3 VIEWS [...] or dislocations. IMPRESSION: No significant bony abnormalities. [employer] Workstation ID: [id number] Dictated by: STACY GIRARD on SunAug 06, 2018 4:32:30 PM EST Transcribed by: [facility] on SunAug 06, 2018 4:46:36 PM EST Finalized by: STACY GIRARD on SunAug 06, 2018 5:04:03 PM EST [facility] Comment on above: Order Comment: Reaso n for exam?:Lumbar sprain Injury/Trauma or Illness?:Illness/Other How long have you had these symptoms (acute/chronic)?:Acute History of cancer?:. Surgeries, chemotherapy, or radiation?:. Type of Exam?:Initial Additional signs and symptoms?:. XR Lumbar Spine 2-3 Views (S tandard)on 08-06-2018 No significant bony abnormalities. [employer] Workstation ID: [id number] [facility] EXAMINATION: XR LUMB AR SPINE 2-3 VIEWS [...] There are no acute fractures or dislocations. [facility] Jerel Alfonso In Daljit eddy [employer] - [...] or dislocations. IMPRESSION: No significant bony abnormalities. [employer] Workstation ID: [id number] [facility] Culture, urine Bacteria identified Cx Nom (U) Presumptive Lactobacillus sp. [facility] Work Phone: Vital Signs Date Time Vital Sign Value Performing Clinician Faci lity 03-02-2025 09:39-0400 Body height 167.64 cm Yanelis Yost MD Work Phone: [facility] 03-02-2025 09:39-0400 Body mass index (BMI) [Ratio] 23.4 kg/m2 Yanelis Yost MD Work Phone: [facility] 03-02-2025 09:39-0400 Body weight 65.88 kg Yanelis Yost MD Work Phone: [facility] 03-02-2025 09:39-0400 Diastolic blood pressure 84 mm[Hg] Yanelis Yost MD Work Phone: [facility] 03-02-2025 09:39-0400 Systolic blood pressure 136 mm[Hg] Yanelis Yost MD Work Phone: [facility] 02-02-2025 09:21-0400 Body height 167.64 cm Yanelis Yost MD Work Phone: [facility] 02-02-2025 09:21-0400 Body mass index (BMI) [Ratio] 22.4 kg/m2 Yanelis Yost MD Work Phone: [facility] 02-02-2025 09:21-0400 Body weight 63.16 kg Yanelis Yost MD Work Phone: [facility] 02-02-2025 09:21-0400 Diastolic blood pressure 87 mm[Hg] Yanelis Yost MD Work Phone: [facility] 02-02-2025 09:21-0400 Systolic blood pressure 131 mm[Hg] Yanelis Yost MD Work Phone: [facility] 01-05-2025 11:48-0400 Body height 167.64 cm Yanelis Yost MD Work Phone: [facility] 01-05-2025 11:48-0400 Body mass index (BMI) [Ratio] 21.9 kg/m2 Yanelis Yost MD Work Phone: [facility] 01-05-2025 11:48-0400 Body weight 61.8 kg Yanelis Yost MD Work Phone: [facility] 01-05-2025 11:48-0400 Diastolic blood pressure 94 mm[Hg] Yanelis Yost MD Work Phone: [facility] 01-05-2025 11:48-0400 Systolic blood pressure 142 mm[Hg] Yanelis Yost MD Work Phone: [facility] 12-16-2024 13:15-0400 Body height 167.64 cm Yanelis Yost MD Work Phone: [facility] 12-16-2024 13:15-0400 Body mass index (BMI) [Ratio] 21.9 kg/m2 Yanelis Yost MD Work Phone: [facility] 12-16-2024 13:15-0400 Body weight 61.46 kg Yanelis Yost MD Work Phone: [facility] 12-16-2024 13:15-0400 Diastolic blood pressure 78 mm[Hg] Yanelis Yost MD Work Phone: [facility] 12-16-2024 13:15-0400 Systolic blood pressure 139 mm[Hg] Yanelis Yost MD Work Phone: [facility] 12-02-2024 10:20-0400 Body height 167.64 cm Yanelis Yost MD Work Phone: [facility] 12-02-2024 10:20-0400 Body mass index (BMI) [Ratio] 21.8 kg/m2 Yanelis Yost MD Work Phone: [facility] 12-02-2024 10:20-0400 Body weight 61.4 kg Yanelis Yost MD Work Phone: [facility] 12-02-2024 10:20-0400 Diastolic blood pressure 91 mm[Hg] Yanelis Yost MD Work Phone: [facility] 12-02-2024 10:20-0400 Systolic blood pressure 137 mm[Hg] Yanelis Yost MD Work Phone: [facility] 08-14-2024 19:17-0500 Body temperature 97.7 [degF] Caterina Praisler-Wood BIODIESEL PRODUCTION ASSOCIATE.COLLECTION TECHNICIAN Work Phone: [facility] 08-14-2024 19:17-0500 Body weight 64.6 kg Caterina Praisler-Wood BIODIESEL PRODUCTION ASSOCIATE.COLLECTION TECHNICIAN Work Phone: [facility] 08-14-2024 19:17-0500 Diastolic blood pressure 88 mm[Hg] Caterina Praisler-Wood BIODIESEL PRODUCTION ASSOCIATE.COLLECTION TECHNICIAN Work Phone: [facility] 08-14-2024 19:17-0500 Heart rate 98 /min Caterina Praisler-Wood BIODIESEL PRODUCTION ASSOCIATE.COLLECTION TECHNICIAN Work Phone: [facility] 08-14-2024 19:17-0500 Respiratory rate 18 /min Caterina Praisler-Wood BIODIESEL PRODUCTION ASSOCIATE.COLLECTION TECHNICIAN Work Phone: [facility] 08-14-2024 19:17-0500 SaO2% (BldA) [Mass fraction] 97 % Caterina Praisler-Wood BIODIESEL PRODUCTION ASSOCIATE.COLLECTION TECHNICIAN Work Phone: [facility] 08-14-2024 19:17-0500 Systolic blood pressure 161 mm[Hg] Caterina Praisler-Wood BIODIESEL PRODUCTION ASSOCIATE.COLLECTION TECHNICIAN Work Phone: [facility] 10-04-2023 11:29-0400 Body height 167.64 cm DO Tasha Chapa Work Phone: [facility] 10-04-2023 11:29-0400 Body mass index (BMI) [Ratio] 21 kg/m2 DO Tasha Chapa Work Phone: [facility] 10-04-2023 11:29-0400 Body weight 59.13 kg DO Tasha Sammi Work Phone: [facility] 10-04-2023 11:29-0400 Diastolic blood pressure 91 mm[Hg] DO Tasha Sammi Work Phone: [facility] 10-04-2023 11:29-0400 Systolic blood pressure 130 mm[Hg] DO Tasha Sammi Work Phone: [facility] 08-21-2022 08:09-0500 Diastolic blood pressure 79 mm[Hg] DO Tasha Sammi Work Phone: [facility] 08-21-2022 08:09-0500 Systolic blood pressure 137 mm[Hg] DO Tasha Sammi Work Phone: [facility] 08-21-2022 08:05-0500 Heart rate 74 /min DO Tasha Sammi Work Phone: [facility] 08-21-2022 07:50-0500 Body temperature 98.5 [degF] DO Tasha Sammi Work Phone: [facility] 08-21-2022 07:50-0500 Respiratory rate 16 /min DO Tasha Sammi Work Phone: [facility] 08-20-2022 14:32-0500 SaO2% (BldA) [Mass fraction] 96 % DO Tasha Sammi Work Phone: [facility] 08-18-2022 23:11-0500 Body height 167.64 cm DO Tasha Sammi Work Phone: [facility] 08-18-2022 23:11-0500 Body mass index (BMI) [Ratio] 24.5 kg/m2 DO Tasha Sammi Work Phone: [facility] 08-18-2022 23:11-0500 Body weight 69.12 kg DO Tasha Sammi Work Phone: [facility] 08-18-2022 09:04-0500 Body mass index (BMI) [Ratio] 24.4 kg/m2 DO Tasha Sammi Work Phone: [facility] 08-18-2022 09:04-0500 Body weight 68.6 kg DO Tasha Sammi Work Phone: [facility] 08-18-2022 09:04-0500 Diastolic blood pressure 87 mm[Hg] DO Tasha Sammi Work Phone: [facility] 08-18-2022 09:04-0500 Systolic blood pressure 138 mm[Hg] DO Tasha Sammi Work Phone: [facility] 08-10-2022 10:02-0500 Body mass index (BMI) [Ratio] 23.9 kg/m2 DO Tasha Sammi Work Phone: [facility] 08-10-2022 10:02-0500 Body weight 67.35 kg DO Tasha Sammi Work Phone: [facility] 08-10-2022 10:02-0500 Diastolic blood pressure 85 mm[Hg] DO Tasha Sammi Work Phone: [facility] 08-10-2022 10:02-0500 Systolic blood pressure 136 mm[Hg] DO Tasha Sammi Work Phone: [facility] 08-04-2022 08:42-0500 Body height 167.64 cm DO Tasha Sammi Work Phone: [facility] 08-04-2022 08:42-0500 Body mass index (BMI) [Ratio] 23.9 kg/m2 DO Tasha Sammi Work Phone: [facility] 08-04-2022 08:42-0500 Body weight 67.35 kg DO Tasha Sammi Work Phone: [facility] 08-04-2022 08:42-0500 Diastolic blood pressure 87 mm[Hg] DO Tasha Sammi Work Phone: [facility] 08-04-2022 08:42-0500 Systolic blood pressure 129 mm[Hg] DO Tasha Sammi Work Phone: [facility] 07-26-2022 10:05-0500 Body height 167.64 cm DO Tasha Sammi Work Phone: [facility] 07-26-2022 08:24-0500 Body mass index (BMI) [Ratio] 23.7 kg/m2 DO Tasha Sammi Work Phone: [facility] 07-26-2022 08:24-0500 Body weight 66.67 kg DO Tasha Sammi Work Phone: [facility] 07-26-2022 08:24-0500 Diastolic blood pressure 80 mm[Hg] DO Tasha Sammi Work Phone: [facility] 07-26-2022 08:24-0500 Systolic blood pressure 132 mm[Hg] DO Tasha Sammi Work Phone: [facility] 07-21-2022 10:10-0500 Diastolic blood pressure 83 mm[Hg] DO Tasha Sammi Work Phone: [facility] 07-21-2022 10:10-0500 Systolic blood pressure 130 mm[Hg] DO Tasha Sammi Work Phone: [facility] 07-11-2022 16:40-0500 Body mass index (BMI) [Ratio] 24 kg/m2 DO Tasha Sammi Work Phone: [facility] 07-11-2022 16:40-0500 Body weight 67.58 kg DO Tasha Sammi Work Phone: [facility] 07-04-2022 08:10-0500 Body mass index (BMI) [Ratio] 23.6 kg/m2 DO Tasha Sammi Work Phone: [facility] 07-04-2022 08:10-0500 Body weight 66.39 kg DO Tasha Sammi Work Phone: [facility] 07-04-2022 08:10-0500 Diastolic blood pressure 76 mm[Hg] DO Tasha Sammi Work Phone: [facility] 07-04-2022 08:10-0500 Systolic blood pressure 134 mm[Hg] DO Tasha Sammi Work Phone: [facility] 06-23-2022 15:37-0500 Body mass index (BMI) [Ratio] 23.5 kg/m2 DO Tasha Sammi Work Phone: [facility] 06-23-2022 15:37-0500 Body weight 65.99 kg DO Tasha Sammi Work Phone: [facility] 06-23-2022 15:37-0500 Diastolic blood pressure 81 mm[Hg] DO Tasha Sammi Work Phone: [facility] 06-23-2022 15:37-0500 Systolic blood pressure 133 mm[Hg] DO Tasha Sammi Work Phone: [facility] 06-12-2022 10:38-0500 Body mass index (BMI) [Ratio] 22.9 kg/m2 DO Tasha Sammi Work Phone: [facility] 06-12-2022 10:38-0500 Body weight 64.46 kg DO Tasha Sammi Work Phone: [facility] 06-12-2022 10:38-0500 Diastolic blood pressure 84 mm[Hg] DO Tasha Sammi Work Phone: [facility] 06-12-2022 10:38-0500 Systolic blood pressure 156 mm[Hg] DO Tasha Sammi Work Phone: [facility] 05-26-2022 14:06-0500 Body mass index (BMI) [Ratio] 22.6 kg/m2 DO Tasha Sammi Work Phone: [facility] 05-26-2022 14:06-0500 Body weight 63.61 kg DO Tasha Sammi Work Phone: [facility] 05-26-2022 14:06-0500 Diastolic blood pressure 80 mm[Hg] DO Tasha Russellnger Work Phone: [facility] 05-26-2022 14:06-0500 Systolic blood pressure 134 mm[Hg] DO Tasha Russellnger Work Phone: [facility] 04-25-2022 08:26-0400 Body height 167.[address] Neftaly Dunn Work Phone: [facility] Work Phone: 04-25-2022 08:26-0400 Body mass index (BMI) [Ratio] 21.7 kg/m2 Dr. Neftaly Dunn Work Phone: [facility] 04-25-2022 08:26-0400 Body weight 61.[address] Neftaly Dunn Work Phone: [facility] 04-25-2022 08:26-0400 Diastolic blood pressure 80 mm[Hg] Dr. Neftaly Dunn Work Phone: [facility] 04-25-2022 08:26-0400 Systolic blood pressure 132 mm[Hg] Dr. Neftaly Dunn Work Phone: [facility] 03-28-2022 11:47-0400 Body mass index (BMI) [Ratio] 21.2 kg/m2 Dr. Neftaly Dunn Work Phone: [facility] Work Phone: 03-28-2022 11:47-0400 Body weight 59.[address] Neftaly Dunn Work Phone: [facility] Work Phone: 03-28-2022 11:47-0400 Diastolic blood pressure 62 mm[Hg] Dr. Neftaly Dunn Work Phone: [facility] Work Phone: 03-28-2022 11:47-0400 Systolic blood pressure 144 mm[Hg] Dr. Neftaly Dunn Work Phone: [facility] Work Phone: 02-28-2022 11:57-0400 Diastolic blood pressure 80 mm[Hg] Dr. Kj Weeks Work Phone: [facility] Work Phone: 02-28-2022 11:57-0400 Systolic blood pressure 130 mm[Hg] Dr. Kj Weeks Work Phone: [facility] Work Phone: 02-28-2022 11:13-0400 Body height 167.[address] Kj Weeks Work Phone: [facility] Work Phone: 02-28-2022 11:12-0400 Body mass index (BMI) [Ratio] 20.3 kg/m2 Dr. Kj Weeks Work Phone: [facility] Work Phone: 02-28-2022 11:12-0400 Body weight 57.[address] Kj Weeks Work Phone: [facility] Work Phone: 02-14-2022 13:06-0400 Body height 167.[address] Neftaly Dunn Work Phone: [facility] Work Phone: 02-14-2022 13:06-0400 Body mass index (BMI) [Ratio] 20.1 kg/m2 Dr. Neftaly Dunn Work Phone: [facility] Work Phone: 02-14-2022 13:06-0400 Body temperature 98 [degF] Dr. Neftaly Dunn Work Phone: [facility] Work Phone: 02-14-2022 13:06-0400 Body weight 56.[address] Neftaly Dunn Work Phone: [facility] Work Phone: 02-14-2022 13:06-0400 Diastolic blood pressure 84 mm[Hg] Dr. Neftaly Dunn Work Phone: [facility] Work Phone: 02-14-2022 13:06-0400 Heart rate 103 /min Dr. Neftaly Dunn Work Phone: [facility] Work Phone: 02-14-2022 13:06-0400 Respiratory rate 17 /min Dr. Neftaly Dunn Work Phone: [facility] Work Phone: 02-14-2022 13:06-0400 SaO2% (BldA) [Mass fraction] 100 % Dr. Neftaly Dunn Work Phone: [facility] Work Phone: 02-14-2022 13:06-0400 Systolic blood pressure 164 mm[Hg] Dr. Neftaly Dunn Work Phone: [facility] Work Phone: 01-26-2022 10:21-0400 Body height 167.[address] Neftaly Dunn Work Phone: [facility] Work Phone: 01-26-2022 10:21-0400 Body mass index (BMI) [Ratio] 20.5 kg/m2 Dr. Neftaly Dunn Work Phone: [facility] Work Phone: 01-26-2022 10:21-0400 Body weight 57.[address] Neftaly Dunn Work Phone: [facility] Work Phone: 01-26-2022 10:21-0400 Diastolic blood pressure 80 mm[Hg] Dr. Neftaly Dunn Work Phone: [facility] Work Phone: 01-26-2022 10:21-0400 Systolic blood pressure 146 mm[Hg] Dr. Neftaly Dunn Work Phone: [facility] Work Phone: 01-04-2022 15:24-0400 Body height 167.[address] Neftaly Dunn Work Phone: [facility] Work Phone: 01-04-2022 15:24-0400 Body mass index (BMI) [Ratio] 21.2 kg/m2 Dr. Neftaly Dunn Work Phone: [facility] Work Phone: 01-04-2022 15:24-0400 Body weight 59.[address] Neftaly Dunn Work Phone: [facility] Work Phone: 01-04-2022 15:24-0400 Diastolic blood pressure 78 mm[Hg] Dr. Neftaly Dunn Work Phone: [facility] Work Phone: 01-04-2022 15:24-0400 Systolic blood pressure 140 mm[Hg] Dr. Neftaly Dunn Work Phone: [facility] Work Phone: 12-24-2021 12:40-0400 Diastolic blood pressure 76 mm[Hg] Dr. Neftaly Dunn Work Phone: [facility] Work Phone: 12-24-2021 12:40-0400 Heart rate 74 /min Dr. Neftaly Dunn Work Phone: [facility] Work Phone: 12-24-2021 12:40-0400 Respiratory rate 16 /min Dr. Nefatly Dunn Work Phone: [facility] Work Phone: 12-24-2021 12:40-0400 SaO2% (BldA) [Mass fraction] 98 % Dr. Neftaly Dunn Work Phone: [facility] Work Phone: 12-24-2021 12:40-0400 Systolic blood pressure 128 mm[Hg] Dr. Neftaly Dunn Work Phone: [facility] Work Phone: 12-24-2021 09:15-0400 Body height 167.[address] Neftaly Dunn Work Phone: [facility] Work Phone: 12-24-2021 09:15-0400 Body mass index (BMI) [Ratio] 20.9 kg/m2 Dr. Neftaly Dunn Work Phone: [facility] Work Phone: 12-24-2021 09:15-0400 Body temperature 97 [degF] Dr. Neftaly Dunn Work Phone: [facility] Work Phone: 12-24-2021 09:15-0400 Body weight 58.[address] Neftaly Dunn Work Phone: [facility] Work Phone: 10-27-2021 08:20-0400 Body mass index (BMI) [Ratio] 21.3 kg/m2 Dr. Neftaly Dunn Work Phone: [facility] Work Phone: 10-27-2021 08:20-0400 Body temperature 98.6 [degF] Dr. Neftaly Dunn Work Phone: [facility] Work Phone: 10-27-2021 08:20-0400 Body weight 59.[address] Neftaly Dunn Work Phone: [facility] Work Phone: 10-27-2021 08:20-0400 Diastolic blood pressure 64 mm[Hg] Dr. Neftaly Dunn Work Phone: [facility] Work Phone: 10-27-2021 08:20-0400 Heart rate 99 /min Dr. Neftaly Dunn Work Phone: [facility] Work Phone: 10-27-2021 08:20-0400 Respiratory rate 16 /min Dr. Neftaly Dunn Work Phone: [facility] Work Phone: 10-27-2021 08:20-0400 SaO2% (BldA) [Mass fraction] 99 % Dr. Neftaly Dunn Work Phone: [facility] Work Phone: 10-27-2021 08:20-0400 Systolic blood pressure 122 mm[Hg] Dr. Neftaly Dunn Work Phone: [facility] Work Phone: Encounters Encounter Date Encounter Type Care Provider Facility Start: 05-25-2025 ambulatory Chalon Ivis Facility:[facility] Start: 05-11-2025 End: 05-11-2025 ambulatory Chalon Ivis Facility:[facility] Start: 04-29-2025 End: 04-29-2025 ambulatory Chalon Ivis Facility:[facility] Start: 03-30-2025 End: 03-30-2025 ambulatory Chalon Ivis Facility:[facility] Start: 03-30-2025 End: 03-30-2025 ambulatory Chalon Ivis Facility:[facility] Start: 03-02-2025 End: 03-02-2025 Patient encounter procedure Nicole SCHILLING -[facility] Work Phone: Start: 03-02-2025 End: 03-02-2025 ambulatory Yanelis Yost MD Work Phone: -[facility] Start: 02-19-2025 End: 02-19-2025 ambulatory Yanelis Yost MD Work Phone: -[facility]trasound [facility] Start: 02-19-2025 End: 02-19-2025 Patient encounter procedure Zunilda Higginbotham CNM -[facility]trasound [facility] Work Phone: Start: 02-19-2025 End: 02-19-2025 ambulatory Chalon Ivis Facility:[facility] Start: 02-02-2025 End: 02-02-2025 Patient encounter procedure Zunilda Higginbotham CNM -[facility] Work Phone: Start: 02-02-2025 End: 02-02-2025 ambulatory Yanelis Yost MD Work Phone: -[facility] Start: 01-05-2025 End: 01-05-2025 ambulatory Yanelis Yost MD Work Phone: -Laboratory Specimen Start: 01-05-2025 End: 01-05-[address] Yvonne Hayward DO -Laboratory Specimen Work Phone: Start: 01-05-2025 End: 01-05-[address] Yvonne Hayward DO -[facility] Work Phone: Start: 01-05-2025 End: 01-05-2025 ambulatory Yanelis Yost MD Work Phone: -[facility] Start: 01-05-2025 End: 01-05-2025 ambulatory Yanelis Yost Facility:[facility] Start: 12-16-2024 End: 12-16-2024 Patient encounter procedure Zunilda Higginbotham CNM -[facility] Work Phone: Start: 12-16-2024 End: 12-16-2024 ambulatory Yanelis Yost MD Work Phone: [facility] Work Phone: Start: 12-16-2024 End: 12-16-2024 ambulatory Yanelis Yost Facility:[facility] Start: 12-02-2024 End: 12-02-2024 ambulatory Yanelis Yost MD Work Phone: [facility] Work Phone: Start: 12-02-2024 End: 12-02-[address] Alice Bhakta MD -Laboratory Specimen Work Phone: Start: 12-02-2024 End: 12-02-[address] Alice Bhakta MD -[facility] Work Phone: Start: 12-02-2024 End: 12-02-2024 ambulatory Yanelis Yost MD Work Phone: [facility] Work Phone: Start: 12-02-2024 End: 12-02-2024 ambulatory Sulemantye Ivis Facility:[facility] Start: 08-14-2024 End: 08-14-2024 Subsequent hospital visit by physician [facility] Work Phone: Radiology Comment on above: Acute cough [R05.1] Start: 08-14-2024 End: 08-14-2024 ambulatory [facility] Facility:[facility] Start: 08-14-2024 End: 08-14-2024 Patient encounter procedure Caterina Fine APRN.CNP Work Phone: [facility] Comment on above: Acute cough (Primary Dx); Bronchopneumonia Start: 11-27-2023 End: 11-27-2023 [facility] Start: 11-26-2023 End: 11-26-2023 ambulatory ALICE Caro [facility] Start: 10-04-2023 End: 10-04-2023 ambulatory DO Tasha Chapa Work Phone: [facility] Work Phone: Start: 10-04-2023 End: 10-04-2023 Patient encounter procedure DO Tasha Chapa Work Phone: [facility]-Laboratory, Specimen Work Phone: Start: 10-04-2023 End: 10-04-2023 Patient encounter procedure DO Tasha Chapa Work Phone: [facility] Work Phone: Start: 08-21-2022 Non-patient / Non-visit DO Tasha Chapa Work Phone: [facility] Start: 08-20-2022 Non-patient / Non-visit DO Tasha Chapa Work Phone: [facility] Start: 08-19-2022 Non-patient / Non-visit DO Tasha Chapa Work Phone: [facility] Start: 08-18-2022 End: 08-21-2022 Evaluation and management of inpatient DO Tahsa Chapa Work Phone: [facility] Start: 08-18-2022 End: 08-18-2022 Patient encounter procedure DO Tasha Chapa Work Phone: [facility] Start: 08-10-2022 End: 08-10-2022 Patient encounter procedure DO Tasha Chapa Work Phone: [facility] Start: 08-04-2022 End: 08-04-2022 Patient encounter procedure DO Tasha Chapa Work Phone: [facility] Start: 07-26-2022 End: 07-26-2022 ambulatory DO Tasha Chapa Work Phone: [facility] Work Phone: Start: 07-26-2022 End: 07-26-2022 Patient encounter procedure DO Tasha Chapa Work Phone: [facility] Start: 07-26-2022 End: 07-26-2022 Patient encounter procedure DO Tasha Chapa Work Phone: [facility] Start: 07-24-2022 End: 07-24-2022 ambulatory DO Tasha Chapa Work Phone: [facility] Work Phone: Start: 07-24-2022 End: 07-24-2022 Patient encounter procedure DO Tasha Chapa Work Phone: [facility]Outpatient Pav[facility] Ultrasound Start: 07-21-2022 End: 07-21-2022 Patient encounter procedure DO Tasha Chapa Work Phone: [facility] Start: 07-04-2022 End: 07-04-2022 Patient encounter procedure DO Tasha Russellnger Work Phone: [facility] Start: 06-29-2022 End: 06-29-2022 Patient encounter procedure DO Tasha Russellnger Work Phone: [facility]Out[facility] Ultrasound Start: 06-23-2022 End: 06-23-2022 Patient encounter procedure DO Tasha Russellnger Work Phone: [facility] Start: 06-12-2022 End: 06-12-2022 Patient encounter procedure DO Tashaezra Russellnger Work Phone: [facility] Start: 05-26-2022 End: 05-26-2022 Patient encounter procedure DO Tashaezra Russellnger Work Phone: [facility] Start: 05-18-2022 End: 05-18-[address] Neftaly Dunn Work Phone: [facility] Work Phone: Start: 05-18-2022 End: 05-18-[address] [facility] Start: 05-15-2022 End: 05-15-[address] Neftaly Dunn Work Phone: [facility] Work Phone: Start: 05-15-2022 End: 05-15-[address] Neftaly Dunn Work Phone: [facility]-Laboratory Start: 04-25-2022 End: 04-25-[address] Neftaly Dunn Work Phone: [facility] Start: 04-03-2022 End: 04-03-[address] [facility] Dunn [facility] Start: 03-28-2022 End: 03-28-[address] Neftaly Dunn Work Phone: [facility] Start: 03-01-2022 End: 03-01-[address] Neftaly Dunn Work Phone: [facility] Start: 02-28-2022 End: 02-28-[address] Kj Weeks Work Phone: [facility] Start: 02-23-2022 End: 02-23-[address] Kj Weeks Work Phone: [facility] Work Phone: Start: 02-23-2022 End: 02-23-[address] Kj Weeks Work Phone: [facility]-Laboratory, Specimen Start: 02-23-2022 End: 02-23-[address] Kj Weeks Work Phone: [facility] Start: 02-14-2022 End: 02-14-[address] Neftaly Dunn Work Phone: [facility] Start: 02-13-2022 End: 02-13-[address] Neftaly Dunn Work Phone: [facility] Ultrasound Start: 01-26-2022 End: 01-26-[address] Neftaly Dunn Work Phone: [facility]-Laboratory Start: 01-26-2022 End: 01-26-[address] Neftaly Dunn Work Phone: [facility] Start: 01-11-2022 End: 01-11-[address] Neftaly Dunn Work Phone: [facility] Start: 01-04-2022 End: 01-04-[address] Neftaly Dunn Work Phone: [facility] Start: 12-24-2021 End: 12-24-2021 Emergency department patient visit Dr. Neftaly Dunn Work Phone: [facility] Start: 10-27-2021 End: 10-27-[address] Neftaly Dunn Work Phone: [facility] Start: 08-06-2018 End: 08-07-2018 Patient encounter procedure [facility] Start: 08-06-2018 End: 08-06-2018 Subsequent hospital visit by physician Britt Dunbar Work Phone: [facility] Comment on above: Lumbar sprain, initi al encounter Start: 07-23-2018 Encounter for genera l adult medical examination without abnormal findings [facility] Start: 07-23-2018 End: 07-27-2018 Patient encounter procedure [facility] Encounter for genera l adult medical examination without abnormal findings [facility] Procedures Date Procedure Procedure Detail Performing Clinician [...] HCV Quant by PCR testing - HCVPCR #[id number] Non Reactive: < 0.8 Equivocal: >/= 0.8 [...] exam ches t 2 views Caterina Fine APRN.[facility] Work Phone: Start: 07-24-2022 Ultrasound scan [...] DTaP,Tdap,Td Vaccine (2 - Td or Tdap) [facility] Start: 12-16-2024 CBC W Auto Differential panel - Blood [facility] Start: 12-16-2024 Hepatitis C antibody measurement [facility] Start: 12-16-2024 Procedure [facility] Start: 12-16-2024 Rubella IgG measurement [facility] Start: 12-16-2024 Serologic test for syphilis [facility] Start: 12-16-2024 [facility] Start: 03-09-2024 Covid-19 Vaccine () Covid-19 Vaccine () [facility] Start: 10-04-2023 Liquid based cervical cytology screening [facility] Start: 08-21-2022 Patient discharge [facility] Start: 08-19-2022 Administration of medication [facility] Start: 08-19-2022 Application of ice collar, cap or bag [facility] Start: 08-19-2022 Catheterization of vein [facility] Start: 08-19-2022 Introduction of urinary catheter [facility] Start: 08-19-2022 Measuring intake and output [facility] Start: 08-19-2022 Notification of physician [facility] Start: 08-19-2022 Procedure discontinued [facility] Start: 08-19-2022 Provision of activity privileges [facility] Start: 08-19-2022 Vital signs measurements [facility] Start: 08-19-2022 [facility] Start: 08-18-2022 Admission procedure [facility] Start: 08-18-2022 Verification routine [facility] Start: 12-24-2021 [facility] Work Phone: Start: 11-09-2018 Screening for malignant neoplasm of cervix PAP SMEAR [facility] Start: 03-09-2018 Influenza vaccination given SEQUENTIAL INFLUENZA VACCINE (#1) [facility] Start: 2013 Screening for malignant neoplasm of cervix Cervical Cancer Screening [facility] Start: 10-04-2011 Hepatitis B Vaccine (1 of 3 - 19+ 3-dose series) Hepatitis B Vaccine (1 of 3 - 19+ 3-dose series) [facility] Start: 2010 Anxiety Screening Anxiety Screening [facility] Start: 2010 Depression Screening Depression Screening [facility] Start: 2010 Hepatitis C screening Hepatitis C Screening [facility] Start: 2010 HIV screening HIV Screening [facility] Start: 10-04-2007 Vaccination for human papillomavirus HPV VACCINES (1 - Female 3-dose series) [facility] Start: 1992 Tetanus vaccination TETANUS EVERY 10 YR [facility] Anti-D (Rh) immunoglobulin W [facility] Work Phone: Anti-D (Rh) immunoglobulin W [facility] CBC W Auto Different ial panel - Blood [facility] CBC W Auto Different ial panel - Blood [facility] Chlamydia deoxyribon ucleic acid detection [facility] Erythrocyte mean corpuscular volume determination [facility] Hematocrit [Volume Fraction] of Blood [facility] Hemoglobin [Mass/vol ume] in Blood [facility] Hepatitis B virus manley rface Ag [Presence] in Serum [facility] Hepatitis C antibody measurement [facility] Leukocytes [#/volume ] in Blood [facility] Mean corpuscular hem oglobin concentration determination [facility] Mean corpuscular hem oglobin determination [facility] Measurement of gluco se 2 hours after glucose challenge for glucose tolerance test [facility] Neutrophil count [facility] Neutrophil percent differential count [facility] Path report.final Dx Spec [facility] Patient Education [facility] Work Phone: Patient referral [facility] Work Phone: Platelets [#/volume] in Blood [facility] Procedure [facility] Red blood cell count [facility] Red cell distributio n width determination [facility] Rubella IgG measurement 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 Neftaly Dunn Work Phone: [facility] 05-11-2021 Covid (Moderna) Dr. Neftaly welsh Work Phone: [facility] 04-15-2021 influenza, injectabl e, quadrivalent, preservative free DO Tasha Chapa Work Phone: [facility] 04-15-2021 influenza, seasonal, injectable Dr. Neftaly Dunn Work Phone: [facility] 04-15-2021 influenza, seasonal, injectable, preservative free Caterina Fine APRN.COLLECTION TECHNICIAN Work Phone: [facility] 09-10-2020 Covid (Moderna) Dr. Neftaly welsh Work Phone: [facility] 08-13-2020 Sabinoid (Moderna) Dr. Neftaly welsh Work Phone: [facility] 04-16-2017 influenza, injectabl e, quadrivalent, preservative free Britt Dunbar [facility] Payers Date Payer Category Payer Self-pay [id number] 2023 Private Health [facility] [id number] 2023-Present [phone] [address] [place] [phone] PPO [id number] 2023 Unknown [id number] 2018 Worker's Compensation [id number] 2018 Worker's Compensation [employer]ER[employer] C [employer]MP KKSG xxxxxxxxx 2018-Present xxxxxxxxx [id number] 2017 Unknown [id number] 1992 Unknown [id number] 2.840.1.622262.3.579.2. 900 1992 Unknown [id number] 2.840.1.820951.3.579.2. 902 1992 Unknown [id number] 2.840.1.367624.3.579.2. 479 1992 Unknown [id number] 2.840.1.836594.3.579.2. 479 Unknown [id number] Unknown [id number] 2.840.1.920410.3.579.2. 462 Unknown [id number] 2.0.1.943386.3.579.2. 462 Unknown [id number] 2.16840.1.543511.3.579.2. 462 Unknown [id number] 2.16840.1.253621.3.579.2. 462 Unknown [id number] 2.16840.1.073199.3.579.2. 462 Unknown [id number] 2.840.1.252155.3.579.2. 462 Unknown [id number] 2.840.1.627232.3.579.2. 462 Unknown [id number] 2.16840.1.914699.3.579.2. 462 Unknown [id number] 2.16.840.1.017744.3.579.2. 462 Unknown [id number] 2.16840.1.989364.3.579.2. 462 Unknown [id number] 2.16840.1.002026.3.579.2. 462 Unknown [id number] 2.840.1.280627.3.579.2. 462 Unknown [id number] 2.16840.1.175351.3.579.2. 462 Unknown [id number] 2.0.1.772087.3.579.2. 462 Social History Date Type Detail Facility Tobacco smoking stat us WIIS Unknown if ever smoked [facility] Start: 1990 Sex Assigned At Not on file [facility] Start: 12-24-2021 End: 10-04-2023 Tobacco smoking status NHIS Unknown if ever smoked [facility] Start: 1990 Sex Assigned At Female W [facility] Start: 08-14-2024 End: 11-21-2024 Tobacco smoking status WIIS Never smoked tobacco [facility] Start: 08-14-2024 Tobacco use and exposure Smokeless tobacco non-user [facility] Start: 08-14-2024 History of Social function [facility] Start: 08-14-2024 Tobacco use panel [facility] Goals Date Patient Goal Desired Activity /State Mental Status Date Assessment Result Facility 12-24-2021 Cognitive function Voice/Name [facility] Work Phone: Clinical Notes 11-19-2021 to 03-02-2025 Note Date & Type Note Facility 03-02-2025 Progress note [facility] 02-20-2025 Radiology Diagnostic study note [facility] Imaging Services [address] [place], [place] [address] OB Anatomy w/ Transvaginal MR#: [id number] Acct: [id number] Name: ROMERO GRAJEDA Rep #: [id number] : 1990 F 34 From: Hemanth Pan MD PCP: Dr. Yanelis Yost MD Status: REG CL I Study:OB Anatomy w/ Transvaginal Date of Exam : 02/19/25 Exam# [id number] Ordering Dr: Zunilda Higginbotham CNM PROCEDURE: OB [...] of 20 weeks and 4days. Reading Location: [place] [address] CC: JOSE DE JESUS Higginbotham; Dr. Yanelis Yost MD ~ Dialysis Patient Care Technician: Signed [facility] 02-02-2025 Progress note [facility] 12-16-2024 Progress note [facility] 12-02-2024 Evaluation note Diagnosis Onset Date Resolution [...] lesion acute December 02, 2 025 10:13am [facility] Work Phone: 1([phone]) 668-456105-27-2025 Evaluation note* Diagnosis Onset Date Resolution Status [...] Vulvar lesion acute December 16, 2024 1:03pm [facility] Work Phone: 1(113) [phone] Evaluation note* Diagnosis Onset Date Resolution Status [...] Vulvar lesion acute January 05, 2025 11:46am [facility] Work Phone: [phone] Evaluation note* Diagnosis Onset Date Resolution Status [...] Vulvar lesion acute February 02, 2025 9:16am [facility] Work Phone: [phone]) [phone] Evaluation note* Diagnosis Onset Date Resolution Status [...] Supervision of high-risk acute March 02 9:36am [facility] Work Phone: 1(489) [phone] Progress [facility] [address] [place] [address], [address] [place] [address] OFFICE VISIT Date of Service: 12/02/24 MR#: [id number] Acct: [id number] Name: TARASROMERO LESLIE Rep #: [id number] : 1990 Provider: Dr. 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 Date Name GA/Weeks Outcome Route Bth Weight Infant Gen Labor Lgth Anesthesia Del Locatn Provider FOB 08/19/22 [place] 39 live - full term 6lbs 14oz Female epidural [employer] Dr. Massey 04/21/24 6 spontaneous Delivery [...] (Pneumonia August 14- treated/resolved), Drug/latexallergies/reactions (cefzil, amoxicillin-Rash), Safety Technician surgery (D&C), Operations/hospitalizations (See PFSH, nothing new [...] Preeclampsia, Labor Signs, Cervical Ripening/Labor Induction Counseling, [place] [employer] and Family Medical Leave or Disability [...] Cosign Signature: Date (if applicable) CC: ~ [facility]02-06-2025 Instructions* Patient Instructions* Caterina Fine APRN.CNP - [...] described above. A follow-up exam is recommended. Dialysis Patient Care Technician: LES Transcribe Date/Time: Aug 14 2024 7:57P [...] illness Caterina Fine APRN.NONI [facility] History of Present illness Narrative* Mihaela Giles [...] PATIENT PRESENTS WITH AN IMPLANTABLE OR ATTACHED WATER QUALITY CONTROL ENGINEER: No RADIOLOGY DEPARTMENT: General X-ray: Exam(s) Completed: Chest X-Ray PERIPHERAL IV DATA: Not applicable SIGNED BY: Benson Ha August 14, 2024 7:33 PM documented in [facility]25 NoteHNO ID: [id number] Author: MIHAELA GILES Tech Service: ? Author Type: Technologist Type: Progress Notes Filed: 08/14/2024 19:39 Note Text: Radiology Service Progress Note PATIENT NAME: Romreo Grajeda DATE OF SERVICE: August 14, 2024 [...] PATIENT PRESENTS WITH AN IMPLANTABLE OR ATTACHED WATER QUALITY CONTROL ENGINEER: No RADIOLOGY DEPARTMENT: General X-ray: Exam(s) Completed: Chest X-Ray PERIPHERAL IV DATA: Not applicable SIGNED BY: Benson Ha August 14, 2024 7:33 [facility]02-06-2025 NoteHNO ID: [id number] Author: CATERINA FINE APRN.[facility] Service: ? Author Type: Nurse Practitioner [...] described above. A follow-up exam is recommended. Dialysis Patient Care Technician: LES Transcribe Date/Time: Aug 14 2024 7:57P [...] Discussed expected course of illness [facility] History of Present illness Narrative* Caterina Fine APRN.[facility] - 08/14/2024 7:27 PM EST Subjective [...] described above. A follow-up exam is recommended. Dialysis Patient Care Technician: LES Transcribe Date/Time: Aug 14 2024 7:57P [...] illness Caterina Fine APRN.CNP documented [facility]23 Progress note Author Annabella Miner [facility] August 21, 2022 9:13am Note Date/Time August 21, 2022 9:13am [facility] Medical Records Department [address] [place] [address] Progress Note - OBGYN 08/21/22911 MR#: [id number] Acct: [id number] Name: ROMERO GRAJEDA Rep #:[id number] : 1990 31 From: Annabella Miner CNM PCP: Tasha Chapa, DO Status:ADM I N Location: [place] [address] Subjective Subjective Patient doing well without complaints. [...] Cosigner Signature (if applicable): CC: ~ Signed [facility] Work Phone: [phone]) 956-906402-12-2023 Progress note Author Annabella Miner [facility] August 20, 2022 10:52am Note Date/Time August 20, 2022 10:52am [facility] Medical Records Department [address] [place] [address] Progress Note - OBGYN 08/20/22 1046 MR#: [id number] Acct: [id number] Name: ROMERO GRAJEDA Rep #:[id number] : 1990 31 From: Annabella Miner CNM PCP: Tasha Chapa, DO Status:ADM I N Location: [place] [address] Subjective Subjective Patient doing well without complaints. [...] Cosigner Signature (if applicable): CC: ~ Signed [facility] Work Phone: [phone]) [phone] Whaley [facility] August 19, 2022 11:01am Note Date/Time August 19, 2022 11:00am [facility] Medical Records Department [address] [place] [address] Instructions for Home/Discharge Instructions 08/19/22 1058 MR#: [id number] Acct: [id number] Name: ROMERO GRAJEDA LESLIE Rep #:[id number] [...] Up With: Yvonne Hayward DO When: Call [phone] to make an appointment with your doctor [...] PRN (Reason: pain) Qty: 30 0RF Continued ozpbyoko-rta-Ui-FA 1 mg Tablet 1 tab PO DAILY Referrals / Follow Up: Tasha Chapa DO [Primary Care Provider] - Disposition Disposition (needs filled in before D/C Order can be placed): Home, Self Care 08/19/22 1101<Electronically signed by Yvonne Hayward DO>Yvonne Hayward DO CC: Tasha Chapa DO ~ Signed [facility] Work Phone: [phone]) [phone] Procedure [facility] 08-19-2022 History and physical note Author Annabella Miner [facility] August 19, 2022 7:08am Note Date/Time August 19, 2022 7:02am [facility] Medical Records Department [address] [place] [address] H&P Exam - [facility] SPECIALIST 08/19/22 0700 MR#: [id number] Acct: [id number] Name: ROMERO GRAJEDA LESLIE Rep #:[id number] : 1990 31 From: Annabella Miner CNM PCP: Tasha Chapa DO Status:ADM I N Location: [place] [address] HPI - General General Date of Admission: [...] History COVID-19 Palpitations Vasovagal syncope Home Medications tenketvg-mtz-Ru-FA 1 mg tablet 1 tab PO DAILY [...] 0 current occupational status: employed 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 Feeling flutters. [facility] [place]/0304/25/22 -?-?-?-?-?-?-?-?-?-?-?-?- 23w 2d 135 lb 132/80 [...] vaginal bleeding, or dec fm. 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 [...] (3) Supervision of normal first : COMMENT: [id number], JENELLE 08/26/22, girl Spouse Castillo (4) : [...] DE JESUS Miner; Tasha Chapa, ~ Signed [facility] Work Phone: [phone]) [phone] Evaluation note* Diagnosis Onset Date Resolution Status [...] hypertension acute Tubular adenoma of breast ac kletsel dehe wintun COVID-19 acute acute Supervision of normal first acute White coat syndrome with hig h blood pressure but without hypertension acute COVID-19 acute Mass of left axilla acute acute Supervision of normal first acute Tubular adenoma of breast ac kletsel dehe w[place] White coat syndrome with hig h blood pressure but without hypertension acute [facility] Work Phone: [phone]) [phone] Evaluation note* Diagnosis Onset Date Resolution Status [...] hypertension acute Tubular adenoma of breast ac kletsel dehe [place] COVID-19 acute acute Supervision of normal first acute White coat syndrome with hig h blood pressure but without hypertension acute COVID-19 acute Mass of left axilla acute acute Supervision of normal first acute Tubular adenoma of breast ac kletsel dehe w[place]un White coat syndrome with hig h blood pressure but without hypertension acute [facility] Work Phone: [phone]) [phone] Evaluation note* Diagnosis Onset Date Resolution Status COVID-19 acute Breast lump on left side at 3 o'clock position acute Breast lump on left side at 3 o'clock position acute COVID-19 acute acute Supervision of normal first acute Supervision of normal acute Swelling of vulva acute White coat syndrome with hig h blood pressure but without hypertension acute Lipoma acute [facility] Work Phone: [phone]) [phone] Evaluation note* Diagnosis Onset Date Resolution Status COVID-19 acute Breast lump on left side at 3 o'clock position acute Breast lump on left side at 3 o'clock position acute COVID-19 acute acute Supervision of normal first acute Supervision of normal acute Swelling of vulva acute White coat syndrome with hig h blood pressure but without hypertension acute [facility] Work Phone: [phone]) [phone] Chief complaint+Reason for visit Narrative * Chief Complaint COVID-19 COVID-19 PALPITATIONS left side breast lymph node enlarged MASS OF LEFT BREAST Reason for Visit COVID-19 Breast lump on left side at 3 o'clock position [facility] Work Phone: [phone]) 323-899707-10-2022 Evaluation note* Diagnosis Onset Date Resolution Status COVID-19 acute Breast lump on left side at 3 o'clock position acute [facility] Work Phone: [phone]) [phone] Chief complaint+Reason for visit Narrative * Chief [...] with high blood pressure but without hypertension [facility] Work Phone: [phone]) [phone] Chief complaint+Reason for visit Narrative * Chief [...] high blood pressure but without hypertension Lipoma [facility] Work Phone: Chief complaint+Reason for visit Narrative* Chief Complaint COVID-19 COVID-19 PALPITATIONS Reason for Visit COVID-19 [facility] Work Phone: Evaluation note* Diagnosis Onset Date Resolution Status COVID-19 acute [facility] Work Phone: Evaluation note* Diagnosis Onset Date [...] h blood pressure but without hypertension acute [facility] Work Phone: Evaluation note* Diagnosis Onset Date Resolution Status COVID-19 acute Mass of left axilla acute acute Supervision of normal first acute Tubular adenoma of breast ac kletsel dehe wint[place] White coat syndrome with hig h blood pressure but without hypertension acute Abnormal glucose acute COVID-19 acute Mass of left axilla acute acute Supervision of normal first acute Tubular adenoma of breast ac kletsel dehe [place] White coat syndrome with hig h blood pressure but without hypertension acute Abnormal glucose acute COVID-19 acute Mass of left axilla acute acute Supervision of normal first acute Tubular adenoma of breast ac kletsel dehe [place] White coat syndrome with hig h blood pressure but without hypertension acute Abnormal glucose acute COVID-19 acute Mass of left axilla acute acute Supervision of normal first acute Tubular adenoma of breast ac kletsel dehe [place] White coat syndrome with hig h blood pressure but without hypertension acute COVID-19 acute acute Supervision of normal first acute White coat syndrome with hig h blood pressure but without hypertension acute Abnormal glucose acute COVID-19 acute Mass of left axilla acute acute Supervision of normal first acute Tubular adenoma of breast ac kletsel dehe [place] White coat syndrome with hig h blood pressure but without hypertension acute Abnormal glucose acute COVID-19 acute Mass of left axilla acute acute Supervision of normal first acute Tubular adenoma of breast ac kletsel dehe [place] White coat syndrome with hig h blood pressure but without hypertension acute Care and examination of lactating mother noneactive [facility] Work Phone: Evaluation note* Diagnosis Onset Date Resolution Status COVID-19 acute Mass of left axilla acute acute Supervision of normal first acute Tubular adenoma of breast ac kletsel dehe [place] White coat syndrome with hig h blood pressure but without hypertension acute Abnormal glucose acute COVID-19 acute Mass of left axilla acute acute Supervision of normal first acute Tubular adenoma of breast ac kletsel dehe [place] White coat syndrome with hig h blood pressure but without hypertension acute Abnormal glucose acute COVID-19 acute Mass of left axilla acute acute Supervision of normal first acute Tubular adenoma of breast ac kletsel dehe [place] White coat syndrome with hig h blood pressure but without hypertension acute Abnormal glucose acute COVID-19 acute Mass of left axilla acute acute Supervision of normal first acute Tubular adenoma of breast ac kletsel dehe [place] White coat syndrome with hig h blood pressure but without hypertension acute COVID-19 acute acute Supervision of normal first acute White coat syndrome with hig h blood pressure but without hypertension acute Abnormal glucose acute COVID-19 acute Mass of left axilla acute acute Supervision of normal first acute Tubular adenoma of breast ac kletsel dehe [place] White coat syndrome with hig h blood pressure but without hypertension acute Abnormal glucose acute COVID-19 acute Mass of left axilla acute acute Supervision of normal first acute Tubular adenoma of breast ac kletsel dehe [place] White coat syndrome with hig h blood pressure but without hypertension acute Care and examination of lactating mother noneactive Abnormal glucose acute COVID-19 acute Mass of left axilla acute acute Supervision of normal first acute Tubular adenoma of breast ac kletsel dehe [place] White coat syndrome with hig h blood pressure but without hypertension acute [facility] Work Phone: Evaluation note* Diagnosis Onset Date Resolution Status COVID-19 acute Mass of left axilla acute acute Supervision of normal first acute Tubular adenoma of breast ac kletsel dehe [place] White coat syndrome with hig h blood pressure but without hypertension acute Abnormal glucose acute COVID-19 acute Mass of left axilla acute acute Supervision of normal first acute Tubular adenoma of breast ac kletsel dehe [place] White coat syndrome with hig h blood pressure but without hypertension acute Abnormal glucose acute COVID-19 acute Mass of left axilla acute acute Supervision of normal first acute Tubular adenoma of breast ac kletsel dehe [place] White coat syndrome with hig h blood pressure but without hypertension acute Abnormal glucose acute COVID-19 acute Mass of left axilla acute acute Supervision of normal first acute Tubular adenoma of breast ac kletsel dehe [place] White coat syndrome with hig h blood pressure but without hypertension acute COVID-19 acute acute Supervision of normal first acute White coat syndrome with hig h blood pressure but without hypertension acute Abnormal glucose acute COVID-19 acute Mass of left axilla acute acute Supervision of normal first acute Tubular adenoma of breast ac kletsel dehe [place] White coat syndrome with hig h blood pressure but without hypertension acute Abnormal glucose acute COVID-19 acute Mass of left axilla acute acute Supervision of normal first acute Tubular adenoma of breast ac kletsel dehe [place] White coat syndrome with hig h blood pressure but without hypertension acute Care and examination of lactating mother noneactive Abnormal glucose acute COVID-19 acute Mass of left axilla acute acute Supervision of normal first acute Tubular adenoma of breast ac kletsel dehe [place] White coat syndrome with hig h blood pressure but without hypertension acute Abnormal glucose acute COVID-19 acute Mass of left axilla acute acute Supervision of normal first acute Tubular adenoma of breast ac kletsel dehe [place] White coat syndrome with hig h blood pressure but without hypertension acute Abnormal glucose acute COVID-19 acute Mass of left axilla acute acute Supervision of normal first acute Tubular adenoma of breast ac kletsel dehe [place] White coat syndrome with hig h blood pressure but without hypertension acute Abnormal glucose acute COVID-19 acute First degree laceration of p erineum during delivery, acute Mass of left axilla acute acute Spontaneous onset of labor a cute Supervision of normal first acute (spontaneous vaginal delivery) acute Tubular adenoma of breast ac kletsel dehe w[place] White coat syndrome with hig h blood pressure but without hypertension acute [facility] Work Phone: Evaluation note* Diagnosis Onset Date Resolution Status Family history of defect acute HPV test positive acute Encounter for routine gynecological examination noneactive [facility] Work Phone: Evaluation note* Diagnosis Acute cough- Primary Bronchopneumonia Bronchopneumonia, organism unspecified [facility] Diagnosis Acute [facility] Diagnosis Onset Date Resolution Status Admit [...] lesion acute December 02, 2 025 10:13am [facility] Work Phone: Progress note Author Alice Bhakta [facility] Note Date/Time December 02, 2024 10:56 am [facility] [address] [place] [address], [address] [place] [address] OFFICE VISIT Date of Service: 12/02/24 MR#: [id number] Acct: [id number] Name: ROMERO GRAJEDA LESLIE Rep #: [id number] : 1990 Provider: Dr. 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 Date Name GA/Weeks Outcome Route Bth Weight Infant Gen Labor Lgth Anesthesia Del Locatn Provider FOB 08/19/22 [place] 39 live - full term 6lbs 14oz Female epidural [facility] Dr. Massey 04/21/24 6 spontaneous Delivery [...] August 14- treated/resolved), Drug/latex allergies/reactions (cefzil, amoxicillin-Rash), Safety Technician surgery (D&C), Operations/hospitalizations (See PFSH, nothing new [...] Franklinignbraden Signature: Date (if applicable) CC: ~ [facility] Work Phone: Progress note Author Zunilda Higginbotham [facility] Note Date/Time December 16, 2024 1:37 pm [facility] [address], [address] [place] [address] OFFICE VISIT Date of Service: 12/16/24 MR#: [id number] Acct: [id number] Name: ROMERO GRAJEDA Rep #: [id number] : 1990 Provider: JOSE DE JESUS Higginbotham Age/Sex: 34/F Location[place] [facility] Status: Signed Intake Vital Signs 12/02/24 10:20 12/16/24 13:15 Height 5 ft 6 in 5 ft 6 in Weight: 135 lb 6 oz 135 lb 8 oz BMI 21.8 21.9 BP 137/91 H 139/78 H Intake Visit Reasons: 11wk ob *repeat US per Director Of Acquisitions Required: No Is patient in pain?: No [...] syncope Surgical History S/P dilation and curettage [place] teeth extracted H/O excision of mass (~02/2022) [...] 1 current occupational status: employed 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 GA appropriate handout given. 12/16/24 7915 <Electronically signed by Zunilda vee CNM> Date _ Zunilda Higginbotham CNM Cosigner Signature: Date (if applicable) CC: ~ [facility] Work Phone: Progress note Author Zunilda Higginbotham [facility] Note Date/Time February 02, 2025 9:35 am [facility] [address], [place] [address] OFFICE VISIT Date of Service: 02/02/25 MR#: [id number] Acct: [id number] Name: ROMERO GRAJEDA LESLIE Rep #: [id number] : 1990 Provider: JOSE DE JESUS Higginbotham Age/Sex: 34/F [place] [facility] [place]: Signed Intake Vital Signs 12/02/24 10:20 01/05/25 11:48 02/02/25 09:21 Height 5 ft 6 in 5 ft 6 in 5 ft 6 in Weight: 139 lb 4 oz BMI 22.4 BP 131/87 H Intake Visit Reasons: 18WK OB Chief Complaint: 18wk OB Director Of Acquisitions Required: No Is patient in pain?: No [...] syncope Surgical History S/P dilation and curettage [place] teeth extracted H/O excision of mass (~02/2022) [...] 1 current occupational status: employed 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 she passed out in [facility] recently. if requires bp meds will need [...] Cosigner Signature: Date (if applicable) CC: ~ [facility] Work Phone: Progress note Author Nicole Aguilera [facility] Note Date/Time March 02, 2025 9: 54am [facility] [address], [address] [place] [address] OFFICE VISIT Date of Service: 03/02/25 MR#: [id number] Acct: [id number] Name: ROMERO GRAJEDA LESLIE Rep #: [id number] : 1990 Provider: SHAKIR Aguilera Age/Sex: 34/F [place] [facility] [place]: Signed Intake Vital Signs 12/16/24 13:15 02/02/25 09:21 03/02/25 09:39 Height 5 ft 6 in 5 ft 6 in 5 ft 6 in Weight: 145 lb 4 oz BMI 23.4 BP 136/84 H Intake Visit Reasons: 22WK OB Chief Complaint: 22 Week OB Director Of Acquisitions Required: No Is patient in pain?: No [...] syncope Surgical History S/P dilation and curettage [place] teeth extracted H/O excision of mass (~02/2022) [...] occupational status: employed 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 Dr. Massey 04/21/24 6 spontaneous Delivery [...] usually low . she passed out in [facility] recently. if requires bp meds will need [...] Preeclampsia, Labor Signs, Cervical Ripening/Labor Induction Counseling, [place] [employer] and Family Medical Leave or Disability [...] Continue routine care and follow up. 03/02/25 0904 <Electronically signed by Nicole vee RESIDENTIAL CAREGIVER RESIDENTIAL CAREGIVER-C> Date _ Nicole Aguilera NP RESIDENTIAL CAREGIVER-C Cosigner Signature: Date (if applicable) CC: ~ [facility] Work Phone: Reason for referral (narrative)No reason for referral [facility] Work Phone: Summary Purpose Family History No [...] No December 24, 2021 11:08am Power of Shoe Worker No December 24 2 11:08am Advance Directive Response Recorded Date/ Time Living Will No December 24, 2021 10:08am Power of Shoe Worker No December 24 2 10:08am Advance Directive Response Recorded Date/ Time Living Will No July 11 3 4:40pm Power of Shoe Worker No July 11 023 4:40pm Advance Directive Response Recorded Date/ Time Living Will No August 19 023 12:03am Power of Shoe Worker No August 19, 2022 12:03am Advance Directive Response Recorded Date/ Time Living Will No August 19, 2 023 1:03am Power of Shoe Worker No August 19, 2022 1:03am Assessments Diagnosis [...] pressure but without hypertension 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) Reason for Visit Family history of bi [...] section and content) DATE CREATED AUTHOR 08/04/2018 [facility] DATE CREATED AUTHOR AUTHOR'S ORGANIZ ATION 08/22/2018 [facility] DATE CREATED AUTHOR AUTHOR'S ORGANIZ ATION 11/28/2023 [facility] DATE CREATED AUTHOR AUTHOR'S ORGANIZ ATION 08/17/2024 [facility] DATE CREATED AUTHOR AUTHOR'S ORGANIZ ATION 05/21/2025 [facility] Goals (unrecognized section and content) Goals may [...] Care Provider, Referring Provider Active Nicole Aguilera RESIDENTIAL CAREGIVER, RESIDENTIAL CAREGIVER-C Attending Provider Active Team Status: Inactive Member Role Status Dates Tasha Chapa , DO Primary Care Provider, Referring Provider Active Dr. Alice Bhakta MD Attending Provider Active Team Status: Inactive Member Role Status Dates Tasha Chapa , DO Primary Care Provider, Referring Provider Active Olesya Gaspar RESIDENTIAL CAREGIVER, RESIDENTIAL CAREGIVER-C Attending Provider Active Team Status: Inactive Member [...] DO Primary Care Provider Active Dr. Yvonne Haywadr DO Admit Provider, Attendin g Provider Active Team Status: Inactive Member Role Status Dates Tasha Chapa DO Primary Care Provider Active Dr. Alice Bhakta MD Attending Provider, Referr ing Provider Active School Bus Dispatcher Relationship Specialty Start Date End Date Yanelis Yost MD [address] [place] [address] PCP - General Internal Medicine 08/14/24 School Bus Dispatcher Relationship Specialty Start Date End Date Yanelis Yost MD [address] [place], [place] [id number] PCP - General Internal Medicine 08/14/24 Team [...] or prosecute any alcohol or drug abuse patient.[facility] the event this information is protected by the Federal Confidentiality of Alcohol and Drug Abuse Patient Records regulations: The Federal rules restrict any use of the information to criminally investigate or prosecute any alcohol or drug abuse patient.[facility] Reason for Visit (unrecogniz ed section and [...] BE BASED ON THE PRIMARY CLINICAL RECORDS. [facility]. provides no warranty or guarantee of the accuracy or completeness of information in this document.
[2025-07-03] MEDS: Lactated Ringers 1,000 ML 200 ML IV (14:16)
[2025-07-03 14:17] LABS: Syphilis Antibodies Nonreactive (Nonreactive)
[2025-07-03] MEDS: fentaNYL-bupivacaine (epidural) 100 ML BAG EPIDURAL (14:17)
[2025-07-03 14:33] LABS: AST(SGOT) 20 U/L (<=31); Alanine Aminotransfer ALT/SGPT < 5 U/L (<=34); Estimated Creatinine Clearance 118.08 ml/min (50-250)
[2025-07-03 15:40] LABS: Uric Acid 5.6 mg/dL (2.6-6.0)
[2025-07-03] MEDS: Oxytocin 15 Units/NS 250ml 15 UNITS/250 ML IV.SOLN 334 UNITS IV (18:59)
--- NOTE | 2025-07-03 19:16 | OB.VAGDELI_ITS ---
Assessment & Plan (1) induced hypertension: (2) HSV-1 (herpes simplex virus 1) infection: COMMENT: valtrex prn, H/O one outbreak (3) Supervision of high-risk : QUALIFIERS: Trimester: second trimester Qualified Code(s): O09.92 - Supervision of high risk , unspecified, second trimester COMMENT: PRR , SCOTT 07/07/25, boy (surprise name) NAHOMY Holloway, Castillo (4) : QUALIFIERS: Weeks of gestation: 39 weeks Qualified Code(s): Z3A.39 - 39 weeks gestation of COMMENT: GBS neg, NIPT low risk declined carrier and afp. nl anatomy (5) Anesthesia complication: QUALIFIERS: Encounter type: sequela Qualified Code(s): T88.59XS - Other complications of anesthesia, sequela COMMENT: epidural wore off early (6) depression: COMMENT: sertraline-controlled (7) History of miscarriage, currently : (8) Family history of defect: COMMENT: dtr with laryngeal cleft, genetic counseling completed (9) Anxiety: COMMENT: start zoloft-controlled (10) HPV test positive: COMMENT: 2022, repeat pap 2023-negative Maternal Data Information SCOTT Calculator Estimated Delivery Date Method Current WG Current Estimate 07/07/25 LMP (Certain) 39w 3d Other Estimates 07/11/25 Ultrasound #1 38w 6d Final SCOTT: 07/07/25 Gestational age: 39 weeks 3 days Doctor Who Attended Delivery: Sarah Milner Vaginal Delivery Maternal Presentation Maternal Presentation: Other (early labor, PIH ) Type of Induction: Amniotomy Vaginal Delivery Information Procedure Performed: Spontaneous Vaginal Delivery and Shoulder Dystocia Maneuvers Delivery maneuver performed for shoulder dystocia: Shanita maneuver and Posterior arm extraction Head to body interval: 00:10 Surgeon/Practitioner: Yvonne Hayward Date of Procedure: 07/03/25 Pre-Procedure Diagnosis: @ 39 weeks 5 days, induced hypertension and early stage of labor Post-Procedure Diagnosis: @ 39 weeks 5 days, induced hypertension and early stage of labor, mild shoulder dystocia Type of anesthesia: Epidural Estimated Blood Loss: 200cc Time of Delivery: 18:45 Findings Description of procedure: Patient began pushing and delivered the head in the MO presentation. The head was delivered atraumatically. The anterior shoulder was showing some resistance and posterior shoulder was easier to delivery. This was performed by gently guiding the posterior shoulder up and out with the legs in the mcrobert's position. the rest of the followed and the was placed on the maternal abdomen. Delayed cord clamping was employed for approximately 60 seconds. Cord was clamped and cut and gentle traction was applied to the cord and the placenta delivered spontaneously immediately following it was noted to be intact with three-vessel cord. The perineum and vagina were inspected and noted to have a 1st degree perineal laceration. This was repaired with a 3-0 vicryl. EBL was 200cc. Patient and tolerated delivery well. The is currently being cared for by the duralumin metalworker for some respiratory distress following cord clamp. Procedure findings: viable male , scores 7/8 Presentation: Vertex Amniotic Membrane Rupture Type: Artificial Amniotic Fluid Description: Clear Placental Delivery Description: Spontaneous Placenta Disposition: [facility] Specimen collected: No Cord Vessel Description: 3 Vessels Cord Entanglement: None Infant A Gender: Male (1 minute): 7 (5 minute): 8 Delayed Cord Clamping: Yes Form Tamper Operator manager rail: No Post Vaginal Deli Medications given after delivery: IM Pitocin (IM pitocin given due to infiltrated IV ) Episiotomy Description: None Laceration: 1st degree Complication Complications: No Multi Select Codes Urinary/Genital Urinary/Genital CPT Codes: 07865 Vaginal Delivery [facility]
--- NOTE | 2025-07-03 19:22 | DCINST_ITS ---
Discharge Instructions DC O2, CPAP, BIPAP needs Home O2 Discharge instructions: No Dressing / Incision Discharge Activity: Return to Normal Activity, May Not Drive (while taking narcotic pain medications.) and May Shower May resume sexual activity in: 4-6 weeks Dressing / Incision Call your doctor if your incision/area has: Continuous Slow Oozing, Sudden Increased Bleeding, Increased Pain/ Swelling, Increased Redness and Foul Smelling Discharge Follow Up Care Please Follow Up With: Yvonne Hayward DO When: Call [phone] to make an appointment with your doctor in 6 weeks. If you had elevated blood pressure or 4th degree laceration, you will need to be seen in 2 weeks. Test Results: Test results from this visit will be discussed in further detail at your follow- up appointment, if applicable. Discharge Plan Admission Admit Date/Time: 07/03/25 13:00 Primary Reason for Your Visit: vaginal delivery Attending Provider: Yvonne Hayward Primary Care Provider: Yanelis Langston Discharge Orders/Prescriptions Prescriptions: Continued PNV-DHA 27 mg iron-1 mg -300 mg capsule PO valacyclovir [Valtrex] 1 gram tablet 1,000 mg PO QDAY Qty: 30 1RF sertraline [Zoloft] 50 mg tablet 75 mg PO QDAY 90 Days Qty: 135 4RF Discontinued aspirin 81 mg tablet 81 mg PO DAILY Referrals / Follow Up: Yanelis Langston MD [Primary Care Provider, Family Practice] Disposition Disposition (needs filled in before D/C Order can be placed): Home, Self Care
[2025-07-04 03:44] VITALS: BP 139/89; PULSE 72; RESP 16; TEMP 36.4; O2SAT 97
[2025-07-04] MEDS: GLYCERIN/WITCH HAZEL (TUCKS) MED..PAD 1 EACH TOPICAL ×2 (05:40→11:39)
[2025-07-04] MEDS: Senna/Docusate Sodium 1 Tablet PO ×2 (05:40→22:10)
[2025-07-04 09:42] VITALS: BP 136/93; PULSE 76; RESP 16; TEMP 36.3; O2SAT 97
[2025-07-04 09:45] VITALS: BP 127/90
--- NOTE | 2025-07-04 10:58 | PCM.PN.CNM ---
Subjective Subjective S/P last evening. Desires d/c to home tonight. Patient doing well without complaints. Tolerating PO. Ambulating and voiding without difficulty. Feeding well. Denies chest pain, shortness of breath, calf pain/swelling, fevers, chills, lightheadedness. Objective Data Objective Data Vital Signs: Vital Signs Temp Pulse Resp BP Pulse Ox O2 Del Method 97.3 F L 76 16 127/90 H 97 Room Air 07/04/25 09:42 07/04/25 09:42 07/04/25 09:42 07/04/25 09:45 07/04/25 09:42 07/04/25 09:42 Oxygen Delivery Method Room Air Weight: 161 lb 3.2 oz Body Mass Index (BMI) 26.0 Intake & Output: Intake and Output for Last 24 Hours 07/02/25 07/03/25 07/04/25 23:59 23:59 23:59 Intake Total 1992.47 / 47 Output Total 200 / 200 200 / 200 Balance 1793.47 / 1793.47 -200 / -200 Lab / Micro Data Attestation: I reviewed the patient's lab results. 07/03/25 13:15 07/03/25 13:15 Labs: Laboratory Results - last 24 hr 07/03/25 13:15: WBC 8.2, RBC 4.32, Hgb 13.0, Hct 36.9 L, MCV 85.4, MCH 30.1, MCHC 35.2, RDW Std Deviation 41.9, RDW Coeff of Duong 13.6, Plt Count 151, MPV 10.4, Creatinine 0.70, Estim Creat Clear Calc 118.08, Est GFR (MDRD) Non-Af 118, Uric Acid 5.6, AST 20, ALT < 5, U Random Total Protein 20.1 H, Urine Creatinine 125.00, Protein/Creatinin Ratio 161, Syphilis Total Ab Nonreactive, Blood Type A POSITIVE, Antibody Screen NEGATIVE ROS Constitutional Constitutional: Reports systems reviewed and no addt'l complaints, except as documented Cardiovascular Cardiovascular: Reports systems reviewed and no addt'l complaints, except as documented Respiratory/Chest Respiratory/Chest: Reports systems reviewed and no addt'l complaints, except as documented Gastrointestinal Gastrointestinal: Reports systems reviewed and no addt'l complaints, except as documented Genitourinary Genitourinary: Reports systems reviewed and no addt'l complaints, except as documented Physical Exam Const alert, oriented x3 and no apparent distress General Appearance: cooperative, comfortable and well kempt HEENT normocephalic Resp normal respiratory effort Resp Narrative: Respirations eased & unlabored. No s/s of respiratory distress noted. Uterus Palpation: uterus fundus firm (Midline u/1, small amount of dark red lochia, no odor. ) and other OB Laceration w/minimal swelling, no bruising, is well approximated, no s/s of infection. Skin no rashes or lesions noted Neuro oriented x3 Psych mental status grossly normal, thought process normal, cooperative and affect normal Psych Narrative: Pt slightly anxious - per nursing/has h/o mild anxiety. Charges/Coding Multi Select Codes Urinary/Genital Urinary/Genital CPT Codes: No Charge Assessment & Plan (1) Vaginal delivery: COMMENT: baby boy Bubba- TRACEY 07/03/25 (2) induced hypertension: COMMENT: BP this AM 127/90. Denies all s/s of Pre-Eclampsia, no edema noted. Pt reports h/o elevated BP's in healthcare setting & being anxious. Will have staff retake prior to d/c home. PLAN: Pt to monitor BP at home daily. Call if >140/90 or s/s of Pre-E occur. (3) HSV-1 (herpes simplex virus 1) infection: COMMENT: valtrex prn, H/O one outbreak (4) depression: COMMENT: sertraline-controlled PLAN: Continue Zoloft as prescribed. Aware of PP Depression warning signs, how/when to seek help. Has help at home. (5) Anxiety: COMMENT: start zoloft-controlled PLAN: Continue Zoloft as prescribed. Aware of PP Depression warning signs, how/when to seek help. Has help at home. PLAN: Plan s/p PPD # 1 1. routine post delivery care 2. breast feeding- support given 3. rh positive 4. rubella immune 5. Desires d/c to home after 24 hours.
[2025-07-04] MEDS: SELF ADMINISTRATION OF MEDS 1 EACH NOTE (11:39)
[2025-07-04 11:52] VITALS: BP 120/81; PULSE 70; RESP 16; TEMP 36.2; O2SAT 98
[2025-07-04 16:40] VITALS: BP 139/97; PULSE 71; RESP 18; TEMP 36.8; O2SAT 98
--- NOTE | 2025-07-04 16:42 | CM.UR ---
Social Work Assessment Labor and Delivery Unit Date/Time of referral: 07/03/25 20:30 Referred By: Dr. Hayward Date/Time of intervention: 07/04/25 10am Reason for Referral: hx PPD anxiety and depression History obtained from: MARJORIE and FOB Household Composition:MARJORIE lives at home w/FOB, daughter Jewel who is almost 3, and now baby Papa Parent/Guardian Status: MOB and FOB are guardians of this baby Medical History: MOB: induced hypertension, vasovagal sycope, HSV, anxiety. Baby: Born 07/03/25, 18:54, 9 lbs 1 oz. 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 FOB has masters degree, works in [employer]. Financial Status: No concerns Infant Supplies: They have all needed supplies including diapers, wipes, clothing, crib, car seat, access to bottles and formula if needed. MOB is . Childcare/Caregivers: MOB, CHANTELL, FOB's parents. Jewel attends day care. MOB also reports supportive friends. Transportation: They have two vehicles Programs/Agencies involved: None Children's Services/Legal Issues: None Behavioral Health Issues: MH history: MOB explains she has always had anxiety. This increased after Jewel's , but looking back she recognizes she was struggling during her too with anxiety. She states she was nauseous through some of her and even which she recognizes now was partly due to anxiety. She explains her daughter's also did not go to plan and it was overall not a good experience. She spoke to her doctor once she started recognizing she was struggling w/anxiety, and the physician prescribed Zoloft. She stats this helped tremendously. She tried counseling virtually for a little while, and this helped somewhat but the Zoloft helped more. She states she actually asked the doctor to increase the Zoloft during her which really helped. Pt reports her anxiety to be under control now and she is managing well. She also states the process yesterday was so much better than the first time. Her Castillo reports ADHD, he takes medication and this helps him to manage the ADHD. Substance use history: None for MOB or FOB Family/Social Stressors: They report none Support Systems: Castillo's parents, friends, MARJORIE's mother also. MARJORIE's mother just moved to [place], she is going to book a flight in the next couple of days to come see the baby and help. MARJORIE states her mom is a retired labor and delivery nurse and is very supportive. Information on depression/shaken baby/safe sleeping/Help Me Grow/Counseling resources/County Resources: SW gave MOB and FOB information on all of the listed information, and reviewed w/MOB and FOB, in particular symptoms of depression and anxiety. SW encourage MOB if she finds herself struggling again w/anxiety and/or depression to reach out to her physician and consider counseling. Pt plans to do this if needed. Assessment: MOB and FOB appropriate, answered all questions completely and appropriately. SW did not witness parent interacting w/the baby, RN did not identify any concerns. MOB very aware of signs and symptoms of PPD and anxiety and will ask for help if needed. Plan: Plan is for baby to return home w/parents when medically ready. SW remains available should any additional needs arise. NANCY Torres
[2025-07-04 19:54] VITALS: BP 125/95; PULSE 83; RESP 16; TEMP 36.7; O2SAT 97
[2025-07-05 02:03] VITALS: BP 141/92; PULSE 56; RESP 16; TEMP 36.3; O2SAT 97
[2025-07-05 02:09] VITALS: BP 138/92
[2025-07-05 08:56] VITALS: BP 127/76; PULSE 89; RESP 16; TEMP 36.5; O2SAT 98
--- NOTE | 2025-07-05 11:04 | PCM.PN.CNM ---
Subjective Subjective S/P on 07/03/25. Pt ended up staying through the night due to feeding difficulties and baby admitted to special care nursery. Desires d/c to home this AM. Patient doing well without complaints. Tolerating PO. Ambulating and voiding without difficulty. Baby in Special Care Nursery - pumping breastmilk. Denies chest pain, shortness of breath, calf pain/swelling, fevers, chills, lightheadedness. Objective Data Objective Data Vital Signs: Vital Signs Temp Pulse Resp BP Pulse Ox O2 Del Method 97.7 F L 89 16 127/76 H 98 Room Air 07/05/25 08:56 07/05/25 08:56 07/05/25 08:56 07/05/25 08:56 07/05/25 08:56 07/05/25 08:56 Oxygen Delivery Method Room Air Weight: 161 lb 3.2 oz Body Mass Index (BMI) 26.0 Intake & Output: Intake and Output for Last 24 Hours 07/03/25 07/04/25 07/05/25 23:59 23:59 23:59 Intake Total 1992.47 / Output Total 200 / 200 200 / 200 Balance 1793.47 / 1793.47 -200 / -200 Lab / Micro Data 07/03/25 13:15 07/03/25 13:15 ROS Constitutional Constitutional: Reports systems reviewed and no addt'l complaints, except as documented Cardiovascular Cardiovascular: Reports systems reviewed and no addt'l complaints, except as documented Respiratory/Chest Respiratory/Chest: Reports systems reviewed and no addt'l complaints, except as documented Gastrointestinal Gastrointestinal: Reports systems reviewed and no addt'l complaints, except as documented Genitourinary Genitourinary: Reports systems reviewed and no addt'l complaints, except as documented Psychiatric Psychiatric: Reports systems reviewed and no addt'l complaints, except as documented Physical Exam Const alert, oriented x3 and no apparent distress General Appearance: cooperative, comfortable and well kempt HEENT normocephalic Resp normal respiratory effort and normal air movement Resp Narrative: Respirations eased & unlabored. No s/s of respiratory distress noted. GI normal to inspection, nondistended, normoactive bowel sounds GI Narrative: Reports having a large, soft bowel movement this am easily/no concerns. Uterus Palpation: uterus fundus firm (Midline, u/u to u/1, small dark red lochia, no odor - per nursing assessment.) and other OB Laceration well approximated, no bruising, minimal swelling. per nursing assessment. Psych mental status grossly normal, thought process normal, cooperative and affect normal Charges/Coding Multi Select Codes Urinary/Genital Urinary/Genital CPT Codes: No Charge Assessment & Plan (1) Vaginal delivery: COMMENT: baby boy Beau- JV 07/03/25 (2) induced hypertension: COMMENT: BP this AM 127/76. Denies all s/s of Pre-Eclampsia, no edema noted. Pt reports h/o elevated BP's in healthcare setting & being anxious. Will have staff retake prior to d/c home. (3) Anxiety: COMMENT: start zoloft-controlled PLAN: Continue w/current dose of Zoloft, call w/concerns of increased anxiety/depression prn. Pt states she is feeling well.
[2025-07-05] MEDS: Senna/Docusate Sodium 1 Tablet PO (11:25)
--- NOTE | 2025-07-11 15:49 | DS.PCM_ITS ---
Providers Date of Admission: 07/03/25 Primary Care Physician: Yanelis Langston MD Reason For Visit: VAG Diagnosis Discharge Diagnosis (1) Vaginal delivery: Status: Acute Code(s): O80 - Encounter for full-term uncomplicated delivery (2) induced hypertension: Status: Acute Code(s): O13.9 - Gestational [-induced] hypertension without significant proteinuria, unspecified trimester (3) Anxiety: Status: Acute Code(s): F41.9 - Anxiety disorder, unspecified Plan Patient presents IAL, plan expectant management for , pitocin/AROM PRN if needed. Pain management: plans epidural. GBS negative. Management of any complications: [none] I have reviewed the [facility] and made any clinically relevant updates. Medications at Discharge Home Medications multivitamin no.47-iron fum 27 mg-folate no.1 1 mg-dha 300 mg capsule (PNV-DHA) cap PO 04/17/24 sertraline 50 mg tablet (Zoloft) 75 mg (1.5 x 50 mg) PO QDAY depression 90 days #135 tabs 12/03/24 valacyclovir 1 gram tablet (Valtrex) 1,000 mg PO QDAY HSV #30 tabs 05/25/25 Hospital Course Operations None Procedures - (vaginal delivery ) Summary of Care Provided Hospital Course: The patient was admitted on 07/03/25 for active labor management. She proceed with a vaginal delivery on the same day. On post day #1 she was recovering well and receiving assistance from and nursing support. Vital signs were stable and she was ambulating and tolerating a regular diet. Lochia was normal. On post day #2 she was sent home in stable condition. Her overall hospital course was unremarkable. Weight / BMI Weight Weight: 161 lb 3.2 oz Body Mass Index (BMI) 26.0 PRE- weight 135 lb PRE- Body Mass Index 21.7 (BMI) ABG / Lab / Microbiology Data 07/03/25 13:15 07/03/25 13:15 D/C Instructions Discharge Activity: Return to Normal Activity, May Not Drive (while taking narcotic pain medications.) and May Shower May resume sexual activity in: 4-6 weeks Call your doctor if your incision/area has: Continuous Slow Oozing, Sudden Increased Bleeding, Increased Pain/ Swelling, Increased Redness and Foul Smelling Discharge DC O2, CPAP, BIPAP Needs Home O2 Discharge instructions: No Please Follow Up With: Yvonne Hayward, When: Call [phone] to make an appointment with your doctor in 6 weeks. If you had elevated blood pressure or 4th degree laceration, you will need to be seen in 2 weeks. Meaningful Use Info Meaningful Use Meaningful Use Diagnoses (Choose all that apply): None applicable Discharge Plan Admission Admit Date/Time: 07/03/25 13:00 Primary Reason for Your Visit: vaginal delivery Attending Provider: Yvonne Hayward Primary Care Provider: Yanelis Langston Instructions Additional Instructions / Restrictions: Rest, relax, & enjoy baby! Discharge Orders/Prescriptions Prescriptions: Continued PNV-DHA 27 mg iron-1 mg -300 mg capsule PO valacyclovir [Valtrex] 1 gram tablet 1,000 mg PO QDAY Qty: 30 1RF sertraline [Zoloft] 50 mg tablet 75 mg PO QDAY 90 Days Qty: 135 4RF Discontinued aspirin 81 mg tablet 81 mg PO DAILY Referrals / Follow Up: Yanelis Langston MD [Primary Care Provider, Family Practice] Disposition Disposition (needs filled in before D/C Order can be placed): Home, Self Care
== END 2025-07-05 13:35 | disposition home or self-care (01) | DRG 807 ==
LOC: WPOUT 13:51 → WP 13:51
PROVIDERS: Admitting Provider Obstetrics & Gynecology; PCP Family Medicine; Referring Provider Obstetrics & Gynecology; Visit Provider Obstetrics & Gynecology
DX: O13.4 Gestational [pregnancy-induced] hypertension without significant proteinuria, complicating childbirth (principal); Z37.0 Single live birth; O99.344 Other mental disorders complicating childbirth; F41.8 Other specified anxiety disorders; O66.0 Obstructed labor due to shoulder dystocia; O70.0 First degree perineal laceration during delivery; Z79.899 Other long term (current) drug therapy; Z3A.39 39 weeks gestation of pregnancy; Z87.59 Personal history of other complications of pregnancy, childbirth and the puerperium; Z86.16 Personal history of COVID-19
CPT/HCPCS: 59025; 59050; 82565; 82570; 84156; 84450; 84460; 84550; 85027; 86780; 86850; 86900; 86901; 99221; G0378